=== PATIENT | male | born 1935 | race Caucasian/White ===

== ENCOUNTER 2022-03-20 10:04 | Outpatient (CLI) | payer MEDICARE, OTHER, SELFPAY | END 2022-03-20 10:05 | disposition home or self-care (01) | LOC: AMB 04-14 19:58 | PROVIDERS: PCP Family Medicine; Visit Provider Family Medicine | DX: R53.1 Weakness (principal) | CPT/HCPCS: A0998 ==

== ENCOUNTER 2022-04-02 13:04 | Outpatient (CLI) | payer MEDICARE, OTHER, SELFPAY | END 2022-04-02 13:05 | disposition home or self-care (01) | LOC: AMB 04-11 11:48 | PROVIDERS: PCP Family Medicine; Visit Provider Family Medicine | DX: M25.561 Pain in right knee (principal) | CPT/HCPCS: A0425; A0427 ==

== ENCOUNTER 2022-04-02 13:32 | Emergency (ER) | payer MEDICARE, OTHER, SELFPAY ==
[2022-04-02 13:44] VITALS: BP 120/62; PULSE 66; RESP 14; TEMP 37; O2SAT 96; BMI 28.5
--- NOTE | 2022-04-02 14:01 | CRLHL7_ITS ---
For Patients: As a result of the Cures Act, medical imaging exams and procedure reports are released immediately into your electronic medical record. You may view this report before your referring provider. If you have questions, please contact your health care provider. INDICATION: Right knee pain. COMPARISON: None. TECHNIQUE: Right knee 3 views. IMPRESSION: Hardware components of total knee arthroplasty in anatomic alignment without evidence of hardware complication. Vascular calcifications. No acute fracture. Dictated by Vernon Barclay MD @ 04/02/2022 3:04:14 PM (Electronically Signed)
--- NOTE | 2022-04-02 14:08 | ED.GENADULT ---
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 He complained of pain in his right knee area, he has had a complex repair of his right hip and femur in the past. 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 He has no swelling in that area I am able to flex extend his knee fairly fully, flex extend his hip fairly fully without difficulty he denies any other injuries he fell back and his in did not hurt his head neck back or pelvis. He and his her urine live in their own home denies chest pain, COVID symptoms, fever Related Data Allergies Allergy/AdvReac Type Severity Reaction Status Date / Time No Known Drug Allergies Allergy Verified 04/02/22 13:43 Review of Systems Status of ROS: Reports: 6 or more systems reviewed and unremarkable except as noted in History and below Exam Narrative: Exam Narrative: Objective: Vital signs unremarkable Patient is alert Pelvis is stable Able to flex extend internally externally rotate his right hip, I am able to flex extend his knee with extreme of flexion he has some discomfort distal CMS appears intact in the right lower extremity. No bruising or swelling about the right knee either proximally or distally around the knee. Distal CMS intact the right lower extremity Const: Vital Signs, click to edit/add: Vital Signs - 24 hr 04/02/22 13:44 Temperature 98.6 F Pulse Rate [Pulse Oximeter] 66 Respiratory Rate 14 Blood Pressure [Ri ght Upper Arm] 120/62 Pulse Oximetry 96 Oxygen Delivery Me thod Room Air Course Vital Signs Vital signs: Initial Vital Signs Temperature 98.6 F 04/02/22 13:44 Temperature Source Temporal Artery Scan 04/02/22 13:44 Pulse Rate 66 04/02/22 13:44 Respiratory Rate 14 04/02/22 13:44 Blood Pressure 120/62 04/02/22 13:44 Blood Pressure Mean 81 04/02/22 13:44 Pulse Oximetry 96 04/02/22 13:44 Oxygen Delivery Method 04/02/22 13:44 Vital Signs Temperature 98.6 F 04/02/22 13:44 Pulse Rate 66 04/02/22 13:44 Respiratory Rate 14 04/02/22 13:44 Blood Pressure 120/62 04/02/22 13:44 Pulse Oximetry 96 04/02/22 13:44 Oxygen Delivery Method 04/02/22 13:44 Temperature 98.6 F 04/02/22 13:44 Pulse Rate 66 04/02/22 13:44 Respiratory Rate 14 04/02/22 13:44 Blood Pressure 120/62 04/02/22 13:44 Pulse Oximetry 96 04/02/22 13:44 Oxygen Delivery Method 04/02/22 13:44 Medical Decision Making MDM Narrative Medical decision making narrative: Patient with obvious stability has had a issue with imbalance and came down on his they sat down together, so I do not think he got significantly injured, but he complained of right knee pain, fairly localized. No swelling or injury noted to the knee externally. Will check an x-ray of the knee and disposition pending findings. Addendum: The patient's x-ray by my read looks unremarkable, no joint loosening, they components of his knee replacement look intact. I think could be reasonable since Roscoe can stay in his wheelchair for most of the time that he simply do that for the next couple of days can try some Tylenol for discomfort ice the knee area and Cl things progress in next couple of days await Radiology overreading of his film. He can update his regular doctor the next couple of days as well. Discharge Plan Discharge Clinical Impression: Acute pain of right knee Patient Disposition: Home w/ Parent or Adult Condition: Stable Instructions: Knee Pain (ED) Additional Instructions: Confined to wheelchair primarily, no weight-bearing for a couple of days, update primary care at that time, ice to the knee as needed, Tylenol as needed. Activity Level: Light activity Discharge Diet: Regular Follow Up/Referrals: Chandrika Sutton MD [Primary Care Provider] - Stand Alone Forms: [employer] Info Instructions
--- NOTE | 2022-04-02 15:47 | ED.NURSE ---
PT here to assist patient to standing. PT reports patient stood well with no buckling or weakness, pain minimal. Patient and feel comfortable with plan of discharge.
== END 2022-04-02 15:53 | disposition home or self-care (01) ==
PROVIDERS: Emergency Provider Family Medicine; PCP Family Medicine
DX: M25.561 Pain in right knee (principal)
CPT/HCPCS: 73562; 97162; 97530; 99283; 99284

== ENCOUNTER 2022-06-28 12:22 | Emergency (ER) | payer MEDICARE, OTHER, SELFPAY ==
[2022-06-28] VITALS (11 sets, daily range): BP systolic 111–157; BP diastolic 70–79; PULSE 60–85; RESP 18; TEMP 36.6; O2SAT 81–96
[2022-06-28 15:11] LABS: Appearance Urine Clear (Clear); Bilirubin Urine Negative (Negative); Blood Urine Negative (Negative); Color Urine Yellow (Yellow); Glucose Urine Negative (Negative); Ketones Urine Negative (Negative); Leukocyte Esterase Urine Trace (Negative); Nitrite Urine Negative (Negative); Protein Urine Negative (Negative); Specific Gravity Urine 1.015 (1.000-1.030); Urobilinogen Urine 0.2 (0.2-1.0); pH Urine 5.5 (5.0-8.5)
[2022-06-28 15:23] LABS: RBC Urine 0-2 (0-2); WBC Urine 0-2 (0-5)
--- NOTE | 2022-06-28 17:28 | ED_ITS ---
HPI - Male Genitourinary General Chief complaint: Urogenital Problems, Male Stated complaint: Blood in urine Time Seen by Provider: 06/28/22 17:14 History of Present Illness HPI Narrative: 86-year-old man presenting to the emergency department with spouse with concern of hematuria. Is on about day 3 of antibiotics for urinary tract infection. Possible it might be Augmentin. There is another medication as well they are having trouble remembering. He has not had any fever. Has no abdominal pain. Does wear attends. Spouse noted while helping him toilet today that he had blood staining in his attends. He is not describing dysuria. Related Data Home Medications Medication Instructions Recorded Confirmed amlodipine 10 mg tablet mg 06/28/22 amoxicillin 875 mg-potassium tab 06/28/22 clavulanate 125 mg tablet donepezil 10 mg tablet mg 06/28/22 glycopyrrolate 1 mg tablet mg 06/28/22 metoprolol tartrate 25 mg tablet mg 06/28/22 montelukast 10 mg tablet mg 06/28/22 sertraline 50 mg tablet mg 06/28/22 tamsulosin 0.4 mg capsule mg PO 06/28/22 trospium 60 mg capsule,extended mg PO 06/28/22 release 24 hr Allergies Allergy/AdvReac Type Severity Reaction Status Date / Time No Known Drug Allergies Allergy Verified 04/02/22 13:43 Review of Systems Status of ROS: Reports: 6 or more systems reviewed and unremarkable except as noted in History and below Exam Narrative: Exam Narrative: Pleasant. NAD. Of good energy. Offers his head to shake. Skin is warm and dry. There is some macular papular faintly erythematous eruptions over good portion of the face/forehead. These are new according to spouse has that been observing here. He does not appear to have been scratching them. Is breathing easily otherwise. Abdomen is overweight soft and nontender though there is some fullness maybe mildly uncomfortable to palpation the suprapubic area. Genitourinary exam is without apparent blood or inflammatory changes of penis or scrotal area. There is dried blood appreciated on the old attends that Mrs. Ahmadi brings in. Fecal staining as well. These are in discrete locations. Const: Vital Signs, click to edit/add: Vital Signs - 24 hr 06/28/22 13:21 Temperature 97.9 F Pulse Rate [Right Pulse Oximeter] 60 Respiratory Rate 18 Blood Pressure [Ri ght Upper Arm] 123/70 Pulse Oximetry 93 Documenting provider has reviewed patient's vital signs: yes Course Vital Signs Vital signs: Initial Vital Signs Temperature 97.9 F 06/28/22 13:21 Temperature Source Temporal Artery Scan 06/28/22 13:21 Pulse Rate 60 06/28/22 13:21 Respiratory Rate 18 06/28/22 13:21 Blood Pressure 123/70 06/28/22 13:21 Blood Pressure Mean 87 06/28/22 13:21 Blood Pressure Position Sitting 06/28/22 13:21 Pulse Oximetry 93 06/28/22 13:21 Vital Signs Temperature 97.9 F 06/28/22 13:21 Pulse Rate 60 06/28/22 13:21 Respiratory Rate 18 06/28/22 13:21 Blood Pressure 123/70 06/28/22 13:21 Pulse Oximetry 93 06/28/22 13:21 Temperature 97.9 F 06/28/22 13:21 Pulse Rate 85 06/28/22 17:02 Respiratory Rate 18 06/28/22 13:21 Blood Pressure 111/79 06/28/22 18:33 Pulse Oximetry 81 L 06/28/22 17:15 MDM - Male Genitourinary MDM Narrative Medical decision making narrative: Is not anticoagulated. Painless. No fever. Need to continue current course for infection? Would bladder scan as well. Urinalysis with trace LE, no blood. Postvoid bladder scan 200 mL. Has close follow-up. See patient discharge plan. Lab Data Attestation: I reviewed the patient's lab results. Labs: Lab Results 06/28/22 Range/Units 14:55 Urine Color Yellow (Yellow) Urine Appearance Clear (Clear) Urine pH 5.5 (5.0-8.5) Ur Specific [place] 1.015 (1.000-1.030) Urine Protein Negative (Negative) Urine Glucose (UA) Negative (Negative) Urine Ketones Negative (Negative) Urine Blood Negative (Negative) Urine Nitrite Negative (Negative) Urine Bilirubin Negative (Negative) Urine Urobilinogen 0.2 (0.2-1.0) Ur Leukocyte Esterase Trace A (Negative) Urine RBC 0-2 (0-2) Urine WBC 0-2 (0-5) Ur Squamous Epith Cells None (None-Few) Urine Bacteria None (None) Discharge Plan Discharge Clinical Impression: Hematuria, Urinary retention, Cystitis Patient Disposition: Home w/ Parent or Adult Condition: Stable Additional Instructions: Presuming that the antibiotic you are taking is properly treating your prior diagnosed urinary tract infection. You might double check to see what the urine culture was. Regardless I do not see evidence of urinary tract infection now. With this in mind I would continue your antibiotics for maybe a 6-7 day course. It appears that you had 200 mL of urine remaining in your bladder. This is probably more than measured due to limitation of the scanner. This can be reassessed in the urology appointment you have next week. At that time I would also discuss also this episode of bleeding that you had. Prescriptions: No Action glycopyrrolate 1 mg tablet Label Comments: TAKE 1 TABLET (1 MG) BY MOUTH THREE TIMES DAILY. donepezil 10 mg tablet Label Comments: TAKE ONE TABLET BY MOUTH AT BEDTIME tamsulosin 0.4 mg capsule PO Label Comments: TAKE ONE CAPSULE BY MOUTH DAILY AFTER A MEAL amlodipine 10 mg tablet Label Comments: TAKE 1 TABLET (10 MG) BY MOUTH ONCE DAILY. montelukast 10 mg tablet Label Comments: TAKE ONE TABLET BY MOUTH EVERY DAY AT BEDTIME sertraline 50 mg tablet Label Comments: TAKE ONE TABLET (50 MG) BY MOUTH EVERY MORNING. amoxicillin-pot clavulanate 875-125 mg tablet Label Comments: TAKE 1 TABLET BY MOUTH TWO TIMES DAILY WITH MEALS FOR 10 DAYS. metoprolol tartrate 25 mg tablet Label Comments: TAKE ONE TABLET BY MOUTH TWICE A DAY trospium 60 mg capsule,extended release 24hr PO Label Comments: TAKE 1 CAPSULE (60 MG) BY MOUTH ONCE DAILY BEFORE A MEAL. Follow Up/Referrals: Chandrika Sutton MD [Primary Care Provider] - Stand Alone Forms: [employer] Info Instructions
== END 2022-06-28 18:50 | disposition home or self-care (01) ==
PROVIDERS: Emergency Provider Family Medicine; PCP Family Medicine
DX: N30.01 Acute cystitis with hematuria (principal)
CPT/HCPCS: 81001; 99283; 99284

== ENCOUNTER 2022-08-04 11:59 | Outpatient (CLI) | payer MEDICARE, OTHER, SELFPAY ==
--- OUTSIDE RECORDS SUMMARY | 2022-08-07 22:48 | XMS_ITS | Continuity of Care Document ---
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 No Information 8 Thee Parada. [address] [facility] [address], [place], [place], [id number] , [place]. tel:[phone] Family History Family Member Type Diagnosis Age At Onset No Information Payers Payer name Insurance type Covered constitution party ID Authoriza tion(s) No Information Social History Type Description Quantity Date Captured Comments Sex Male Smoking Status No Information Chief Complaint And Reason For Visit No Information Reason For Referral Reason For Referral No Information Plan Of Treatment Date Type Action Status No Information History Of Present Illness Encounter Date Complaint History Of Prese nt Illness No Information Functional Status Date Functional Assessmen t No Information Instructions Date Instruction Additional Infor mation No Information Assessments Type Assessment Date No Information Patient Care Teams Name Effective Dates (start - stop) Status Members No Information
--- OUTSIDE RECORDS SUMMARY | 2022-08-07 22:48 | XMS_ITS | Continuity of Care Document ---
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 Name Role Phone [facility] Unavailable Unava ilable Procedures Procedure Date MAJOR JOINT OR BURSA INJ WITH ULTRASOUND Pt doc no events on discharg Pt w/o preop order iv ab pro Advance Directives Directive Yes / No Effective Date File Name No Information Encounters Encounter Description Practice Location Reason(s) For Visit Diagnoses Date Provider Providers Copied on Encounter [facility], [address] [place] [address], [id number], tel:[phone] [facility] No Information [facility]. [address] [place] [address], [id number], . tel:[phone] Referring Provider: Edgard Vicente, [address] [facility] [place], [address] . tel:[phone] Family History Family Member Type Diagnosis Age At Onset No Information Payers Payer name Insurance type Covered constitution party ID Authorerika mcdonald(s) Medicare MB [id number] [employer] Supplement Plan [id number] Social History Type Description Quantity Date Captured [...]
--- OUTSIDE RECORDS SUMMARY | 2022-08-07 22:48 | XMS_ITS | Continuity of Care Document ---
Author Name Unknown Organization [email or web address] Address [address] [facility] [place] [address] Phone Care Team Providers Care Manager Dental Name Role Phone [place] Elana THOMAS Unavailable [...] Diagnoses Date Provider Providers Copied on Encounter [facility], [address], [place], [id number] , [place] tel:[phone] [facility] [place] No Information 2 Argentina Huitron. [address] [facility] [address], [place], [place], [id number] , [place]. tel:[phone] OFFICE VISIT, EST TELEMEDICINE [facility], [address], [place], [id number] , [place] tel:[phone] [facility] [place] Widespread pain (chief complaint) Pain in left wristChronic pain syndromeOther dish carrier (current) drug therapyTrochanter ic bursitis, right hipLong term (current) use of opiate analgesicPain in right wristPain in right hip 2 Senait Ritter. [address] [facility], [facility] [address], [place], [id number] , [place]. tel: [phone] [facility], [address] [facility] [place], [id number] , [place] tel: [phone] [facility] [place] No Information 2 Argentina Huitron. [address] [facility], [facility] [address] [facility] [address], [place], [id number] , [place]. tel: [phone] [facility], [address], [place], [id number] , [place] tel: [phone] [facility] [place] No Information 1 Nybarbara Elana. [address], [place], [id number] , [place]. tel: [phone] OFFICE/OUTPAT IENT VISIT, [facility], [address] [place] [address], [id number] , [place] tel: [phone] [facility] Widespread pain (chief complaint) Pain in left wristChronic pain syndromeOther shelter (current) drug therapyTrochanter ic bursitis, right hipLong term (current) use of opiate analgesicPain in right wristPain in right hipEncounter for therapeutic drug level monitoring 1 José Luis Elana. [address], [place], [id number] , [place]. tel: [phone] Referring Provider: Edgard Vicente, [address] [facility] [place], [address] . tel:[phone] OFFICE/OUTPAT IENT VISIT, EST [facility], [address] [place] [address], [id number] , [place] tel: [phone] [facility] Widespread pain (chief complaint) Chronic pain syndromeOther dish carrier (current) drug therapyTrochanter ic bursitis, right hipLow back painLong term (current) use of opiate analgesicPain in right wristPain in left wrist Jan- 1 Argentina Huitron. [address], [place], [id number] , [place]. tel: [phone] Referring Provider: Edgard Vicente, [facility] [place], [address] . tel:[phone] OFFICE/OUTPAT IENT VISIT, [facility], [address] [place], [id number] , [place] tel: [phone] [facility] Widespread pain (chief complaint) Chronic pain syndromeOther dish carrier (current) drug therapyTrochanter ic bursitis, right hipLow back painLong term (current) use of opiate analgesicPain in right hip 1 [place] Huitron. [id number] [place] [address] [address], [place], [id number] , [place]. tel: [phone] Referring Provider: Edgard Vicente, [place], [address] . tel:[phone] [facility], [address] [place], [place] [address] [place], [id number] , [place] tel: [phone] [place] [facility] [place] Trochanteric bursitis, right hip 1 Ricardo Rene. [address] [place] [address] [place], [id number] , [place]. tel: [phone] Referring Provider: Edgard Vicente, [place], [address] . tel:[phone] [facility], [address] [place] [address] [place], [id number] , [place] tel: [phone] [facility] [place] No Information 1 Argentina Huitron. [id number] [place] [address] [address], [place], [id number] , [place]. tel: [phone] Referring Provider: Edgard Vicente, [address] [place] [address] [place], [address] . tel:[phone] OFFICE/OUTPAT IENT VISIT, [facility], [address] [place], [place] [address] [place], [place], [id number] , [place] tel:[phone] [facility] [place] Widespread pain (chief complaint) Chronic pain syndromeEncounter for therapeutic drug level monitoringEncount er for screening for other disorderTrochante melisa bursitis, right hipOther shelter (current) drug therapyLow back pain 1 [place] Huitron. [address], [place], [id number] , [place]. tel:[phone] Referring Provider: Edgard Vicente, [address] [facility] [place], [address] . tel:[phone] Family History Family Member Type Diagnosis Age At Onset No Information Payers Payer name Insurance type Covered constitution party ID Kasey mcdonald(s) Medicare MB [id number] [employer] Supplement Plan [id number] Social History Type Description Quantity Date Captured Comments Sex Male Smoking Status No Information Chief Complaint And Reason For Visit No Information Reason For Referral Reason For Referral No Information Plan Of Treatment Date Type Action Status Goal ALT (SGPT). Due on due Goal Weight. Due on d ue Goal Tobacco Use. Due on 022 due Goal AST (SGOT). Due on due Goal Medication Reconciliation. D ue on due Goal PHQ-9. Due on du e Goal Height. Due on d ue Goal Update Social History. Due o n due Goal Order Annual PT. Due on due Goal Review Allergy List. Due on due Goal OARS. Due on due Goal PRODUCT MANAGER MEDICAL DEVICE Paperwork. Due on due Goal UDT. Due on due Goal PHOTOGRAPHY PROFESSOR Scanned. Due on due Goal Creatinine. Due on due Goal PRODUCT MANAGER MEDICAL DEVICE Paperwork. Due on due Goal AST (SGOT). Due on due Goal OARS. Due on due Goal Order Annual PT. Due on due Goal Medication Reconciliation. D ue on due Goal PHOTOGRAPHY PROFESSOR Scanned. Due on due Goal Height. Due on d ue Goal Creatinine. Due on due Goal PHQ-9. Due on du e Goal UDT. Due on due Goal Weight. Due on d ue Goal Update Social History. Due o n due Goal ALT (SGPT). Due on due Goal Review Allergy List. Due on due Goal Tobacco Use. Due on due Goal Tobacco Use. Due on due Goal Review Allergy List. Due on due Goal Medication Reconciliation. D ue on due Goal ALT (SGPT). Due on due Goal Creatinine. Due on due Goal Update Social History. Due o n due Goal UDT. Due on due Goal PRODUCT MANAGER MEDICAL DEVICE Paperwork. Due on due Goal OARS. Due on due Goal AST (SGOT). Due on due Goal Height. Due on d ue Goal Order Annual PT. Due on due Goal Weight. Due on d ue Goal PHQ-9. Due on du e Goal PHOTOGRAPHY PROFESSOR Scanned. Due on due Goal ALT (SGPT). Due on due Goal Creatinine. Due on due Goal Weight. Due on d ue Goal OARS. Due on due Goal Medication Reconciliation. D ue on due Goal Order Annual PT. Due on due Goal UDT. Due on due Goal Update Social History. Due o n due Goal AST (SGOT). Due on due Goal PRODUCT MANAGER MEDICAL DEVICE Paperwork. Due on due Goal Height. Due on d ue Goal Review Allergy List. Due on due Goal PHQ-9. Due on du e Goal Tobacco Use. Due on due Goal PHOTOGRAPHY PROFESSOR Scanned. Due on due Goal Creatinine. Due on due Goal UDT. Due on due Goal OARS. Due on due Goal PHOTOGRAPHY PROFESSOR Scanned. Due on due Goal AST (SGOT). Due on due Goal ALT (SGPT). Due on due Goal Order Annual PT. Due on due Goal PRODUCT MANAGER MEDICAL DEVICE Paperwork. Due on due Goal Review Allergy List. Due on due Goal Weight. Due on d ue Goal Height. Due on d ue Goal Medication Reconciliation. D ue on due Goal PHQ-9. Due on du e Goal Update Social History. Due o n due Goal Tobacco Use. Due on due Goal Update Social History. Due o n due Goal Review Allergy List. Due on due Goal Weight. Due on d ue Goal Tobacco Use. Due on due Goal PHQ-9. Due on du e Goal Height. Due on d ue Goal Medication Reconciliation. D ue on due Goal PHQ-9. Due on du e Goal Tobacco Use. Due on due Goal Update Social History. Due o n due Goal Medication Reconciliation. D ue on due Goal Weight. Due on d ue Goal Review Allergy List. Due on due Goal Height. Due on [...] History Of Prese nt Illness Widespread pain Severity level i s 4. Duration: chronic. Location of the pain is lower back, right wrist and right leg. It occurs intermittently. The problem is stable. Symptom is aggravated by sitting and prolonged positioning. Relieving factors include rest, Rx Meds and changing positions. Pertinent negatives include diarrhea, fatigue, fever and incontinence (urinary). Widespread pain (comments) Guy dewey presents for [...] other SEs.No other concerns today. Widespread pain (comments) Roscoe i s here for a followup after initial consult. Widespread pain worst in wrists, low back, and right hip persists. Reports no noticed benefit from right GT bursa injection on 11/07/20. However, GT bursa is no longer tender to the touch on PE. He consulted a hip surgeon at [facility] in [place] to evaluate hip hardware. Right leg/hip pain is likely due to a possible fracture in hip, that not seen via regular x-rays. The stem may adhere back in place, or may get worse. But the orthopedist recommended and ordered PT for strength and pain. He is completing 2 sessions/week at [facility]. Long car rides aggravate the pain.He has difficulty bearing weight on his legs, even with a walker. So he bears most of his weight on his wrists while walking. He followed up with a hand specialist at [facility] who determined his wrist joints are bone [...] pace maker implanted 5 years ago a [facility] in [place].His is present and contributed to today's OV. [...] swollen, no blood clots. Latest X-rays from [facility] do not show any fracture, but [...] does f/u with Dr. Josué Denise at [facility], next visit is scheduled for early December.Off note, hx of 2 strokes.His is present and contributed to today's OV.He is self referred.Treatment Tried:lumbar BRITTNI at [facility] 4 months ago - not [...]
== END 2022-08-04 12:00 | disposition home or self-care (01) ==
LOC: AMB 08-07 22:46
PROVIDERS: PCP Family Medicine; Visit Provider Emergency Medicine
DX: R20.0 Anesthesia of skin (principal)
CPT/HCPCS: A0425; A0429

== ENCOUNTER 2022-08-04 12:30 | Emergency (ER) | payer MEDICARE, OTHER, SELFPAY ==
[2022-08-04 12:40] VITALS: BP 109/62; PULSE 71; RESP 18; TEMP 36.2; O2SAT 96; BMI 28.5
--- NOTE | 2022-08-04 12:43 | CRLHL7_ITS ---
For Patients: As a result of the Century Cures Act, medical imaging exams and procedure reports are released immediately into your electronic medical record. You may view this report before your referring provider. If you have questions, please contact your health care provider. Indication: Weakness of the right arm, history of prior strokes Technique: Volumetric multidetector CT images of the head were obtained without the administration of low osmolar intravenous contrast. Comparison: CT head November 23, 2019 Findings: There is no intra-axial or extra-axial fluid collection. There is no mass effect or midline shift. There is marked global cortical atrophy with sulcal widening and ex vacuo dilatation of the lateral ventricles. Encephalomalacia of the right frontal lobe with lacunar changes of the basal ganglia are again, seen similar to previous exam. Otherwise, the brain parenchyma is preserved in attenuation and mgaallon-white differentiation. The orbits and their contents are grossly within normal limits. The bony calvarium is grossly intact. The paranasal sinuses are clear. There is fluid in the right mastoid air cells. The left mastoid air cells are clear. Impression: Mildly limited due to motion artifact with stable remote ischemic, chronic small vessel disease, and age related changes of the brain without evidence of new acute intracranial abnormality. Please note that all CT scans at this facility use dose modulation, iterative reconstruction, and/or weight-based dosing when appropriate to reduce radiation dose to as low as reasonably achievable. Dictated by Gamaliel Kim MD @ 08/04/2022 2:02:23 PM (Electronically Signed)
--- NOTE | 2022-08-04 13:49 | ED_ITS ---
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 He needs this to transfer, and take a little bit of weight off of her. 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 No history room history recently of fevers chills or sweats or any other weakness, no nausea no vomiting, any seems to be a little bit stronger now than he was earlier today. No history of falls or injury associated with this. Previous Watchman procedure done, his only current medication for stroke is aspirin 81 mg. Related Data Home Medications Medication Instructions Recorded Confirmed amlodipine 10 mg tablet 10 mg PO DAILY 06/28/22 08/04/22 amoxicillin 875 mg-potassium tab 06/28/22 clavulanate 125 mg tablet donepezil 10 mg tablet 10 mg PO HS 06/28/22 08/04/22 glycopyrrolate 1 mg tablet 1 mg PO Q8H 06/28/22 08/04/22 metoprolol tartrate 25 mg tablet 25 mg PO DAILY 06/28/22 08/04/22 montelukast 10 mg tablet 10 mg PO HS 06/28/22 08/04/22 sertraline 50 mg tablet 50 mg PO Q24H 06/28/22 08/04/22 tamsulosin 0.4 mg capsule 0.4 mg PO Q24H 06/28/22 08/04/22 trospium 60 mg capsule,extended 60 mg PO DAILY 06/28/22 08/04/22 release 24 hr atorvastatin 40 mg tablet 40 mg PO QPM 08/04/22 08/04/22 fluticasone propionate 50 2 spray intranasal DAILY 08/04/22 08/04/22 mcg/actuation nasal spray,suspension Previous Rx's Medication Instructions Recorded cephalexin 500 mg capsule 500 mg PO BID #10 caps 08/04/22 Allergies Allergy/AdvReac Type Severity Reaction Status Date / Time No Known Drug Allergies Allergy Verified 08/04/22 12:48 Review of Systems Status of ROS: Reports: 10 or more systems reviewed and unremarkable except as noted in History and below [facility] Social History Smoking Status: Never smoker How often do you have a drink containing alcohol: never AUDIT-C Alcohol total score: 0 Non-prescribed substance use: denies use Exam Narrative: Exam Narrative: Patient is seen in room 8 he is in no apparent distress, lying in the bed, pupils are equal round reactive to light, there is no scleral icterus redness, he tracks normally he has noted arcus senilis bilaterally in his eyes. He does have a left-sided facial droop with his tells me is chronic, his tongue protrudes, he is able to whistle actually also somewhat. TMs bilaterally are normal carotid upstrokes are equal bilaterally, chest is clear bilaterally no wheezing crackles noted his heart sounds show left regurgitant murmur to his left axilla, consistent with mitral regurg. No S3-S4 clicks murmurs or gallops. Abdomen is soft and obese there is no guarding, no trauma, no tenderness to palpation, normal male genitalia. Extremity show weakness 4+ out of 5 in his left arm, left leg, comparison to the right. Const: Vital Signs, click to edit/add: Vital Signs - 24 hr 08/04/22 12:40 08/04/22 14:31 08/04/22 15:00 Temperature 97.2 F L Pulse Rate 64 60 Pulse Rate [Right Pulse Oximeter] 71 Respiratory Rate 18 Blood Pressure Blood Pressure [Ri ght Upper Arm] 109/62 Pulse Oximetry 96 94 94 Oxygen Delivery Me thod Room Air 08/04/22 15:09 08/04/22 15:30 Temperature Pulse Rate 59 L 59 L Pulse Rate [Right Pulse Oximeter] Respiratory Rate Blood Pressure 108/49 L Blood Pressure [Ri ght Upper Arm] Pulse Oximetry 94 96 Oxygen Delivery Me thod Documenting provider has reviewed patient's vital signs: yes Course Course Hospital Course: Laboratory to return in showing no acute findings, his CT showed no acute findings, old stroke is noted. Bladder scan was done which showed greater than 400 mL, catheter was placed and he had over 700 mL out, as he was unable to pee. This did show bacteria, the odd white cell, I think enough that this probably weeks causing a UTI, which causes him overall weakness, we will give him a dose of Rocephin here, I did advocate to have admitted here, but his did not want this she says she can arrange for extra help at home, I said that if he is unable to be taking care of that she can bring him back, we will give him some outpatient Keflex, also as the most common cause here would be E coli. Patient will also have to have his catheter taken out in 2-3 days, as he does have urinary retention, this can be done at primary care, explained to . Increasing fevers chills nausea vomiting or weakness that he needs to be brought back, she was comfortable this. Vital Signs Vital signs: Initial Vital Signs Temperature 97.2 F L 08/04/22 12:40 Temperature Source Temporal Artery Scan 08/04/22 12:40 Pulse Rate 71 08/04/22 12:40 Respiratory Rate 18 08/04/22 12:40 Blood Pressure 109/62 08/04/22 12:40 Blood Pressure Mean 77 08/04/22 12:40 Blood Pressure Position Sitting 08/04/22 12:40 Pulse Oximetry 96 08/04/22 12:40 Oxygen Delivery Method Room Air 08/04/22 12:40 Vital Signs Temperature 97.2 F L 08/04/22 12:40 Pulse Rate 71 08/04/22 12:40 Respiratory Rate 18 08/04/22 12:40 Blood Pressure 109/62 08/04/22 12:40 Pulse Oximetry 96 08/04/22 12:40 Oxygen Delivery Method Room Air 08/04/22 12:40 Temperature 97.2 F L 08/04/22 12:40 Pulse Rate 59 L 08/04/22 15:30 Respiratory Rate 18 08/04/22 12:40 Blood Pressure 108/49 L 08/04/22 15:09 Pulse Oximetry 96 08/04/22 15:30 Oxygen Delivery Method Room Air 08/04/22 12:40 MDM - Weakness MDM Narrative Medical decision making narrative: Life-threatening differential diagnosis considered include stroke, coronary artery disease, pneumonia, and heart failure. Other differential diagnosis include but are not limited to electrolyte imbalances, anemia, medication reactions, and urinary tract infection Differential Diagnosis Differential diagnosis: Likely acute myocardial infarction, anemia, hypoglycemia, hypothyroidism, rhabdomyolysis, sepsis and dehydration Medical Records Attestation: I reviewed the patient's medical records. Lab Data Attestation: I reviewed the patient's lab results. Labs: Lab Results 08/04/22 08/04/22 08/04/22 Range/Units 12:33 13:20 13:50 WBC 5.62 (4.50-11.00) K/uL RBC 4.29 L (4.30-5.90) m/uL Hgb 13.9 (13.5-17.5) gm/dL Hct 41.3 (37.0-53.0) % MCV 96 (80-100) fL MCH 32 (26-34) pg MCHC 34 (32-36) gm/dL RDW Coeff of Aiden 11.6 (11.5-15.5) % Plt Count 145 (140-440) K/uL Neut % (Auto) 73.3 H (42.0-72.0) % Lymph % (Auto) 14.4 L (20-44) % [place] % (Auto) 10.3 (0.0-11.0) % Eos % (Auto) 1.6 (0.0-7.0) % Baso % (Auto) 0.2 (0.0-3.0) % Neut # (Auto) 4.10 (1.7-7.0) K/uL Lymph # (Auto) 0.80 L (0.90-2.90) K/uL [place] # (Auto) 0.60 (0.00-0.90) K/UL Eos # (Auto) 0.09 (0.00-0.50) K/uL Baso # (Auto) 0.01 (0.00-0.30) K/uL Sodium 141 (135-149) mmol/L Potassium 4.7 (3.6-5.1) mmol/L Chloride 107 (96-114) mmol/L Carbon Dioxide 26 (20-32) mmol/L BUN 25 (7-30) mg/dL Creatinine 1.0 (0.5-1.5) mg/dL Estimated Creat Clear 60.36 Estimated GFR 74 ml/min Glucose 96 (60-115) mg/dL Lactate 1.0 (0.5-1.9) mmol/L Calcium 8.6 (8.4-10.6) mg/dL Urine Color (Yellow) Urine Appearance (Clear) Urine pH (5.0-8.5) Ur Specific [place] (1.000-1.030) Urine Protein (Negative) Urine Glucose (UA) (Negative) Urine Ketones (Negative) Urine Blood (Negative) Urine Nitrite (Negative) Urine Bilirubin (Negative) Urine Urobilinogen (0.2-1.0) Ur Leukocyte Esterase (Negative) Urine RBC (0-2) Urine WBC (0-5) Ur Squamous Epith Cells (None-Few) Urine Bacteria (None) Ethyl Alcohol Cancelled SARS-CoV-2 (PCR) Negative SARS-CoV-2 (Negative) Influenza Type A (PCR) Negative PCR FLU A (Negative) Influenza Type B (PCR) Negative PCR FLU B (Negative) RSV (PCR) Negative PCR RSV (Negative) POC Troponin I (0.01-0.04) ng/ml 08/04/22 08/04/22 Range/Units 13:50 15:48 WBC (4.50-11.00) K/uL RBC (4.30-5.90) m/uL Hgb (13.5-17.5) gm/dL Hct (37.0-53.0) % MCV (80-100) fL MCH (26-34) pg MCHC (32-36) gm/dL RDW Coeff of Aiden (11.5-15.5) % Plt Count (140-440) K/uL Neut % (Auto) (42.0-72.0) % Lymph % (Auto) (20-44) % [place] % (Auto) (0.0-11.0) % Eos % (Auto) (0.0-7.0) % Baso % (Auto) (0.0-3.0) % Neut # (Auto) (1.7-7.0) K/uL Lymph # (Auto) (0.90-2.90) K/uL [place] # (Auto) (0.00-0.90) K/UL Eos # (Auto) (0.00-0.50) K/uL Baso # (Auto) (0.00-0.30) K/uL Sodium (135-149) mmol/L Potassium (3.6-5.1) mmol/L Chloride (96-114) mmol/L Carbon Dioxide (20-32) mmol/L BUN (7-30) mg/dL Creatinine (0.5-1.5) mg/dL Estimated Creat Clear Estimated GFR ml/min Glucose (60-115) mg/dL Lactate (0.5-1.9) mmol/L Calcium (8.4-10.6) mg/dL Urine Color Yellow (Yellow) Urine Appearance Clear (Clear) Urine pH 5.5 (5.0-8.5) Ur Specific [place] 1.025 (1.000-1.030) Urine Protein Negative (Negative) Urine Glucose (UA) Negative (Negative) Urine Ketones Negative (Negative) Urine Blood Negative (Negative) Urine Nitrite Negative (Negative) Urine Bilirubin Negative (Negative) Urine Urobilinogen 0.2 (0.2-1.0) Ur Leukocyte Esterase Negative (Negative) Urine RBC 0-2 (0-2) Urine WBC 2-5 (0-5) Ur Squamous Epith Cells None (None-Few) Urine Bacteria Moderate A (None) Ethyl Alcohol < 0.01 L SARS-CoV-2 (PCR) (Negative) Influenza Type A (PCR) (Negative) Influenza Type B (PCR) (Negative) RSV (PCR) (Negative) POC Troponin I 0.00 L (0.01-0.04) ng/ml Imaging Data CT scan - head: Attestation: I have reviewed the pertinent imaging results. 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 Radiologist's impression: Patient: YONATAN MURPHY Facility:?[facility] Patient ID:?[id number] Site Patient ID:?[id number]. Site :?[id number] Study:?CT Head w/o Contrast-08/04/2022 1:17:28 PM Ordering Physician:Pari Marrero Final Report: Indication: Weakness of the right arm, history of prior strokes Technique: Volumetric multidetector CT images of the head were obtained without the administration of low osmolar intravenous contrast. Comparison: CT head November 23, 2019 Findings: There is no intra-axial or extra-axial fluid collection. There is no mass effect or midline shift. There is marked global cortical atrophy with sulcal widening and ex vacuo dilatation of the lateral ventricles. Encephalomalacia of the right frontal lobe with lacunar changes of the basal ganglia are again, seen similar to previous exam. Otherwise, the brain parenchyma is preserved in attenuation and magallon-white differentiation. The orbits and their contents are grossly within normal limits. The bony calvarium is grossly intact. The paranasal sinuses are clear. There is fluid in the right mastoid air cells. The left mastoid air cells are clear. Impression: Mildly limited due to motion artifact with stable remote ischemic, chronic small vessel disease, and age related changes of the brain without evidence of new acute intracranial abnormality. Please note that all CT scans at this facility use dose modulation, iterative reconstruction, and/or weight-based dosing when appropriate to reduce radiation dose to as low as reasonably achievable. Dictated by Gamaliel Kim MD @ 08/04/2022 2:02:23 PM (Electronic Signature) Discharge Plan Discharge Clinical Impression: Weakness, Acute UTI, History of right MCA stroke, Acute urinary retention Patient Disposition: Home w/ Parent or Adult Condition: Stable Instructions: Urinary Tract Infection in Men (ED), Ramirez Catheter Placement and Care (ED), Weakness (ED), Ramirez Catheter Removal (DC), How to Change a Catheter Drainage Bag (DC) Additional Instructions: Home rest please leave catheter in until follow-up appointment with her primary care physician this should come out in the next 2-4 days. There is an element of retention here, and I am worried if we take the catheter out he just will not be able to pee. Antibiotics will start working immediately with the IV version, and then fill the prescription for the remainder that can be done tomorrow for the next 4 days. Return here if increasing weakness, fevers chills, severe diarrhea, nausea vomiting or other issues. If you feel after that you cannot get him up and around, and that the help that you have arranged is not going to be enough, he may need to be admitted. Follow up appointment is scheduled at the [facility] on 08/08 with an 11:10 arrival time. If you have any questions or need to reschedule, please call [phone]. [address] [place] [address] [place] [address] Prescriptions: New cephalexin 500 mg capsule 500 mg PO BID Qty: 10 0RF No Action glycopyrrolate 1 mg tablet 1 mg PO Q8H Patient Comments: TAKE 1 TABLET (1 MG) BY MOUTH THREE TIMES DAILY. donepezil 10 mg tablet 10 mg PO HS Patient Comments: TAKE ONE TABLET BY MOUTH AT BEDTIME tamsulosin 0.4 mg capsule 0.4 mg PO Q24H Patient Comments: TAKE ONE CAPSULE BY MOUTH DAILY AFTER A MEAL amlodipine 10 mg tablet 10 mg PO DAILY Patient Comments: TAKE 1 TABLET (10 MG) BY MOUTH ONCE DAILY. montelukast 10 mg tablet 10 mg PO HS Patient Comments: TAKE ONE TABLET BY MOUTH EVERY DAY AT BEDTIME sertraline 50 mg tablet 50 mg PO Q24H Patient Comments: TAKE ONE TABLET (50 MG) BY MOUTH EVERY MORNING. amoxicillin-pot clavulanate 875-125 mg tablet Patient Comments: TAKE 1 TABLET BY MOUTH TWO TIMES DAILY WITH MEALS FOR 10 DAYS. metoprolol tartrate 25 mg tablet 25 mg PO DAILY Patient Comments: TAKE ONE TABLET BY MOUTH TWICE A DAY trospium 60 mg capsule,extended release 24hr 60 mg PO DAILY Patient Comments: TAKE 1 CAPSULE (60 MG) BY MOUTH ONCE DAILY BEFORE A MEAL. atorvastatin 40 mg tablet 40 mg PO QPM fluticasone propionate 50 mcg/actuation spray,suspension 2 spray INTRANASAL DAILY Follow Up/Referrals: Chandrika Sutton MD [Primary Care Provider] - Stand Alone Forms: [facility] Info Instructions
[2022-08-04 13:59] LABS: Basophils Absolute Auto 0.01 K/uL (0.00-0.30); Basophils Percent Auto 0.2 % (0.0-3.0); Eosinophils Absolute Auto 0.09 K/uL (0.00-0.50); Eosinophils Percent Auto 1.6 % (0.0-7.0); Hematocrit 41.3 % (37.0-53.0); Hemoglobin* 13.9 gm/dL (13.5-17.5); Immature Granulocytes Abs Auto 0.01 K/uL (0.00-0.30); Immature Granulocytes Pct Auto 0.2 %; Lymphocytes Percent Auto 14.4 % (20-44); Mean Corpuscular HGB Conc 34 gm/dL (32-36); Mean Corpuscular Hemoglobin 32 pg (26-34); Mean Corpuscular Volume 96 fL (80-100); Monocytes Percent Auto 10.3 % (0.0-11.0); Neutrophils Percent Auto 73.3 % (42.0-72.0); Platelet Count* 145 K/uL (140-440); RDW Coefficient of Variation % 11.6 % (11.5-15.5); Red Blood Count 4.29 m/uL (4.30-5.90); White Blood Count* 5.62 K/uL (4.50-11.00)
[2022-08-04 14:00] LABS: Slide Review Reflex No
[2022-08-04 14:12] LABS: Chloride* 107 mmol/L (96-114); Potassium* 4.7 mmol/L (3.6-5.1); Sodium* 141 mmol/L (135-149)
[2022-08-04 14:14] LABS: Est. Creatinine Clearance* 60.36; Estimated Glomerular Filt Rate 74 ml/min
[2022-08-04 14:15] LABS: Blood Urea Nitrogen* 25 mg/dL (7-30); Calcium* 8.6 mg/dL (8.4-10.6); Carbon Dioxide* 26 mmol/L (20-32); Glucose* 96 mg/dL (60-115)
[2022-08-04 14:17] LABS: Ethanol* < 0.01 % (0.01-0.03)
[2022-08-04 14:21] LABS: PCR FLU A Negative PCR FLU A (Negative); PCR FLU B Negative PCR FLU B (Negative); PCR RSV Negative PCR RSV (Negative)
[2022-08-04 14:23] LABS: SARS PCR* Negative SARS-CoV-2 (Negative)
[2022-08-04 14:31] VITALS: PULSE 64; O2SAT 94
[2022-08-04 15:00] VITALS: PULSE 60; O2SAT 94
[2022-08-04 15:09] VITALS: BP 108/49; PULSE 59; O2SAT 94
[2022-08-04 15:30] VITALS: PULSE 59; O2SAT 96
--- NOTE | 2022-08-04 15:54 | ED.NURSE ---
16FR brennan placed, 450cc immediate return. sample sent to lab.
[2022-08-04 15:55] LABS: Appearance Urine Clear (Clear); Bilirubin Urine Negative (Negative); Blood Urine Negative (Negative); Color Urine Yellow (Yellow); Glucose Urine Negative (Negative); Ketones Urine Negative (Negative); Leukocyte Esterase Urine Negative (Negative); Nitrite Urine Negative (Negative); Protein Urine Negative (Negative); Specific Gravity Urine 1.025 (1.000-1.030); Urobilinogen Urine 0.2 (0.2-1.0); pH Urine 5.5 (5.0-8.5)
[2022-08-04 16:00] VITALS: PULSE 60; O2SAT 96
[2022-08-04 16:04] LABS: Bacteria Urine Moderate; RBC Urine 0-2 (0-2)
[2022-08-04] MEDS: cefTRIAXone 1 GM in 0.9 % SODIUM CHLORIDE Mini-bag 100 ML IVPB (16:20)
--- NOTE | 2022-08-04 17:09 | ED.NURSE ---
cath teaching done with pt's . wants pt to go home. she will drive him home as long as we get him into car. pt's son will be at their house to get pt into house.
== END 2022-08-04 17:14 | disposition home or self-care (01) ==
PROVIDERS: Emergency Provider Family Medicine; PCP Family Medicine
DX: N39.0 Urinary tract infection, site not specified (principal)
CPT/HCPCS: 36415; 51702; 70450; 80048; 81001; 82077; 83605; 84484; 85025; 87086; 87186; 87502; 87634; 87635; 93005; 96365; 99284; J0696

== ENCOUNTER 2022-11-23 17:18 | Outpatient (CLI) | payer MEDICARE, OTHER, SELFPAY | END 2022-11-23 17:19 | disposition home or self-care (01) | LOC: AMB 11-24 10:27 | PROVIDERS: PCP Family Medicine; Visit Provider Student in an Organized Health Care Education/Training Program | DX: R53.1 Weakness (principal) | CPT/HCPCS: A0998 ==

== ENCOUNTER 2022-11-27 09:48 | Outpatient (CLI) | payer MEDICARE, OTHER, SELFPAY ==
--- OUTSIDE RECORDS SUMMARY | 2022-11-28 16:05 | XMS_ITS | Continuity of Care Document ---
Author Name Unknown Organization [facility] enter Address [address] [place] [id number] Phone Care Team Providers Care Lay Midwife Name Role Phone [facility] Unavailable Unava ilable Procedures Procedure Date MAJOR JOINT OR BURSA INJ WITH ULTRASOUND Pt doc no events on discharg Pt w/o preop order iv ab pro Advance Directives Directive Yes / No Effective Date File Name No Information Encounters Encounter Description Practice Location Reason(s) For Visit Diagnoses Date Provider Providers Copied on Encounter [facility], [address] [place] [address], [id number], tel:[phone] [facility] No Information [facility]. [address] [place] [address], [id number], . tel:[phone] Referring Provider: Edgard Vicente, [address] [facility] [place], [address] . tel:[phone] Family History Family Member Type Diagnosis Age At Onset No Information Payers Payer name Insurance type Covered alliance party ID Authorerika mcdonald(s) Medicare MB [id number] [employer] Supplement Plan CI [id number] Social History Type Description Quantity Date Captured [...]
--- OUTSIDE RECORDS SUMMARY | 2022-11-28 16:05 | XMS_ITS | Continuity of Care Document ---
Author Name Unknown Organization [facility] Address [address] [address] [place] [address] Phone Care Team Providers Care Information Clerk Name Role Phone Tal Kingston MD Unavailable Unavailable Advance Directives Directive Yes / No Effective Date File Name No Information Encounters Encounter Description Practice Location Reason(s) For Visit Diagnoses Date Provider Providers Copied on Encounter [facility], [address] [address], [place], [place], [id number], [place] tel:[phone] [facility] No Information 8 Thee Parada. [address] [facility], [facility] [address], [place], [place], [id number] , [place]. tel:[phone] Family History Family Member Type Diagnosis Age [...]
--- OUTSIDE RECORDS SUMMARY | 2022-11-28 16:05 | XMS_ITS | Continuity of Care Document ---
Author Name Unknown Organization [facility] Address [address] [place] [address] Phone Care Team Providers Care Power Saw Operator Name Role Phone Babatunde DAVIES, Kenny Unavailable Unavailab le Allergies, Adverse Reactions, Alerts Substance Reaction Status Criticality No Known allergies Procedures Procedure Date Office/Outpatient Visit,[facility] 2013 Advance Directives Directive Yes / No Effective Date File Name No Information Encounters Encounter Description Practice Location Reason(s) For Visit Diagnoses Date Provider Providers Copied on Encounter [facility], [address] [place] [address], [id number], [place] tel:[phone] [employer] No Information 4 Babatunde baum. [facility], [address], [address], [id number] , [place]. tel:[phone] Office/Outpat ient Visit,[facility], [address] [place], [place] [address] [place] [address], [address], [place] tel:[phone] [employer] [address]UMBAGO [address] [facility] [place], [address], [place], [id number] , [place]. tel:[phone] Referring Provider: Alireza Lundy, [facility] [address], [address]. tel:[phone] Family History Family Member Type Diagnosis Age At Onset No Information Payers Payer name Insurance type Covered alliance party ID Kasey mcdonald(s) [employer] Medicare CI [id number] Social History Type Description Quantity Date Captured [...]
--- OUTSIDE RECORDS SUMMARY | 2022-11-28 16:05 | XMS_ITS | Continuity of Care Document ---
Author Name Unknown Organization [facility] Address [address] [place] [address] Phone Care Team Providers Care Real Estate Management Specialist Name Role Phone [place] Elana THOMAS Unavailable [...] Diagnoses Date Provider Providers Copied on Encounter [facility], [address] [place], [place], [id number] , [place] tel:[phone] [facility] [place] No Information 2 Argentina Huitrno. [address] [facility] [address], [place], [place], [id number] , [place]. tel:[phone] OFFICE VISIT, EST TELEMEDICINE [facility], [address] [place], [place], [id number] , [place] tel:[phone] [facility] [place] Widespread pain (chief complaint) Pain in left wristChronic pain syndromeOther petroleum terminal plant operator (current) drug therapyTrochanter ic bursitis, right hipLong term (current) use of opiate analgesicPain in right wristPain in right hip 2 Senait Ritter. [address] [facility] [address], [place], [id number] , [place]. tel: [phone] [facility], [address] [facility] [address] [place], [id number] , [place] tel: [phone] [facility] [place] No Information 2 Argentina Huitron. [address] [facility] [address] [facility] [address], [place], [id number] , [place]. tel: [phone] [facility], [address] [place], [place], [id number] , [place] tel: [phone] [facility] [place] No Information 1 Nybarbara Elana. [address], [place], [id number] , [place]. tel: [phone] OFFICE/OUTPAT IENT VISIT, [facility], [address] [place] [address], [id number] , [place] tel: [phone] [facility] Widespread pain (chief complaint) Pain in left wristChronic pain syndromeOther group home (current) drug therapyTrochanter ic bursitis, right hipLong term (current) use of opiate analgesicPain in right wristPain in right hipEncounter for therapeutic drug level monitoring 1 José Luis Elana. [address], [place], [id number] , [place]. tel: [phone] Referring Provider: Edgard Vicente, [address] [facility] [place], [address] . tel:[phone] OFFICE/OUTPAT IENT VISIT, EST [facility], [address] [place] [address], [id number] , [place] tel: [phone] [facility] Widespread pain (chief complaint) Chronic pain syndromeOther petroleum terminal plant operator (current) drug therapyTrochanter ic bursitis, right hipLow back painLong term (current) use of opiate analgesicPain in right wristPain in left wrist Jan- 1 Argentina Huitron. [address], [place], [id number] , [place]. tel: [phone] Referring Provider: Edgard Vicente, [facility] [place], [address] . tel:[phone] OFFICE/OUTPAT IENT VISIT, [facility], [facility] [place], [id number] , [place] tel: [phone] [facility] Widespread pain (chief complaint) Chronic pain syndromeOther petroleum terminal plant operator (current) drug therapyTrochanter ic bursitis, right hipLow back painLong term (current) use of opiate analgesicPain in right hip 1 [place] Huitron. [address] [place] [address] [address], [place], [id number] , [place]. tel: [phone] Referring Provider: Edgard Vicente, [place], [address] . tel:[phone] [facility], [address] [place], [place] [address] [place], [id number] , [place] tel: [phone] [facility] [place] Trochanteric bursitis, right hip 1 Ricardo Rene. [address] [place] [address] [place], [id number] , [place]. tel: [phone] Referring Provider: Edgard Vicente, [place], [address] . tel:[phone] [facility], [address] [place] [address] [place], [id number] , [place] tel: [phone] [facility] [place] No Information 1 Argentina Huitron. [address] [place] [address] [address], [place], [id number] , [place]. tel: [phone] Referring Provider: Edgard Vicente, [address] [place] [address] [place], [address] . tel:[phone] OFFICE/OUTPAT IENT VISIT, [facility], [address] [place], [place] [address] [place], [id number] , [place] tel:[phone] [facility] [place] Widespread pain (chief complaint) Chronic pain syndromeEncounter for therapeutic drug level monitoringEncount er for screening for other disorderTrochante melisa bursitis, right hipOther group home (current) drug therapyLow back pain 1 Argentina Huitron. [address], [place], [id number] , [place]. tel:[phone] Referring Provider: Edgard Vicente, [address] [facility] [place], [address] . tel:[phone] Family History Family Member Type Diagnosis Age At Onset No Information Payers Payer name Insurance type Covered democrat ID Kasey mcdonald(s) Medicare MB [id number] [employer] Supplement Plan [id number] Social History Type Description Quantity Date Captured Comments Sex Male Smoking Status No Information Chief Complaint And Reason For Visit No Information Reason For Referral Reason For Referral No Information Plan Of Treatment Date Type Action Status Goal SCANNER OPERATOR Paperwork. Due on due Goal Creatinine. Due on due Goal UDT. Due on due Goal OARS. Due on due Goal MULTIPLE DRUM SANDER HELPER Scanned. Due on due Goal AST (SGOT). [...] due Goal OARS. Due on due Goal MULTIPLE DRUM SANDER HELPER Scanned. Due on due Goal AST (SGOT). Due on due Goal ALT (SGPT). Due on due Goal Order Annual PT. Due on due Goal SCANNER OPERATOR Paperwork. Due on due Goal Review [...] due Goal OARS. Due on due Goal MULTIPLE DRUM SANDER HELPER Scanned. Due on due Goal AST (SGOT). Due on due Goal ALT (SGPT). Due on due Goal Order Annual PT. Due on due Goal SCANNER OPERATOR Paperwork. Due on due Goal Review [...] due Goal OARS. Due on due Goal MULTIPLE DRUM SANDER HELPER Scanned. Due on due Goal AST (SGOT). Due on due Goal ALT (SGPT). Due on due Goal Order Annual PT. Due on due Goal SCANNER OPERATOR Paperwork. Due on due Goal Review [...] due Goal OARS. Due on due Goal MULTIPLE DRUM SANDER HELPER Scanned. Due on due Goal AST (SGOT). Due on due Goal ALT (SGPT). Due on due Goal Order Annual PT. Due on due Goal SCANNER OPERATOR Paperwork. Due on due Goal Review [...] care. No other concerns today. Widespread pain (comments) [...] PE. He consulted a hip surgeon at [facility] in [place] to evaluate hip hardware. Right leg/hip pain is likely due to a possible fracture in hip, that not seen via regular x-rays. The stem may adhere back in place, or may get worse. But the orthopedist recommended and ordered PT for strength and pain. He is completing 2 sessions/week at [facility]. Long car rides aggravate the pain.He has difficulty bearing weight on his legs, even with a walker. So he bears most of his weight on his wrists while walking. He followed up with a hand specialist at [facility] who determined his wrist joints are [...] implanted 5 years ago a [facility] in [place].His is present and contributed to today's OV. [...] blood clots. Latest X-rays from [facility] do not show any fracture, but pain [...] does f/u with Dr. Josué Denise at [facility], next visit is scheduled for early December.Off note, hx of 2 strokes.His is present and contributed to today's OV.He is self referred.Treatment Tried:lumbar BRITTNI at [facility] 4 months ago - not helpful.6extra [...]
== END 2022-11-27 09:49 | disposition home or self-care (01) ==
LOC: AMB 11-28 16:03
PROVIDERS: PCP Family Medicine; Visit Provider Internal Medicine
DX: M62.81 Muscle weakness (generalized) (principal)
CPT/HCPCS: A0425; A0429

== ENCOUNTER 2022-11-27 10:06 | Inpatient (IN) | payer MEDICARE, OTHER, SELFPAY ==
[2022-11-27] VITALS (19 sets, daily range): BP systolic 109–135; BP diastolic 58–82; PULSE 57–70; RESP 12–20; TEMP 36.2–36.8; O2SAT 92–99; BMI 29.2; BMI 28.0
--- NOTE | 2022-11-27 | CRLHL7_ITS ---
For Patients: As a result of the Century Cures Act, medical imaging exams and procedure reports are released immediately into your electronic medical record. You may view this report before your referring provider. If you have questions, please contact your health care provider. INDICATION: Stroke TECHNIQUE: CT head without contrast. COMPARISON: Head CT 11/23/2019 FINDINGS: CSF spaces: Within normal limits for age. Brain parenchyma: Old right parietal infarct at the vertex with associated encephalomalacia and adjacent low-density in the deep white matter. Diffuse cerebral atrophy. Separate low-density throughout with the deep white matter with old lacunar infarcts within the thalamus. Skull base and calvarium: Small right mastoid fluid. Atherosclerosis mucous retention cysts within the paranasal sinuses. Bilateral scleral banding. No skull fractures. IMPRESSION: 1. No intracranial bleed or mass effect. 2. 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 3. Cerebral atrophy with nonspecific white matter disease, likely microangiopathy. Results discussed with Dr. Gifford at 1037 on 11/27/2022 Please note that all CT scans at this facility use dose modulation, iterative reconstruction, and/or weight-based dosing when appropriate to reduce radiation dose to as low as reasonably achievable. Dictated by Monroe Grewal MD @ 11/27/2022 10:38:40 AM (Electronically Signed)
--- NOTE | 2022-11-27 10:13 | CRLHL7_ITS ---
For Patients: As a result of the Century Cures Act, medical imaging exams and procedure reports are released immediately into your electronic medical record. You may view this report before your referring provider. If you have questions, please contact your health care provider. INDICATION: Acute stroke. TECHNIQUE: CTA neck with contrast bolus tracking, 3D angiographic rendering using maximum intensity projection (MIP) and images permanently archived. FINDINGS: There is carotid atherosclerosis bilaterally. There is a mild left ICA origin stenosis, less than 50% by NASCET. There is no significant right carotid artery stenosis or dissection. There is no significant vertebral artery stenosis or dissection. The soft tissues of the neck are within normal limits. The cervical spine is in normal alignment. Degenerative changes are noted in the cervical spine. IMPRESSION: Carotid atherosclerosis with mild stenosis of the left ICA origin, less than 50% by NASCET. Please note that all CT scans at this facility use dose modulation, iterative reconstruction, and/or weight-based dosing when appropriate to reduce radiation dose to as low as reasonably achievable. Dictated by Alec Lamar MD @ 11/27/2022 4:49:07 PM (Electronically Signed)
--- NOTE | 2022-11-27 10:13 | CRLHL7_ITS ---
For Patients: As a result of the Century Cures Act, medical imaging exams and procedure reports are released immediately into your electronic medical record. You may view this report before your referring provider. If you have questions, please contact your health care provider. INDICATION: Acute stroke. TECHNIQUE: CTA head with contrast bolus tracking, 3D angiographic rendering using maximum intensity projection (MIP) and images permanently archived. FINDINGS: There is scattered intracranial atherosclerotic disease. There is otherwise normal opacification of the intracranial vasculature. There is no large vessel occlusion. No aneurysm is identified. IMPRESSION: No large vessel occlusion. 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 Mild narrowing left distal A3 segment ELISABETH. Please note that all CT scans at this facility use dose modulation, iterative reconstruction, and/or weight-based dosing when appropriate to reduce radiation dose to as low as reasonably achievable. Dictated by Alec Lamar MD @ 11/27/2022 4:46:03 PM (Electronically Signed)
[2022-11-27 10:36] LABS: Eosinophils Percent Auto 1.8 % (0.0-7.0); Hematocrit 40.2 % (37.0-53.0); Hemoglobin* 13.4 gm/dL (13.5-17.5); Lymphocytes Percent Auto 13.3 % (20-44); Mean Corpuscular HGB Conc 33 gm/dL (32-36); Mean Corpuscular Hemoglobin 33 pg (26-34); Mean Corpuscular Volume 98 fL (80-100); Neutrophils Percent Auto 74.7 % (42.0-72.0); Platelet Count* 167 K/uL (140-440); RDW Coefficient of Variation % 11.8 % (11.5-15.5); Red Blood Count 4.12 m/uL (4.30-5.90); White Blood Count* 6.23 K/uL (4.50-11.00)
[2022-11-27 10:37] LABS: Eosinophils Absolute Auto 0.11 K/uL (0.00-0.50); Immature Granulocytes Abs Auto 0.01 K/uL (0.00-0.30); Immature Granulocytes Pct Auto 0.2 %
[2022-11-27 10:41] LABS: Slide Review Reflex No
[2022-11-27 10:49] LABS: Chloride* 107 mmol/L (96-114); Sodium* 141 mmol/L (135-149)
[2022-11-27 10:50] LABS: Potassium* 3.7 mmol/L (3.6-5.1)
[2022-11-27 10:52] LABS: Blood Urea Nitrogen* 23 mg/dL (7-30); Carbon Dioxide* 26 mmol/L (20-32); Est. Creatinine Clearance* 59.28; Estimated Glomerular Filt Rate 74 ml/min
[2022-11-27 10:53] LABS: Calcium* 8.4 mg/dL (8.4-10.6); Glucose* 135 mg/dL (60-115)
[2022-11-27 10:54] LABS: INR 1.12 (0.91-1.10); Partial Thromboplastin Time* 36 Seconds (23-33); Prothrombin Time 15.1 Seconds
--- NOTE | 2022-11-27 10:58 | ED_ITS ---
HPI - Neuro Symptoms/Deficit General Chief Complaint: Neuro Symptoms/Altered Deficit Stated Complaint: CVA Time Seen by Provider: 11/27/22 10:16 History of Present Illness HPI Narrative: Patient is 87-year-old gentleman who lives with his but who has assistance with care who awoke this morning feeling relatively well. As his care system began working more closely with him it was apparent the patient was weaker than normal with significant hemiparesis/weakness in the left arm and leg. Patient had no seizure activity. Upon arrival in the emergency room last known well was felt to be 90 minutes ago however with further questioning last known well was more accurately last night. Patient has had 2 previous cerebrovascular accidents. Patient has had a Watchman procedure for his atrial fibrillation. Patient takes aspirin 81 mg daily. He has a pacemaker. We were notified that the patient was going to arrive and did call a stroke code. Patient proceeded immediately to the CT scanner and immediate consultation was obtained with stroke Neurology. Short neurology agrees that last known well was likely yesterday. He does agree that the left arm and leg weakness are new. It is felt that the patient is not a tPA candidate. It is unclear whether the patient can have an MRI due to the pacemaker. Stroke Neurology recommended admission for further evaluation repeat CT in the a.m. verses MRI. Patient is not able to answer any pertinent questions although as a previous patient of mine he is able to tease me. Related Data Home Medications Medication Instructions Recorded Confirmed amlodipine 10 mg tablet 10 mg PO DAILY 06/28/22 08/04/22 amoxicillin 875 mg-potassium tab 06/28/22 clavulanate 125 mg tablet donepezil 10 mg tablet 10 mg PO HS 06/28/22 08/04/22 glycopyrrolate 1 mg tablet 1 mg PO Q8H 06/28/22 08/04/22 metoprolol tartrate 25 mg tablet 25 mg PO DAILY 06/28/22 08/04/22 montelukast 10 mg tablet 10 mg PO HS 06/28/22 08/04/22 sertraline 50 mg tablet 50 mg PO Q24H 06/28/22 08/04/22 tamsulosin 0.4 mg capsule 0.4 mg PO Q24H 06/28/22 08/04/22 trospium 60 mg capsule,extended 60 mg PO DAILY 06/28/22 08/04/22 release 24 hr atorvastatin 40 mg tablet 40 mg PO QPM 08/04/22 08/04/22 fluticasone propionate 50 2 spray intranasal DAILY 08/04/22 08/04/22 mcg/actuation nasal spray,suspension Previous Rx's Medication Instructions Recorded cephalexin 500 mg capsule 500 mg PO BID #10 caps 08/04/22 Allergies Allergy/AdvReac Type Severity Reaction Status Date / Time No Known Drug Allergies Allergy Verified 11/27/22 10:38 Review of Systems Status of ROS: Reports: 10 or more systems reviewed and unremarkable except as noted in History and below [facility] Medical History (Updated 11/27/22 @ 11:05 by Alireza Lundy MD) Atrial fibrillation ?I48.91 - Unspecified atrial fibrillation (ICD-10) Presence of Watchman left atrial appendage closure device ?Z95.818 - Presence of other cardiac implants and grafts (ICD-10) Hypertension ?I10 - Essential (primary) hypertension (ICD-10) CVA (cerebral vascular accident) ?I63.9 - Cerebral infarction, unspecified (ICD-10) Social History Smoking Status: Never smoker How often do you have a drink containing alcohol: never AUDIT-C Alcohol total score: 0 Non-prescribed substance use: denies use Exam Narrative: Exam Narrative: EXAM GENERAL: Patient appears comfortable and well. Somewhat confused EYES: No scleral icterus. THYROID: no thyroid nodules or thyromegaly. LYMPH: No supraclavicular or cervical lymphadenopathy. SKIN: Visible skin seen during exam normal or with benign process only. EXT: No dependent lower extremity pedal edema. HEART: Irregularly irregular distant heart tones LUNGS: Clear to auscultation bilaterally with no crackles or wheezes. ABD: Soft, non tender, non distended. PSYCH: Good eye contact, speech is not pressured. Neurologic slight drooping of the right side of his smile as well as 1/5 strength in the left upper and left lower extremity. Const: Vital Signs, click to edit/add: Vital Signs - 24 hr 11/27/22 10:26 Temperature 97.4 F L Pulse Rate [Right Pulse Oximeter] 70 Respiratory Rate 20 Blood Pressure [Ri ght Upper Arm] 119/65 Pulse Oximetry 95 Oxygen Delivery Me thod Room Air Course Course Hospital Course: Patient seen examined under the care of a stroke code with the assistance of Neurology at [facility]. Vital Signs Vital signs: Initial Vital Signs Temperature 97.4 F L 11/27/22 10:26 Temperature Source Temporal Artery Scan 11/27/22 10:26 Pulse Rate 70 11/27/22 10:26 Respiratory Rate 20 11/27/22 10:26 Blood Pressure 119/65 11/27/22 10:26 Blood Pressure Mean 83 11/27/22 10:26 Blood Pressure Position Semi-Fowlers 11/27/22 10:26 Pulse Oximetry 95 11/27/22 10:26 Oxygen Delivery Method Room Air 11/27/22 10:26 Vital Signs Temperature 97.4 F L 11/27/22 10:26 Pulse Rate 70 11/27/22 10:26 Respiratory Rate 20 11/27/22 10:26 Blood Pressure 119/65 11/27/22 10:26 Pulse Oximetry 95 11/27/22 10:26 Oxygen Delivery Method Room Air 11/27/22 10:26 Temperature 97.4 F L 11/27/22 10:26 Pulse Rate 70 11/27/22 10:26 Respiratory Rate 20 11/27/22 10:26 Blood Pressure 119/65 11/27/22 10:26 Pulse Oximetry 95 11/27/22 10:26 Oxygen Delivery Method Room Air 11/27/22 10:26 MDM - Neuro Symptoms/Deficit MDM Narrative Medical decision making narrative: Patient is a 87-year-old gentleman with history of CVA on 2 previous occasions who takes aspirin 81 mg daily. Patient presents with a stroke code and evaluation with assistance of Neurology. Consultation indicates that the patient's not a candidate for tPA. We do need repeat imaging with MRI versus CT of the head in the morning. We are a looking for further a causes of his symptoms and patient's lab work is to this point unremarkable. Urine is pending. Will admit for serial imaging and serial exams. Patient will be given a loading dose of 300 mg of Plavix. Vital signs are stable at this point. Differential Diagnosis Differential diagnosis: Likely delirium, subarachnoid hemorrhage, cerebrovascular accident and transient cerebral ischemia Lab Data Labs: Lab Results 11/27/22 Range/Units 10:28 WBC 6.23 (4.50-11.00) K/uL RBC 4.12 L (4.30-5.90) m/uL Hgb 13.4 L (13.5-17.5) gm/dL Hct 40.2 (37.0-53.0) % MCV 98 (80-100) fL MCH 33 (26-34) pg MCHC 33 (32-36) gm/dL RDW Coeff of Aiden 11.8 (11.5-15.5) % Plt Count 167 (140-440) K/uL Neut % (Auto) 74.7 H (42.0-72.0) % Lymph % (Auto) 13.3 L (20-44) % Tillman % (Auto) 10.0 (0.0-11.0) % Eos % (Auto) 1.8 (0.0-7.0) % Baso % (Auto) 0.0 (0.0-3.0) % Neut # (Auto) 4.70 (1.7-7.0) K/uL Lymph # (Auto) 0.80 L (0.90-2.90) K/uL Tillman # (Auto) 0.60 (0.00-0.90) K/UL Eos # (Auto) 0.11 (0.00-0.50) K/uL Baso # (Auto) 0.00 (0.00-0.30) K/uL Abs Immat Gran (auto) 0.01 (0.00-0.30) K/uL Imm/Tot Granulo (auto) 0.2 % INR 1.12 H (0.91-1.10) APTT 36 H (23-33) Seconds Sodium 141 (135-149) mmol/L Potassium 3.7 (3.6-5.1) mmol/L Chloride 107 (96-114) mmol/L Carbon Dioxide 26 (20-32) mmol/L BUN 23 (7-30) mg/dL Creatinine 1.0 (0.5-1.5) mg/dL Estimated Creat Clear 59.28 Estimated GFR 74 ml/min Glucose 135 H (60-115) mg/dL Calcium 8.4 (8.4-10.6) mg/dL Discharge Plan Discharge Clinical Impression: Acute CVA (cerebrovascular accident) Patient Disposition: Admitted As Inpatient Condition: Stable Activity Level: Other Discharge Diet: Other Prescriptions: No Action glycopyrrolate 1 mg tablet 1 mg PO Q8H Patient Comments: TAKE 1 TABLET (1 MG) BY MOUTH THREE TIMES DAILY. donepezil 10 mg tablet 10 mg PO HS Patient Comments: TAKE ONE TABLET BY MOUTH AT BEDTIME tamsulosin 0.4 mg capsule 0.4 mg PO Q24H Patient Comments: TAKE ONE CAPSULE BY MOUTH DAILY AFTER A MEAL amlodipine 10 mg tablet 10 mg PO DAILY Patient Comments: TAKE 1 TABLET (10 MG) BY MOUTH ONCE DAILY. montelukast 10 mg tablet 10 mg PO HS Patient Comments: TAKE ONE TABLET BY MOUTH EVERY DAY AT BEDTIME sertraline 50 mg tablet 50 mg PO Q24H Patient Comments: TAKE ONE TABLET (50 MG) BY MOUTH EVERY MORNING. amoxicillin-pot clavulanate 875-125 mg tablet Patient Comments: TAKE 1 TABLET BY MOUTH TWO TIMES DAILY WITH MEALS FOR 10 DAYS. metoprolol tartrate 25 mg tablet 25 mg PO DAILY Patient Comments: TAKE ONE TABLET BY MOUTH TWICE A DAY trospium 60 mg capsule,extended release 24hr 60 mg PO DAILY Patient Comments: TAKE 1 CAPSULE (60 MG) BY MOUTH ONCE DAILY BEFORE A MEAL. atorvastatin 40 mg tablet 40 mg PO QPM fluticasone propionate 50 mcg/actuation spray,suspension 2 spray INTRANASAL DAILY cephalexin 500 mg capsule 500 mg PO BID Qty: 10 0RF Follow Up/Referrals: Chandrika Sutton MD [Primary Care Provider] -
--- NOTE | 2022-11-27 11:30 | ED.NURSE ---
NIHSS 8 done by MARC.
--- NOTE | 2022-11-27 11:30 | ED.NURSE ---
Pt back from imaging/CTA.
[2022-11-27] MEDS: CLOPIDOGREL 300 MG TABLET PO (11:32)
--- OUTSIDE RECORDS SUMMARY | 2022-11-27 11:35 | XMS_ITS | Continuity of Care Document ---
Author Name Unknown Organization [facility] enter Address [address] [place] [address] Phone Care Team Providers Care Packing Shed Supervisor Name Role Phone [facility] Unavailable Unava ilable Procedures Procedure Date MAJOR JOINT OR BURSA INJ WITH ULTRASOUND Pt doc no events on discharg Pt w/o preop order iv ab pro Advance Directives Directive Yes / No Effective Date File Name No Information Encounters Encounter Description Practice Location Reason(s) For Visit Diagnoses Date Provider Providers Copied on Encounter [facility], [address] [place] [address], [id number], tel:[phone] [facility] No Information [facility]. [address] [place] [address], [id number], . tel:[phone] Referring Provider: Edgard Vicente, [address] [facility] [place], [address] . tel:[phone] Family History Family Member Type Diagnosis Age At Onset No Information Payers Payer name Insurance type Covered libertarian ID Authorerika mcdonald(s) Medicare MB [id number] [employer] Supplement Plan CI [id number] Social History Type Description Quantity Date Captured [...]
--- OUTSIDE RECORDS SUMMARY | 2022-11-27 11:36 | XMS_ITS | Continuity of Care Document ---
Author Name Unknown Organization [facility] Address [address] [facility] [place] [address] Phone Care Team Providers Care Restaurant Shift Leader Name Role Phone [place] Elana THOMAS Unavailable [...] Diagnoses Date Provider Providers Copied on Encounter [facility], [address] [place], [place], [id number] , [place] tel:[phone] [facility] [place] No Information 2 Argentina Huitron. [address] [facility] [address], [place], [place], [id number] , [place]. tel:[phone] OFFICE VISIT, EST TELEMEDICINE [facility], [address] [place], [place], [id number] , [place] tel:[phone] [facility] [place] Widespread pain (chief complaint) Pain in left wristChronic pain syndromeOther intermediate frame tender (current) drug therapyTrochanter ic bursitis, right hipLong term (current) use of opiate analgesicPain in right wristPain in right hip 2 Senait Ritter. 1455 [facility] [address], [place], [id number] , [place]. tel: [phone] [facility], [address] [facility] [place], [id number] , [place] tel: [phone] [facility] [place] No Information 2 Argentina Huitron. [address] [facility] [address] [facility] 100, [place], [id number] , [place]. tel: [phone] [facility], [address] [place], [place], [id number] , [place] tel: [phone] [facility] [place] No Information 1 Nybarbara Elana. [address], [place], [id number] , [place]. tel: [phone] OFFICE/OUTPAT IENT VISIT, [facility], [address] [place] [address], [id number] , [place] tel: [phone] [facility] Widespread pain (chief complaint) Pain in left wristChronic pain syndromeOther fdc (current) drug therapyTrochanter ic bursitis, right hipLong term (current) use of opiate analgesicPain in right wristPain in right hipEncounter for therapeutic drug level monitoring 1 José Luis Elana. [address], [place], [id number] , [place]. tel: [phone] Referring Provider: Edgard Vicente, [address] [place], [address] . tel:[phone] OFFICE/OUTPAT IENT VISIT, EST [facility], [address] [place] [address], [id number] , [place] tel: [phone] [facility] Widespread pain (chief complaint) Chronic pain syndromeOther intermediate frame tender (current) drug therapyTrochanter ic bursitis, right hipLow back painLong term (current) use of opiate analgesicPain in right wristPain in left wrist Jan- 1 Argentina Huitron. [address], [place]an [place], [id number] , [place]. tel: [phone] Referring Provider: Edgard Vicente, [facility] [place], [address] . tel:[phone] OFFICE/OUTPAT IENT VISIT, [facility], [facility] [place], [id number] , [place] tel: [phone] [facility] Widespread pain (chief complaint) Chronic pain syndromeOther intermediate frame tender (current) drug therapyTrochanter ic bursitis, right hipLow back painLong term (current) use of opiate analgesicPain in right hip 1 [place] Huitron. [address] [place] [address] [address], Klarissa ellis [place], [id number] , [place]. tel: [phone] Referring Provider: Edgard Vicente, [place], [address] . tel:[phone] [facility], [address] [place], [place] [address] [place], [id number] , [place] tel: [phone] [facility] [place] Trochanteric bursitis, right hip 1 Ricardo Rene. [address] [place] [address] [place], [id number] , [place]. tel: [phone] Referring Provider: Edgard Vicente, [place], [address] . tel:[phone] [facility], [address] [place] [address] [place] Ma[place], [id number] , [place] tel: [phone] [facility] [place] No Information 1 Argentina Huitron. [address] [place] [address] [address], [place], [id number] , [place]. tel: [phone] Referring Provider: Edgard Vicente, [address] [place] [address] [place], [address] . tel:[phone] OFFICE/OUTPAT IENT VISIT, [facility], [address] [place], [place] [address] [place], [id number] , [place] tel:[phone] [facility] [place] Widespread pain (chief complaint) Chronic pain syndromeEncounter for therapeutic drug level monitoringEncount er for screening for other disorderTrochante melisa bursitis, right hipOther fdc (current) drug therapyLow back pain 1 [place] Huitron. [address], [place], [id number] , [place]. tel:[phone] Referring Provider: Edgard Vicente, [address] [facility] [place], [address] . 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 Due on due Goal Creatinine. Due on due Goal UDT. Due on due Goal OARS. Due on due Goal BED WORKER Scanned. Due on due Goal AST (SGOT). [...] due Goal OARS. Due on due Goal BED WORKER Scanned. Due on due Goal AST (SGOT). Due on due Goal ALT (SGPT). Due on due Goal Order Annual PT. Due on due Goal PRESS BRAKE OPERATOR Paperwork. Due on due Goal Review Allergy [...] due Goal OARS. Due on due Goal BED WORKER Scanned. Due on due Goal AST (SGOT). Due on due Goal ALT (SGPT). Due on due Goal Order Annual PT. Due on due Goal PRESS BRAKE OPERATOR Paperwork. Due on due Goal Review Allergy [...] due Goal OARS. Due on due Goal BED WORKER Scanned. Due on due Goal AST (SGOT). Due on due Goal ALT (SGPT). Due on due Goal Order Annual PT. Due on due Goal PRESS BRAKE OPERATOR Paperwork. Due on due Goal Review Allergy [...] due Goal OARS. Due on due Goal BED WORKER Scanned. Due on due Goal AST (SGOT). Due on due Goal ALT (SGPT). Due on due Goal Order Annual PT. Due on due Goal PRESS BRAKE OPERATOR Paperwork. Due on due Goal Review Allergy [...] PE. He consulted a hip surgeon at [facility] in [place] to evaluate hip hardware. Right leg/hip pain is likely due to a possible fracture in hip, that not seen via regular x-rays. The stem may adhere back in place, or may get worse. But the orthopedist recommended and ordered PT for strength and pain. He is completing 2 sessions/week at [facility]. Long car rides aggravate the pain.He has difficulty bearing weight on his legs, even with a walker. So he bears most of his weight on his wrists while walking. He followed up with a hand specialist at [facility] who determined his wrist joints [...] pace maker implanted 5 years ago a [facility] in [place].His is present and contributed to today's OV. [...] swollen, no blood clots. Latest X-rays from [facility] do not show any fracture, but pain [...] does f/u with Dr. Josué Denise at [facility], next visit is scheduled for early December.Off note, hx of 2 strokes.His is present and contributed to today's OV.He is self referred.Treatment Tried:lumbar BRITTNI at [facility] 4 months ago - not helpful.6extra strength Tylenol/dayMobic - not helpfulibuprofentramadol - caused dizzinessgabapentin 100mg TID started 2 week ago - not helpful.wrist Cortizone injection at [facility] - not helpful, will try acupuncture instead.lidocaine [...]
--- OUTSIDE RECORDS SUMMARY | 2022-11-27 11:37 | XMS_ITS | Continuity of Care Document ---
Author Name Unknown Organization [facility] Address [address] [address] [place] [address] Phone Care Team Providers Care Boot Repairer Name Role Phone Tal Kingston MD Unavailable Unavailable Advance Directives Directive Yes / No Effective Date File Name No Information Encounters Encounter Description Practice Location Reason(s) For Visit Diagnoses Date Provider Providers Copied on Encounter [facility], [address] [address], [place], [place], [id number], [place] tel:[phone] [facility] No Information 8 Thee Parada. [address] [facility], [facility] [address], [place], [place], [id number] , [place]. tel:[phone] Family History Family Member Type Diagnosis Age [...]
--- OUTSIDE RECORDS SUMMARY | 2022-11-27 11:37 | XMS_ITS | Continuity of Care Document ---
Author Name Unknown Organization [facility] enter Address [address] [place] [address] Phone Care Team Providers Care Jde Developer Name Role Phone [facility] Unavailable Unava ilable Procedures Procedure Date MAJOR JOINT OR BURSA INJ WITH ULTRASOUND Pt doc no events on discharg Pt w/o preop order iv ab pro Advance Directives Directive Yes / No Effective Date File Name No Information Encounters Encounter Description Practice Location Reason(s) For Visit Diagnoses Date Provider Providers Copied on Encounter [facility], [address] [place] [address], [id number], tel:[phone] [facility] No Information [facility]. [address] [place] [address], [id number], . tel:[phone] Referring Provider: Edgard Vicente, [address] [facility] [place], [address] . tel:[phone] Family History Family Member Type Diagnosis Age At Onset No Information Payers Payer name Insurance type Covered libertarian ID Authorerika mcdonald(s) Medicare MB [id number] [employer] Supplement Plan CI [id number] Social History Type Description Quantity Date Captured [...]
--- OUTSIDE RECORDS SUMMARY | 2022-11-27 11:37 | XMS_ITS | Continuity of Care Document ---
Author Name Unknown Organization [facility] Address [address] [place] [address] Phone Care Team Providers Care Tugboat Captain Name Role Phone Babatunde DAVIES, Kenny Unavailable Unavailab le Allergies, Adverse Reactions, Alerts Substance Reaction Status Criticality No Known allergies Procedures Procedure Date Office/Outpatient Visit,[facility] 2013 Advance Directives Directive Yes / No Effective Date File Name No Information Encounters Encounter Description Practice Location Reason(s) For Visit Diagnoses Date Provider Providers Copied on Encounter [facility] [place], [address] [place] [address], [address], [place] tel:[phone] [email or web address] No Information 4 Babatunde baum. [facility], [address], [address], [id number] , [place]. tel:[phone] Office/Outpat ient Visit,[facility] [place], [address] [place], [place] [address] [address] [place] [address], [address], [place] tel:[phone] [email or web address] LUMBAGO 4 Mehbod Amir. [facility] [place], [address], [place], [id number] , [place]. tel:[phone] Referring Provider: Alireza Lundy, [facility] And [address], [address]. tel:[phone] Family History Family Member Type Diagnosis Age At Onset No Information Payers Payer name Insurance type Covered republican ID Kasey mcdonald(s) [employer] Medicare CI [id number] Social History Type Description Quantity Date Captured [...]
--- OUTSIDE RECORDS SUMMARY | 2022-11-27 11:37 | XMS_ITS | Continuity of Care Document ---
Author Name Unknown Organization [facility] Address [address] [facility] [place] [address] Phone Care Team Providers Care Customer Service Advisor Name Role Phone [place] Elana THOMAS Unavailable [...] Diagnoses Date Provider Providers Copied on Encounter [facility], [address] [place], [place], [id number] , [place] tel:[phone] [facility] [place] No Information 2 Argentina Huitron. [address] [facility] [address], [place], [place], [id number] , [place]. tel:[phone] OFFICE VISIT, EST TELEMEDICINE [facility], [address] [place], [place], [id number] , [place] tel:[phone] [facility] [place] Widespread pain (chief complaint) Pain in left wristChronic pain syndromeOther etcher apprentice (current) drug therapyTrochanter ic bursitis, right hipLong term (current) use of opiate analgesicPain in right wristPain in right hip 2 Senait Ritter. 1455 [facility] [address], [place], [id number] , [place]. tel: [phone] [facility], [address] [facility] [place], [address] , [place] tel: [phone] [facility] [place] No Information 2 Argentina Huitron. [address] [facility] 11 [facility] 100, [place], [id number] , [place]. tel: [phone] [facility], [address] [place], [place], [id number] , [place] tel: [phone] [facility] [place] No Information 1 Nybarbara Elana. [address], [place], [id number] , [place]. tel: [phone] OFFICE/OUTPAT IENT VISIT, [facility], [address] [place] [address], [id number] , [place] tel: [phone] [facility] Widespread pain (chief complaint) Pain in left wristChronic pain syndromeOther senior living (current) drug therapyTrochanter ic bursitis, right hipLong term (current) use of opiate analgesicPain in right wristPain in right hipEncounter for therapeutic drug level monitoring 1 José Luis Elana. [address], [place], [id number] , [place]. tel: [phone] Referring Provider: Edgard Vicente, [address] [facility] [place], [address] . tel:[phone] OFFICE/OUTPAT IENT VISIT, EST [facility], [address] [place] [address], [id number] , [place] tel: [phone] [facility] Widespread pain (chief complaint) Chronic pain syndromeOther etcher apprentice (current) drug therapyTrochanter ic bursitis, right hipLow back painLong term (current) use of opiate analgesicPain in right wristPain in left wrist Jan- 1 Argentina Huitron. [address], [place]an [place], [id number] , [place]. tel: [phone] Referring Provider: Edgard Vicente, [facility], [facility] [place], [address] . tel:[phone] OFFICE/OUTPAT IENT VISIT, [facility], [address] [place], [id number] , [place] tel: [phone] [facility] Widespread pain (chief complaint) Chronic pain syndromeOther etcher apprentice (current) drug therapyTrochanter ic bursitis, right hipLow back painLong term (current) use of opiate analgesicPain in right hip 1 [place] Huitron. [address] [place] [address] [address], Klarissa ellis [place], [id number] , [place]. tel: [phone] Referring Provider: Edgard Vicente, [place], [address] . tel:[phone] [facility], [address] [place], [place] [address] [place]ureen [place], [id number] , [place] tel: [phone] [facility] [place] Trochanteric bursitis, right hip 1 Ricardo Rene. [address] [place] [address] [place], [id number] , [place]. tel: [phone] Referring Provider: Edgard Vicente, [place], [address] . tel:[phone] [facility], [address] [place] [address] Jake Ma[place]AMIR, [id number] , [place] tel: [phone] [facility] [place] No Information 1 Argentina Huitron. [address] [place] [address] [address], [place], [id number] , [place]. tel: [phone] Referring Provider: Edgard Vicente, [address] [place] [address] [place], [address] . tel:[phone] OFFICE/OUTPAT IENT VISIT, [facility], [address] [place], [place] [address] [place], [id number] , [place] tel:[phone] [facility] [place] Widespread pain (chief complaint) Chronic pain syndromeEncounter for therapeutic drug level monitoringEncount er for screening for other disorderTrochante melisa bursitis, right hipOther senior living (current) drug therapyLow back pain 1 [place] Huitron. [address] [facility] [address], [place], [id number] , [place]. tel:[phone] Referring Provider: Edgard Vicente, [address] [facility] [place], [address] . tel:[phone] Family History Family Member Type Diagnosis Age At Onset No Information Payers Payer name Insurance type Covered democrat ID Kasey mcdonald(s) Medicare MB [id number] [employer] Supplement Plan CI [id number] Social History Type Description Quantity Date Captured Comments Sex Male Smoking Status No Information Chief Complaint And Reason For Visit No Information Reason For Referral Reason For Referral No Information Plan Of Treatment Date Type Action Status Goal ART TEACHER Paperwork. Due on due Goal Creatinine. Due on due Goal UDT. Due on due Goal OARS. Due on due Goal CENTRAL SUPPLY SUPERVISOR Scanned. Due on due Goal AST (SGOT). [...] due Goal OARS. Due on due Goal CENTRAL SUPPLY SUPERVISOR Scanned. Due on due Goal AST (SGOT). Due on due Goal ALT (SGPT). Due on due Goal Order Annual PT. Due on due Goal ART TEACHER Paperwork. Due on due Goal Review Allergy [...] due Goal OARS. Due on due Goal CENTRAL SUPPLY SUPERVISOR Scanned. Due on due Goal AST (SGOT). Due on due Goal ALT (SGPT). Due on due Goal Order Annual PT. Due on due Goal ART TEACHER Paperwork. Due on due Goal Review Allergy [...] due Goal OARS. Due on due Goal CENTRAL SUPPLY SUPERVISOR Scanned. Due on due Goal AST (SGOT). Due on due Goal ALT (SGPT). Due on due Goal Order Annual PT. Due on due Goal ART TEACHER Paperwork. Due on due Goal Review Allergy [...] due Goal OARS. Due on due Goal CENTRAL SUPPLY SUPERVISOR Scanned. Due on due Goal AST (SGOT). Due on due Goal ALT (SGPT). Due on due Goal Order Annual PT. Due on due Goal ART TEACHER Paperwork. Due on due Goal Review Allergy [...] No other concerns today. Widespread pain (comments) Gyu dewey is a 85 y/o male, here [...] PE. He consulted a hip surgeon at [facility] in [place] to evaluate hip hardware. Right leg/hip pain is likely due to a possible fracture in hip, that not seen via regular x-rays. The stem may adhere back in place, or may get worse. But the orthopedist recommended and ordered PT for strength and pain. He is completing 2 sessions/week at [facility]. Long car rides aggravate the pain.He has difficulty bearing weight on his legs, even with a walker. So he bears most of his weight on his wrists while walking. He followed up with a hand specialist at [facility] who determined his wrist joints are [...] pace maker implanted 5 years ago a [facility] in [place].His is present and contributed to today's OV. [...] swollen, no blood clots. Latest X-rays from [facility] do not show any fracture, but [...] does f/u with Dr. Josué Denise at [facility], next visit is scheduled for early December.Off note, hx of 2 strokes.His is present and contributed to today's OV.He is self referred.Treatment Tried:lumbar BRITTNI at [facility] 4 months ago - not helpful.6extra strength Tylenol/dayMobic - not helpfulibuprofentramadol - caused dizzinessgabapentin 100mg TID started 2 week ago - not helpful.wrist Cortizone injection at [facility] - not helpful, will try acupuncture [...]
--- OUTSIDE RECORDS SUMMARY | 2022-11-27 11:37 | XMS_ITS | Continuity of Care Document ---
Author Name Unknown Organization [facility] Address [address] [place] [address] Phone Care Team Providers Care Free Lance Model Name Role Phone Babatunde DAVIES, Kenny Unavailable Unavailab le Allergies, Adverse Reactions, Alerts Substance Reaction Status Criticality No Known allergies Procedures Procedure Date Office/Outpatient Visit,[facility] 2013 Advance Directives Directive Yes / No Effective Date File Name No Information Encounters Encounter Description Practice Location Reason(s) For Visit Diagnoses Date Provider Providers Copied on Encounter [facility] [place], [address] [place] [address], [address], [place] tel:[phone] [employer] No Information 4 Babatunde baum. [facility], [address], [address], [id number] , [place]. tel:[phone] Office/Outpat ient Visit,[facility] [place], [address] [place], [place] [address]ite [address] [place] [address], [address], [place] tel:[phone] [employer] LUMBAGO 4 Mehbod Amir. [facility] [place], [address], [place], [id number] , [place]. tel:[phone] Referring Provider: Alireza Lundy, [facility] And [address], [address]. tel:[phone] Family History Family Member Type Diagnosis Age At Onset No Information Payers Payer name Insurance type Covered democrat ID Kasey mcdonald(s) [employer] Medicare CI [id number] Social History Type Description Quantity Date Captured [...]
--- NOTE | 2022-11-27 12:20 | ED.NURSE ---
Pt to M/S via cart.
--- OUTSIDE RECORDS SUMMARY | 2022-11-27 12:27 | XMS_ITS | Continuity of Care Document ---
Author Name Unknown Organization [facility] Address [address] [facility] [place] [address] Phone Care Team Providers Care Acreage Reporter Name Role Phone [place] Elana THOMAS Unavailable [...] Diagnoses Date Provider Providers Copied on Encounter [facility], [address] [place], [place], [id number] , [place] tel:[phone] [facility] [place] No Information 2 Argentina Huitron. [address] [facility] [address], [place], [place], [id number] , [place]. tel:[phone] OFFICE VISIT, EST TELEMEDICINE [facility], [address] [place], [place], [id number] , [place] tel:[phone] [facility] [place] Widespread pain (chief complaint) Pain in left wristChronic pain syndromeOther watermaster (current) drug therapyTrochanter ic bursitis, right hipLong term (current) use of opiate analgesicPain in right wristPain in right hip 2 Senait Ritter. [address] [facility] [address], [place], [id number] , [place]. tel: [phone] [facility], [address] [facility] [place], [id number] , [place] tel: [phone] [facility] [place] No Information 2 Argentina Huitron. [address] [facility] [address] [facility] [address], [place], [id number] , [place]. tel: [phone] [facility], [address] [place], [place], [id number] , [place] tel: [phone] [facility] [place] No Information 1 Nybarbara Elana. [address], [place], [id number] , [place]. tel: [phone] OFFICE/OUTPAT IENT VISIT, [facility], [address] [place] [address], [id number] , [place] tel: [phone] [facility] Widespread pain (chief complaint) Pain in left wristChronic pain syndromeOther care home (current) drug therapyTrochanter ic bursitis, right hipLong term (current) use of opiate analgesicPain in right wristPain in right hipEncounter for therapeutic drug level monitoring 1 José Luis Elana. [address], [place], [id number] , [place]. tel: [phone] Referring Provider: Edgard Vicente, [address] [place], [address] . tel:[phone] OFFICE/OUTPAT IENT VISIT, EST [facility], [address] [place] [address], [id number] , [place] tel: [phone] [facility] Widespread pain (chief complaint) Chronic pain syndromeOther watermaster (current) drug therapyTrochanter ic bursitis, right hipLow back painLong term (current) use of opiate analgesicPain in right wristPain in left wrist Jan- 1 Argentina Huitron. [address], [place], [id number] , [place]. tel: [phone] Referring Provider: Edgard Vicente, [facility] [place], [address] . tel:[phone] OFFICE/OUTPAT IENT VISIT, [facility], [address] [place], [id number] , [place] tel: [phone] [facility] Widespread pain (chief complaint) Chronic pain syndromeOther watermaster (current) drug therapyTrochanter ic bursitis, right hipLow back painLong term (current) use of opiate analgesicPain in right hip 1 Argentina Huitron. [address] [place] [address] [address], [place]issa [place], [id number] , [place]. tel: [phone] Referring Provider: Edgard Vicente, [place], [address] . tel:[phone] [facility], [address] [place], [place] [address] [place], [id number] , [place] tel: [phone] [facility] [place] Trochanteric bursitis, right hip 1 Ricardo Rene. [address] [place] [address] [place], [id number] , [place]. tel: [phone] Referring Provider: Edgard Vicente, [place], [address] . tel:[phone] [facility], [address] [place] [address] [place], [id number] , [place] tel: [phone] [facility] [place] No Information 1 Argentina Huitron. [address] [place] [address] [address], [place], [id number] , [place]. tel: [phone] Referring Provider: Edgard Vicente, [address] [place] [address] [place], [address] . tel:[phone] OFFICE/OUTPAT IENT VISIT, [facility], [address] [place], [place] [address] [place], [id number] , [place] tel:[phone] [facility] [place] Widespread pain (chief complaint) Chronic pain syndromeEncounter for therapeutic drug level monitoringEncount er for screening for other disorderTrochante melisa bursitis, right hipOther care home (current) drug therapyLow back pain 1 Argentina Huitron. [address], [place], [id number] , [place]. tel:[phone] Referring Provider: Edgard Vicente, [address] [facility] [place], [address] . tel:[phone] Family History Family Member Type Diagnosis Age At Onset No Information Payers Payer name Insurance type Covered constitution party ID Kasey mcdonald(s) Medicare MB [id number] [employer] Supplement Plan CI [id number] Social History Type Description Quantity Date Captured Comments Sex Male Smoking Status No Information Chief Complaint And Reason For Visit No Information Reason For Referral Reason For Referral No Information Plan Of Treatment Date Type Action Status Goal MANAGER NURSING Paperwork. Due on due Goal Creatinine. Due on due Goal UDT. Due on due Goal OARS. Due on due Goal SUPERVISOR QUALITY CONTROL Scanned. Due on due Goal AST (SGOT). [...] due Goal OARS. Due on due Goal SUPERVISOR QUALITY CONTROL Scanned. Due on due Goal AST (SGOT). Due on due Goal ALT (SGPT). Due on due Goal Order Annual PT. Due on due Goal MANAGER NURSING Paperwork. Due on due Goal Review Allergy [...] due Goal OARS. Due on due Goal SUPERVISOR QUALITY CONTROL Scanned. Due on due Goal AST (SGOT). Due on due Goal ALT (SGPT). Due on due Goal Order Annual PT. Due on due Goal MANAGER NURSING Paperwork. Due on due Goal Review Allergy [...] due Goal OARS. Due on due Goal SUPERVISOR QUALITY CONTROL Scanned. Due on due Goal AST (SGOT). Due on due Goal ALT (SGPT). Due on due Goal Order Annual PT. Due on due Goal MANAGER NURSING Paperwork. Due on due Goal Review Allergy [...] due Goal OARS. Due on due Goal SUPERVISOR QUALITY CONTROL Scanned. Due on due Goal AST (SGOT). Due on due Goal ALT (SGPT). Due on due Goal Order Annual PT. Due on due Goal MANAGER NURSING Paperwork. Due on due Goal Review Allergy [...] PE. He consulted a hip surgeon at [facility] in [place] to evaluate hip hardware. Right leg/hip pain is likely due to a possible fracture in hip, that not seen via regular x-rays. The stem may adhere back in place, or may get worse. But the orthopedist recommended and ordered PT for strength and pain. He is completing 2 sessions/week at [facility]. Long car rides aggravate the pain.He has difficulty bearing weight on his legs, even with a walker. So he bears most of his weight on his wrists while walking. 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 [...] swollen, no blood clots. Latest X-rays from [facility] do not show any fracture, but [...] does f/u with Dr. Josué Denise at [facility], next visit is scheduled for early December.Off note, hx of 2 strokes.His is present and contributed to today's OV.He is self referred.Treatment Tried:lumbar BRITTNI at [facility] 4 months ago - not helpful.6extra strength Tylenol/dayMobic - not helpfulibuprofentramadol - caused dizzinessgabapentin 100mg TID started 2 week ago - not helpful.wrist Cortizone injection at [facility] - not helpful, will try acupuncture instead.lidocaine [...]
--- OUTSIDE RECORDS SUMMARY | 2022-11-27 12:27 | XMS_ITS | Continuity of Care Document ---
Author Name Unknown Organization [facility] Address [address] [address] [place] [address] Phone Care Team Providers Care Surgical Manager Name Role Phone Tal [place] MD Unavailable Unavailable Advance Directives Directive Yes / No Effective Date File Name No Information Encounters Encounter Description Practice Location Reason(s) For Visit Diagnoses Date Provider Providers Copied on Encounter [facility], [address] [address], [place], [place], [id number], [place] tel:[phone] [facility] No Information 8 Thee Parada. [address] [facility], [facility] [address], [place], [place], [id number] , [place]. tel:[phone] Family History Family Member Type Diagnosis Age [...]
--- OUTSIDE RECORDS SUMMARY | 2022-11-27 12:27 | XMS_ITS | Continuity of Care Document ---
Author Name Unknown Organization [facility] Address [address] [place] [address] Phone Care Team Providers Care Game Tester Name Role Phone Babatunde DAVIES, Kenny Unavailable Unavailab le Allergies, Adverse Reactions, Alerts Substance Reaction Status Criticality No Known allergies Procedures Procedure Date Office/Outpatient Visit,[facility] 2013 Advance Directives Directive Yes / No Effective Date File Name No Information Encounters Encounter Description Practice Location Reason(s) For Visit Diagnoses Date Provider Providers Copied on Encounter [facility], [address] [place] [address], [address], [place] tel:[phone] [employer] No Information 4 Babatunde baum. [facility], [address], [address], [id number] , [place]. tel:[phone] Office/Outpat ient Visit,[facility], [address] [place], [place] [address] [address] [place] [address], [address], [place] tel:[phone] [employer] LUMBAGO 4 Mehbod Amir. [facility], [address], [place], [id number] , [place]. tel:[phone] Referring Provider: Alireza Lundy, [facility] [address], [address]. tel:[phone] Family History Family Member Type Diagnosis Age At Onset No Information Payers Payer name Insurance type Covered democrat ID Kasye mcdonald(s) [employer] Medicare CI [id number] Social History Type Description Quantity Date Captured [...]
--- OUTSIDE RECORDS SUMMARY | 2022-11-27 12:27 | XMS_ITS | Continuity of Care Document ---
Author Name Unknown Organization [facility] Address [address] [place] [address] Phone Care Team Providers Care Dean Of Students Name Role Phone [facility] Unavailable Unava ilable Procedures Procedure Date MAJOR JOINT OR BURSA INJ WITH ULTRASOUND Pt doc no events on discharg Pt w/o preop order iv ab pro Advance Directives Directive Yes / No Effective Date File Name No Information Encounters Encounter Description Practice Location Reason(s) For Visit Diagnoses Date Provider Providers Copied on Encounter [facility], [address] [place] [address], [id number], tel:[phone] [facility] No Information [facility]. [address] [place] [address], [id number], . tel:[phone] Referring Provider: Edgard Vicente, [address] [facility] [place], [address] . tel:[phone] Family History Family Member Type Diagnosis Age At Onset No Information Payers Payer name Insurance type Covered constitution party ID Authorerika mcdonald(s) Medicare MB [id number] [employer] Supplement Plan CI [id number] Social History Type Description Quantity Date Captured [...]
[2022-11-27 12:29] LABS: Appearance Urine Slightly Cloudy (Clear); Bilirubin Urine Negative (Negative); Blood Urine Negative (Negative); Color Urine Yellow (Yellow); Glucose Urine Negative (Negative); Ketones Urine Negative (Negative); Leukocyte Esterase Urine Trace (Negative); Nitrite Urine Negative (Negative); Protein Urine Trace (Negative); Urobilinogen Urine 0.2 (0.2-1.0)
--- NOTE | 2022-11-27 12:30 | PM.IMHP1 ---
Hospitalist- H&P: HPI History of Present Illness Date Seen: 11/27/22 Chief complaint: CVA Narrative: Willie Ahmadi is a 87 year old male who presented to the emergency room this morning for weakness, more notable in left arm and left leg. He had no signs or symptoms of illness. Denied headache or chest pain. Last known well was yesterday evening. Patient has a history of stroke, afib (Watchman device) on ASA Qd. Stroke code called upon arrival to the ED. He was seen by Stroke Neurology by tele visit and a copy of that visit with recommendations is below. Assessment and Recommendations: 87 year old man with new left sided weakness today. He does have a hx of strokes including one that left him with left sided weakness, but this weakness is significantly worse today. His symptoms have worsened throughout morning but the aid did note that he was weaker and more difficult to get out of bed today. LKW is last night. He does have an ASA daily. ? I suspect he has had a new right hemispheric stroke however seizure with post ictal paresis and locus minoris (worsening of stroke symptoms with acute illness) are possible too. ? - CT head negative for acute pathology, this was reviewed - continue ASA 81 mg daily - One time load of Plavix 300 mg oral then Plavix 75 mg daily if able to take oral - Permissive hypertension to systolic 220mmHg and diastolic 120mmHg - NS for hydration - MRI without contrast if able to with pacemaker - if unable to get MRI, I recommend repeating CT head tormorrow - TTE - UA and infection workup - Lipid Panel - PT/OT/Speech - Frequent neuro checks - SCDs - reason for no lytic: out of window - reason for no STEPHANIE: not consistent with LVO and a poor candidate for thrombectomy given high MRS - updated and disused with at bedside ? ? Chief complaint: stroke code ? History of present illness: 87 year old man with new left sided weakness worse than baseline left sided weakness. No clear trigger or alleviating factors. LKW is last night. ? Physical Exam: General: NAD Eyes: no ptosis Head: NC/AT Mental: alert, no aphasia filler sifter helper: EOMI and left facial droop Motor: full on right and antigravity with drift on leg and arm on left ? NIHSS is 6 ? This telehealth consultation was requested by Dr. Lundy ? TELEHEALTH (required for all telehealth visits): As the provider for this telehealth service, I attest that I introduced myself to the patient, provided my credentials, disclosed my location, and determined that, based on a review of the patients chart and/or a discussion with members of the patient's treatment team, telemedicine via a real-time, two-way, interactive audio and video platform is an appropriate and effective means of providing this service. The patient and I mutually agree that this visit is appropriate for telemedicine as well. Patient Location: [place] Provider Location: [employer] [facility], Teleneurology/Telestroke Service, Provider's Residence Video start time: 929 Video end time : 944 ? ? Richa Gifford M.D. Neurohospitalist and Stroke Neurologist [facility] Patient's histories updated below. PCP is Dr. Sutton. Review of Systems Narrative: - chronic cough, follows with PCP and specialty teams for this - no chest pain - + R wrist pain, + L shoulder pain (both chronic) PFSH PFSH Medical History (Updated 11/27/22 @ 14:41 by Estrella Chan MD) Malignant melanoma ?C43.9 - Malignant melanoma of skin, unspecified (ICD-10) Hyperlipidemia ?E78.5 - Hyperlipidemia, unspecified (ICD-10) Atrial fibrillation ?I48.91 - Unspecified atrial fibrillation (ICD-10) Presence of Watchman left atrial appendage closure device ?Z95.818 - Presence of other cardiac implants and grafts (ICD-10) Hypertension ?I10 - Essential (primary) hypertension (ICD-10) CVA (cerebral vascular accident) ?I63.9 - Cerebral infarction, unspecified (ICD-10) Surgical History (Updated 11/27/22 @ 14:17 by Estrella Chan MD) H/O hernia repair ?Z98.890 - Other specified postprocedural states (ICD-10) ?Z87.19 - Personal history of other diseases of the digestive system (ICD-10) S/P placement of cardiac pacemaker ?Z95.0 - Presence of cardiac pacemaker (ICD-10) History of total knee arthroplasty ?Z96.659 - Presence of unspecified artificial knee joint (ICD-10) History of total hip arthroplasty ?Z96.649 - Presence of unspecified artificial hip joint (ICD-10) Social History (Updated 11/27/22 @ 14:07 by Estrella Chan MD) Narrative: Lives with Hue (retired OT), she would be MDM if needed. 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 2 adult sons, one in [place]. Nonsmoker, rare/social scotch. Requests DNR/DNI status. What is your current living situation?: I presently have a place to live Problems where you live: no known problems Problems where you live details: n/a In the past 12 months, utilities in danger of being shut off: no In the past 12 mos, have been you worried that your food would run out before you had money to buy more?: never true In the past 12 mos, the food you bought just didn't last and you didn't have money to buy more?: never true Smoking Status: Never smoker How often do you have a drink containing alcohol: never AUDIT-C Alcohol total score: 0 Non-prescribed substance use: denies use How often does anyone, including family, friends and others, physically hurt you: never How often does anyone, including family, friends and others, insult or talk down to you: never How often does anyone, including family, friends and others, threaten you with harm: never How often does anyone, including family, friends and others, scream or curse at you: never service: No Meds Home Medications and Allergies Home Medications Medication Instructions Recorded Confirmed Type amlodipine 10 mg tablet 10 mg PO DAILY 06/28/22 11/27/22 History donepezil 10 mg tablet 10 mg PO HS 06/28/22 11/27/22 History glycopyrrolate 1 mg tablet 1 mg PO Q8H 06/28/22 11/27/22 History metoprolol tartrate 25 mg tablet 25 mg PO BID 06/28/22 11/27/22 History montelukast 10 mg tablet 10 mg PO HS 06/28/22 11/27/22 History sertraline 50 mg tablet 50 mg PO DAILY 06/28/22 11/27/22 History tamsulosin 0.4 mg capsule 0.4 mg PO DAILY 06/28/22 11/27/22 History atorvastatin 40 mg tablet 40 mg PO HS 08/04/22 11/27/22 History fluticasone propionate 50 2 spray intranasal DAILY 08/04/22 11/27/22 History mcg/actuation nasal spray,suspension aspirin 81 mg tablet,delayed 81 mg PO DAILY 11/27/22 11/27/22 History release (Adult Low Dose Aspirin) cholecalciferol (vitamin D3) 50 50 mcg PO DAILY 11/27/22 11/27/22 History mcg (2,000 unit) tablet famotidine 20 mg tablet 20 mg PO BID 11/27/22 11/27/22 History gabapentin 300 mg capsule 300 mg PO BID PRN 11/27/22 11/27/22 History ipratropium bromide 42 mcg (0.06 2 spray intranasal 3XD PRN 11/27/22 11/27/22 History %) nasal spray omega 0-zuc-zdn-fish oil 1,000 mg 1 cap PO DAILY 11/27/22 11/27/22 History (120 mg-180 mg) capsule (Fish Oil) oxycodone 5 mg tablet 5 mg PO Q6H PRN pain 11/27/22 11/27/22 History Allergies Allergy/AdvReac Type Severity Reaction Status Date / Time No Known Drug Allergies Allergy Verified 11/27/22 10:38 Exam Narrative: Exam Narrative: GEN: Alert and laying comfortably in bed, answering questions appropriately with 2-3 word answers HEENT: EOMIs bilaterally, no scleral icterus CV: RRR, blowing murmur heard best at LSB R: LCTA bilaterally without concerning wheezing, air movement adequate Ext: wwp, trace BLE edema Skin: No concerning skin lesions or rashes on exposed skin Neuro: L sided weakness of upper and lower extremity, no ptosis, gait not observed 2/2 weakness Psych: Appropriate Const: Vital Signs, click to edit/add: Vital Signs - 24 hr 11/27/22 10:21 11/27/22 10:26 11/27/22 10:29 Temperature 97.4 F L Pulse Rate 60 Pulse Rate [Right Pulse Oximeter] 70 Respiratory Rate 14 20 Blood Pressure 119/65 Blood Pressure [Ri ght Upper Arm] 119/65 Pulse Oximetry 92 95 97 Oxygen Delivery Me thod Room Air Room Air Room Air 11/27/22 10:29 11/27/22 10:35 Temperature Pulse Rate 60 Pulse Rate [Right Pulse Oximeter] Respiratory Rate 14 Blood Pressure 114/64 Blood Pressure [Ri ght Upper Arm] Pulse Oximetry 98 97 Oxygen Delivery Al thod Hospitalist - H&P: Result Labs Labs: Short CBC 11/27/22 Range/Units 10:28 WBC 6.23 (4.50-11.00) K/uL Hgb 13.4 L (13.5-17.5) gm/dL Hct 40.2 (37.0-53.0) % Plt Count 167 (140-440) K/uL BMP 11/27/22 10:28 Sodium 141 Potassium 3.7 Chloride 107 Carbon Dioxide 26 BUN 23 Creatinine 1.0 Glucose 135 H Calcium 8.4 Assessment and Plan Assessment and plan (1) Acute CVA (cerebrovascular accident): Problem comment: - symptoms concerning for this, possibly atypical UTI (history of these) - follow recommendations per stroke Neurology (permissive HTN, repeat head CT 11/28, Neuro checks, Plavix + ASA) Status: Acute (2) Hyperlipidemia: Problem comment: - continue statin Status: Acute (3) Atrial fibrillation: Problem comment: - rate controlled on Metoprolol, paced - on ASA Status: Acute (4) Abnormal urinalysis: Problem comment: - culture pending, will initiate Rocephin 11/27 Status: Acute Plan - per above - reviewed plan of care with patient and - requests DNR/DNI status
[2022-11-27 12:38] LABS: Bacteria Urine Moderate; RBC Urine 0-2 (0-2)
--- NOTE | 2022-11-27 12:38 | ED.NURSE ---
1010-Arrival in ambulance garage. 1011-CT in progress. Confusion noted 1020-Pt to Stab 1. BG 162. 1028-Dr Lundy at bedside. VSS on RA. Confusion resolved. at bedside. GCS 15. 1029- Tele Neuro at bedside. #18G IV established in R AC. #20G IV in place from EMS L AC patent. 1032- Pt denies pain. LKW per caregiver 0915. 1035-EKG done. Paced rhythm, set to 60BPM. Continues to deny pain. GCS 15. 1101-NIHSS score 8, done by RN. GCS 15. VSS on RA. 1130-Pt back from CTA. 1132-Plavix given as ordered. GCS 15. Pt continues to deny pain. 1215-Report given to M/S RN by MARC Starkey. 1220-Pt to M/S.
[2022-11-27] MEDS: cefTRIAXone 1 GM in 0.9 % SODIUM CHLORIDE Mini-bag 100 ML IVPB (14:59)
[2022-11-27] MEDS: 0.9 % SODIUM CHLORIDE 1000 ml 1,000 ML 75 ML IV (15:00)
--- NOTE | 2022-11-27 16:33 | PM.IMPN1 ---
Exam Narrative: Exam Narrative: Gen: no acute distress HEENT: NCAT EOMI mmm Neck: Supple CV: RRR normal s1 s2 Lungs: CTAB Abd: Soft,nt, nd Neuro: Alert, oriented, CN grossly intact; nonfocal screening?exam Psych: appropriate affect MSK: age appropriate muscle mass Skin; Warm, dry no rash on face Const: Vital Signs, click to edit/add: Vital Signs - 24 hr 11/27/22 10:21 11/27/22 10:26 11/27/22 10:29 Temperature 97.4 F L Pulse Rate 60 Pulse Rate [Pulse Oximeter] Pulse Rate [Right Pulse Oximeter] 70 Respiratory Rate 14 20 Blood Pressure 119/65 Blood Pressure [Ri ght Arm] Blood Pressure [Ri ght Upper Arm] 119/65 Pulse Oximetry 92 95 97 Oxygen Delivery Me thod Room Air Room Air Room Air 11/27/22 10:29 11/27/22 10:32 11/27/22 10:35 Temperature Pulse Rate 60 60 Pulse Rate [Pulse Oximeter] Pulse Rate [Right Pulse Oximeter] Respiratory Rate 14 14 Blood Pressure 114/64 114/64 Blood Pressure [Ri ght Arm] Blood Pressure [Ri ght Upper Arm] Pulse Oximetry 98 98 97 Oxygen Delivery Me thod 11/27/22 10:47 11/27/22 11:02 11/27/22 11:32 Temperature Pulse Rate 60 60 60 Pulse Rate [Pulse Oximeter] Pulse Rate [Right Pulse Oximeter] Respiratory Rate 12 14 12 Blood Pressure 118/73 109/58 L 126/64 Blood Pressure [Ri ght Arm] Blood Pressure [Ri ght Upper Arm] Pulse Oximetry 96 96 98 Oxygen Delivery Me thod 11/27/22 11:47 11/27/22 12:02 11/27/22 12:17 Temperature Pulse Rate 60 60 60 Pulse Rate [Pulse Oximeter] Pulse Rate [Right Pulse Oximeter] Respiratory Rate 14 12 14 Blood Pressure 120/59 L 117/62 120/66 Blood Pressure [Ri ght Arm] Blood Pressure [Ri ght Upper Arm] Pulse Oximetry 96 99 99 Oxygen Delivery Oh thod Room Air 11/27/22 12:38 11/27/22 12:54 11/27/22 13:00 Temperature 97.3 F L 97.3 F L Pulse Rate 60 Pulse Rate [Pulse Oximeter] 60 Pulse Rate [Right Pulse Oximeter] Respiratory Rate 16 16 16 Blood Pressure 120/66 Blood Pressure [Ri ght Arm] 119/82 119/82 Blood Pressure [Ri ght Upper Arm] Pulse Oximetry 99 99 99 Oxygen Delivery Oh thod Room Air Room Air Room Air 11/27/22 14:00 11/27/22 16:00 11/27/22 16:00 Temperature 97.1 F L Pulse Rate 59 L Pulse Rate [Pulse Oximeter] 59 L Pulse Rate [Right Pulse Oximeter] Respiratory Rate 16 Blood Pressure 130/70 Blood Pressure [Ri ght Arm] 130/70 Blood Pressure [Ri ght Upper Arm] Pulse Oximetry 99 96 96 Oxygen Delivery Oh thod Room Air Room Air 11/27/22 16:00 11/27/22 16:00 11/27/22 16:25 Temperature 97.7 F 97.7 F Pulse Rate 60 Pulse Rate [Pulse Oximeter] 64 64 Pulse Rate [Right Pulse Oximeter] Respiratory Rate 20 20 Blood Pressure Blood Pressure [Ri ght Arm] 135/64 135/64 Blood Pressure [Ri ght Upper Arm] Pulse Oximetry 96 96 Oxygen Delivery Oh thod Room Air Room Air Labs Labs: Laboratory Results - last 24 hr 11/27/22 11/27/22 10:28 12:09 WBC 6.23 RBC 4.12 L Hgb 13.4 L Hct 40.2 MCV 98 MCH 33 MCHC 33 RDW Coeff of Aiden 11.8 Plt Count 167 Neut % (Auto) 74.7 H Lymph % (Auto) 13.3 L [place] % (Auto) 10.0 Eos % (Auto) 1.8 Baso % (Auto) 0.0 Neut # (Auto) 4.70 Lymph # (Auto) 0.80 L [place] # (Auto) 0.60 Eos # (Auto) 0.11 Baso # (Auto) 0.00 Abs Immat Gran (auto) 0.01 Imm/Tot Granulo (auto) 0.2 INR 1.12 H APTT 36 H Sodium 141 Potassium 3.7 Chloride 107 Carbon Dioxide 26 BUN 23 Creatinine 1.0 Estimated Creat Clear 59.28 Estimated GFR 74 Glucose 135 H Calcium 8.4 Urine Color Yellow Urine Appearance Slightly Cloudy A Urine pH 7.0 Ur Specific [place] 1.020 Urine Protein Trace A Urine Glucose (UA) Negative Urine Ketones Negative Urine Blood Negative Urine Nitrite Negative Urine Bilirubin Negative Urine Urobilinogen 0.2 Ur Leukocyte Esterase Trace A Urine RBC 0-2 Urine WBC 10-25 A Ur Squamous Epith Cells None Urine Bacteria Moderate A
[2022-11-27] MEDS: DONEPEZIL 10 MG TABLET PO (20:49)
[2022-11-27] MEDS: ATORVASTATIN CALCIUM 40 MG TABLET PO (20:49)
[2022-11-27] MEDS: MONTELUKAST 10 MG TABLET PO (20:49)
[2022-11-27] MEDS: FAMOTIDINE 20 MG TABLET PO (20:49)
[2022-11-27] MEDS: SODIUM CHLORIDE 0.9 % (FLUSH) 10 ML SYRINGE 5 ML IVF (20:51)
--- NOTE | 2022-11-27 22:07 | PC.NURSE ---
Shift [id number]- Patient continues to have left-sided deficits- weakness to left arm and leg. His speech is slightly garbled- but this is baseline per . He is able to be understood and make his needs known. He is alert and oriented. He declines pain most of the time when asked directly, though repetitively states Ow or makes short grunting vocalizations. Repositioning does relieve pain he admits to, per patient. MD notified this afternoon about blood pressures (normotensive). No new orders. Appetite intact. He is turned and repositioned. Pericares provided for incontinence- he also uses urinal to void.
[2022-11-28] VITALS (9 sets, daily range): BP systolic 117–165; BP diastolic 65–81; PULSE 51–60; RESP 16–18; TEMP 36.5–36.6; O2SAT 93–95
[2022-11-28] MEDS: 0.9 % SODIUM CHLORIDE 1000 ml 1,000 ML 75 ML IV ×2 (03:36→20:46)
[2022-11-28 06:27] LABS: Basophils Absolute Auto 0.02 K/uL (0.00-0.30); Basophils Percent Auto 0.4 % (0.0-3.0); Eosinophils Absolute Auto 0.14 K/uL (0.00-0.50); Hematocrit 38.5 % (37.0-53.0); Lymphocytes Percent Auto 17.6 % (20-44); Mean Corpuscular HGB Conc 34 gm/dL (32-36); Mean Corpuscular Hemoglobin 32 pg (26-34); Mean Corpuscular Volume 96 fL (80-100); Monocytes Percent Auto 11.9 % (0.0-11.0); Neutrophils Absolute Auto 3.17 K/uL (1.7-7.0); Neutrophils Percent Auto 67.1 % (42.0-72.0); Platelet Count* 139 K/uL (140-440); RDW Coefficient of Variation % 11.8 % (11.5-15.5); Red Blood Count 4.01 m/uL (4.30-5.90); White Blood Count* 4.72 K/uL (4.50-11.00)
[2022-11-28 06:32] LABS: Slide Review Reflex No
[2022-11-28 06:43] LABS: Chloride* 111 mmol/L (96-114)
[2022-11-28 06:44] LABS: Albumin* 3.4 g/dL (3.3-5.0); Potassium* 3.5 mmol/L (3.6-5.1); Sodium* 140 mmol/L (135-149)
[2022-11-28 06:46] LABS: Carbon Dioxide* 22 mmol/L (20-32); Cholesterol* 104 mg/dL (90-199); Creatinine* 0.9 mg/dL (0.5-1.5); Est. Creatinine Clearance* 59.28
[2022-11-28 06:47] LABS: Alanine Aminotransferase* 13 U/L (4-50); Alkaline Phosphatase* 75 U/L (40-150); Aspartate Amino Transferase* 19 U/L (12-35); Bilirubin Total* 0.7 mg/dL (0.1-1.5); Blood Urea Nitrogen* 19 mg/dL (7-30); Estimated Glomerular Filt Rate 84 ml/min; Glucose* 87 mg/dL (60-115); Total Protein* 5.9 g/dL (6.0-8.3); Triglycerides* 87 mg/dL (40-149)
[2022-11-28 06:48] LABS: HDL Cholesterol* 38 mg/dL (>=40); LDL Cholesterol Calculated 49 mg/dL (<100)
--- NOTE | 2022-11-28 07:00 | CRLHL7_ITS ---
For Patients: As a result of the Century Cures Act, medical imaging exams and procedure reports are released immediately into your electronic medical record. You may view this report before your referring provider. If you have questions, please contact your health care provider. INDICATION: Stroke. TECHNIQUE: Head CT without contrast. COMPARISON: 11/27/2022. FINDINGS: CSF spaces: Within normal limits for age. Brain parenchyma and extra-axial spaces: No signs of acute ischemia or intracranial hemorrhage. No mass effect or midline shift. Stable old infarcts and chronic ischemic changes. Skull base and calvarium: The visualized paranasal sinuses and mastoid air cells demonstrate no acute or significant findings. The visualized orbits are grossly unremarkable. No skull fractures. IMPRESSION: No sign of acute ischemia or intracranial hemorrhage and no changes compared to yesterday`s exam. Please note that all CT scans at this facility use dose modulation, iterative reconstruction, and/or weight-based dosing when appropriate to reduce radiation dose to as low as reasonably achievable. Dictated by Bonifacio Calhoun MD @ 11/28/2022 7:37:06 AM (Electronically Signed)
--- NOTE | 2022-11-28 07:03 | PC.NURSE ---
END OF SHIFT NOTE: PT PLEASANT AND COOPERATIVE. DENIES CP, SOB, N/V. PT WAS REPOSITIONED WITH PILLOWS FOR OFFLOADING. VSS ON RA; AFEBRILE. BED ALARM ON AND CALL LIGHT WITHIN PT?S REACH. TELE READS A-PACED WITH BBB. INCONTINENT OF BLADDER. PT HAS GARBLED SPEECH THAT IS BASELINE. PT HAS PULLED OFF CONTINUOUS PULSE OX OFF MULTIPLE TIMES; SPO2 >94% ON RA. Q4H NEURO CHECKS HAVE BEEN NEGATIVE. PER PT CHRONIC PRODUCTIVE COUGH WITH THICK SPUTUM. REPEAT CT THIS AM.
[2022-11-28] MEDS: CLOPIDOGREL 75 MG TABLET PO (09:31)
[2022-11-28] MEDS: SERTRALINE 50 MG TABLET PO (09:31)
[2022-11-28] MEDS: TAMSULOSIN HCL 0.4 MG CAPSULE PO (09:31)
[2022-11-28] MEDS: ASPIRIN 81 MG TABLET EC PO (09:32)
[2022-11-28] MEDS: FLUTICASONE PROPIONATE NASAL 2 SPRAY NOSTRIL-B (09:32)
[2022-11-28] MEDS: FAMOTIDINE 20 MG TABLET PO ×2 (09:32→20:36)
[2022-11-28] MEDS: SODIUM CHLORIDE 0.9 % (FLUSH) 10 ML SYRINGE 5 ML IVF ×2 (09:33→20:36)
--- NOTE | 2022-11-28 11:00 | PM.IMPN1 ---
Progress Note: A&P Assessment and plan (1) Acute CVA (cerebrovascular accident): Problem details: - symptoms concerning for this, possibly atypical UTI (history of these and has a positive culture) - Plavix initiated 11/27 - stroke Neurology following via telehealth - no significant change on repeat Head CT 11/28 - therapies following; may require SNF vs LTAC pending hospital course - TTE 11/27 (results below) Final Impressions: 1. Technically limited exam. 2. Normal LV size, mildly increased wall thickness, normal global systolic function with an estimated EF of 65 - 70%. 3. Right ventricular cavity size is mildly enlarged, global systolic RV function is normal. 4. Moderately enlarged left atrium. 5. The aortic valve is sclerotic and calcified, moderate stenosis and mild to moderate regurgitation. The aortic valve peak velocity is 3.2 m/s, the peak gradient is 41 mmHg, and the mean gradient is 22 mmHg. The aortic valve area is 1.17 cm?? with a dimensionless index of 0.32. The stroke volume index is 39.1 ml/m??. 6. The mitral valve is normal, mild mitral regurgitation. Comparison: When compared to the report of the prior study of 06/28/18, the is moderate. Status: Acute (2) Hyperlipidemia: Problem details: - continue statin Status: Acute (3) Atrial fibrillation: Problem details: - rate controlled on Metoprolol, paced - has Watchman device - on ASA Status: Acute (4) Abnormal urinalysis: Problem details: - culture growing GPC, ID and sensitivities pending, initiated Rocephin 11/27 Status: Acute Plan - continue therapies, SW assistance requested as well - meds and treatments per above - appreciate assistance from Stroke Neurology - updated at bedside, questions answered Subjective Date Seen: 11/28/22 Exam Narrative: Exam Narrative: GEN: Alert and having breakfast in bed, intermittent cough (baseline) HEENT: Mild L facial droop, EOMIs bilaterally, no scleral icterus CV: RRR, blowing systolic murmur heard best in L midaxillary line R: No wheezing, mild bibasilar rhonchi (c/w upper airway secretions) Ext: wwp, no concerning edema Skin: No concerning skin lesions or rashes on exposed skin Neuro: weakness of LUE and LLE noted Psych: Appropriate Const: Vital Signs, click to edit/add: Vital Signs - 24 hr 11/27/22 11:02 11/27/22 11:32 11/27/22 11:47 Temperature Pulse Rate 60 60 60 Pulse Rate [Pulse Oximeter] Respiratory Rate 14 12 14 Blood Pressure 109/58 L 126/64 120/59 L Blood Pressure [Ri ght Arm] Pulse Oximetry 96 98 96 Oxygen Delivery Me thod 11/27/22 12:02 11/27/22 12:17 11/27/22 12:38 Temperature 97.3 F L Pulse Rate 60 60 Pulse Rate [Pulse Oximeter] 60 Respiratory Rate 12 14 16 Blood Pressure 117/62 120/66 Blood Pressure [Ri ght Arm] 119/82 Pulse Oximetry 99 99 99 Oxygen Delivery Me thod Room Air Room Air 11/27/22 12:54 11/27/22 13:00 11/27/22 14:00 Temperature 97.3 F L 97.1 F L Pulse Rate 60 59 L Pulse Rate [Pulse Oximeter] 59 L Respiratory Rate 16 16 16 Blood Pressure 120/66 130/70 Blood Pressure [Ri ght Arm] 119/82 130/70 Pulse Oximetry 99 99 99 Oxygen Delivery Me thod Room Air Room Air Room Air 11/27/22 16:00 11/27/22 16:00 11/27/22 16:00 Temperature 97.7 F Pulse Rate Pulse Rate [Pulse Oximeter] 64 Respiratory Rate 20 Blood Pressure Blood Pressure [Ri ght Arm] 135/64 Pulse Oximetry 96 96 96 Oxygen Delivery Me thod Room Air Room Air 11/27/22 16:00 11/27/22 16:25 11/27/22 19:05 Temperature 97.7 F 97.5 F L Pulse Rate 60 Pulse Rate [Pulse Oximeter] 64 60 Respiratory Rate 20 18 Blood Pressure Blood Pressure [Ri ght Arm] 135/64 126/63 Pulse Oximetry 96 95 Oxygen Delivery Me thod Room Air Room Air 11/27/22 23:40 11/27/22 23:40 11/27/22 23:40 Temperature Pulse Rate 59 L Pulse Rate [Pulse Oximeter] 60 Respiratory Rate 20 Blood Pressure Blood Pressure [Ri ght Arm] Pulse Oximetry 94 Oxygen Delivery Me thod 11/27/22 23:40 11/27/22 23:40 11/28/22 03:35 Temperature 98.2 F 97.9 F Pulse Rate Pulse Rate [Pulse Oximeter] 57 L 60 Respiratory Rate 20 20 16 Blood Pressure [facility] 135/70 137/66 Pulse Oximetry 94 94 94 Oxygen Delivery Me thod Room Air Room Air Room Air 11/28/22 07:30 11/28/22 07:30 11/28/22 07:45 Temperature 97.9 F Pulse Rate Pulse Rate [Pulse Oximeter] 59 L 59 L Respiratory Rate 16 16 16 Blood Pressure Blood Pressure [facility]] 117/68 Pulse Oximetry 95 95 Oxygen Delivery Me thod Room Air Room Air Labs Labs: Laboratory Results - last 24 hr 11/27/22 11/28/22 12:09 05:58 WBC 4.72 RBC 4.01 L Hgb 13.0 L Hct 38.5 MCV 96 MCH 32 MCHC 34 RDW Coeff of Aiden 11.8 Plt Count 139 L Neut % (Auto) 67.1 Lymph % (Auto) 17.6 L [place] % (Auto) 11.9 H Eos % (Auto) 3.0 Baso % (Auto) 0.4 Neut # (Auto) 3.17 Lymph # (Auto) 0.80 L [place] # (Auto) 0.60 Eos # (Auto) 0.14 Baso # (Auto) 0.02 Abs Immat Gran (auto) 0.00 Imm/Tot Granulo (auto) 0.0 Sodium 140 Potassium 3.5 L Chloride 111 Carbon Dioxide 22 BUN 19 Creatinine 0.9 Estimated Creat Clear 59.28 Estimated GFR 84 Glucose 87 Calcium 8.0 L Total Bilirubin 0.7 AST 19 ALT 13 Alkaline Phosphatase 75 Total Protein 5.9 L Albumin 3.4 Triglycerides 87 Cholesterol 104 LDL Cholesterol, Calc 49 HDL Cholesterol 38 L Urine Color Yellow Urine Appearance Slightly Cloudy A Urine pH 7.0 Ur Specific [place] 1.020 Urine Protein Trace A Urine Glucose (UA) Negative Urine Ketones Negative Urine Blood Negative Urine Nitrite Negative Urine Bilirubin Negative Urine Urobilinogen 0.2 Ur Leukocyte Esterase Trace A Urine RBC 0-2 Urine WBC 10-25 A Ur Squamous Epith Cells None Urine Bacteria Moderate A
[2022-11-28] MEDS: POTASSIUM BICARB 25 MEQ EFFERVESCENT TAB PO (13:13)
[2022-11-28] MEDS: ACETAMINOPHEN 325 MG TABLET 650 MG PO (13:46)
[2022-11-28] MEDS: cefTRIAXone 1 GM in 0.9 % SODIUM CHLORIDE Mini-bag 100 ML IVPB (14:03)
--- NOTE | 2022-11-28 14:43 | PC.NURSE ---
End of shift nursing note, care provided from [id number]: Pt alert and oriented, pleasant and compliant. Vitals stable, on RA. Continues on NS at 75ml/hr and sheduled Rocephin. Continued weakness to LUE and LLE side. Takes meds whole with applesauce. Continues to be Vpaced, hayley mid to high 50sbpm. Pt denies pain, per report has chronic pain, but declines offer/need for PRN. New order for PRN Tylenol per pt request in case pt needs. Pt has chronic cough, to see speech therapy this afternoon around 1530. Worked w/ PT, OT and saw SW. Able to stand at bedside w/ Ax2 but requires ceiling lift and Ax2 to transfer from bed to chair. Up in chair this afternoon then requested to go back to bed to nap before seeing speech and having dinner. Tolerating diet, denies nausea, denies chest pain. Incontinent of urine, breif changed PRN. ?Hue? at bedside for majority of shift, but will go home to retrieve pt?s CPAP before NOC, RT updated. K+ 25meq admin today for K+ 3.5. IV dressing changed to R AC. Both R and L AC IV patent. Pt saw neurologist for follow up at 11am today, no new orders. Bed alarm on, call light within reach.??
--- NOTE | 2022-11-28 15:23 | PC.SOCIAL ---
Discharge Planning: Met with patient and spouse. Spouse states that they are waiting to see if [facility] will stay another night. She would like his arm to be stronger so that he can assist with transfers. They have twelve hours a day of services from [facility] and this is going well. Spouse reports that she is able to get him out of the home with their help. No other questions or concerns.
--- NOTE | 2022-11-28 16:34 | SLP.EVAL ---
CASE AIDE Stephanieal CASE AIDE Eval Start: 11/28/22 16:13 Freq: Status: Active Protocol: Document 11/28/22 16:14 MJNicholas (Rec: 11/28/22 16:32 Nicholas [id number]) E-signed By Makayla Lopez MA, 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 AF. Pacemaker. Complication/Precautions/ Falls risk Contraindication Comments Hearing Information Hearing Status Adequate for conversation Vision Information Vision Status Glasses Patient Orientation Orientation & Mental Status Alert and cooperative. Making jokes. Up in chair for evaluation. CASE AIDE Initial Assessment/POC Subjective Information Subjective/Pain Comment Pleasant, alert. Caregiver's Name Hue - . Present for eval. Assessment & Impression Rehabilitation Potential Comments Good. Assessment/Impression CLINICAL SWALLOW EVALUATION: Oral Motor Exam: Reduced lip retraction on left . Tongue range of motion WFL. Full upper dentures, loose- fitting. Lower dentition is natural. Voice quality wet and rough at baseline. reported he has issues with excess phlegm which causes coughing spells between meals, and somtimes while eating. He takes over the counter medications to manage phlegm and allergies. PO Trials: Thin Liquids Via Spoon, Cup and Straw: Oral phase WFL. Timely swallow response with adequate laryngeal excursion per palpation. No coughing or signs of aspiration with thin liquids. Voice quality remained wet and rough after swallowing - no change from baseline. Puree Via Spoon: Oral phase WFL. No signs of aspiration or difficulty. Soft Solids (Canned fruit with liquid drained off): Oral phase WFL. No signs of aspiration or difficulty. Mixed Consistency (Canned fruit with thin liquid juice): Oral phase WFL. No signs of aspiration or difficulty. Solids (Juan Luis Cracker): Oral phase WFL. No signs of aspiration or difficulty. ASSESSMENT: No clinical signs of dysphagia or aspiration noted today. History of mild dysphagia following CVAs with prior video swallow evaluations completed in 2018 and 2021. Patient's voice quality is rough and wet at baseline. He did not have any changes in voice quality, throat clearing, or coughing with foods and liquids during this assessment. Recommend continue regular textured solids and thin liquids (IDDSI level 7 - foods. Level 0 - drinks). CASE AIDE will follow up on diet tolerance/further needs if he is still here on Thursday. Consider video swallow for furhter assessment if coughing with PO becomes more apparent or other concerns for aspiration arise. Functional Limitations & Outcome/Goals Goals/Functional Outcomes Patient will tolerate least restrictive diet with no signs or symptoms of aspiration. Patient/family will verbalize comprehension of dysphagia education and tips on phlegm management. Intervention Plan & Frequency Intervention Plan CASE AIDE to follow Frequency/Duration Up to three times per week for length of stay. Coordination Of Plan Has Been patient, spouse, nursing, and Communicated With rehab staff Discharge Plan Patient Will be Discharged from Therapy Completion of LTG(s) Therapist Signature & License # I Certify That Therapy Services Provided, Therapy Plan Established Physician Signature Signature of Physician Indicates Treatment Plan,Medically Needed Services Physician Signature & Date Required Please Sign/Date Here Food Presentation Evaluation Dietary Recommendations Regular: IDDSI Level 7 Liquid Recommendations Thin Liquids: IDDSI Level 0 Dysphagia Education Topics Education Topics Teaching Recipient Patient,Family Teaching Methods Verbal Speech/Language Pathology Billing Units Billing Units Eval Swallow Function 1
--- NOTE | 2022-11-28 18:50 | PC.NURSE ---
End of shift: [phone]. Patient alert and pleasant. at bedside until dinner. Patient up to chair for meals via rachel lift, speech therapy cleared patient and did not find any indications of aspiration. Patient incont of urine and brief changed x1. Patient back to bed after dinner.
[2022-11-28] MEDS: DONEPEZIL 10 MG TABLET PO (20:36)
[2022-11-28] MEDS: ATORVASTATIN CALCIUM 40 MG TABLET PO (20:36)
[2022-11-28] MEDS: MONTELUKAST 10 MG TABLET PO (20:36)
[2022-11-29 03:09] VITALS: BP 143/73; PULSE 63; RESP 18; TEMP 36.6; O2SAT 93
--- NOTE | 2022-11-29 06:24 | PC.NURSE ---
-: pleasant and cooperative. Left arm flaccid, LLE able to lift slightly off bed. Pt was asking about his CPAP machine, called and she said she will bring it in 11/29. VSS. 2x wet brief.
[2022-11-29 07:00] VITALS: BP 161/77; PULSE 60; RESP 18; TEMP 36.6; O2SAT 94
[2022-11-29 08:21] LABS: Chloride* 113 mmol/L (96-114); Potassium* 3.5 mmol/L (3.6-5.1); Sodium* 139 mmol/L (135-149)
[2022-11-29 08:22] LABS: Basophils Absolute Auto 0.02 K/uL (0.00-0.30); Basophils Percent Auto 0.4 % (0.0-3.0); Eosinophils Absolute Auto 0.14 K/uL (0.00-0.50); Eosinophils Percent Auto 2.9 % (0.0-7.0); Hemoglobin* 12.7 gm/dL (13.5-17.5); Immature Granulocytes Abs Auto 0.02 K/uL (0.00-0.30); Immature Granulocytes Pct Auto 0.4 %; Lymphocytes Absolute Auto 0.95 K/uL (0.90-2.90); Mean Corpuscular HGB Conc 33 gm/dL (32-36); Mean Corpuscular Hemoglobin 32 pg (26-34); Mean Corpuscular Volume 96 fL (80-100); Monocytes Percent Auto 12.6 % (0.0-11.0); Neutrophils Absolute Auto 3.03 K/uL (1.7-7.0); Neutrophils Percent Auto 63.7 % (42.0-72.0); Platelet Count* 102 K/uL (140-440); RDW Coefficient of Variation % 12.1 % (11.5-15.5); Red Blood Count 3.94 m/uL (4.30-5.90); White Blood Count* 4.76 K/uL (4.50-11.00)
[2022-11-29 08:23] LABS: Slide Review Reflex No
[2022-11-29 08:24] LABS: Blood Urea Nitrogen* 18 mg/dL (7-30); Carbon Dioxide* 18 mmol/L (20-32); Creatinine* 0.8 mg/dL (0.5-1.5); Est. Creatinine Clearance* 59.28; Estimated Glomerular Filt Rate 87 ml/min
[2022-11-29 08:25] LABS: Calcium* 7.6 mg/dL (8.4-10.6); Glucose* 90 mg/dL (60-115)
[2022-11-29] MEDS: FAMOTIDINE 20 MG TABLET PO ×2 (09:33→20:20)
[2022-11-29] MEDS: TAMSULOSIN HCL 0.4 MG CAPSULE PO (09:34)
[2022-11-29] MEDS: SERTRALINE 50 MG TABLET PO (09:34)
[2022-11-29] MEDS: ASPIRIN 81 MG TABLET EC PO (09:34)
[2022-11-29] MEDS: FLUTICASONE PROPIONATE NASAL 2 SPRAY NOSTRIL-B (09:34)
[2022-11-29] MEDS: CLOPIDOGREL 75 MG TABLET PO (09:34)
[2022-11-29] MEDS: SODIUM CHLORIDE 0.9 % (FLUSH) 10 ML SYRINGE 5 ML IVF ×2 (09:35→20:20)
[2022-11-29] MEDS: 0.9 % SODIUM CHLORIDE 1000 ml 1,000 ML 75 ML IV (09:42)
[2022-11-29 11:00] VITALS: BP 120/62; PULSE 60; RESP 18; TEMP 36.5; O2SAT 95
--- NOTE | 2022-11-29 13:02 | P.IMPN_ITS ---
Progress Note: A&P Assessment and plan (1) Acute CVA (cerebrovascular accident): Problem details: I favor an acute stroke as the cause of his acute on chronic weakness which is already improving over the last 2 days. Due to pacemaker unable to obtain MRI. I do not believe this would change our management. Aspirin and Plavix, statin, PT and OT. - symptoms concerning for this, possibly atypical UTI (history of these and has a positive culture) - Plavix initiated 11/27 - stroke Neurology following via telehealth - no significant change on repeat Head CT 11/28 - therapies following; may require SNF vs LTAC pending hospital course - TTE 11/27 (results below) Final Impressions: 1. Technically limited exam. 2. Normal LV size, mildly increased wall thickness, normal global systolic function with an estimated EF of 65 - 70%. 3. Right ventricular cavity size is mildly enlarged, global systolic RV function is normal. 4. Moderately enlarged left atrium. 5. The aortic valve is sclerotic and calcified, moderate stenosis and mild to moderate regurgitation. The aortic valve peak velocity is 3.2 m/s, the peak gradient is 41 mmHg, and the mean gradient is 22 mmHg. The aortic valve area is 1.17 cm?? with a dimensionless index of 0.32. The stroke volume index is 39.1 ml/m??. 6. The mitral valve is normal, mild mitral regurgitation. Comparison: When compared to the report of the prior study of 06/28/18, the is moderate. Status: Acute (2) Hyperlipidemia: Problem details: - continue statin Status: Acute (3) Atrial fibrillation: Problem details: - rate controlled on Metoprolol, paced - has Watchman device - on ASA Status: Acute (4) Abnormal urinalysis: Problem details: Asymptomatic bacteriuria. No indication for antibiotics at this time Status: Acute Plan Continue in hospital for evaluation management of stroke. If continued to make progress over the next 1-2 days could possibly be discharged to home rather than senior living facility. Time Spent With Patient Total time spent: Total time spent today is 40 minutes, 25 minutes in coordination of care and discussing with patient, his and other providers ongoing evaluation management of stroke and disability and disposition Subjective Date Seen: 11/29/22 Interval history: 87-year-old male seen in followup of acute on chronic left-sided weakness. Patient is known to have previous stroke causing left hemiparesis. Prior to admission his noted that he had acute onset of profound weakness in his left side, worse than his baseline. Brought to the emergency room for evaluation. At that time was felt this was either due to an acute illness or possibly a new small stroke not seen on the CT scan. The only identified illnesses a possible UTI. Urine culture is now growing 10,000 colonies of Gram- positive bacteria. Patient is not having any urinary symptoms or fever. Since admission he has had improvement in his left-sided weakness and function. According to his it was flaccid on the left side prior to admission and now he is regaining some function though not quite back to normal. Physical therapy notes that he has had significant improvement in his left-sided functioning and thinks that he may be able to return home with his given her remarkable ability to assist with his cares. Patient tells me today he has no concerns other than his disabilities. He reports he is otherwise feeling well. Exam Narrative: Exam Narrative: He is alert and appears in no distress. Speech is normal. He has facial asymmetry with left-sided weakness. Respirations are clear to auscultation. Cardiovascular: S1, S2, somewhat irregular rhythm. Abdomen: Bowel sounds active. Abdomen is soft without tenderness or mass. He has antigravity strength and his left upper extremity. 3/5 marketing outreach coordinator strength on the left. Minimal finger extension. Right side is relatively normal. Left lower extremity likewise is quite weak with 3/5 strength in hip flexion, knee flexion and extension. Const: Vital Signs, click to edit/add: Vital Signs - 24 hr 11/28/22 15:00 11/28/22 15:00 11/28/22 15:00 Temperature Pulse Rate 60 Pulse Rate [Pulse Oximeter] 60 Respiratory Rate 16 16 Blood Pressure [Ri ght Arm] Pulse Oximetry 95 Oxygen Delivery Me thod Room Air 11/28/22 15:00 11/28/22 19:00 11/28/22 21:41 Temperature 97.7 F 97.9 F Pulse Rate 59 L Pulse Rate [Pulse Oximeter] 60 60 Respiratory Rate 16 18 Blood Pressure [Ri ght Arm] 165/77 H 150/81 H Pulse Oximetry 95 93 Oxygen Delivery Me thod Room Air Room Air 11/28/22 23:00 11/28/22 23:00 11/28/22 23:00 Temperature 97.8 F Pulse Rate Pulse Rate [Pulse Oximeter] 51 L 51 L Respiratory Rate 18 18 18 Blood Pressure [Ri ght Arm] 145/77 H Pulse Oximetry 95 95 Oxygen Delivery Me thod Room Air Room Air 11/29/22 03:09 11/29/22 07:00 11/29/22 07:00 Temperature 97.8 F Pulse Rate 60 Pulse Rate [Pulse Oximeter] 63 60 Respiratory Rate 18 18 Blood Pressure [Ri ght Arm] 143/73 H Pulse Oximetry 93 Oxygen Delivery Me thod Room Air 11/29/22 07:00 11/29/22 07:00 11/29/22 11:00 Temperature 97.8 F 97.7 F Pulse Rate Pulse Rate [Pulse Oximeter] 60 60 Respiratory Rate 18 18 18 Blood Pressure [Ri ght Arm] 161/77 H 120/62 Pulse Oximetry 94 94 95 Oxygen Delivery Me thod Room Air Room Air Room Air Documenting provider has reviewed patient's vital signs: yes Labs Labs: Laboratory Results - last 24 hr 11/29/22 07:25 WBC 4.76 RBC 3.94 L Hgb 12.7 L Hct 38.0 MCV 96 MCH 32 MCHC 33 RDW Coeff of Aiden 12.1 Plt Count 102 L Neut % (Auto) 63.7 Lymph % (Auto) 20.0 [place] % (Auto) 12.6 H Eos % (Auto) 2.9 Baso % (Auto) 0.4 Neut # (Auto) 3.03 Lymph # (Auto) 0.95 [place] # (Auto) 0.60 Eos # (Auto) 0.14 Baso # (Auto) 0.02 Abs Immat Gran (auto) 0.02 Imm/Tot Granulo (auto) 0.4 Sodium 139 Potassium 3.5 L Chloride 113 Carbon Dioxide 18 L BUN 18 Creatinine 0.8 Estimated Creat Clear 59.28 Estimated GFR 87 Glucose 90 Calcium 7.6 L
--- NOTE | 2022-11-29 14:52 | PC.NURSE ---
End of shift: Patient is alert and pleasant. at bedside for most of the morning. Patient up to chair for meals, RA, VSS, EZ-stand. Patient incont of urine and brief changed x1, bladder scanned to see if there was any retention and bladder scanner only picked up 102cc. Patient back to bed after lunch to rest.
[2022-11-29 15:00] VITALS: BP 131/64; PULSE 60; RESP 18; TEMP 36.6; O2SAT 95
[2022-11-29] MEDS: ACETAMINOPHEN 325 MG TABLET 650 MG PO (18:15)
[2022-11-29 19:00] VITALS: BP 126/60; PULSE 60; RESP 18; TEMP 36.4; O2SAT 94
[2022-11-29] MEDS: DONEPEZIL 10 MG TABLET PO (20:19)
[2022-11-29] MEDS: ATORVASTATIN CALCIUM 40 MG TABLET PO (20:19)
[2022-11-29] MEDS: MONTELUKAST 10 MG TABLET PO (20:19)
--- NOTE | 2022-11-29 22:04 | PC.NURSE ---
Shift note: Pt has been in bed throughout the shift. Turn and reposition per pt's request. 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 Pt is A/O, respond positively to questions but with gabled voice. Vital signs have been stable. Pt requires EZ stand or Manfred lift for transfer. Takes pill whole with applesauce. Complained of headache of 5/10. Tylenol given and was effective.
[2022-11-29 23:00] VITALS: BP 148/76; PULSE 60; PULSE 63; RESP 18; TEMP 36.3; O2SAT 95
[2022-11-30] VITALS (8 sets, daily range): BP systolic 132–141; BP diastolic 67–79; PULSE 60–65; RESP 16–18; TEMP 36.1–36.8; O2SAT 94–95
--- NOTE | 2022-11-30 06:38 | PC.NURSE ---
23-07: pleasant and cooperative. CPAP on at HS. Occasionally incont. VSS. left sided weakness, able to lift LLE off bed slightly, able to grab writers hand with his left hand-very weak.
[2022-11-30 08:07] LABS: Chloride* 112 mmol/L (96-114); Potassium* 3.6 mmol/L (3.6-5.1); Sodium* 140 mmol/L (135-149)
[2022-11-30 08:10] LABS: Blood Urea Nitrogen* 16 mg/dL (7-30); Calcium* 8.2 mg/dL (8.4-10.6); Carbon Dioxide* 25 mmol/L (20-32); Creatinine* 0.8 mg/dL (0.5-1.5); Est. Creatinine Clearance* 59.28; Estimated Glomerular Filt Rate 87 ml/min; Glucose* 88 mg/dL (60-115)
[2022-11-30] MEDS: POTASSIUM CHLORIDE 10 MEQ CAPSULE ER PO (08:55)
[2022-11-30] MEDS: TAMSULOSIN HCL 0.4 MG CAPSULE PO (08:55)
[2022-11-30] MEDS: FLUTICASONE PROPIONATE NASAL 2 SPRAY NOSTRIL-B (08:56)
[2022-11-30] MEDS: CLOPIDOGREL 75 MG TABLET PO (08:56)
[2022-11-30] MEDS: ASPIRIN 81 MG TABLET EC PO (08:56)
[2022-11-30] MEDS: SERTRALINE 50 MG TABLET PO (08:56)
[2022-11-30] MEDS: FAMOTIDINE 20 MG TABLET PO ×2 (08:56→20:10)
--- NOTE | 2022-11-30 15:26 | PM.IMPN1 ---
Progress Note: A&P Assessment and plan (1) Acute CVA (cerebrovascular accident): Problem details: I favor an acute stroke as the cause of his acute on chronic weakness which is already improving over the last 2 days. Due to pacemaker unable to obtain MRI. I do not believe this would change our management. Aspirin and Plavix, statin, PT and OT. - symptoms concerning for this, possibly atypical UTI (history of these and has a positive culture) - Plavix initiated 11/27 - stroke Neurology following via telehealth - no significant change on repeat Head CT 11/28 - therapies following; may require SNF vs LTAC pending hospital course - TTE 11/27 (results below) Final Impressions: 1. Technically limited exam. 2. Normal LV size, mildly increased wall thickness, normal global systolic function with an estimated EF of 65 - 70%. 3. Right ventricular cavity size is mildly enlarged, global systolic RV function is normal. 4. Moderately enlarged left atrium. 5. The aortic valve is sclerotic and calcified, moderate stenosis and mild to moderate regurgitation. The aortic valve peak velocity is 3.2 m/s, the peak gradient is 41 mmHg, and the mean gradient is 22 mmHg. The aortic valve area is 1.17 cm?? with a dimensionless index of 0.32. The stroke volume index is 39.1 ml/m??. 6. The mitral valve is normal, mild mitral regurgitation. Comparison: When compared to the report of the prior study of 06/28/18, the is moderate. Status: Acute (2) Hyperlipidemia: Problem details: - continue statin Status: Acute (3) Atrial fibrillation: Problem details: - rate controlled on Metoprolol, paced - has Watchman device - on ASA. Add clopidogrel for 1 month for stroke treatment. Status: Acute (4) Abnormal urinalysis: Problem details: Asymptomatic bacteriuria. No indication for antibiotics at this time Status: Acute Plan Continue in hospital for another day of therapy for stroke. Work with his who is anxious to take him home. Anticipate discharge tomorrow. Time Spent With Patient Total time spent: Total time spent today is 40 minutes, 30 minutes in coordination of care and discussing with patient, and other providers ongoing evaluation management of stroke and rehabilitation. Subjective Date Seen: 11/30/22 Interval history: 87-year-old male seen in followup of acute on chronic left-sided weakness. Patient is known to have previous stroke causing left hemiparesis. Prior to admission his noted that he had acute onset (minutes) of profound weakness in his left side, worse than his baseline. Brought to the emergency room for evaluation. At that time was felt this was either due to an acute illness or possibly a new small stroke not seen on the CT scan. The only identified illnesses a possible UTI. Urine culture is now growing 10,000 colonies of Gram-positive bacteria. Patient is not having any urinary symptoms or fever. Since admission he has had improvement in his left-sided weakness and function. According to his it was flaccid on the left side prior to admission and now he is regaining some function though not quite back to normal. Physical therapy notes that he has had significant improvement in his left-sided functioning and thinks that he may be able to return home with his given her remarkable ability to assist with his cares. Patient tells me today he has no concerns other than his disabilities. He reports he is otherwise feeling well. His has brought equipment from home that she uses to help him stand and pivot. She has been working with therapists on this and feels confident that she will be able to take him home tomorrow if he continues to improve. Exam Narrative: Exam Narrative: He is alert and oriented to his circumstances. Appears in no distress. Respirations are clear to auscultation. Cardiovascular: S1, S2, somewhat irregular rhythm. Abdomen is soft without tenderness or mass. He has no significant edema. Right upper extremity functions normally. Left upper extremity still has significant extensor weakness and moderate flexor weakness. Lower extremity similarly has severe extensor weakness and moderate flexor weakness in the ankle. Const: Vital Signs, click to edit/add: Vital Signs - 24 hr 11/29/22 19:00 11/29/22 23:00 11/29/22 23:00 Temperature 97.5 F L 97.3 F L Pulse Rate 60 Pulse Rate [Pulse Oximeter] 60 60 Respiratory Rate 18 18 Blood Pressure [Ri ght Arm] 126/60 148/76 H Pulse Oximetry 94 95 Oxygen Delivery Me thod Room Air CPAP 11/29/22 23:00 11/29/22 23:00 11/30/22 03:00 Temperature 97 F L Pulse Rate Pulse Rate [Pulse Oximeter] 63 63 Respiratory Rate 18 18 18 Blood Pressure [Ri ght Arm] 141/71 H Pulse Oximetry 95 94 Oxygen Delivery Me thod CPAP CPAP 11/30/22 07:00 11/30/22 07:00 11/30/22 07:00 Temperature Pulse Rate 60 Pulse Rate [Pulse Oximeter] 65 Respiratory Rate 18 18 Blood Pressure [[facility]] Pulse Oximetry 95 Oxygen Delivery Me thod CPAP 11/30/22 07:00 Temperature 97.5 F L Pulse Rate Pulse Rate [Pulse Oximeter] 65 Respiratory Rate 18 Blood Pressure [[facility]] 137/69 Pulse Oximetry 95 Oxygen Delivery Me thod CPAP Documenting provider has reviewed patient's vital signs: yes Labs Labs: Laboratory Results - last 24 hr 11/30/22 07:43 Sodium 140 Potassium 3.6 Chloride 112 Carbon Dioxide 25 BUN 16 Creatinine 0.8 Estimated Creat Clear 59.28 Estimated GFR 87 Glucose 88 Calcium 8.2 L
[2022-11-30] MEDS: ACETAMINOPHEN 325 MG TABLET 650 MG PO (18:06)
[2022-11-30] MEDS: ATORVASTATIN CALCIUM 40 MG TABLET PO (20:10)
[2022-11-30] MEDS: DONEPEZIL 10 MG TABLET PO (20:11)
[2022-11-30] MEDS: MONTELUKAST 10 MG TABLET PO (20:11)
[2022-11-30] MEDS: SODIUM CHLORIDE 0.9 % (FLUSH) 10 ML SYRINGE 5 ML IVF (20:11)
[2022-12-01 02:48] VITALS: BP 154/74; PULSE 61; RESP 18; TEMP 36.6; O2SAT 94
--- NOTE | 2022-12-01 05:36 | PC.NURSE ---
Pt rested well this night. Able to use urinal to void. VS unremarkable. Easy Stand.
[2022-12-01 07:00] VITALS: BP 166/79; PULSE 60; PULSE 61; RESP 18; TEMP 36.2; O2SAT 94; O2SAT 95
[2022-12-01] MEDS: POTASSIUM CHLORIDE 10 MEQ CAPSULE ER PO (07:51)
[2022-12-01] MEDS: CLOPIDOGREL 75 MG TABLET PO (08:34)
[2022-12-01] MEDS: FAMOTIDINE 20 MG TABLET PO (08:35)
[2022-12-01] MEDS: FLUTICASONE PROPIONATE NASAL 2 SPRAY NOSTRIL-B (08:35)
[2022-12-01] MEDS: SERTRALINE 50 MG TABLET PO (08:35)
[2022-12-01] MEDS: SODIUM CHLORIDE 0.9 % (FLUSH) 10 ML SYRINGE 5 ML IVF (08:35)
[2022-12-01] MEDS: TAMSULOSIN HCL 0.4 MG CAPSULE PO (08:35)
[2022-12-01] MEDS: ASPIRIN 81 MG TABLET EC PO (08:35)
[2022-12-01] MEDS: ACETAMINOPHEN 325 MG TABLET 650 MG PO (09:24)
--- NOTE | 2022-12-01 12:57 | P.DS_ITS ---
DS: Providers Provider Date Seen: 12/01/22 Date of admission: 11/28/22 14:00 Primary care physician: Chandrika Sutton MD Admitting Clinician: Estrella Chan MD Attending Physician on discharge: Art Claudio MD Date of Discharge: 12/01/22 DS: Diagnosis Discharge Diagnosis (1) Acute CVA (cerebrovascular accident): Status: Acute Problem details: I favor an acute stroke as the cause of his acute on chronic weakness which is already improving over the last 2 days. Due to pacemaker unable to obtain MRI. I do not believe this would change our management. Aspirin and Plavix for 30 days then aspirin alone, statin, PT and OT. - Plavix initiated 11/27 - stroke Neurology following via telehealth - no significant change on repeat Head CT 11/28 - therapies following; may require SNF vs LTAC pending hospital course - TTE 11/27 (results below) Final Impressions: 1. Technically limited exam. 2. Normal LV size, mildly increased wall thickness, normal global systolic function with an estimated EF of 65 - 70%. 3. Right ventricular cavity size is mildly enlarged, global systolic RV function is normal. 4. Moderately enlarged left atrium. 5. The aortic valve is sclerotic and calcified, moderate stenosis and mild to moderate regurgitation. The aortic valve peak velocity is 3.2 m/s, the peak gradient is 41 mmHg, and the mean gradient is 22 mmHg. The aortic valve area is 1.17 cm?? with a dimensionless index of 0.32. The stroke volume index is 39.1 ml/m??. 6. The mitral valve is normal, mild mitral regurgitation. Comparison: When compared to the report of the prior study of 06/28/18, the is moderate. (2) History of right MCA stroke: Status: Acute Problem details: Previous right MCA stroke causing left hemiparesis. He had acute worsening of his left hemiparesis on the day of admission thought to be a new stroke. Modest clinical improvement during his hospital stay. (3) Atrial fibrillation: Status: Acute Problem details: - rate controlled on Metoprolol, paced - has Watchman device - on ASA. Add clopidogrel for 1 month for stroke treatment. (4) Abnormal urinalysis: Status: Acute Problem details: On admission there was concern about UTI causing some of his symptoms. Ultimately UTI was not thought to be the cause of his abrupt onset of worsening weakness on his left side as he had no specific urinary symptoms and his weakness had an abrupt onset over a few minutes. Asymptomatic bacteriuria. No indication for antibiotics at this time DS: Summary Hospital Course Hospital Course: 87-year-old male admitted to the hospital with acute onset of left sided weakne ss in the presence of prior left hemiparesis from right MCA stroke. He was with his who is his primary care provider. She noted that he abruptly had marked worsening of his left-sided weakness. He had no other symptoms of illness or injury to account for this. He has evaluated the emergency room where he had Stroke Neurology consultation. Considerations at that time were that he had an acute urinary tract infection or a new stroke not seen on his CT scan. MRI could not be done because of the presence of a pacemaker. Clinically this is suspected to be a new small ischemic stroke in the right hemisphere and he was started on Plavix in addition to his aspirin. He does have a Watchman device and his and chronic aspirin. He has AFib. During his hospital stay he had modest improvement in his weakness on his left side. He had ongoing therapy that proceeded to the point where his was able to get him to stand and transfer using devices available in her home. 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 Urine culture grew approximately 10,000 colonies of Gram-positive cocci. This was felt to be contaminant and clinically patient was not having symptoms of UTI. Initially received antibiotics but these were not continued. Status at Discharge Functional status at discharge: wheelchair bound Overall status at discharge: patient is progressing back to baseline Time Spent with Patient Time attestation: Total time spent providing and/or coordinating discharge services: Time spent: Greater than 30 minutes Exam Narrative: Exam Narrative: He is alert and appears in no distress his mood and affect are bright. He is making jokes with me as he typically does. Speech is at baseline. Orientation is normal. Respirations are clear to auscultation. Cardiovascular: S1, S2, relatively regular rhythm. Abdomen is soft without tenderness. Left upper extremity still has profound weakness especially in finger extension. Moderate weakness in flexion and servicing rep strength. Left lower extremity testing shows he is unable to dorsiflex his left ankle and has moderate weakness in knee flexion and extension. Const: Vital Signs, click to edit/add: Vital Signs - 24 hr 11/30/22 15:00 11/30/22 15:00 11/30/22 15:00 Temperature 98.3 F Pulse Rate [Pulse Oximeter] 60 60 Respiratory Rate 18 18 18 Blood Pressure [Ri ght Arm] 132/67 Pulse Oximetry 94 94 Oxygen Delivery Me thod Room Air Room Air 11/30/22 19:31 11/30/22 19:48 11/30/22 22:35 Temperature 98.3 F 98.3 F Pulse Rate [Pulse Oximeter] 61 61 Respiratory Rate 18 18 Blood Pressure [Ri ght Arm] 135/68 Pulse Oximetry 95 Oxygen Delivery Me thod Room Air 11/30/22 22:36 11/30/22 22:38 12/01/22 02:48 Temperature 98 F 98 F Pulse Rate [Pulse Oximeter] 63 61 Respiratory Rate 16 16 18 Blood Pressure [Ri ght Arm] 141/79 H 154/74 H Pulse Oximetry 95 94 94 Oxygen Delivery Me thod Room Air Room Air Room Air 12/01/22 07:00 12/01/22 07:00 12/01/22 07:00 Temperature 97.1 F L Pulse Rate [Pulse Oximeter] 61 60 Respiratory Rate 18 18 18 Blood Pressure [Ri ght Arm] 166/79 H Pulse Oximetry 94 95 Oxygen Delivery Me thod Room Air Room Air Documenting provider has reviewed patient's vital signs: yes Discharge Plan Discharge Disposition: Home w/ Parent or Adult Date of Admission: 11/28/22 14:00 Attending Provider on Discharge: Mynor Claudio Primary Care Provider: Chandrika Sutton Condition: Stable Anticipated Discharge Date/Time: 12/01/22 10:00 Discharge Medications: New clopidogrel 75 mg Tablet 75 mg PO DAILY Qty: 30 0RF potassium chloride 10 mEq Capsule, Extended Release 10 meq PO DAILYWM Qty: 30 0RF Continued glycopyrrolate 1 mg tablet 1 mg PO Q8H Patient Comments: TAKE 1 TABLET (1 MG) BY MOUTH THREE TIMES DAILY. donepezil 10 mg tablet 10 mg PO HS Patient Comments: TAKE ONE TABLET BY MOUTH AT BEDTIME tamsulosin 0.4 mg capsule 0.4 mg PO DAILY Patient Comments: TAKE ONE CAPSULE BY MOUTH DAILY AFTER A MEAL amlodipine 10 mg tablet 10 mg PO DAILY Patient Comments: TAKE 1 TABLET (10 MG) BY MOUTH ONCE DAILY. montelukast 10 mg tablet 10 mg PO HS Patient Comments: TAKE ONE TABLET BY MOUTH EVERY DAY AT BEDTIME sertraline 50 mg tablet 50 mg PO DAILY Patient Comments: TAKE ONE TABLET (50 MG) BY MOUTH EVERY MORNING. metoprolol tartrate 25 mg tablet 25 mg PO BID Patient Comments: TAKE ONE TABLET BY MOUTH TWICE A DAY atorvastatin 40 mg tablet 40 mg PO HS fluticasone propionate 50 mcg/actuation spray,suspension 2 spray INTRANASAL DAILY aspirin [Adult Low Dose Aspirin] 81 mg tablet,delayed release (DR/EC) 81 mg PO DAILY famotidine 20 mg tablet 20 mg PO BID gabapentin 300 mg capsule 300 mg PO BID PRN ipratropium bromide 42 mcg (0.06 %) spray,non-aerosol 2 spray INTRANASAL 3XD PRN oxycodone 5 mg tablet 5 mg PO Q6H PRN (Reason: pain) omega 6-rkl-mda-fish oil [Fish Oil] 1,000 mg (120 mg-180 mg) capsule 1 cap PO DAILY cholecalciferol (vitamin D3) 50 mcg (2,000 unit) tablet 50 mcg PO DAILY Discharge Orders: Discharge Order (Routine); Ordered 12/01/22 Ordered By: Mynor Claudio Additional Instructions: Outpatient physical therapy and occupational therapy at [facility]: Evaluate and treat Activity Level: Up with assist and Other Discharge Diet: Regular and Other Follow Up Appointments: Chandrika Sutton MD [Primary Care Provider] - (Follow-up in 1 week. Basic metabolic panel in 1 week) Forms: [employer] Info Instructions
--- NOTE | 2022-12-01 13:30 | PC.SOCIAL ---
Discharge planning: Met with pt and in room regarding d/c plan. Pt is planning to return home with assistance of and hired home stager care through [facility] [employer], which is already in place. Pt receives out-pt PT at home through [facility] once a week. is interested in pt receiving as much out-pt PT and OT as possible and is requesting orders for PT/OT be sent to [facility] as she does not think the current PT therapist would be able to increase the visits and does not have OT available. will arrange the time of the put-pt appointments around when she has the home stager care to help get pt in and out of the car. is aware of how to reach 7th grade social studies teacher if there are any additional needs.
== END 2022-12-01 15:00 | disposition home or self-care (01) | DRG 65 ==
LOC: ED 11:46 → MEDSURG 12:25
PROVIDERS: Family Medicine; Admitting Provider Family Medicine; Emergency Provider Internal Medicine; PCP Family Medicine; Visit Provider Family Medicine
DX: I63.9 Cerebral infarction, unspecified (principal); G81.94 Hemiplegia, unspecified affecting left nondominant side; I48.91 Unspecified atrial fibrillation; R82.71 Bacteriuria; I10 Essential (primary) hypertension; E78.5 Hyperlipidemia, unspecified; Z95.818 Presence of other cardiac implants and grafts
CPT/HCPCS: 36415; 51798; 70450; 70496; 70498; 80048; 80053; 80061; 81003; 81015; 82962; 85025; 85610; 85730; 87086; 87186; 92610; 93005; 93306; 94761; 97110; 97112; 97162; 97166; 97530; 97535; 99233; 99283; 99285; 99291; G0378; G0427; A9270; J0696; J7030; Q9967

== ENCOUNTER 2023-01-22 14:00 | Outpatient (RCR) | payer MEDICARE, OTHER, SELFPAY | END 2023-05-22 23:59 | disposition home or self-care (01) | PROVIDERS: PCP Family Medicine; Visit Provider Family Medicine | DX: I63.9 Cerebral infarction, unspecified (principal); Z51.89 Encounter for other specified aftercare | CPT/HCPCS: 97110; 97165; 97530; X5282 ==

== ENCOUNTER 2023-02-01 18:18 | Outpatient (CLI) | payer MEDICARE, OTHER, SELFPAY ==
--- OUTSIDE RECORDS SUMMARY | 2023-02-06 12:09 | XMS_ITS | Continuity of Care Document ---
Author Name Unknown Organization [facility] Address [address] [place] [address] Phone Care Team Providers Care Heavy Equipment Operator/Paver Name Role Phone [place] Elana THOMAS Unavailable [...] Diagnoses Date Provider Providers Copied on Encounter [facility], [address] [place] [address], [place], [id number] , [place] tel:[phone] [facility] [place] No Information 2 Argentina Huitron. [address] [facility] [address], [place], [place], [id number] , [place]. tel:[phone] OFFICE VISIT, EST TELEMEDICINE [facility], [address], [place], [id number] , [place] tel:[phone] [facility] [place] Widespread pain (chief complaint) Pain in left wristChronic pain syndromeOther intermediate (current) drug therapyTrochanter ic bursitis, right hipLong term (current) use of opiate analgesicPain in right wristPain in right hip 2 Senait Ritter. [address] [facility] [address], [place], [id number] , [place]. tel: [phone] [facility], [address] [place], [id number] , [place] tel: [phone] [facility] [place] No Information 2 Argentina Huitron. [address] [facility] [address] [facility] [address], [place], [id number] , [place]. tel: [phone] [facility], [address] [place] [address], [place], [id number] , [place] tel: [phone] [facility] [place] No Information 1 Nybarbara Elana. [address], [place], [id number] , [place]. tel: [phone] OFFICE/OUTPAT IENT VISIT, [facility], [address] [place] [address], [id number] , [place] tel: [phone] [facility] Widespread pain (chief complaint) Pain in left wristChronic pain syndromeOther buttermaker continuous churn (current) drug therapyTrochanter ic bursitis, right hipLong term (current) use of opiate analgesicPain in right wristPain in right hipEncounter for therapeutic drug level monitoring 1 José Luis Elana. [address], [place], [id number] , [place]. tel: [phone] Referring Provider: Edgard Vicente, [address] [place], [address] . tel:[phone] OFFICE/OUTPAT IENT VISIT, EST [facility], [address] [place] [address], [id number] , [place] tel: [phone] [facility] Widespread pain (chief complaint) Chronic pain syndromeOther buttermaker continuous churn (current) drug therapyTrochanter ic bursitis, right hipLow back painLong term (current) use of opiate analgesicPain in right wristPain in left wrist Jan- 1 Argentina Huitron. [address], [place], [id number] , [place]. tel: [phone] Referring Provider: Edgard Vicente, [facility] [place], [address] . tel:[phone] OFFICE/OUTPAT IENT VISIT, [facility], [address] [place], [id number] , [place] tel: [phone] [facility] Widespread pain (chief complaint) Chronic pain syndromeOther intermediate (current) drug therapyTrochanter ic bursitis, right hipLow back painLong term (current) use of opiate analgesicPain in right hip 1 [place] Huitron. [address] [place] [address] [address], [place], [id number] , [place]. tel: [phone] Referring Provider: Edgard Vicente, [place], [address] . tel:[phone] [facility], [address] [place], [place] [address] [place], [id number] , [place] tel: [phone] [facility] Trochanteric bursitis, right hip 1 Ricardo Rene. [address] [place] [address] [place], [id number] , [place]. tel: [phone] Referring Provider: Edgard Vicente, [place], [address] . tel:[phone] [facility], [address] [place] [address] [place], [id number] , [place] tel: [phone] [facility] [place] No Information 1 [place] Huitron. [address] [place] [address] [address], [place], [id number] , [place]. tel: [phone] Referring Provider: Edgard Vicente, [address] [place] [address] [place], [address] . tel:[phone] OFFICE/OUTPAT IENT VISIT, [facility], [address] [place], [place] [address] [place], [id number] , [place] tel:[phone] [facility] [place] Widespread pain (chief complaint) Chronic pain syndromeEncounter for therapeutic drug level monitoringEncount er for screening for other disorderTrochante melisa bursitis, right hipOther buttermaker continuous churn (current) drug therapyLow back pain [address] [facility], [place], [id number] , [place]. tel:[phone] Referring Provider: Edgard Vicente, [address] [place], [address] . tel:[phone] Family History Family Member Type Diagnosis Age At Onset No Information Payers Payer name Insurance type Covered green party ID Kasey mcdonald(s) Medicare MB [id number] [employer] Supplement Plan CI [id number] Social History Type Description Quantity Date Captured Comments Sex Male Smoking Status No Information Chief Complaint And Reason For Visit No Information Reason For Referral Reason For Referral No Information Plan Of Treatment Date Type Action Status Goal IRONWORKER APPRENTICE Paperwork. Due on due Goal Creatinine. Due on due Goal UDT. Due on due Goal OARS. Due on due Goal FLAT EXAMINER Scanned. Due on due Goal AST (SGOT). [...] Goal PHQ-9. Due on du e Goal IRONWORKER APPRENTICE Paperwork. Due on due Goal Creatinine. Due on due Goal Review Allergy List. Due on due Goal Medication Reconciliation. D ue on due Goal Weight. Due on d ue Goal Tobacco Use. Due on due Goal Height. Due on d ue Goal Update Social History. Due o n due Goal PHQ-9. Due on du e Goal UDT. Due on due Goal OARS. Due on due Goal FLAT EXAMINER Scanned. Due on due Goal AST (SGOT). Due on due Goal ALT (SGPT). Due on due Goal Order Annual PT. Due on due Goal IRONWORKER APPRENTICE Paperwork. Due on due Goal Review Allergy [...] due Goal OARS. Due on due Goal FLAT EXAMINER Scanned. Due on due Goal AST (SGOT). Due on due Goal ALT (SGPT). Due on due Goal PHQ-9. Due on du e Goal Update Social History. Due o n due Goal Height. Due on d ue Goal Tobacco Use. Due on due Goal Weight. Due on d ue Goal Medication Reconciliation. D ue on due Goal Review Allergy List. Due on due Goal IRONWORKER APPRENTICE Paperwork. Due on due Goal Order Annual PT. Due on due Goal ALT (SGPT). Due on due Goal AST (SGOT). Due on due Goal FLAT EXAMINER Scanned. Due on due Goal OARS. Due on due Goal UDT. Due on due Goal Creatinine. Due on due Goal Order Annual PT. Due on due Goal IRONWORKER APPRENTICE Paperwork. Due on due Goal Creatinine. Due on due Goal UDT. Due on due Goal OARS. Due on due Goal FLAT EXAMINER Scanned. Due on due Goal AST (SGOT). [...] Review Allergy List. Due on due Goal Review Allergy List. [...] PE. He consulted a hip surgeon at [facility] in [place] to evaluate hip hardware. Right leg/hip pain is likely due to a possible fracture in hip, that not seen via regular x-rays. The stem may adhere back in place, or may get worse. But the orthopedist recommended and ordered PT for strength and pain. He is completing 2 sessions/week at [facility]. Long car rides aggravate the pain.He has difficulty bearing weight on his legs, even with a walker. So he bears most of his weight on his wrists while walking. 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 [...] blood clots. Latest X-rays from [facility] do not show any fracture, but [...] does f/u with Dr. Josué Denise at [facility], next visit is scheduled for early December.Off note, hx of 2 strokes.His is present and contributed to today's OV.He is self referred.Treatment Tried:lumbar BRITTNI at [facility] 4 months ago - not helpful.6extra strength [...]
--- OUTSIDE RECORDS SUMMARY | 2023-02-06 12:09 | XMS_ITS | Continuity of Care Document ---
Author Name Unknown Organization Z [facility] Address [address] [place] [address] Phone Care Team Providers Care Wrapper Operator Name Role Phone Babatunde DAVIES, Kenny Unavailable Unavailab le Allergies, Adverse Reactions, Alerts Substance Reaction Status Criticality No Known allergies Procedures Procedure Date Office/Outpatient Visit,[facility] 2013 Advance Directives Directive Yes / No Effective Date File Name No Information Encounters Encounter Description Practice Location Reason(s) For Visit Diagnoses Date Provider Providers Copied on Encounter [facility], [address] [place] [address], [address], [place] tel:[phone] [employer] No Information 4 Babatunde baum. [facility], [address], [address], [id number] , [place]. tel:[phone] Office/Outpat ient Visit,[facility], [address] [place], [place] [address]ite [address] [place] [address], [address], [place] tel:[phone] [employer] LUMBAGO 4 Mehbod Amir. [facility], [address], [place], [id number] , [place]. tel:[phone] Referring Provider: Alireza Lundy, [facility] And [address], [address]. tel:[phone] Family History Family Member Type Diagnosis Age At Onset No Information Payers Payer name Insurance type Covered republican ID Kasey mcdonald(s) [employer] Medicare CI [id number] Social History Type Description Quantity Date Captured [...]
--- OUTSIDE RECORDS SUMMARY | 2023-02-06 12:09 | XMS_ITS | Continuity of Care Document ---
Author Name Unknown Organization [facility] enter Address [address] [place] [address] Phone Care Team Providers Care Appliance Repair Technician Name Role Phone [facility] Unavailable Unava ilable Procedures Procedure Date MAJOR JOINT OR BURSA INJ WITH ULTRASOUND Pt doc no events on discharg Pt w/o preop order iv ab pro Advance Directives Directive Yes / No Effective Date File Name No Information Encounters Encounter Description Practice Location Reason(s) For Visit Diagnoses Date Provider Providers Copied on Encounter [facility], [address] [place] [address], [id number], tel:[phone] [facility] No Information [facility]. [address] [place] [address], [id number], . tel:[phone] Referring Provider: Edgard Vicente, [address] [facility] [place], [address] . tel:[phone] Family History Family Member Type Diagnosis Age At Onset No Information Payers Payer name Insurance type Covered alliance party ID Authorerika mcdonald(s) Medicare MB [id number] [employer] Supplement Plan CI [id number] Social History Type Description Quantity Date Captured [...]
== END 2023-02-01 18:19 | disposition home or self-care (01) ==
LOC: AMB 02-06 12:07
PROVIDERS: PCP Family Medicine; Visit Provider Student in an Organized Health Care Education/Training Program
DX: R53.1 Weakness (principal)
CPT/HCPCS: A0998

== ENCOUNTER 2023-04-03 19:04 | Outpatient (CLI) | payer MEDICARE, OTHER, SELFPAY ==
--- OUTSIDE RECORDS SUMMARY | 2023-04-06 11:35 | XMS_ITS | Continuity of Care Document ---
Author Name Unknown Organization Z [facility] Address [address] [place] [address] Phone Care Team Providers Care Project Manager Retail Name Role Phone Babatunde DAVIES, Kenny Unavailable Unavailab le Allergies, Adverse Reactions, Alerts Substance Reaction Status Criticality No Known allergies Procedures Procedure Date Office/Outpatient Visit,[facility] 2013 Advance Directives Directive Yes / No Effective Date File Name No Information Encounters Encounter Description Practice Location Reason(s) For Visit Diagnoses Date Provider Providers Copied on Encounter [facility] [place], [address] [place] [address], [address], [place] tel:[phone] [employer] No Information 4 Babatunde baum. [facility], [address], [address], [id number] , [place]. tel:[phone] Office/Outpat ient Visit,[facility], [address] [place], [place] [address]ite [address] [place] [address], [address], [place] tel:[phone] [employer] LUMBAGO 4 Mehbod Amir. [facility], [address], [place], [id number] , [place]. tel:[phone] Referring Provider: Alireza Lundy, [facility] And [address], [address]. tel:[phone] Family History Family Member Type Diagnosis Age At Onset No Information Payers Payer name Insurance type Covered democrat ID Kasey mcdonald(s) [employer] Medicare CI [id number] Social History Type Description Quantity Date Captured [...]
--- OUTSIDE RECORDS SUMMARY | 2023-04-06 11:36 | XMS_ITS | Continuity of Care Document ---
Author Name Unknown Organization [facility] Address [address] [facility] [address] [place] [address] Phone Care Team Providers Care Stock Checkerer Name Role Phone RN, RN Unavailable Unavailable [...] Providers Copied on Encounter [facility], [address] [facility] [address], [place], [place], [id number], tel:[phone] [facility] No Information 0 RN RN. [address] [facility], [address], [place], [place], [id number], . tel:[phone] Referring Provider: Chandrika Wilkerson, [address] [place], [address]. tel:[phone] New Pt Eval 45 [address] [place], [facility], [address] [facility], [place], [place], [id number], tel:[phone] [facility] back pain (chief complaint) back pain (chief complaint) Low back painPostlaminecto my syndromeInflammat ory arthropathy of facet jointA fibStrokeMyositis , unspecifiedMyalgi a, unspecified siteLow back pain 0 Gamaliel Nguyen. [address] [facility] [address], [place], [place], [id number], [place]. tel:[phone] Referring Provider: Chandrika Wilkerson, [address] [place], [address]. tel:[phone] Family History Family Member Type Diagnosis Age At Onset Mother Problem (finding) Cancer Father Problem (finding) Arthritis Mother Problem (finding) Arthritis Father Problem (finding) Depression Father Problem (finding) Diabetes Payers Payer name Insurance type Covered green party ID erika alicjahina(s) Medicare Part B [id number] [email or web address] CI [id number] Social History Type Description Quantity Date Captured [...]
== END 2023-04-03 19:05 | disposition home or self-care (01) ==
LOC: AMB 04-06 11:33
PROVIDERS: PCP Family Medicine; Visit Provider Family Medicine
DX: R53.1 Weakness (principal)
CPT/HCPCS: A0998

== ENCOUNTER 2023-04-07 08:43 | Outpatient (CLI) | payer MEDICARE, OTHER, SELFPAY ==
--- OUTSIDE RECORDS SUMMARY | 2023-04-08 11:32 | XMS_ITS | Continuity of Care Document ---
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 [address], [address], [place], [place], [id number], . tel:[phone] Referring Provider: Chandrika Wilkerson, [address] [place], [address]. tel:[phone] New Pt Eval [address], [facility], [address], [place], [place], [id number], tel:[phone] [facility] back pain (chief complaint) back pain (chief complaint) Low back painPostlaminecto my syndromeInflammat ory arthropathy of facet jointA fibStrokeMyositis , unspecifiedMyalgi a, unspecified siteLow back pain 0 Gamaliel Nguyen. [address], [place], [place], [id number], [place]. tel:[phone] Referring Provider: Chandrika Wilkerson, [address] [place], [address]. tel:[phone] Family History Family Member Type Diagnosis Age At Onset Mother Problem (finding) Cancer Father Problem (finding) Arthritis Mother Problem (finding) Arthritis Father Problem (finding) Depression Father Problem (finding) Diabetes Payers Payer name Insurance type Covered libertarian ID erika alicjahina(s) Medicare Part B [id number] [employer] CI [id number] Social History Type Description Quantity Date Captured [...]
--- OUTSIDE RECORDS SUMMARY | 2023-04-08 11:32 | XMS_ITS | Continuity of Care Document ---
Author Name Unknown Organization [facility] Address [address] [place] [address] Phone Care Team Providers Care Food Assembler Commissary Kitchen Name Role Phone [place] Elana THOMAS Unavailable [...] Diagnoses Date Provider Providers Copied on Encounter [facility], [address] [place], [place], [id number] , [place] tel:[phone] [facility] [place] No Information 2 Argentina Huitron. [address] [facility] [address], [place], [id number] , [place]. tel:[phone] OFFICE VISIT, EST TELEMEDICINE [facility], [address] [place], [place], [id number] , [place] tel:[phone] [facility] [place] Widespread pain (chief complaint) Pain in left wristChronic pain syndromeOther custodial (current) drug therapyTrochanter ic bursitis, right hipLong term (current) use of opiate analgesicPain in right wristPain in right hip 2 Senait Ritter. [address] [facility] [address], [place], [id number] , [place]. tel: [phone] [facility], [address] [place], [id number] , [place] tel: [phone] [facility] [place] No Information 2 [place] Huitron. [address] [facility] [address] [facility] [[email or web address] [address], [place], [id number] , [place]. tel: [phone] [facility], [address] [place], [place], [id number] , [place] tel: [phone] [facility] [place] No Information 1 Nybarbara Elana. [address], [place], [id number] , [place]. tel: [phone] OFFICE/OUTPAT IENT VISIT, [facility], [address] [place] [address], [id number] , [place] tel: [phone] [facility] Widespread pain (chief complaint) Pain in left wristChronic pain syndromeOther refrigerator glazier (current) drug therapyTrochanter ic bursitis, right hipLong term (current) use of opiate analgesicPain in right wristPain in right hipEncounter for therapeutic drug level monitoring 1 José Luis Elana. [address], [place], [id number] , [place]. tel: [phone] Referring Provider: Edgard Vicente, [address] [place], [address] . tel:[phone] OFFICE/OUTPAT IENT VISIT, EST [facility], [address] [place] [address], [id number] , [place] tel: [phone] [facility] Widespread pain (chief complaint) Chronic pain syndromeOther custodial (current) drug therapyTrochanter ic bursitis, right hipLow back painLong term (current) use of opiate analgesicPain in right wristPain in left wrist Jan- 1 [place] Huitron. [address], [place], [id number] , [place]. tel: [phone] Referring Provider: Edgard Vicente, [facility] [place], [address] . tel:[phone] OFFICE/OUTPAT IENT VISIT, [facility], [address] [place], [id number] , [place] tel: [phone] [facility] Widespread pain (chief complaint) Chronic pain syndromeOther refrigerator glazier (current) drug therapyTrochanter ic bursitis, right hipLow back painLong term (current) use of opiate analgesicPain in right hip 1 [place] [address]uitron[address] [place] [address] [address], [place], [id number] , [place]. tel: [phone] Referring Provider: Edgard Vicente, [place], [address] . tel:[phone] [facility], [address] [place], [place] [address]ms [place], [id number] , [place] tel: [phone] [facility] Trochanteric bursitis, right hip 1 Ricardo Rene. [address] [place] [address] [place], [id number] , [place]. tel: [phone] Referring Provider: Edgard Vicente, [place], [address] . tel:[phone] [facility], [address] [place] [address] [place], [id number] , [place] tel: [phone] [facility] [place] No Information 1 [place] Huitron. [address] [place] [address] [address], [place], [id number] , [place]. tel: [phone] Referring Provider: Edgard Vicente, [address] [place] [address] [place], [address] . tel:[phone] OFFICE/OUTPAT IENT VISIT, [facility], [address] [place], [place] [address] [place], [id number] , [place] tel:[phone] [facility] [place] Widespread pain (chief complaint) Chronic pain syndromeEncounter for therapeutic drug level monitoringEncount er for screening for other disorderTrochante melisa bursitis, right hipOther refrigerator glazier (current) drug therapyLow back pain 1 [place] Huitron. [address], [place], [id number] , [place]. tel:[phone] Referring Provider: Edgard Vicente, [address] [facility] [place], [address] . tel:[phone] Family History Family Member Type Diagnosis Age At Onset No Information Payers Payer name Insurance type Covered libertarian ID Kasey mcdonald(s) Medicare MB [id number] [employer] Supplement Plan CI [id number] Social History Type Description Quantity Date Captured Comments Sex Male Smoking Status No Information Chief Complaint And Reason For Visit No Information Reason For Referral Reason For Referral No Information Plan Of Treatment Date Type Action Status Goal PHQ-9. Due on du e Goal Weight. Due on d ue Goal Tobacco Use. Due on due Goal Height. Due on d ue Goal Update Social History. 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 Due on due Goal Creatinine. Due on due Goal UDT. Due on due Goal OARS. Due on due Goal DISHWASHER PREPARER Scanned. Due on 022 due Goal AST (SGOT). Due on due Goal ALT (SGPT). Due on due Goal Order Annual PT. Due on due Goal Review Allergy List. Due on due Goal Medication Reconciliation. D ue on due Goal UDT. Due on due Goal OARS. Due on due Goal DISHWASHER PREPARER Scanned. Due on due Goal AST (SGOT). Due on due Goal ALT (SGPT). Due on due Goal Order Annual PT. Due on due Goal CYBER SECURITY SYSTEMS ENGINEER Paperwork. Due on due Goal Creatinine. Due [...] Order Annual PT. Due on due Goal CYBER SECURITY SYSTEMS ENGINEER Paperwork. Due on due Goal Review Allergy List. Due on due Goal Medication Reconciliation. D ue on due Goal Weight. Due on d ue Goal Tobacco Use. Due on due Goal Height. Due on d ue Goal Creatinine. Due on due Goal UDT. Due on due Goal OARS. Due on due Goal DISHWASHER PREPARER Scanned. Due on due Goal AST (SGOT). Due on due Goal ALT (SGPT). Due on due Goal Weight. Due on d ue Goal Medication Reconciliation. D ue on due Goal Review Allergy List. Due on due Goal CYBER SECURITY SYSTEMS ENGINEER Paperwork. Due on due Goal Order Annual PT. Due on due Goal ALT (SGPT). Due on due Goal AST (SGOT). Due on due Goal DISHWASHER PREPARER Scanned. Due on due Goal OARS. Due on due Goal UDT. Due on due Goal Creatinine. Due on due Goal PHQ-9. Due on du e Goal Update Social History. Due o n due Goal Height. Due on d ue Goal Tobacco Use. Due on due Goal Creatinine. Due on due Goal UDT. Due on due Goal OARS. Due on due Goal DISHWASHER PREPARER Scanned. Due on due Goal AST (SGOT). Due on due Goal ALT (SGPT). Due on due Goal Order Annual PT. Due on due Goal CYBER SECURITY SYSTEMS ENGINEER Paperwork. Due on due Goal Tobacco Use. Due [...] PE. He consulted a hip surgeon at [facility] in [place] to evaluate hip hardware. Right leg/hip pain is likely due to a possible fracture in hip, that not seen via regular x-rays. The stem may adhere back in place, or may get worse. But the orthopedist recommended and ordered PT for strength and pain. He is completing 2 sessions/week at [facility]. Long car rides aggravate the pain.He [...] maker implanted 5 years ago a [facility] in [place].His is present and contributed to today's OV. [...] no blood clots. Latest X-rays from [facility] do not show any fracture, but [...] does f/u with Dr. Josué Denise at [facility], next visit is scheduled for early December.Off note, hx of 2 strokes.His is present and contributed to today's OV.He is self referred.Treatment Tried:lumbar BRITTNI at [facility] 4 months ago - not helpful.6extra strength [...]
--- OUTSIDE RECORDS SUMMARY | 2023-04-08 11:32 | XMS_ITS | Continuity of Care Document ---
Author Name Unknown Organization [facility] enter Address [address] [place] [address] Phone Care Team Providers Care Caster Investment Casting Name Role Phone [facility] Unavailable Unava ilable Procedures Procedure Date MAJOR JOINT OR BURSA INJ WITH ULTRASOUND Pt doc no events on discharg Pt w/o preop order iv ab pro Advance Directives Directive Yes / No Effective Date File Name No Information Encounters Encounter Description Practice Location Reason(s) For Visit Diagnoses Date Provider Providers Copied on Encounter [facility], [address] [place] [address], [id number], tel:[phone] [facility] No Information [facility]. [address] [place] [address], [id number], . tel:[phone] Referring Provider: Edgard Vicente, [address] [facility] [place], [address] . tel:[phone] Family History Family Member Type Diagnosis Age At Onset No Information Payers Payer name Insurance type Covered libertarian ID Authorerika mcdonald(s) Medicare MB [id number] [employer] Supplement Plan CI [id number] Social History Type Description Quantity Date Captured [...]
--- OUTSIDE RECORDS SUMMARY | 2023-04-08 11:32 | XMS_ITS | Continuity of Care Document ---
Author Name Unknown Organization [facility] Address [address] [place] [address] Phone Care Team Providers Care Webbing Seamer Pound Net Name Role Phone Babatunde DAVIES, Kenny Unavailable Unavailab le Allergies, Adverse Reactions, Alerts Substance Reaction Status Criticality No Known allergies Procedures Procedure Date Office/Outpatient Visit,[facility] 2013 Advance Directives Directive Yes / No Effective Date File Name No Information Encounters Encounter Description Practice Location Reason(s) For Visit Diagnoses Date Provider Providers Copied on Encounter [facility], [address] [place] [address], [address], [place] tel:[phone] simplifyMD No Information 4 Babatunde baum. [facility], [address], [address], [id number] , [place]. tel:[phone] Office/Outpat ient Visit,[facility], [address] [place], [place] [address]ite [address] [place] [address], [address], [place] tel:[phone] simplifyMD LUMBAGO 4 Mehbod Amir. [facility], [address], [place], [id number] , [place]. tel:[phone] Referring Provider: Alireza Lundy, [facility] And [address], [address]. tel:[phone] Family History Family Member Type Diagnosis Age At Onset No Information Payers Payer name Insurance type Covered republican ID Kasey mcdonald(s) [employer] Medicare CI [id number] Social History Type Description Quantity Date Captured [...]
== END 2023-04-07 08:44 | disposition home or self-care (01) ==
LOC: AMB 04-08 11:31
PROVIDERS: PCP Family Medicine; Visit Provider Family Medicine
DX: R53.1 Weakness (principal); U07.1 COVID-19; R11.2 Nausea with vomiting, unspecified; R19.7 Diarrhea, unspecified
CPT/HCPCS: A0425; A0427

== ENCOUNTER 2023-04-07 09:23 | Emergency (ER) | payer MEDICARE, OTHER, SELFPAY ==
--- OUTSIDE RECORDS SUMMARY | 2023-04-07 09:26 | XMS_ITS | Continuity of Care Document ---
Author Name Unknown Organization [facility] Address [address] [place] [address] Phone Care Team Providers Care Anesthesia Tech Name Role Phone Babatunde DAVIES, Kenny Unavailable Unavailab le Allergies, Adverse Reactions, Alerts Substance Reaction Status Criticality No Known allergies Procedures Procedure Date Office/Outpatient Visit,[facility] 2013 Advance Directives Directive Yes / No Effective Date File Name No Information Encounters Encounter Description Practice Location Reason(s) For Visit Diagnoses Date Provider Providers Copied on Encounter [facility] [place], [address] [place] [address], [address], [place] tel:[phone] [email or web address] No Information 4 Babatunde baum. [facility], [address], [address], [id number] , [place]. tel:[phone] Office/Outpat ient Visit,[facility] [place], [address] [place], [place] [address]ite [address] [place] [address], [address], [place] tel:[phone] [email or web address] LUMBAGO 4 Mehbod Amir. [facility] [place], [address], [place], [id number] , [place]. tel:[phone] Referring Provider: Alireza Lundy, [facility] And [address], [address]. tel:[phone] Family History Family Member Type Diagnosis Age At Onset No Information Payers Payer name Insurance type Covered libertarian ID Kasey mcdonald(s) [employer] Medicare CI [id number] Social History Type Description Quantity Date Captured [...]
--- OUTSIDE RECORDS SUMMARY | 2023-04-07 09:26 | XMS_ITS | Continuity of Care Document ---
Author Name Unknown Organization [facility] Address [address] [facility] [address] [place] [address] Phone Care Team Providers Care Student Counselor Name Role Phone RN, RN Unavailable Unavailable [...] Providers Copied on Encounter [facility], [address] [facility] [address], [place], [place], [id number], tel:[phone] [facility] No Information 0 RN RN. [address] [facility], [address], [place], [place], [id number], . tel:[phone] Referring Provider: Chandrika Wilkerson, [address] [place], [address]. tel:[phone] New Pt Eval 47 Min Norman, [facility], [address] [facility] [address], [place], [place], [id number], tel:[phone] [facility] back pain (chief complaint) back pain (chief complaint) Low back painPostlaminecto my syndromeInflammat ory arthropathy of facet jointA fibStrokeMyositis , unspecifiedMyalgi a, unspecified siteLow back pain 0 Gamaliel Nguyen. [address] [facility] [address], [place], [place], [id number], [place]. tel:[phone] Referring Provider: Chandrika Wilkerson, [address] [place], [address]. tel:[phone] Family History Family Member Type Diagnosis Age At Onset Mother Problem (finding) Cancer Father Problem (finding) Arthritis Mother Problem (finding) Arthritis Father Problem (finding) Depression Father Problem (finding) Diabetes Payers Payer name Insurance type Covered green party ID erika alicjahina(s) Medicare Part B [id number] [employer] CI [id number] Social History Type Description Quantity Date Captured [...]
[2023-04-07 09:29] VITALS: BP 138/72; PULSE 60; RESP 18; TEMP 36.7; O2SAT 93; BMI 28.2
--- NOTE | 2023-04-07 10:11 | CRLHL7_ITS ---
For Patients: As a result of the Cures Act, medical imaging exams and procedure reports are released immediately into your electronic medical record. You may view this report before your referring provider. If you have questions, please contact your health care provider. INDICATION: Cough TECHNIQUE: Chest 1 views. COMPARISON: None. FINDINGS/IMPRESSION: Left chest wall 3 lead pacemaker. The cardiomediastinal silhouette is within normal limits given portable technique. Calcific atherosclerosis of the aortic arch. There are faint right basilar airspace opacities, concerning for an acute infectious/inflammatory process in the appropriate clinical context. Questionable trace left pleural effusion. No pneumothorax. 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 Dictated by Jewel Hampton MD @ 04/07/2023 11:18:08 AM (Electronically Signed)
--- OUTSIDE RECORDS SUMMARY | 2023-04-07 10:12 | XMS_ITS | Continuity of Care Document ---
Author Name Unknown Organization [facility] Address [address] [facility] [address] [place] [address] Phone Care Team Providers Care Laboratory Animal Facility Supervisor Name Role Phone RN, RN Unavailable Unavailable [...] Providers Copied on Encounter [facility], [address] [facility] [address], [place], [place], [id number], tel:[phone] [facility] No Information 0 RN RN. [address] [facility], [address], [place], [place], [id number], . tel:[phone] Referring Provider: Chandrika Wilkerson, [address] [place], [address]. tel:[phone] New Pt Eval [address] Min Norman, [facility], [address] [facility], [place], [place], [id number], tel:[phone] [facility] back pain (chief complaint) back pain (chief complaint) Low back painPostlaminecto my syndromeInflammat ory arthropathy of facet jointA fibStrokeMyositis , unspecifiedMyalgi a, unspecified siteLow back pain 0 Gamaliel Nguyen. [address] [facility] [address], [place], [place], [id number], [place]. tel:[phone] Referring Provider: Chandrika Wilkerson, [address] [place], [address]. tel:[phone] Family History Family Member Type Diagnosis Age At Onset Mother Problem (finding) Cancer Father Problem (finding) Arthritis Mother Problem (finding) Arthritis Father Problem (finding) Depression Father Problem (finding) Diabetes Payers Payer name Insurance type Covered republican ID erika alicjahina(s) Medicare Part B [id number] [employer] CI [id number] Social History Type Description Quantity Date Captured [...]
--- OUTSIDE RECORDS SUMMARY | 2023-04-07 10:12 | XMS_ITS | Continuity of Care Document ---
Author Name Unknown Organization Z [facility] Address [address] [place] [address] Phone Care Team Providers Care Pickling Operator Name Role Phone Babatunde DAVIES, Kenny Unavailable Unavailab le Allergies, Adverse Reactions, Alerts Substance Reaction Status Criticality No Known allergies Procedures Procedure Date Office/Outpatient Visit,[facility] 2013 Advance Directives Directive Yes / No Effective Date File Name No Information Encounters Encounter Description Practice Location Reason(s) For Visit Diagnoses Date Provider Providers Copied on Encounter [facility] [place], [address] [place] [address], [address], [place] tel:[phone] [employer] No Information 4 Babatunde baum. [facility], [address], [address], [id number] , [place]. tel:[phone] Office/Outpat ient Visit,[facility] Z [facility] [place], [address] [place], [place] [address]ite [address] [place] [address], [address], [place] tel:[phone] [employer] LUMBAGO 4 Mehbod Amir. [facility] [place], [address], [place], [id number] , [place]. tel:[phone] Referring Provider: Alireza Lundy, [facility] And [address], [address]. tel:[phone] Family History Family Member Type Diagnosis Age At Onset No Information Payers Payer name Insurance type Covered green party ID Kasey mcdonald(s) [employer] Medicare CI [id number] Social History Type Description Quantity Date Captured [...]
--- OUTSIDE RECORDS SUMMARY | 2023-04-07 10:13 | XMS_ITS | Continuity of Care Document ---
Author Name Unknown Organization [facility] Address [address] [facility] [address] [place] [address] Phone Care Team Providers Care Research Psychologist Name Role Phone RN, RN Unavailable Unavailable [...] Copied on Encounter [facility], [address] [facility] [address], [place], [place], [id number], tel:[phone] [facility] No Information 0 RN RN. [address] [facility], [address], [place], [place], [id number], . tel:[phone] Referring Provider: Chandrika Wilkerson, [address] [place], [address]. tel:[phone] New Pt Eval 45 Min Norman, [facility], [address] [facility], [place], [place], [id number], tel:[phone] [facility] back pain (chief complaint) back pain (chief complaint) Low back painPostlaminecto my syndromeInflammat ory arthropathy of facet jointA fibStrokeMyositis , unspecifiedMyalgi a, unspecified siteLow back pain 0 Gamaliel Nguyen. [address] [facility] [address], [place], [place], [id number], [place]. tel:[phone] Referring Provider: Chandrika Wilkerson, [address] [place], [address]. tel:[phone] Family History Family Member Type Diagnosis Age At Onset Mother Problem (finding) Cancer Father Problem (finding) Arthritis Mother Problem (finding) Arthritis Father Problem (finding) Depression Father Problem (finding) Diabetes Payers Payer name Insurance type Covered democrat ID erika alicjahina(s) Medicare Part B [id number] [employer] Infectious CI [id number] Social History Type Description Quantity Date Captured [...]
--- OUTSIDE RECORDS SUMMARY | 2023-04-07 10:13 | XMS_ITS | Continuity of Care Document ---
Author Name Unknown Organization Z [facility] Address [address] [place] [address] Phone Care Team Providers Care Managed Care Provider Name Role Phone Babatunde DAVIES, Kenny Unavailable Unavailab le Allergies, Adverse Reactions, Alerts Substance Reaction Status Criticality No Known allergies Procedures Procedure Date Office/Outpatient Visit,[facility] 2013 Advance Directives Directive Yes / No Effective Date File Name No Information Encounters Encounter Description Practice Location Reason(s) For Visit Diagnoses Date Provider Providers Copied on Encounter Z [facility] [place], [address] [place] [address], [address], [place] tel:[phone] [employer] No Information 4 Babatunde baum. [facility], [address], [address], [id number] , [place]. tel:[phone] Office/Outpat ient Visit,[facility] Z [facility] [place], [address] [place], [place] [address]ite [address] [place] [address], [address], [place] tel:[phone] [employer] LUMBAGO 4 Mehbod Amir. [facility] [place], [address], [place], [id number] , [place]. tel:[phone] Referring Provider: Alireza Lundy, [facility] And [address], [address]. tel:[phone] Family History Family Member Type Diagnosis Age At Onset No Information Payers Payer name Insurance type Covered democrat ID Kasey mcdonald(s) [employer] Medicare CI [id number] Social History Type Description Quantity Date Captured [...]
[2023-04-07 10:57] LABS: Eosinophils Percent Auto 0.6 % (0.0-7.0); Hematocrit 39.5 % (37.0-53.0); Hemoglobin* 13.1 gm/dL (13.5-17.5); Immature Granulocytes Pct Auto 0.6 %; Lymphocytes Percent Auto 17.2 % (20-44); Mean Corpuscular HGB Conc 33 gm/dL (32-36); Mean Corpuscular Hemoglobin 32 pg (26-34); Mean Corpuscular Volume 98 fL (80-100); Monocytes Percent Auto 13.9 % (0.0-11.0); Neutrophils Percent Auto 67.7 % (42.0-72.0); Platelet Count* 125 K/uL (140-440); RDW Coefficient of Variation % 12.1 % (11.5-15.5); Red Blood Count 4.05 m/uL (4.30-5.90)
[2023-04-07 10:59] LABS: Slide Review Reflex No
[2023-04-07] MEDS: 0.9 % SODIUM CHLORIDE 1000 ml 1,000 ML IV (11:06)
[2023-04-07 11:14] LABS: Chloride* 108 mmol/L (96-114); Potassium* 3.8 mmol/L (3.6-5.1); Sodium* 140 mmol/L (135-149)
[2023-04-07 11:17] LABS: Anion Gap 5 mEq/L (7-15); Blood Urea Nitrogen* 22 mg/dL (7-30); Carbon Dioxide* 27 mmol/L (20-32); Creatinine* 0.9 mg/dL (0.5-1.5); Est. Creatinine Clearance* 61.03; Estimated Glomerular Filt Rate 84 ml/min; Glucose* 97 mg/dL (60-115)
--- NOTE | 2023-04-07 11:24 | ED.GENADULT ---
HPI - General Adult General Chief complaint: Weakness Stated complaint: weakness Time Seen by Provider: 04/07/23 09:32 History of Present Illness HPI narrative: This 87-year-old male comes in by private vehicle because of generalized weakness over the past couple days. He has also had some diarrhea and vomiting. His is taking care of him as he has history of several prior CVAs. He does have a left hemiparesis. He typically is able to transfer by using a transfer her mechanism where he stands and holds onto a unit to that can swivel. In the past few days he has been it unable to do this due to generalized weakness. The patient is taking Plavix. Testing for COVID at home was positive. He does not report any cough or pain. He arrives here with normal vital signs. Related Data Home Medications Medication Instructions Recorded Confirmed amlodipine 10 mg tablet 10 mg PO DAILY 06/28/22 04/01/23 donepezil 10 mg tablet 10 mg PO HS 06/28/22 04/01/23 glycopyrrolate 1 mg tablet 1 mg PO Q8H 06/28/22 04/01/23 metoprolol tartrate 25 mg tablet 25 mg PO BID 06/28/22 04/01/23 montelukast 10 mg tablet 10 mg PO HS 06/28/22 04/01/23 sertraline 50 mg tablet 50 mg PO DAILY 06/28/22 04/01/23 tamsulosin 0.4 mg capsule 0.4 mg PO DAILY 06/28/22 04/01/23 atorvastatin 40 mg tablet 40 mg PO HS 08/04/22 04/01/23 fluticasone propionate 50 2 spray intranasal DAILY 08/04/22 04/01/23 mcg/actuation nasal spray,suspension aspirin 81 mg tablet,delayed 81 mg PO DAILY 11/27/22 04/01/23 release (Adult Low Dose Aspirin) cholecalciferol (vitamin D3) 50 50 mcg PO DAILY 11/27/22 04/01/23 mcg (2,000 unit) tablet famotidine 20 mg tablet 20 mg PO BID 11/27/22 04/01/23 gabapentin 300 mg capsule 300 mg PO BID PRN 11/27/22 04/01/23 ipratropium bromide 42 mcg (0.06 2 spray intranasal 3XD PRN 11/27/22 04/01/23 %) nasal spray omega 6-vhl-shr-fish oil 1,000 mg 1 cap PO DAILY 11/27/22 04/01/23 (120 mg-180 mg) capsule (Fish Oil) Previous Rx's Medication Instructions Recorded clopidogrel 75 mg tablet 75 mg PO DAILY #30 tabs 12/01/22 potassium chloride 10 mEq 10 meq PO DAILYWM #30 caps 12/01/22 capsule,extended release Allergies Allergy/AdvReac Type Severity Reaction Status Date / Time No Known Drug Allergies Allergy Verified 04/07/23 09:34 Review of Systems Status of ROS: Reports: 10 or more systems reviewed and unremarkable except as noted in History and below Narrative: Constitutional: No fevers, no weight gain or loss. Eyes: No discharge. No vision changes. HENT: No congestion, no sore throat, no ear pain. Cardiovascular: No chest pain, no palpitations. Respiratory: No shortness of breath, no wheezes, no cough. Gastrointestinal: No abdominal pain, no vomiting, no diarrhea. Genitourinary: No dysuria, no hematuria. Musculoskeletal: Normal range of motion. Skin: No rashes, no pruritis. Neurological: No dizziness, sensory change, speech change. Generalized weakness. He has chronic left hemiparesis. Endo/Heme/Allergies: No bruising or bleeding. No polydipsia. Pysch: no suicidality, no anxiety, no insomnia. All other systems reviewed and are negative. [facility] Medical History (Updated 04/07/23 @ 14:10 by Rico Self MD) Abnormal urinalysis ?R82.90 - Unspecified abnormal findings in urine (ICD-10) Malignant melanoma ?C43.9 - Malignant melanoma of skin, unspecified (ICD-10) Hyperlipidemia ?E78.5 - Hyperlipidemia, unspecified (ICD-10) Atrial fibrillation ?I48.91 - Unspecified atrial fibrillation (ICD-10) Presence of Watchman left atrial appendage closure device ?Z95.818 - Presence of other cardiac implants and grafts (ICD-10) Hypertension ?I10 - Essential (primary) hypertension (ICD-10) CVA (cerebral vascular accident) ?I63.9 - Cerebral infarction, unspecified (ICD-10) Surgical History (Updated 11/27/22 @ 14:17 by Estrella Chan MD) H/O hernia repair ?Z98.890 - Other specified postprocedural states (ICD-10) ?Z87.19 - Personal history of other diseases of the digestive system (ICD-10) S/P placement of cardiac pacemaker ?Z95.0 - Presence of cardiac pacemaker (ICD-10) History of total knee arthroplasty ?Z96.659 - Presence of unspecified artificial knee joint (ICD-10) History of total hip arthroplasty ?Z96.649 - Presence of unspecified artificial hip joint (ICD-10) Social History (Updated 11/27/22 @ 14:07 by Estrella Chan MD) Narrative: Lives with Hue (retired OT), she would be MDM if needed. 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 2 adult sons, one in [place]. Nonsmoker, rare/social scotch. Requests DNR/DNI status. What is your current living situation?: I presently have a place to live Problems where you live: no known problems Problems where you live details: n/a In the past 12 months, utilities in danger of being shut off: no In past 12 months, lack of transportation kept you from medical appts, meetings, work, or getting things needed for daily living: no In the past 12 mos, have been you worried that your food would run out before you had money to buy more?: never true In the past 12 mos, the food you bought just didn't last and you didn't have money to buy more?: never true Smoking Status: Never smoker How often do you have a drink containing alcohol: never AUDIT-C Alcohol total score: 0 Non-prescribed substance use: denies use How often does anyone, including family, friends and others, physically hurt you: never How often does anyone, including family, friends and others, insult or talk down to you: never How often does anyone, including family, friends and others, threaten you with harm: never How often does anyone, including family, friends and others, scream or curse at you: never service: No Exam Narrative: Exam Narrative: Constitutional: Well-developed, well-nourished, no acute distress. HEENT: Normocephalic, atraumatic. Neck: Normal range of motion. Nontender. Supple. Heart: Regular. No murmurs. Normal rate. Intact distal pulses. Lungs: Clear to auscultation. No chest discomfort. No wheezes, rhonchi, or rales. Abdomen: Normal bowel sounds. Nontender. No rebound tenderness. Genitalia: Deferred. Back: No midline tenderness. Normal range of motion. Extremities: Normal range of motion. No injury. Skin: Intact. No rash. Warm. No erythema or pallor. Neurologic: Chronic left hemiparesis due to previous CVAs. New generalized weakness over the past few days. Psychiatric: No suicidality. No anxiety or depression. No insomnia. Nursing notes and vitals signs are reviewed. Const: Vital Signs, click to edit/add: Vital Signs - 24 hr 04/07/23 09:29 04/07/23 12:07 Temperature 98.1 F Pulse Rate [Pulse Oximeter] 60 60 Respiratory Rate 18 Blood Pressure [Ri ght Upper Arm] 138/72 141/72 H Pulse Oximetry 93 96 Oxygen Delivery Me thod Room Air Room Air Course Vital Signs Vital signs: Initial Vital Signs Temperature 98.1 F 04/07/23 09:29 Temperature Source Temporal Artery Scan 04/07/23 09:29 Pulse Rate 60 04/07/23 09:29 Respiratory Rate 18 04/07/23 09:29 Blood Pressure 138/72 04/07/23 09:29 Blood Pressure Mean 94 04/07/23 09:29 Pulse Oximetry 93 04/07/23 09:29 Oxygen Delivery Method Room Air 04/07/23 09:29 Vital Signs Temperature 98.1 F 04/07/23 09:29 Pulse Rate 60 04/07/23 09:29 Respiratory Rate 18 04/07/23 09:29 Blood Pressure 138/72 04/07/23 09:29 Pulse Oximetry 93 04/07/23 09:29 Oxygen Delivery Method Room Air 04/07/23 09:29 Temperature 98.1 F 04/07/23 09:29 Pulse Rate 60 04/07/23 12:07 Respiratory Rate 18 04/07/23 09:29 Blood Pressure 141/72 H 04/07/23 12:07 Pulse Oximetry 96 04/07/23 12:07 Oxygen Delivery Method Room Air 04/07/23 12:07 Medications Administered Medications: Discontinued Medications Generic Name Dose Route Start Last Admin Trade Name Freq PRN Reason Stop Dose Admin Sodium Chloride 1,000 mls @ 1,000 mls/hr 04/07/23 10:15 04/07/23 12:06 0.9 % Sodium Chloride 1000 Ml IV 04/07/23 11:14 Infused .Q1H KYLEE Infusion Ondansetron HCl 4 mg 04/07/23 10:13 04/07/23 11:06 Ondansetron 2 Mg/Ml Inj IVP 04/07/23 10:14 Not Given ONCE ONE Medical Decision Making MDM Narrative Medical decision making narrative: This 87-year-old male has long-term affects of a CVA with left hemiparesis and uses equipments at home to help with transfers. Over the past few days he has been more weak in this regard and there is been more difficulty making transfers. His is the occupational therapist in her past employment but states that she was not able to help him as he was more like weight. She did test him at home for COVID and this returned positive. Our test here also shows positive. His blood however returns with no significant findings to explain generalized weakness beyond his COVID infection and his background history of cerebrovascular accidents. Currently admission into the hospital is not an option as the hospital here and elsewhere are full. The patient's states that she has access to full-time home health care and will use this as needed during this time until he becomes stronger. The patient is okay to be discharged home with this plan. Lab Data Labs: Lab Results 04/07/23 04/07/23 Range/Units 10:50 11:55 WBC 3.60 L (4.50-11.00) K/uL RBC 4.05 L (4.30-5.90) m/uL Hgb 13.1 L (13.5-17.5) gm/dL Hct 39.5 (37.0-53.0) % MCV 98 (80-100) fL MCH 32 (26-34) pg MCHC 33 (32-36) gm/dL RDW Coeff of Aiden 12.1 (11.5-15.5) % Plt Count 125 L (140-440) K/uL Neut % (Auto) 67.7 (42.0-72.0) % Lymph % (Auto) 17.2 L (20-44) % [place] % (Auto) 13.9 H (0.0-11.0) % Eos % (Auto) 0.6 (0.0-7.0) % Baso % (Auto) 0.0 (0.0-3.0) % Neut # (Auto) 2.40 (1.7-7.0) K/uL Lymph # (Auto) 0.60 L (0.90-2.90) K/uL [place] # (Auto) 0.50 (0.00-0.90) K/UL Eos # (Auto) 0.00 (0.00-0.50) K/uL Baso # (Auto) 0.00 (0.00-0.30) K/uL Abs Immat Gran (auto) 0.00 (0.00-0.30) K/uL Imm/Tot Granulo (auto) 0.6 % Sodium 140 (135-149) mmol/L Potassium 3.8 (3.6-5.1) mmol/L Chloride 108 (96-114) mmol/L Carbon Dioxide 27 (20-32) mmol/L Anion Gap 5 L (7-15) mEq/L BUN 22 (7-30) mg/dL Creatinine 0.9 (0.5-1.5) mg/dL Estimated Creat Clear 61.03 Estimated GFR 84 ml/min Glucose 97 (60-115) mg/dL Calcium 8.0 L (8.4-10.6) mg/dL SARS-CoV-2 Ag (Rapid) POSITIVE A (Negative) ECG Data Attestation: I personally reviewed and interpreted this ECG as follows: Interpretation: Ventricular paced rhythm. Rate is 60 beats per minute. There are no ST or T-wave abnormalities. Discharge Plan Discharge Clinical Impression: COVID-19 Patient Disposition: Home w/ Parent or Adult Condition: Stable Additional Instructions: Continue current plans. Use home health services as needed. Follow up with MD or return worsening. Prescriptions: No Action glycopyrrolate 1 mg tablet 1 mg PO Q8H Patient Comments: TAKE 1 TABLET (1 MG) BY MOUTH THREE TIMES DAILY. donepezil 10 mg tablet 10 mg PO HS Patient Comments: TAKE ONE TABLET BY MOUTH AT BEDTIME tamsulosin 0.4 mg capsule 0.4 mg PO DAILY Patient Comments: TAKE ONE CAPSULE BY MOUTH DAILY AFTER A MEAL amlodipine 10 mg tablet 10 mg PO DAILY Patient Comments: TAKE 1 TABLET (10 MG) BY MOUTH ONCE DAILY. montelukast 10 mg tablet 10 mg PO HS Patient Comments: TAKE ONE TABLET BY MOUTH EVERY DAY AT BEDTIME sertraline 50 mg tablet 50 mg PO DAILY Patient Comments: TAKE ONE TABLET (50 MG) BY MOUTH EVERY MORNING. metoprolol tartrate 25 mg tablet 25 mg PO BID Patient Comments: TAKE ONE TABLET BY MOUTH TWICE A DAY atorvastatin 40 mg tablet 40 mg PO HS fluticasone propionate 50 mcg/actuation spray,suspension 2 spray INTRANASAL DAILY aspirin [Adult Low Dose Aspirin] 81 mg tablet,delayed release (DR/EC) 81 mg PO DAILY famotidine 20 mg tablet 20 mg PO BID gabapentin 300 mg capsule 300 mg PO BID PRN ipratropium bromide 42 mcg (0.06 %) spray,non-aerosol 2 spray INTRANASAL 3XD PRN omega 1-ttq-dwo-fish oil [Fish Oil] 1,000 mg (120 mg-180 mg) capsule 1 cap PO DAILY cholecalciferol (vitamin D3) 50 mcg (2,000 unit) tablet 50 mcg PO DAILY clopidogrel 75 mg Tablet 75 mg PO DAILY Qty: 30 0RF potassium chloride 10 mEq Capsule, Extended Release 10 meq PO DAILYWM Qty: 30 0RF Follow Up/Referrals: Chandrika Sutton MD [Primary Care Provider] - Stand Alone Forms: [employer] Info Instructions
[2023-04-07 12:07] VITALS: BP 141/72; PULSE 60; O2SAT 96
[2023-04-07 12:26] LABS: SARS Antigen* POSITIVE (Negative)
--- NOTE | 2023-04-07 12:55 | ED.NURSE ---
Pt had a BM in his brief. Pt cleaned with jennie wipes, clean brief applied. Pt able to assist with change by rolling side to side.
[2023-04-07 14:20] VITALS: BP 145/69; PULSE 60; RESP 16; O2SAT 95
== END 2023-04-07 14:53 | disposition home or self-care (01) ==
PROVIDERS: Emergency Provider Emergency Medicine Emergency Medical Services; PCP Family Medicine
DX: U07.1 COVID-19 (principal)
CPT/HCPCS: 36415; 71045; 80048; 85025; 87426; 87631; 93005; 99284; J7030

== ENCOUNTER 2023-06-06 11:17 | Outpatient (CLI) | payer MEDICARE, OTHER, SELFPAY ==
--- OUTSIDE RECORDS SUMMARY | 2023-06-10 12:07 | XMS_ITS | Clinical Summary ---
Author Name Unknown Organization [facility] Address [place], [place] [address] Care Team Providers Care Member Of Technical Staff Name Role Phone Marcelle Portillo SALES AND SERVICE CHANGE LEADER Unavailable [phone] Dolores Louis RN Unavailable [phone] Yonatan Madison PharmD Unavailable Chandrika Sutton MD Primary Care Provide r Allergies Active Allergy Reactions Criticality Noted Date Comments Dust Mites Other - Describe In Comment Field 08/07/2007 Nasal congestion Pollen Extracts Other - Describe In Comment Field 03/29/2019 Nasal stuffiness Pantoprazole Rash 09/22/2019 Sulfamethoxazole-Trimet hoprim Itching Low 07/12/2021 Medications Medication Sig Dispensed Refills Start Date End Date Status melatonin 3 mg tabletIndications :Adjustment disorder, unspecified type Take 1 tablet by mouth at bedtime. 30 tablet 0 06/23/2019 Active miscellaneous medical supply miscIndications:H TN (hypertension) As directed. Automatic arm cuff--home blood pressure machine 1 Each 0 07/01/2019 Active wheelchairIndicat ions:Left hemiparesis (HC),Hemorrhagic stroke (HC) Wheelchair: Transition wheelchair with leg rests: (Swing away Length of need: 99 months), Back folds down, about 19 lbs if possible. 1 Device 0 09/15/2019 Active acetaminophen (TYLENOL EXTRA STRGTH) 500 mg tabletIndications :Lumbar degenerative disc disease Take 2 tablets by mouth every 6 hours if needed (Pain). 180 tablet 0 12/12/2019 Active CPAPIndications:O SA (obstructive sleep apnea) CPAP machine for home use at pressure 9cm/H2O, full face mask x1/3month with a full face cushion x1/mo 1 Device 11 07/31/2020 Active loratadine (CLARITIN) 10 mg tabletIndications :Allergic rhinitis, unspecified seasonality, unspecified trigger,Cough Take 1 Tablet (10 mg) by mouth once daily. 30 tablet. 2 10/23/2020 Active miscellaneous medical supply miscIndications:B uttock pain As directed. 1 unit 0 10/31/2021 Active Blnie-3-DMH-EPA-F marah Oil 1,000 mg (120 mg-180 mg) cap Take 1 Capsule (1,000 mg) by mouth. 0 06/17/2022 Active calcium citrate-vitamin D3 (Citracal Ultradense) 200 mg-6.25 mcg (250 unit) tabletIndications :Routine general medical examination at a health care facility Take 2 Tablets by mouth once daily with a meal. 0 07/24/2022 Active fluticasone (50 mcg per actuation) nasal solution (FLONASE)Indicati ons:Nasal congestion,Nasal septal deviation,Chronic rhinitis Inhale 2 Sprays into affected nostril(s) once daily. 30 mL 3 07/25/2022 Active ipratropium (ATROVENT NASAL) 42 mcg (0.06 %) nasal sprayIndications: Nasal congestion Inhale 2 Sprays to both nostrils 3 times daily if needed for Rhinitis. (if otherwise not well controlled on fluticasone) 15 mL 2 07/25/2022 Active cholecalciferol (VITAMIN D3) 2,000 unit capsuleIndication s:Low vitamin D level Take 1 Capsule (50 mcg) by mouth once daily. 0 07/29/2022 Active glycopyrrolate (ROBINUL) 1 mg tabletIndications :Cerebrovascular accident (CVA), unspecified mechanism (HC) TAKE ONE TABLET (1 MG) BY MOUTH THREE TIMES DAILY. 90 Tablet 1 12/12/2022 Active tamsulosin (FLOMAX) 0.4 mg capsuleIndication s:Hemorrhagic stroke (HC) TAKE ONE CAPSULE BY MOUTH DAILY AFTER A MEAL 90 Capsule 1 12/12/2022 Active oxyCODONE (ROXICODONE) 5 mg immediate release tabletIndications :Buttock pain Take 1 Tablet (5 mg) by mouth every 6 hours if needed for Pain. for pain 30 Tablet 0 01/08/2023 Active gabapentin (NEURONTIN) 100 mg capsuleIndication s:Neuropathic pain Take 2 Capsules (200 mg) by mouth two times daily. 90 Capsule 3 01/08/2023 Active clopidogreL (PLAVIX) 75 mg tabletIndications :Cerebrovascular accident (CVA), unspecified mechanism (HC) TAKE ONE TABLET BY MOUTH DAILY 90 Tablet 3 01/15/2023 Active codeine-guaiFENes in (ROBITUSSIN AC) 10-100 mg/5 mL liquidIndications :Chronic cough TAKE 5 ML BY MOUTH EVERY 4 HOURS IF NEEDED FOR COUGH. MAX DOSE 60 ML PER 24 HRS. 118 mL 1 03/04/2023 Active potassium chloride (MICRO-K) 10 mEq Controlled-releas e capsuleIndication s:Hypokalemia TAKE ONE CAPSULE BY MOUTH DAILY WITH A MEAL 90 Capsule 3 03/04/2023 Active sertraline (ZOLOFT) 50 mg tabletIndications :Adjustment disorder, unspecified type TAKE ONE TABLET (50 MG) BY MOUTH EVERY MORNING. 90 Tablet 0 03/13/2023 Active metoprolol tartrate (LOPRESSOR) 25 mg tabletIndications :Adjustment disorder, unspecified type TAKE ONE TABLET BY MOUTH TWICE A DAY 180 Tablet 0 03/13/2023 Active donepeziL (ARICEPT) 10 mg tabletIndications :Memory impairment TAKE ONE TABLET BY MOUTH AT BEDTIME 90 Tablet 0 03/13/2023 Active montelukast (SINGULAIR) 10 mg tabletIndications :Adjustment disorder, unspecified type TAKE ONE TABLET BY MOUTH EVERY DAY AT BEDTIME 90 Tablet 3 03/13/2023 Active amLODIPine (NORVASC) 10 mg tabletIndications :HTN (hypertension) TAKE 1 TABLET (10 MG) BY MOUTH ONCE DAILY. 90 Tablet 2 04/12/2023 Active atorvastatin (LIPITOR) 40 mg tabletIndications :Adjustment disorder, unspecified type TAKE ONE TABLET BY MOUTH AT BEDTIME 90 Tablet 2 05/13/2023 Active atorvastatin (LIPITOR) 40 mg tabletIndications :Adjustment disorder, unspecified type TAKE ONE TABLET BY MOUTH AT BEDTIME 90 Tablet 2 08/16/2022 4 Discontinued Active Problems Problem Noted Date Diagnosed Date Femoral loosening of prosthetic right hip 2020 Thoracic aortic ectasia 10/26/2020 EDUAR 07/04/2008 AHI-40 07/12/2020 Malignant melanoma of arm, right 04/18/2020 Memory impairment 06/02/2019 Dysphagia 03/29/2019 Hemorrhagic stroke 03/29/2019 Left hemiparesis 03/29/2019 Dysarthria 03/29/2019 Hypertension 03/29/2019 Cardiomyopathy 03/29/2019 Atrial fibrillation 03/29/2019 Status post biventricular pacemaker 03/29/2019 Hyperlipidemia 03/29/2019 GERD (gastroesophageal reflux disease) 9 Adenomatous colon polyp 05/15/2017 Overview: Colonoscopy 05/2017 polyps, repeat in 3 years 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 05/15/2017 Overview: EGD 05/2017 Shaikh's, repeat EGD in 1 year History of recurrent UTIs 07/28/2016 Benign non-nodular prostatic hyperplasia with lower urinary tract symptoms 07/28/2016 Degeneration of lumbar or lumbosacral interverte bral disc 03/18/2012 Lumbar facet arthropathy 03/18/2012 Lumbar neuroforaminal stenosis 03/18/2012 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 Proximal humerus fracture left 09-15-2010 011 Left shoulder s/p hemiarthro plasty at an outside institution DOS: 09/19/2010 10/07/2010 Encounters Date Type Department Care Team Description 05/28/2023 Telephone [facility] [address] [place] [address] Chandrika Sutton MD Letter 05/14/2023 Telephone [facility] [address] [place] [address] Chandrika Sutton MD Health Maintenance Update 05/11/2023 Refill [facility] [address] [place] [address] Chandrika Sutton MD Refill Request (Atorvastatin) 05/08/2023 Telephone [facility] [address] [place] [address] Chandrika Sutton MD Referral (ORDERS FOR PHYSICAL THERAPY AT HOME) 04/23/2023 2:00 PM FENCE SUPERVISOR Telemedicine [facility] [place] [address] Clay Cedillo MD Sleep Follow-up (Has not been using a cpap.); Telehealth (Virtual visit, no vitals taken.) 04/14/2023 Telephone [facility] [place] [address] Chandrika Sutton MD Medication Management 04/14/2023 Telephone [facility] [place] [address] Chandrika Sutton MD Concerns (Pain in neck- any movement) 04/10/2023 Refill [facility] [place] [address] Chandrika Sutton MD Refill Request (Amlodipine) 04/07/2023 7:45 AM FENCE SUPERVISOR Phone Office Visit [facility] [address] [place] [address] Chandrika Sutton MD Influenza Like Illness (COVID-19 positive/Thursday had 6 diarrhea episodes. Threw up large amounts on Thursday, also had not been able to sit up in bed so weak it took 3 people to transfer. A little better on Thursday. Has not been eating and sleeping a lot. Has done 3 tests 2 positive 1 negative./Still very loose stools, not eating. Very weak. First test was on Thursday.) 04/07/2023 Orders Only [facility] Scanner 1 scan: (1-Ord) [facility], XR CHEST 1V PORTABLE , 04/07/2023 04/06/2023 Travel 04/06/2023 Telephone [facility] [address] [place] [address] Chandrika Sutton MD RELAY OF INFORMATION (POSITIVE FOR COVID-19 ) 03/12/2023 Refill [facility] [place] [facility] [place] [address] Chandrika Sutton MD Refill Request (Sertraline, Metoprolol Tartrate, Donepezil, Montelukast) from Last 3 Months Immunizations Name Administration Dates Next Due COVID-19 Vaccine Spikevax (M oderna 50mcg/0.5mL) 12YO+ [id number] Formula PF 02/11/2023 COVID-19 vaccine (Pfizer-Bio NTech 30mcg/0.3mL) 12YO+ BIVALENT PF, MDV 01/30/2022 COVID-19 vaccine (Pfizer-Bio NTech 30mcg/0.3mL) PF, MDV 06/30/2020,06/09/2020 HepA-HepB (Twinrix) 02/03/2012, 4,04/19/2001,12/25 Hepatitis B (Adult) 10/18/2001 Influenza, High-dose Inactivated 02/11/2021,02/01,02/03/2018 Influenza, High-dose Quadriv alent Inactivated 02/11/2021 Influenza, IIV3 (Age >=3 years) 03/08/2002,04/19,03/12/2000 Influenza, IIV4 02/10/2019,04/18/2009 Influenza, Inactivated AIIV4 (Age 65+ Years) Preserv Free 02/11/2023,01/30/2022,01/20/2020,02/10,02/03/2018,01/30/2016,03/08/2012 ,02/01/2010,02/20/2005,02/02/2004 Pneumococcal Poly,23-Valent (Pneumovax) 06/13/2021,05/04/2002,04/19/2001 Pneumococcal conj 13-Valent (Prevnar 13) 07/13/2014 RSV, Recombinant ADJ Reconst ituted (Arexvy 120MCG/0.5mL) 01/08/2023 Td, Preservative Free (age >= 7 Years) 3,05/04/2002 Tdap 02/03/2012,09/15/2010 Tetanus/Diptheria 12/19/2002 Tuberculin Skin Test, Unspecified 04/25/2019, Typhoid (injectable) 04/06/2006,05/22/2003 Zoster (Zostavax-ZVL, live) 03/12/2006 Family History Medical History Relation Name Comments Other Brother Stroke Father Other Mother Good Health Son 1 Good Health Son 2 Relation Name Status Comments Brother Father Mother Son 1 Alive Son 2 Alive Social History Tobacco Use Types Packs/Day Years Used Date Smoking Tobacco: Former Pipe Smokeless Tobacco: Never Tobacco Cessation:Counseling Given: Yes Alcohol Use Standard Drinks/Week Comments Yes 0 (1 standard drink = 0.6 oz pur e alcohol) one drink nightly PHQ-2 Answer Date Recorded PHQ-2 TOTAL SCORE 0 07/24/2022 Social Connections Answer Date Recorded Frequency of Communication with Friends and Fami ly Not on file 05/04/2021 Financial Resource Strain Answer Date R ecorded Difficulty of Paying Living Expenses Not on file 05/04/2021 Difficulty of Paying Living Expenses Not on file 05/04/2021 Sex and Gender Information Value Date Recorded Sex Assigned at Male 03/23/2020 9:48 PM FENCE SUPERVISOR Gender Identity Not on file Sexual Orientation Straight 03/23/2020 9: 48 PM FENCE SUPERVISOR Obstetrics History Last Filed Vital Signs Vital Sign Reading Time Taken Comments Blood Pressure 111/64 02/19/2023 9:31 AM CDT Pulse 59 02/19/2023 9:31 AM CDT Temperature 36.5 ??C (97.7 ??F) 02/19/2023 9:31 AM CD T Respiratory Rate 16 08/28/2022 8:10 AM CDT Oxygen Saturation 96% 02/19/2023 9:31 AM CDT Inhaled Oxygen Concentration - - Weight 88.5 kg (195 lb) 11/27/2020 3:15 PM CDT Height 182.9 cm (6' 0.01) 11/27/2020 3:15 PM CD T Body Mass Index 26.44 11/27/2020 3:15 PM CDT Plan of Treatment Health Maintenance Due Date Last Done Comments Zoster (shingles) series for age 50+ (2 of 3) 05/07/2006 03/12/2006 BMI (ht and wt on same day) for age 18+ 11/27/2021 11/27/2020, 07/28/2016 Tetanus booster 02/02/2022 02/03/2012, 09/01, 12/19/2002, Additional history exists Medicare Wellness for age 65+ 06/18/2023 06/17/2022, 06/13/2021 Depression screening for age 12+ 07/25/2023 07/24/2022, 06/19/2022, 06/18/2022, Additional history exists Tdap Completed 02/03/2012, 09/15/2010 Pneumococcal series for age 65+ Completed 06/13/2021, 07/13/2014, 05/04/2002, Additional history exists COVID-19 vaccine series Completed 02/12/20, 01/30/2022, 08/27/2021, Additional history exists Influenza for age 65+ Completed 02/11/2023 , 01/30/2022, 02/11/2021, Additional history exists Procedures Procedure Name Priority Date/Time Associated Diagnosis Comments SCAN-RADIOLOGY REPORT 04/07/2023 12:00 AM FENCE SUPERVISOR from Last 3 Months Results * SCAN-RADIOLOGY REPORT (04/07/2023 12:00 AM FENCE SUPERVISOR) Anatomical Region Laterality Modality Other Scanner OTHER from Last 3 Months Advance Directives Documents on File Type Date Recorded Patient Rn Outpatient Surgery Expl anation Healthcare Directive 03/30/2019 8:47 AM s igned 01/23/05 Latest Code Status on File Code Status Date Activated Date Inactivated Comments Full Code 04/18/2020 8:33 AM 04/18/2020 4:22 PM Question Answer Comments Code Status Discussion: Not Discussed Code Status History Code Status Date Activated Date Inactivated Comments Full Code 03/29/2019 12:13 PM 04/15/2019 12:40 PM Question Answer Comments Code Status Discussion: Per Existing Order Care Teams Member Of Technical Staff Relationship Specialty Start Date End Date Chandrika Sutton MD [address] [place] [address] PCP - General Family Practice 02/19/23 Marcelle Portillo, SALES AND SERVICE CHANGE LEADER Stroke Rehab Care Coordination - [facility] Care Guide 07/14/19 Dolores Louis, RN [address] [address] Stroke Rehab Care Coordination - [facility] Registered Nurse 07/20/19 Yonatan Madison, PharmD Pharmacist Medication Management Pharmacology 07/25/22 07/25/24
--- OUTSIDE RECORDS SUMMARY | 2023-06-10 12:07 | XMS_ITS | Clinical Summary ---
Author Name Unknown Organization [facility] Address [address] [address] Phone Care Team Providers Care Commercial Development Manager Name Role Phone Elsewhere, Pcp Primary Care Provider Unavailabl e Allergies No known active allergies Medications Medication Sig Dispensed Refills Start Date End Date Status celecoxib (CELEBREX) 200 MG capsule Take 200 mg by mouth two times a day. 0 Active diphenhydrAMINE (BENADRYL ALLERGY) 25 MG capsule Take 25 mg by mouth every six hours as needed. 0 Active fexofenadine (AVERY ALLERGY) 180 MG tablet Take 180 mg by mouth one time a day. Do not administer with fruit juice. 0 Active lisinopril (PRINIVIL, ZESTRIL) 20 MG tablet Take 20 mg by mouth one time a day. 0 Active metoprolol succinate (TOPROL-XL) 50 MG 24 hour tablet Take 50 mg by mouth one time a day. Do not crush or chew. 0 Active SIMVASTATIN OR Take 60 mg by mouth. 0 Active tamsulosin (FLOMAX) 0.4 MG 24 hour capsule Take 0.4 mg by mouth one time a day. Capsules should be swallowed whole; do not crush, chew, or open 0 Active Cholecalciferol (VITAMIN D) 400 UNIT Capsule Take 400 Units by mouth one time a day. 0 Active warfarin (COUMADIN) 6 MG tablet Take 6 mg by mouth one time a day. 0 Active Surgical History Surgery Date Site/Laterality Comments ABLATION OF DYSRHYTHMIC FOCUS Medical History Medical History Date Comments Atrial fibrillation (HCC) Social History Tobacco Use Types Packs/Day Years Used Date Smoking Tobacco: Never Assessed Alcohol Use Standard Drinks/Week Comments No 0 (1 standard drink = 0.6 oz pur e alcohol) Sex and Gender Information Value Date Recorded Sex Assigned at Not on file Gender Identity Not on file Sexual Orientation Not on file Obstetrics History Last Filed Vital Signs Vital Sign Reading Time Taken Comments Blood Pressure 95/62 10/14/2012 12:34 PM CDT Pulse 60 10/14/2012 12:34 PM CDT Temperature 36.4 ??C (97.5 ??F) 10/14/2012 10:07 AM C DT Respiratory Rate 29 10/14/2012 12:34 PM CDT Oxygen Saturation 97% 10/14/2012 11:26 AM CDT Inhaled Oxygen Concentration - - Weight 98 kg (216 lb) 10/14/2012 10:07 AM CDT Height 182.9 cm (6') 10/14/2012 10:07 AM CDT Body Mass Index 29.29 10/14/2012 10:07 AM CDT Plan of Treatment Not on file Care Teams Commercial Development Manager Relationship Specialty Start Date End Date Elsewhere, Pcp PCP - General 10/18/11
== END 2023-06-06 11:18 | disposition home or self-care (01) ==
LOC: AMB 06-10 12:05
PROVIDERS: PCP Family Medicine; Visit Provider Emergency Medicine Emergency Medical Services
DX: M54.9 Dorsalgia, unspecified (principal)
CPT/HCPCS: A0998

== ENCOUNTER 2023-07-24 08:54 | Outpatient (CLI) | payer MEDICARE, OTHER, SELFPAY | END 2023-07-24 08:55 | disposition home or self-care (01) | PROVIDERS: PCP Family Medicine; Visit Provider Family Medicine | DX: R53.1 Weakness (principal) | CPT/HCPCS: A0998 ==

== ENCOUNTER 2023-09-03 15:19 | Outpatient (CLI) | payer MEDICARE, OTHER, SELFPAY ==
--- OUTSIDE RECORDS SUMMARY | 2023-09-07 19:25 | XMS_ITS | Continuity of Care Document ---
Author Name Unknown Organization [facility] Address [address] [place] [id number] Phone Care Team Providers Care Hemmer Automatic Name Role Phone [facility] Unavailable Unava ilable Procedures Procedure Date MAJOR JOINT OR BURSA INJ WITH ULTRASOUND Pt doc no events on discharg Pt w/o preop order iv ab pro Advance Directives Directive Yes / No Effective Date File Name No Information Encounters Encounter Description Practice Location Reason(s) For Visit Diagnoses Date Provider Providers Copied on Encounter [facility], [address] [place] [address], [id number], tel:[phone] [facility] No Information [facility]. [address] [place] [address], [id number], . tel:[phone] Referring Provider: Edgard Vicente, [address] [facility] [place], [address] . tel:[phone] Family History Family Member Type Diagnosis Age At Onset No Information Payers Payer name Insurance type Covered alliance party ID Authorerika mcdonald(s) Medicare MB [id number] [employer] Supplement Plan [id number] Social History Type Description Quantity Date Captured [...]
--- OUTSIDE RECORDS SUMMARY | 2023-09-07 19:26 | XMS_ITS | Clinical Summary ---
Author Name Unknown Organization [employer] [facility] Address [place], [place] [address] Care Team Providers Care Tension Worker Name Role Phone Marcelle Portillo MANAGER SURGERY Unavailable [phone] Dolores Louis RN Unavailable [phone] Yonatan Madison PharmD Unavailable Chandrika Sutton MD Primary Care Provide r Allergies Active Allergy Reactions Criticality Noted Date Comments Dust Mites Other - Describe In Comment Field 08/07/2007 Nasal congestion Pollen Extracts Other - Describe In Comment Field 03/29/2019 Nasal stuffiness Pantoprazole Rash 09/22/2019 Sulfamethoxazole-Trimet hoprim Itching Low 07/12/2021 Medications Medication Sig Dispensed Refills Start Date End Date Status melatonin 3 mg tabletIndications:Ad justment disorder, unspecified type Take 1 tablet by mouth at bedtime. 30 tablet 06/23/2019 Active miscellaneous medical supply miscIndications:HTN (hypertension) As directed. Automatic arm cuff--home blood pressure machine 1 Each 07/01/2019 Active wheelchairIndication s:Left hemiparesis (HC),Hemorrhagic stroke (HC) Wheelchair: Transition wheelchair with leg rests: (Swing away Length of need: 99 months), Back folds down, about 19 lbs if possible. 1 Device 09/15/2019 Active acetaminophen (TYLENOL EXTRA STRGTH) 500 mg tabletIndications:Joanna figueroa degenerative disc disease Take 2 tablets by mouth every 6 hours if needed (Pain). 180 tablet 12/12/2019 Active CPAPIndications:EDUAR (obstructive sleep apnea) CPAP machine for home use at pressure 9cm/H2O, full face mask x1/3month with a full face cushion x1/mo 1 Device 11 07/31/2020 Active loratadine (CLARITIN) 10 mg tabletIndications:Al lergic rhinitis, unspecified seasonality, unspecified trigger,Cough Take 1 Tablet (10 mg) by mouth once daily. 30 tablet. 2 10/23/2020 Active miscellaneous medical supply miscIndications:Butt ock pain As directed. 1 unit 10/31/2021 Active Cvqhp-4-ZNF-EPA-Fish Oil 1,000 mg (120 mg-180 mg) cap Take 1 Capsule (1,000 mg) by mouth. 0 06/17/2022 Active calcium citrate-vitamin D3 (Citracal Ultradense) 200 mg-6.25 mcg (250 unit) tabletIndications:Cely turner general medical examination at a health care facility Take 2 Tablets by mouth once daily with a meal. 0 07/24/2022 Active fluticasone (50 mcg per actuation) nasal solution (FLONASE)Indications :Nasal congestion,Nasal septal deviation,Chronic rhinitis Inhale 2 Sprays into affected nostril(s) once daily. 30 mL 3 07/25/2022 Active ipratropium (ATROVENT NASAL) 42 mcg (0.06 %) nasal sprayIndications:Aram al congestion Inhale 2 Sprays to both nostrils 3 times daily if needed for Rhinitis. (if otherwise not well controlled on fluticasone) 15 mL 2 07/25/2022 Active cholecalciferol (VITAMIN D3) 2,000 unit capsuleIndications:L ow vitamin D level Take 1 Capsule (50 mcg) by mouth once daily. 07/29/2022 Active glycopyrrolate (ROBINUL) 1 mg tabletIndications:Ce rebrovascular accident (CVA), unspecified mechanism (HC) TAKE ONE TABLET (1 MG) BY MOUTH THREE TIMES DAILY. 90 Tablet 1 12/12/2022 Active oxyCODONE (ROXICODONE) 5 mg immediate release tabletIndications:Bu ttock pain Take 1 Tablet (5 mg) by mouth every 6 hours if needed for Pain. for pain 30 Tablet 01/08/2023 Active gabapentin (NEURONTIN) 100 mg capsuleIndications:N europathic pain Take 2 Capsules (200 mg) by mouth two times daily. 90 Capsule 3 01/08/2023 Active clopidogreL (PLAVIX) 75 mg tabletIndications:Ce rebrovascular accident (CVA), unspecified mechanism (HC) TAKE ONE TABLET BY MOUTH DAILY 90 Tablet 3 01/15/2023 Active codeine-guaiFENesin (ROBITUSSIN AC) 10-100 mg/5 mL liquidIndications:Ch ronic cough TAKE 5 ML BY MOUTH EVERY 4 HOURS IF NEEDED FOR COUGH. MAX DOSE 60 ML PER 24 HRS. 118 mL 1 03/04/2023 Active potassium chloride (MICRO-K) 10 mEq Controlled-release capsuleIndications:H ypokalemia TAKE ONE CAPSULE BY MOUTH DAILY WITH A MEAL 90 Capsule 3 03/04/2023 Active montelukast (SINGULAIR) 10 mg tabletIndications:Ad justment disorder, unspecified type TAKE ONE TABLET BY MOUTH EVERY DAY AT BEDTIME 90 Tablet 3 03/13/2023 Active amLODIPine (NORVASC) 10 mg tabletIndications:HT N (hypertension) TAKE 1 TABLET (10 MG) BY MOUTH ONCE DAILY. 90 Tablet 2 04/12/2023 Active atorvastatin (LIPITOR) 40 mg tabletIndications:Ad justment disorder, unspecified type TAKE ONE TABLET BY MOUTH AT BEDTIME 90 Tablet 2 05/13/2023 Active tamsulosin (FLOMAX) 0.4 mg capsuleIndications:H emorrhagic stroke (HC) TAKE ONE CAPSULE BY MOUTH DAILY AFTER A MEAL 90 Capsule 1 06/12/2023 Active donepeziL (ARICEPT) 10 mg tabletIndications:Me jonathan impairment Take 1 Tablet (10 mg) by mouth at bedtime. 90 Tablet 3 07/03/2023 Active sertraline (ZOLOFT) 50 mg tabletIndications:Ad justment disorder, unspecified type Take 1 Tablet (50 mg) by mouth every morning. 90 Tablet 3 07/03/2023 Active metoprolol tartrate (LOPRESSOR) 25 mg tabletIndications:Ad justment disorder, unspecified type Take 1 Tablet (25 mg) by mouth two times daily. 180 Tablet 3 07/03/2023 Active External Catheter, Male miscIndications:Cont inuous leakage of urine As directed. Condom catheter, size 35 30 Each 11 07/03/2023 Active Diaper,Brief, Adult,DisposableIndi cations:Continuous leakage of urine For home use. 96 Each 07/03/2023 Active Urinary Bag miscIndications:Cont inuous leakage of urine As directed. Urinary catheter bag, standard size, 5 bags, 5 each 5 Each 08/14/2023 Active nystatin (MYCOSTATIN) 100,000 unit/gram topical creamIndications:Int ertrigo APPLY TOPICALLY TO AFFECTED AREA(S) TWO TIMES DAILY. 30 g 5 08/18/2023 Active Active Problems Problem Noted Date Diagnosed Date Urinary incontinence with continuous leakage Thrombocytopenia 07/03/2023 Femoral loosening of prosthetic right hip 2020 [...] Encounters Date Type Department Care Team Description 08/18/2023 Refill [facility] [address] [place] [address] Chandrika Sutton MD Refill Request (Nystatin) 08/14/2023 Telephone [facility] [address] [place] [address] Chandrika Sutton MD Pharmacist Medication Management (Urinary Bag misc) 08/14/2023 Telephone [facility] [address] [place] [address] Chandrika Sutton MD Letter 07/09/[address] [address] Josué Denise MD Questions 07/03/2023 11:00 AM RUBY SOFTWARE DEVELOPER Ancillary Procedure [address] [address] 07/03/2023 9:15 AM RUBY SOFTWARE DEVELOPER Office Visit [address] [address] Chandrika Sutton MD Medicare ANNUAL (subsequent) Visit (87 yo Male/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 Treatment?) 07/03/2023 Travel 06/11/2023 10:30 AM RUBY SOFTWARE DEVELOPER Office Visit [address] [address] Jameel Woodall MD Consult (incontinence ) 06/11/2023 Refill [facility] [address] [place] [address] Chandrika Sutton MD Refill Request (Sertraline, Tamsulosin, Metoprolol Tartrate, Donepezil) 06/11/2023 Travel from Last 3 Months Immunizations Name Administration Dates Next Due COVID-19 Vaccine Spikevax (M oderna 50mcg/0.5mL) 12YO+ [id number] Formula PF 02/11/2023 COVID-19 vaccine (Pfizer-Bio NTech 30mcg/0.3mL) 12YO+ BIVALENT PFABRAHAM 01/30/2022 COVID-19 vaccine (Genus Oncology-Bio NTech 30mcg/0.3mL) PF, MDV 06/30/2020,06/09/2020 HepA-HepB (Twinrix) 02/03/2012, 4,04/19/2001,12/25 Hepatitis B (Adult) 10/18/2001 Influenza Virus, Unspecified 02/11/2023, 01/30/2022,01/20/2020,02/03,02/11/2017,01/30/2016,01/29/2015 ,02/07/2014,02/03/2013,03/08/2012,06/2011,01/27/2011,02/04/2010, 0,02/20/2005,02/02/2004 Influenza, High-dose Inactivated 02/11/2021,02/01,02/03/2018 Influenza, High-dose Quadriv [...] Test, Unspecified 04/25/2019, Typhoid (injectable) 04/06/2006,05/22/2003 Zoster (Shingrix-RZV, recombinant) 04/20/2023 Zoster (Zostavax-ZVL, live) 03/12/2006 Family History Medical History Relation Name Comments Other Brother Stroke Father Other Mother Good Health Son 1 Good Health Son 2 Relation Name Status Comments Brother Father Mother Son 1 Alive Son 2 Alive Social History Tobacco Use Types Packs/Day Years Used Date Smoking Tobacco: Former Pipe Q uit: 05/04/1987 Smokeless Tobacco: Never Tobacco Cessation:Counseling Given: Yes Alcohol Use Standard Drinks/Week Comments Yes 0 (1 standard drink = 0.6 oz pur e alcohol) one drink nightly PHQ-2 Answer Date Recorded PHQ-2 TOTAL SCORE 1 07/03/2023 Social Connections Answer Date Recorded Frequency of Communication with Friends and Fami ly Not on file 05/04/2021 Financial Resource Strain Answer Date R ecorded Difficulty of Paying Living Expenses Not on file 05/04/2021 Difficulty of Paying Living Expenses Not on file 05/04/2021 Sex and Gender Information Value Date Recorded Sex Assigned at Male 03/23/2020 9:48 PM RUBY SOFTWARE DEVELOPER Gender Identity Not on file Sexual Orientation Straight 03/23/2020 9: 48 PM [employer] SOFTWARE DEVELOPER Obstetrics History Last Filed Vital Signs Vital Sign Reading Time Taken Comments Blood Pressure 107/61 07/03/2023 9:37 AM RUBY SOFTWARE DEVELOPER Pulse 60 07/03/2023 9:37 AM RUBY SOFTWARE DEVELOPER Temperature 36.5 ??C (97.7 ??F) 02/19/2023 9 :31 AM CDT Respiratory Rate 16 08/28/2022 8:10 AM CDT Oxygen Saturation 95% 07/03/2023 9:3 7 AM RUBY SOFTWARE DEVELOPER Inhaled Oxygen Concentration - - Weight 88.9 kg (196 lb) 07/03/2023 9:37 AM RUBY SOFTWARE DEVELOPER was holding onto bars and unsteady Height 182.9 cm (6' 0.01) 11/27/2020 3 :15 PM CDT Body Mass Index 26.58 11/27/2020 3:15 PM CDT Plan of Treatment Health Maintenance Due Date Last Done Comments BMI (ht and wt on same day) for age 18+ 11/27/2021 11/27/2020, 07/28/2016 Tetanus booster 02/02/2022 02/03/2012, 09/01, 12/19/2002, Additional history exists COVID-19 vaccine series (24 season) 2023 02/11/2023, 01/30/2022, 08/27/2021, Additional history exists Zoster (shingles) series for age 50+ (2 of 2) 06/15/2023 04/20/2023, 03/12/2006 Influenza for age 65+ 01/03/2024 02/11/2023 , 02/11/2023, 01/30/2022, Additional history exists Depression screening for age 12+ 07/02/2024 07/03/2023, 07/24/2022, 06/19/2022, Additional history exists Medicare Wellness for age 65+ 07/03/2024, 06/17/2022, 06/13/2021 Tdap Completed 02/03/2012, 09/15/2010 Pneumococcal series for age 65+ Completed 06/13/2021, 07/13/2014, 05/04/2002, Additional history exists Procedures Procedure Name Priority Date/Time Associated Diagnosis Comments XR FINGER 3 VIEWS RIGHT Routine 07/03/2023 11:47 AM RUBY SOFTWARE DEVELOPER Arthritis of finger of right hand CBC WITH AUTO DIFFERENTIAL Routine 07/03/2023 11:07 AM RUBY SOFTWARE DEVELOPER HTN (hypertension) LIPID PANEL W REFLEX MEASURED LDL Routine 07/03/2023 11:07 AM RUBY SOFTWARE DEVELOPER Cerebrovascular accident (CVA), unspecified mechanism (HC) BASIC METABOLIC PANEL Routine 07/03/2023 11:07 AM RUBY SOFTWARE DEVELOPER HTN (hypertension) CBC WITH AUTO DIFFERENTIAL Routine 07/03/2023 11:07 AM RUBY SOFTWARE DEVELOPER HTN (hypertension) from Last 3 Months Results * XR FINGER 3 VIEWS RIGHT (07/03/2023 11:47 AM RUBY SOFTWARE DEVELOPER) Anatomical Region Laterality Modality Finger Computed Radiogr aphy Narrative 07/03/2023 2:39 PM RUBY SOFTWARE DEVELOPER Indication: Arthritis. Technique: 3 views right ring finger. Comparison: None. Findings: Joint space narrowing and spurring are present at the proximal interphalangeal joint with subchondral cystic change within the distal aspect of the proximal phalanx. ??Overlying soft tissue swelling noted. ?? Osteopenia. ??Degenerative narrowing at the long finger DIP joint and little finger DIP joint. ??Gullwing deformity at the little finger PIP joint. 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 Chandrika Sutton MD GENERAL IMAGI NG * (ABNORMAL) CBC WITH AUTO DIFFERENTIAL (07/03/2023 11:07 AM RUBY SOFTWARE DEVELOPER) Pathologist [facility] WHITE BLOOD COUNT 4.6 4.5 - 11.0 thou/cu mm 07/03/2023 11:15 AM [facility] RED BLOOD COUNT 4.01(L) 4.30 - 5.90 mil/cu mm 07/03/2023 11:15 AM [facility] HEMOGLOBIN 13.5 13.5 - 17.5 g/dL 07/03/2023 11:15 AM [facility] HEMATOCRIT 39.3 37.0 - 53.0 % 07/03/2023 11:15 AM [facility] MCV 98 80 - 100 fL 07/03/2023 11:15 AM [facility] MCH 33.7 26.0 - 34.0 pg 07/03/2023 11:15 AM [facility] MCHC 34.4 32.0 - 36.0 g/dL 07/03/2023 11:15 AM [facility] RDW 12.7 11.5 - 15.5 % 07/03/2023 11:15 AM [facility] PLATELET COUNT 141 140 - 440 thou/cu mm 07/03/2023 11:15 AM [facility] MPV 11.2(H) 6.5 - 11.0 fL 07/03/2023 11:15 AM [facility] % NEUT 74.8 % 07/03/2023 11:15 AM [facility] % LYMPH 9.2 % 07/03/2023 11:15 AM [facility] % MONO 14.7 % 07/03/2023 11:15 AM [facility] % EOS 1.1 % 07/03/2023 11:15 AM [facility] % BASO 0.2 % 07/03/2023 11:15 AM [facility] ABSOLUTE NEUTROPHILS 3.4 1.7 - 7.0 thou/cu mm 07/03/2023 11:15 AM [facility] ABSOLUTE LYMPHOCYTES 0.4(L) 0.9 - 2.9 thou/cu mm 07/03/2023 11:15 AM [facility] ABSOLUTE MONOCYTES 0.7 <0.9 thou/cu mm 07/03/2023 11:15 AM [facility] ABSOLUTE EOSINOPHILS 0.1 <0.5 thou/cu mm 07/03/2023 11:15 AM [facility] ABSOLUTE BASOPHILS 0.0 <0.3 thou/cu mm 07/03/2023 11:15 AM [facility] Blood BLOOD SPECIMEN / Unknown Butterfly / Unknown 07/03/2023 11:07 AM RUBY SOFTWARE DEVELOPER 07/03/2023 11:11 AM RUBY SOFTWARE DEVELOPER Chandrika Sutton MD HEMATOLOGY [facility] [address] [place] [address], * LIPID PANEL W REFLEX MEASURED LDL (07/03/2023 11:07 AM RUBY SOFTWARE DEVELOPER) CHOLESTEROL,TOTAL 116 100 - 199 mg/dL 07/03/2023 10:36 PM RUBY SOFTWARE DEVELOPER [facility] Comment: Cholesterol, Total Reference Ranges Desirable <200 mg/dL Borderline 200-239 mg/dL High >=240 mg/dL TRIGLYCERIDES 80 <150 mg/dL 07/03/2023 10:36 PM [facility] HDL CHOLESTEROL 43 >40 mg/dL 10:36 PM RUBY SOFTWARE DEVELOPER [facility] NON-HDL CHOLESTEROL 73 <145 mg/dl 07/03/2023 10:36 PM [facility] CHOL/HDL RATIO 2.70 <4.50 07/03/2023 10:36 PM [facility] LDL CHOLESTEROL 57 <=130 mg/dL 07/03/2023 10:36 PM [facility] VLDL CHOLESTEROL 16 <=30 mg/dL 07/03/2023 10:36 PM [facility] PROVIDER ORDERED STATUS RANDOM 07/03/2023 10:36 PM [facility] Blood BLOOD SPECIMEN / Unknown Butterfly / Unknown 07/03/2023 11:07 AM RUBY SOFTWARE DEVELOPER 07/03/2023 11:11 AM [facility] Chandrika Sutton MD CHEMISTRY [facility] [address] [place] [address], * (ABNORMAL) BASIC METABOLIC PANEL (07/03/2023 11:07 AM RUBY SOFTWARE DEVELOPER) SODIUM 140 136 - 145 mmol/L 07/03/2023 10:36 PM [facility] POTASSIUM 4.6 3.5 - 5.1 mmol/L 07/03/2023 10:36 PM [facility] CHLORIDE 105 98 - 107 mmol/L 07/03/2023 10:36 PM [facility] CO2,TOTAL 23 22 - 29 mmol/L 07/03/2023 10:36 PM [facility] ANION GAP 12 5 - 18 07/03/2023 10:36 PM [facility] GLUCOSE 84 70 - 99 mg/dL 07/03/2023 10:36 PM [facility] CALCIUM 8.8 8.8 - 10.2 mg/dL 07/03/2023 10:36 PM [facility] BUN 19 8 - 23 mg/dL 07/03/2023 10:36 PM [facility] CREATININE 1.14 0.70 - 1.20 mg/dL 07/03/2023 10:36 PM RUBY SOFTWARE DEVELOPER [facility] BUN/CREAT RATIO 17 10 - 20 10:36 PM RUBY SOFTWARE DEVELOPER [facility] eGFR 63(L) >90 mL/min/1.7 3m2 07/03/2023 10:36 PM RUBY SOFTWARE DEVELOPER [facility] Comment:As of 2021, eG FR is calculated by the CKD-EPI creatinine equation without race adjustment. ??eGFR can be influenced by muscle mass, exercise, and diet. ??The reported eGFR is an estimation only and is only applicable if the renal function is stable. Blood BLOOD SPECIMEN / Unknown Butterfly / Unknown 07/03/2023 11:07 AM RUBY SOFTWARE DEVELOPER 07/03/2023 11:11 AM RUBY SOFTWARE DEVELOPER Chandrika Sutton MD CHEMISTRY [facility] 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 Healthcare Directive 03/30/2019 8:47 AM s igned 01/23/05 * Full Code (Latest Code Status on File) Date Activated Date Inactivated Comments 04/18/2020 8:33 AM 04/18/2020 4:22 PM Question Answer Comments Code Status Discussion: Not Discussed * Full Code Date Activated Date Inactivated Comments 03/29/2019 12:13 PM 04/15/2019 12:40 PM Question Answer Comments Code Status Discussion: Per Existing Order Care Teams Tension Worker Relationship Specialty Start Date End Date Chandrika Sutton MD [address] [place] [id number] PCP - General Family Practice 02/19/23 Marcelle Portillo, MANAGER SURGERY Stroke Rehab Care Coordination - [facility] Care Guide 07/14/19 Dolores Louis, RN [address] [address] Stroke Rehab Care Coordination - [facility] Registered Nurse 07/20/19 Yonatan Madison, PharmD Pharmacist Medication Management Pharmacology 07/25/22 07/25/24
--- OUTSIDE RECORDS SUMMARY | 2023-09-07 19:26 | XMS_ITS | Continuity of Care Document ---
Author Name Unknown Organization [facility] Address [address] [place] [address] Phone Care Team Providers Care Auto Service Representative Name Role Phone Babatunde DAVIES, Kenny Unavailable Unavailab le Allergies, Adverse Reactions, Alerts Substance Reaction Status Criticality No Known allergies Procedures Procedure Date Office/Outpatient Visit,[facility] 2013 Advance Directives Directive Yes / No Effective Date File Name No Information Encounters Encounter Description Practice Location Reason(s) For Visit Diagnoses Date Provider Providers Copied on Encounter [facility], [address] [place] [address], [address], tel:[phone] [employer] No Information 4 Babatunde baum. [facility], [address], [address], [id number] , [place]. tel:[phone] Office/Outpat ient Visit,[facility], [address] [place], [place] [address]ite [address] [place] [address], [address], [place] tel:[phone] [employer] [place]UMBAGO 4 Mehbod Amir. [facility], [address], [place], [id number] , [place]. tel:[phone] Referring Provider: Alireza Lundy, [facility] And [address], [address]. tel:[phone] Family History Family Member Type Diagnosis Age At Onset No Information Payers Payer name Insurance type Covered libertarian ID Kasey mcdonald(s) [employer] Medicare CI [id number] Social History Type Description Quantity Date Captured [...]
--- OUTSIDE RECORDS SUMMARY | 2023-09-07 19:26 | XMS_ITS | Continuity of Care Document ---
Author Name Unknown Organization [facility] Address [address] [place] [address] Phone Care Team Providers Care Psychopaedic Nurse Name Role Phone RN, RN Unavailable Unavailable [...] Providers Copied on Encounter [facility], [address], [place], [place], [id number], tel:[phone] [facility] No Information 0 RN RN. [address] [facility], [address], [place], [place], [id number], . tel:[phone] Referring Provider: Chandrika Wilkerson, [address] [place], [address]. tel:[phone] New Pt Eval [address], [facility], [address], [place], [place], [id number], tel:[phone] [facility] back pain (chief complaint) back pain (chief complaint) Low back painPostlaminecto my syndromeInflammat ory arthropathy of facet jointA fibStrokeMyositis , unspecifiedMyalgi a, unspecified siteLow back pain 0 Gamaliel Nguyen. [address] [facility] [address], [place], [place], [id number], [place]. tel:[phone] Referring Provider: Chandrika Wilkerson, [address] [place], [address]. tel:[phone] Family History Family Member Type Diagnosis Age At Onset Mother Problem (finding) Cancer Father Problem (finding) Arthritis Mother Problem (finding) Arthritis Father Problem (finding) Depression Father Problem (finding) Diabetes Payers Payer name Insurance type Covered alliance party ID erika alicjahina(s) Medicare Part B [id number] [employer] CI [id number] Social History Type Description Quantity Date Captured [...]
--- OUTSIDE RECORDS SUMMARY | 2023-09-07 19:26 | XMS_ITS | Clinical Summary ---
Author Name Unknown Organization [facility] Address [address] [address] Phone Care Team Providers Care Stoneworking Belt Sander Name Role Phone Elsewhere, Pcp Primary Care Provider Unavailabl e Allergies No known active allergies Medications Medication Sig Dispensed Refills Start Date End Date Status celecoxib (CELEBREX) 200 MG capsule Take 200 mg by mouth two times a day. Active diphenhydrAMINE (BENADRYL ALLERGY) 25 MG capsule Take 25 mg by mouth every six hours as needed. Active fexofenadine (AVERY ALLERGY) 180 MG tablet Take 180 mg by mouth one time a day. Do not administer with fruit juice. Active lisinopril (PRINIVIL, ZESTRIL) 20 MG tablet Take 20 mg by mouth one time a day. Active metoprolol succinate (TOPROL-XL) 50 MG 24 hour tablet Take 50 mg by mouth one time a day. Do not crush or chew. Active SIMVASTATIN OR Take 60 mg by mouth. Active tamsulosin (FLOMAX) 0.4 MG 24 hour capsule Take 0.4 mg by mouth one time a day. Capsules should be swallowed whole; do not crush, chew, or open Active Cholecalciferol (VITAMIN D) 400 UNIT Capsule Take 400 Units by mouth one time a day. Active warfarin (COUMADIN) 6 MG tablet Take 6 mg by mouth one time a day. Active Surgical History Surgery Date Site/Laterality Comments [...] of Treatment Not on file Care Teams Stoneworking Belt Sander Relationship Specialty Start Date End Date Elsewhere, Pcp PCP - General 10/18/11
--- OUTSIDE RECORDS SUMMARY | 2023-09-07 19:26 | XMS_ITS | Continuity of Care Document ---
Author Name Unknown Organization [facility] Address [address] [facility] [place] [address] Phone Care Team Providers Care Staff Counselor Name Role Phone [place] MARTHA Elana Unavailable Unavailable Allergies, Adverse Reactions, Alerts Substance [...] Diagnoses Date Provider Providers Copied on Encounter [facility], [address] [place], [place], [id number] , [place] tel:[phone] [facility] [place] No Information 2 Argentina Huitron. [address] [facility] [address], [place], [place], [id number] , [place]. tel:[phone] OFFICE VISIT, EST TELEMEDICINE [facility], [address] [place], [place], [id number] , [place] tel:[phone] [facility] [place] Widespread pain (chief complaint) Pain in left wristChronic pain syndromeOther intermediate (current) drug therapyTrochanter ic bursitis, right hipLong term (current) use of opiate analgesicPain in right wristPain in right hip 2 Senait Ritter. 1455 [facility] [address], [place], [id number] , [place]. tel: [phone] [facility], [address] [facility] [place], [id number] , [place] tel: [phone] [facility] [place] No Information 2 Argentina Huitron. [address] [facility] 11 [facility] 100, [place], [id number] , [place]. tel: [phone] [facility], [address] [place], [place], [id number] , [place] tel: [phone] [facility] [place] No Information 1 Nybarbara Elana. [address], [place], [id number] , [place]. tel: [phone] OFFICE/OUTPAT IENT VISIT, [facility], [address] [place] [address], [id number] , [place] tel: [phone] [facility] Widespread pain (chief complaint) Pain in left wristChronic pain syndromeOther exterminator (current) drug therapyTrochanter ic bursitis, right hipLong term (current) use of opiate analgesicPain in right wristPain in right hipEncounter for therapeutic drug level monitoring 1 José Luis Elana. [address], [place], [id number] , [place]. tel: [phone] Referring Provider: Edgard Vicente, [address] [facility] [place], [address] . tel:[phone] OFFICE/OUTPAT IENT VISIT, EST [facility], [address] [place] [address], [id number] , [place] tel: [phone] [facility] Widespread pain (chief complaint) Chronic pain syndromeOther exterminator (current) drug therapyTrochanter ic bursitis, right hipLow back painLong term (current) use of opiate analgesicPain in right wristPain in left wrist Jan- 1 Argentina Huitron. [address], [place]an [place]is [place], [id number] , [place]. tel: [phone] Referring Provider: Edgard Vicente, [facility] [place], [address] . tel:[phone] OFFICE/OUTPAT IENT VISIT, [facility], [facility] [place], [id number] , [place] tel: [phone] [facility] Widespread pain (chief complaint) Chronic pain syndromeOther intermediate (current) drug therapyTrochanter ic bursitis, right hipLow back painLong term (current) use of opiate analgesicPain in right hip 1 Argentina Huitron. [address] [place] [address] [address], Klarissa ellis [place], [id number] , [place]. tel: [phone] Referring Provider: Edgard Vicente, [place], [address] . tel:[phone] [facility], [address] [place], [place] [address]ms [place], [id number] , [place] tel: [phone] [facility] Trochanteric bursitis, right hip 1 Ricardo Rene. [address] [place] [address] [place], [id number] , [place]. tel: [phone] Referring Provider: Edgard Vicente, [place], [address] . tel:[phone] [facility], [address] [place] [address] [place], [id number] , [place] tel: [phone] [facility] [place] No Information 1 Argentina Huitron. [address] [place] [address] [address], [place], [id number] , [place]. tel: [phone] Referring Provider: Edgard Vicente, [address] [place] [address] [place], [address] . tel:[phone] OFFICE/OUTPAT IENT VISIT, [facility], [address] [place], [place] [address]ms [place], [place], [place], [id number] , [place] tel:[phone] [facility] [place] Widespread pain (chief complaint) Chronic pain syndromeEncounter for therapeutic drug level monitoringEncount er for screening for other disorderTrochante melisa bursitis, right hipOther intermediate (current) drug therapyLow back pain 1 Argentina Huitron. [address] [facility] [address], [place], [id number] , [place]. tel:[phone] Referring Provider: Edgard Vicente, [address] [facility] [place], [address] . tel:[phone] Family History Family Member Type Diagnosis Age At Onset No Information Payers Payer name Insurance type Covered libertarian ID Kasey mcdonald(s) Medicare MB [id number] [employer] Supplement Plan [place] [id number] Social History Type Description Quantity Date Captured [...] Goal PHQ-9. Due on du e Goal AST (SGOT). Due on due Goal PHOTOGRAPHER MOTION PICTURE Scanned. Due on due Goal OARS. Due on due Goal UDT. Due on due Goal Creatinine. Due on due Goal OCEAN FISHING GUIDE Paperwork. Due on due Goal AST (SGOT). Due on due Goal ALT (SGPT). Due on due Goal Order Annual PT. Due on due Goal OCEAN FISHING GUIDE Paperwork. Due on due Goal Review Allergy [...] due Goal OARS. Due on due Goal PHOTOGRAPHER MOTION PICTURE Scanned. Due on due Goal Order Annual PT. Due on due Goal Creatinine. Due on due Goal OCEAN FISHING GUIDE Paperwork. Due on due Goal Review Allergy List. Due on due Goal Medication Reconciliation. D ue on due Goal Weight. Due on d ue Goal Tobacco Use. Due on due Goal UDT. Due on due Goal OARS. Due on due Goal PHOTOGRAPHER MOTION PICTURE Scanned. Due on due Goal AST (SGOT). Due on due Goal ALT (SGPT). Due on due Goal Height. Due on d ue Goal Update Social History. Due o n due Goal PHQ-9. Due on du e Goal Creatinine. Due on due Goal UDT. Due on due Goal OARS. Due on due Goal PHOTOGRAPHER MOTION PICTURE Scanned. Due on due Goal AST (SGOT). Due on due Goal ALT (SGPT). Due on due Goal Order Annual PT. Due on due Goal OCEAN FISHING GUIDE Paperwork. Due on due Goal Review Allergy [...] due Goal OARS. Due on due Goal PHOTOGRAPHER MOTION PICTURE Scanned. Due on due Goal AST (SGOT). Due on due Goal ALT (SGPT). Due on due Goal Order Annual PT. Due on due Goal OCEAN FISHING GUIDE Paperwork. Due on due Goal Review Allergy List. Due on due Goal Medication Reconciliation. D ue on due Goal Weight. Due on d ue Goal Tobacco Use. Due on due Goal Height. Due on d ue Goal Update Social History. Due o n due Goal PHQ-9. Due on du e Goal PHQ-9. Due on du e Goal Update Social History. Due o n due Goal Height. Due on d ue Goal Tobacco Use. Due on due Goal Weight. Due on d ue Goal Medication Reconciliation. D ue on due Goal Review Allergy List. Due on due Goal PHQ-9. Due on du e Goal Medication Reconciliation. D ue on due [...] PE. He consulted a hip surgeon at [facility] in [place] to evaluate hip hardware. Right leg/hip pain is likely due to a possible fracture in hip, that not seen via regular x-rays. The stem may adhere back in place, or may get worse. But the orthopedist recommended and ordered PT for strength and pain. He is completing 2 sessions/week at [facility]. Long car rides aggravate the pain.He has difficulty bearing weight on his legs, even with a walker. So he bears most of his weight on his wrists while walking. He followed up with a hand specialist at [facility] who determined his wrist joints are [...] pace maker implanted 5 years ago a [facility] in [place].His is present and contributed to today's OV. [...] swollen, no blood clots. Latest X-rays from [facility] do not show any fracture, but pain [...] does f/u with Dr. Josué Denise at [facility], next visit is scheduled for early December.Off note, hx of 2 strokes.His is present and contributed to today's OV.He is self referred.Treatment Tried:lumbar BRITTNI at [facility] 4 months ago - not helpful.6extra strength Tylenol/dayMobic - not helpfulibuprofentramadol - caused dizzinessgabapentin 100mg TID started 2 week ago - not helpful.wrist Cortizone injection at [facility] - not helpful, will try acupuncture instead.lidocaine [...]
== END 2023-09-03 15:20 | disposition home or self-care (01) ==
LOC: AMB 09-07 19:24
PROVIDERS: PCP Family Medicine; Visit Provider Internal Medicine
DX: R53.1 Weakness (principal)
CPT/HCPCS: A0998

== ENCOUNTER 2023-09-12 18:41 | Outpatient (CLI) | payer MEDICARE, OTHER, SELFPAY ==
--- OUTSIDE RECORDS SUMMARY | 2023-09-13 06:24 | XMS_ITS | Continuity of Care Document ---
Author Name Unknown Organization [facility] Address [address] [place] [address] Phone Care Team Providers Care Summer Babysitter Name Role Phone Babatunde DAVIES, Kenny Unavailable Unavailab le Allergies, Adverse Reactions, Alerts Substance Reaction Status Criticality No Known allergies Procedures Procedure Date Office/Outpatient Visit,[facility] 2013 Advance Directives Directive Yes / No Effective Date File Name No Information Encounters Encounter Description Practice Location Reason(s) For Visit Diagnoses Date Provider Providers Copied on Encounter [facility], [address] [place] [address], [address], [place] tel:[phone] [employer] No Information 4 Babatunde baum. [facility], [address], [address], [id number] , [place]. tel:[phone] Office/Outpat ient Visit,[facility], [address] [place], [place] [address]ite [address] [place] [address], [address], [place] tel:[phone] [employer] LUMBAGO 4 Mehbod Amir. [facility], [address], [place], [id number] , [place]. tel:[phone] Referring Provider: Alireza Lundy, [facility] [address], [address]. tel:[phone] Family History Family Member Type Diagnosis Age At Onset No Information Payers Payer name Insurance type Covered democrat ID Kasey mcdonald(s) [employer] Medicare CI [id number] Social History Type Description Quantity Date Captured [...]
--- OUTSIDE RECORDS SUMMARY | 2023-09-13 06:24 | XMS_ITS | Continuity of Care Document ---
Author Name Unknown Organization [facility] Address [address] [place] [address] Phone Care Team Providers Care Socket Welder Helper Name Role Phone [facility] Unavailable Unava ilable Procedures Procedure Date MAJOR JOINT OR BURSA INJ WITH ULTRASOUND Pt doc no events on discharg Pt w/o preop order iv ab pro Advance Directives Directive Yes / No Effective Date File Name No Information Encounters Encounter Description Practice Location Reason(s) For Visit Diagnoses Date Provider Providers Copied on Encounter [facility], [address] [place] [address], [id number], tel:[phone] [facility] No Information [facility]. [address] [place] [address], [id number], . tel:[phone] Referring Provider: Edgard Vicente, [address] [facility] [place], [address] . tel:[phone] Family History Family Member Type Diagnosis Age At Onset No Information Payers Payer name Insurance type Covered constitution party ID Authorerika mcdonald(s) Medicare MB [id number] [employer] Supplement Plan CI [id number] Social History Type Description Quantity Date Captured [...]
--- OUTSIDE RECORDS SUMMARY | 2023-09-13 06:24 | XMS_ITS | Continuity of Care Document ---
Author Name Unknown Organization [facility] Address [address] [facility] [place] [address] Phone Care Team Providers Care Print Production Coordinator Name Role Phone [place] MARTHA Elana Unavailable [...] Diagnoses Date Provider Providers Copied on Encounter [facility], [address] [place], [place], [id number] , [place] tel:[phone] [facility] [place] No Information 2 Argentina Huitron. [address] [facility] [address], [place], [id number] , [place]. tel:[phone] OFFICE VISIT, EST TELEMEDICINE [facility], [address] [place], [place], [id number] , [place] tel:[phone] [facility] [place] Widespread pain (chief complaint) Pain in left wristChronic pain syndromeOther custodial (current) drug therapyTrochanter ic bursitis, right hipLong term (current) use of opiate analgesicPain in right wristPain in right hip 2 Senait Ritter. [address] [facility] [address], [place], [id number] , [place]. tel: [phone] [facility], [address] [facility] [place], [id number] , [place] tel: [phone] [facility] [place] No Information 2 Argentina Huitron. [address] [facility] 11 [facility] 100, [place], [id number] , [place]. tel: [phone] [facility], [address] [place], [place], [id number] , [place] tel: [phone] [facility] [place] No Information 1 Nybarbara Elana. [address], [place], [id number] , [place]. tel: [phone] OFFICE/OUTPAT IENT VISIT, [facility], [address] [place] [address], [id number] , [place] tel: [phone] [facility] Widespread pain (chief complaint) Pain in left wristChronic pain syndromeOther custodial (current) drug therapyTrochanter ic bursitis, right hipLong term (current) use of opiate analgesicPain in right wristPain in right hipEncounter for therapeutic drug level monitoring 1 José Luis Elana. [address], [place], [id number] , [place]. tel: [phone] Referring Provider: Edgard Vicente, [address] [facility] [place], [address] . tel:[phone] OFFICE/OUTPAT IENT VISIT, EST [facility], [address] [place] [address], [id number] , [place] tel: [phone] [facility] Widespread pain (chief complaint) Chronic pain syndromeOther superintendent container terminal (current) drug therapyTrochanter ic bursitis, right hipLow back painLong term (current) use of opiate analgesicPain in right wristPain in left wrist Jan- 1 Argentina Huitron. [address], [place], [id number] , [place]. tel: [phone] Referring Provider: Edgard Vicente, [facility] [place], [address] . tel:[phone] OFFICE/OUTPAT IENT VISIT, [facility], [address] [place], [id number] , [place] tel: [phone] [facility] Widespread pain (chief complaint) Chronic pain syndromeOther superintendent container terminal (current) drug therapyTrochanter ic bursitis, right hipLow back painLong term (current) use of opiate analgesicPain in right hip 1 Argentina Huitron. [address] [place] [address] [address], [place]is [place], [id number] , [place]. tel: [phone] Referring Provider: Edgard Vicente, [place], [address] . tel:[phone] [facility], [address] [place], [place] [address] [place], [id number] , [place] tel: [phone] [facility] Trochanteric bursitis, right hip 1 Ricardo Rene. [address] [place] [address] [place], [id number] , [place]. tel: [phone] Referring Provider: Edgard Vicente, [place], [address] . tel:[phone] [facility], [address] [place] [address] [place] Ma[place], [id number] , [place] tel: [phone] [facility] [place] No Information 1 Argentina Huitron. [address] [place] [address] [address], [place], [id number] , [place]. tel: [phone] Referring Provider: Edgard Vciente, [address] [place] [address] [place], [address] . tel:[phone] OFFICE/OUTPAT IENT VISIT, [facility], [address] [place], [place] [address] [place], [id number] , [place] tel:[phone] [facility] [place] Widespread pain (chief complaint) Chronic pain syndromeEncounter for therapeutic drug level monitoringEncount er for screening for other disorderTrochante melisa bursitis, right hipOther superintendent container terminal (current) drug therapyLow back pain 1 Argentina Huitron. [address] [facility] [address], [place], [id number] , [place]. tel:[phone] Referring Provider: Edgard Vicente, [address] [facility] [place], [address] . tel:[phone] Family History Family Member Type Diagnosis Age At Onset No Information Payers Payer name Insurance type Covered constitution party ID Kasey mcdonald(s) Medicare MB [id number] [employer] Supplement Plan CI [id number] Social History Type Description Quantity Date Captured Comments Sex Male Smoking Status No Information Chief Complaint And Reason For Visit No Information Reason For Referral Reason For Referral No Information Plan Of Treatment Date Type Action Status Goal Creatinine. Due on due Goal TUBE SPLICER Scanned. Due on due Goal UDT. Due on due Goal SENIOR PORTFOLIO MANAGER Paperwork. Due on due Goal OARS. Due on due Goal ALT (SGPT). Due on due Goal Weight. Due on d ue Goal Tobacco Use. Due on due Goal AST (SGOT). Due [...] Goal PHQ-9. Due on du e Goal ALT (SGPT). Due on due Goal Review Allergy List. Due on due Goal Tobacco Use. Due on due Goal SENIOR PORTFOLIO MANAGER Paperwork. Due on due Goal AST (SGOT). Due on due Goal OARS. Due on due Goal Order Annual PT. Due on due Goal Medication Reconciliation. D ue on due Goal TUBE SPLICER Scanned. Due on due Goal UDT. Due on due Goal Weight. Due on d ue Goal Update Social History. Due o n due Goal Update Social History. Due o n due Goal UDT. Due on due Goal SENIOR PORTFOLIO MANAGER Paperwork. Due on due Goal OARS. Due on due Goal AST (SGOT). Due on due Goal Height. Due on d ue Goal Order Annual PT. Due on due Goal Weight. Due on d ue Goal PHQ-9. Due on du e Goal TUBE SPLICER Scanned. Due on due Goal Tobacco Use. Due on due Goal Review Allergy List. Due on due Goal Medication Reconciliation. D ue on due Goal ALT (SGPT). Due on due Goal Creatinine. Due on due Goal Creatinine. Due on due Goal Weight. Due on d ue Goal OARS. Due on due Goal Medication Reconciliation. D ue on due Goal Order Annual PT. Due on due Goal UDT. Due on due Goal Update Social History. Due o n due Goal AST (SGOT). Due on due Goal ALT (SGPT). Due on due Goal SENIOR PORTFOLIO MANAGER Paperwork. Due on due Goal Height. Due on d ue Goal Review Allergy List. Due on due Goal PHQ-9. Due on du e Goal Tobacco Use. Due on due Goal TUBE SPLICER Scanned. Due on due Goal Creatinine. Due on due Goal UDT. Due on due Goal OARS. Due on due Goal TUBE SPLICER Scanned. Due on due Goal AST (SGOT). Due on due Goal ALT (SGPT). Due on due Goal Order Annual PT. Due on due Goal SENIOR PORTFOLIO MANAGER Paperwork. Due on due Goal Weight. Due on d ue Goal Height. Due on d ue Goal Medication Reconciliation. D ue on due Goal PHQ-9. Due on du e Goal Update Social History. Due o n due Goal Tobacco Use. Due on due Goal Review Allergy List. Due on due Goal Medication Reconciliation. D ue on due Goal Update Social History. Due o n due Goal Review Allergy List. Due on due Goal Weight. Due on d ue Goal Tobacco Use. Due on due Goal PHQ-9. Due on du e Goal Height. Due on d ue Goal PHQ-9. Due [...] at [facility] in [place] to evaluate hip hardware. Right leg/hip pain is likely due to a possible fracture in hip, that not seen via regular x-rays. The stem may adhere back in place, or may get worse. But the orthopedist recommended and ordered PT for strength and pain. He is completing 2 sessions/week at [facility]. Long car rides aggravate the pain.He has difficulty bearing weight on his legs, even with a walker. So he bears most of his weight on his wrists while walking. He followed up with a hand specialist at [facility] who determined his wrist joints [...] implanted 5 years ago a [facility] in [place].His is present and contributed to today's OV. [...] blood clots. Latest X-rays from [facility] do not show any fracture, but [...] does f/u with Dr. Josué Denise at [facility], next visit is scheduled for early December.Off note, hx of 2 strokes.His is present and contributed to today's OV.He is self referred.Treatment Tried:lumbar BRITTNI at [facility] 4 months ago - not helpful.6extra strength [...]
--- OUTSIDE RECORDS SUMMARY | 2023-09-13 06:24 | XMS_ITS | Continuity of Care Document ---
Author Name Unknown Organization [facility] Address [address] [address] [place] [address] Phone Care Team Providers Care Aviation Support Equipment Repairer Name Role Phone Tal Kingston MD Unavailable Unavailable Advance Directives Directive Yes / No Effective Date File Name No Information Encounters Encounter Description Practice Location Reason(s) For Visit Diagnoses Date Provider Providers Copied on Encounter [facility], [address] [address], [place], [place], [id number], [place] tel:[phone] [facility] No Information 8 Thee Parada. [address] [facility], [facility] [address], [place], [place], [id number] , [place]. tel:[phone] Family History Family Member Type Diagnosis Age At Onset No Information Payers Payer name Insurance type Covered libertarian ID Authoriza tion(s) No Information Social History [...]
--- OUTSIDE RECORDS SUMMARY | 2023-09-13 06:25 | XMS_ITS | Clinical Summary ---
Author Name Unknown Organization [facility] Address [place], [place] [address] Care Team Providers Care Job Developer Name Role Phone Marcelle Portillo FLUE TILE PRESS OPERATOR Unavailable [phone] Dolores Louis RN Unavailable [phone] Yonatan [place] PharmD Unavailable Chandrika Sutton [...] pain As directed. 1 unit 10/31/2021 Active Gwdso-8-UWS-EPA-Fish Oil 1,000 mg (120 mg-180 mg) cap [...] Type Department Care Team Description 08/18/2023 Refill [facility] [address] [facility] [place] [address] Chandrika Sutton MD Refill Request (Nystatin) 08/14/2023 Telephone [facility] [address] [facility] [place] [address] Chandrika Sutton MD Pharmacist Medication Management (Urinary Bag misc) 08/14/2023 Telephone [facility] [address] [place] [address] Chandrika Sutton MD Letter 07/09/2023 Telephone [facility] [address] [place] [address] Josué Denise MD Questions 07/03/2023 11:00 AM CEMENTING BULK MATERIAL OPERATOR Ancillary Procedure [address] [address] 07/03/2023 9:15 AM CEMENTING BULK MATERIAL OPERATOR Office Visit [address] [address] Chandrika Sutton MD Medicare ANNUAL (subsequent) Visit (87 yo Male/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 Treatment?) 07/03/2023 Travel from Last 3 Months Immunizations Name Administration Dates Next Due COVID-19 Vaccine Spikevax (M oderna 50mcg/0.5mL) 12YO+ [id number] Formula PF 02/11/2023 COVID-19 vaccine (Pfizer-Bio NTech [...] Sex Assigned at Male 03/23/2020 9:48 PM CEMENTING BULK MATERIAL OPERATOR Gender Identity Not on file Sexual Orientation Straight 03/23/2020 9: 48 PM CEMENTING BULK MATERIAL OPERATOR Obstetrics History Last Filed Vital Signs Vital Sign Reading Time Taken Comments Blood Pressure 107/61 07/03/2023 9:37 AM CEMENTING BULK MATERIAL OPERATOR Pulse 60 07/03/2023 9:37 AM CEMENTING BULK MATERIAL OPERATOR Temperature 36.5 ??C (97.7 ??F) 02/19/2023 9 :31 AM CDT Respiratory Rate 16 08/28/2022 8:10 AM CDT Oxygen Saturation 95% 07/03/2023 9:3 7 AM CEMENTING BULK MATERIAL OPERATOR Inhaled Oxygen Concentration - - Weight 88.9 kg (196 lb) 07/03/2023 9:37 AM CEMENTING BULK MATERIAL OPERATOR was holding onto bars and unsteady Height 182.9 cm (6' 0.01) 11/27/2020 3 :15 PM CDT Body Mass Index 26.58 11/27/2020 3:15 PM CDT Plan of Treatment Health Maintenance Due Date Last Done Comments BMI (ht and wt on same day) for age 18+ 11/27/2021 11/27/2020, 07/28/2016 Tetanus booster 02/02/2022 02/03/2012, 09/01, 12/19/2002, Additional history exists COVID-19 vaccine series (2022- season) 2023 02/11/2023, 01/30/2022, 08/27/2021, Additional history [...] 3 VIEWS RIGHT Routine 07/03/2023 11:47 AM CEMENTING BULK MATERIAL OPERATOR Arthritis of finger of right hand CBC WITH AUTO DIFFERENTIAL Routine 07/03/2023 11:07 AM CEMENTING BULK MATERIAL OPERATOR HTN (hypertension) LIPID PANEL W REFLEX MEASURED LDL Routine 07/03/2023 11:07 AM CEMENTING BULK MATERIAL OPERATOR Cerebrovascular accident (CVA), unspecified mechanism (HC) BASIC METABOLIC PANEL Routine 07/03/2023 11:07 AM CEMENTING BULK MATERIAL OPERATOR HTN (hypertension) CBC WITH AUTO DIFFERENTIAL Routine 07/03/2023 11:07 AM CEMENTING BULK MATERIAL OPERATOR HTN (hypertension) from Last 3 Months Results * XR FINGER 3 VIEWS RIGHT (07/03/2023 11:47 AM CEMENTING BULK MATERIAL OPERATOR) Anatomical Region Laterality Modality Finger Computed Radiogr aphy Narrative 07/03/2023 2:39 PM CEMENTING BULK MATERIAL OPERATOR Indication: Arthritis. Technique: 3 views right ring [...] CBC WITH AUTO DIFFERENTIAL (07/03/2023 11:07 AM CEMENTING BULK MATERIAL OPERATOR) WHITE BLOOD COUNT 4.6 4.5 - 11.0 thou/cu mm 07/03/2023 11:15 AM [facility] RED BLOOD COUNT 4.01(L) 4.30 - 5.90 mil/cu mm 07/03/2023 11:15 AM [facility] HEMOGLOBIN 13.5 13.5 - 17.5 g/dL 07/03/2023 11:15 AM [facility] HEMATOCRIT 39.3 37.0 - 53.0 % 07/03/2023 11:15 AM [facility] MCV 98 80 - 100 fL 07/03/2023 11:15 AM [facility] MCH 33.7 26.0 - 34.0 pg 07/03/2023 11:15 AM [facility] MCHC 34.4 32.0 - 36.0 g/dL 07/03/2023 11:15 AM [facility] RDW 12.7 11.5 - 15.5 % 07/03/2023 11:15 AM [facility] PLATELET COUNT 141 140 - 440 thou/cu mm 07/03/2023 11:15 AM [facility] MPV 11.2(H) 6.5 - 11.0 fL 07/03/2023 11:15 AM [facility] % NEUT 74.8 % 07/03/2023 11:15 AM [facility] % LYMPH 9.2 % 07/03/2023 11:15 AM [facility] % MONO 14.7 % 07/03/2023 11:15 AM [facility] % EOS 1.1 % 07/03/2023 11:15 AM [facility] % BASO 0.2 % 07/03/2023 11:15 AM [facility] ABSOLUTE NEUTROPHILS 3.4 1.7 - 7.0 thou/cu mm 07/03/2023 11:15 AM [facility] ABSOLUTE LYMPHOCYTES 0.4(L) 0.9 - 2.9 thou/cu mm 07/03/2023 11:15 AM CEMENTING BULK MATERIAL OPERATOR [facility] ABSOLUTE MONOCYTES 0.7 <0.9 thou/cu mm 07/03/2023 11:15 AM CEMENTING BULK MATERIAL OPERATOR [facility] ABSOLUTE EOSINOPHILS 0.1 <0.5 thou/cu mm 07/03/2023 11:15 AM CEMENTING BULK MATERIAL OPERATOR [facility] ABSOLUTE BASOPHILS 0.0 <0.3 thou/cu mm 07/03/2023 11:15 AM CEMENTING BULK MATERIAL OPERATOR [facility] Blood BLOOD SPECIMEN / Unknown Butterfly / Unknown 07/03/2023 11:07 AM CEMENTING BULK MATERIAL OPERATOR 07/03/2023 11:11 AM CEMENTING BULK MATERIAL OPERATOR Chandrika Sutton MD HEMATOLOGY [facility] [address] [place] [address], [place] [phone] * LIPID PANEL W REFLEX MEASURED LDL (07/03/2023 11:07 AM CEMENTING BULK MATERIAL OPERATOR) CHOLESTEROL,TOTAL 116 100 - 199 mg/dL 07/03/2023 10:36 PM CEMENTING BULK MATERIAL OPERATOR [facility] Comment: Cholesterol, Total Reference Ranges Desirable <200 mg/dL Borderline 200-239 mg/dL High >=240 mg/dL TRIGLYCERIDES 80 <150 mg/dL 07/03/2023 10:36 PM CEMENTING BULK MATERIAL OPERATOR [facility] HDL CHOLESTEROL 43 >40 mg/dL 10:36 PM CEMENTING BULK MATERIAL OPERATOR [facility] NON-HDL CHOLESTEROL 73 <145 mg/dl 07/03/2023 10:36 PM CEMENTING BULK MATERIAL OPERATOR [facility] CHOL/HDL RATIO 2.70 <4.50 07/03/2023 10:36 PM CEMENTING BULK MATERIAL OPERATOR [facility] LDL CHOLESTEROL 57 <=130 mg/dL 07/03/2023 10:36 PM [facility] VLDL CHOLESTEROL 16 <=30 mg/dL 07/03/2023 10:36 PM [facility] PROVIDER ORDERED STATUS RANDOM 07/03/2023 10:36 PM [facility] Blood BLOOD SPECIMEN / Unknown Butterfly / Unknown 07/03/2023 11:07 AM CEMENTING BULK MATERIAL OPERATOR 07/03/2023 11:11 AM CEMENTING BULK MATERIAL OPERATOR Chandrika Sutton MD CHEMISTRY [facility] [address] [place] [address], * (ABNORMAL) BASIC METABOLIC PANEL (07/03/2023 11:07 AM CEMENTING BULK MATERIAL OPERATOR) SODIUM 140 136 - 145 mmol/L 07/03/2023 10:36 PM [facility] POTASSIUM 4.6 3.5 - 5.1 mmol/L 07/03/2023 10:36 PM [facility] CHLORIDE 105 98 - 107 mmol/L 07/03/2023 10:36 PM [facility] CO2,TOTAL 23 22 - 29 mmol/L 07/03/2023 10:36 PM [facility] ANION GAP 12 5 - 18 07/03/2023 10:36 PM [facility] GLUCOSE 84 70 - 99 mg/dL 07/03/2023 10:36 PM [facility] CALCIUM 8.8 8.8 - 10.2 mg/dL 07/03/2023 10:36 PM [facility] BUN 19 8 - 23 mg/dL 07/03/2023 10:36 PM [facility] CREATININE 1.14 0.70 - 1.20 mg/dL 07/03/2023 10:36 PM [facility] BUN/CREAT RATIO 17 10 - 20 10:36 PM [facility] eGFR 63(L) >90 mL/min/1.7 3m2 07/03/2023 10:36 PM [facility] Comment:As of 2021, eG FR is calculated by the CKD-EPI creatinine equation without race adjustment. ??eGFR can be influenced by muscle mass, exercise, and diet. ??The reported eGFR is an estimation only and is only applicable if the renal function is stable. Blood BLOOD SPECIMEN / Unknown Butterfly / Unknown 07/03/2023 11:07 AM CEMENTING BULK MATERIAL OPERATOR 07/03/2023 11:11 AM CEMENTING BULK MATERIAL OPERATOR Chandrika Sutton MD CHEMISTRY [facility] [address] [place] [address], [place] from Last 3 Months Advance Directives Documents on File Type Date Recorded Patient Drugless Physician Expl anation Healthcare Directive 03/30/2019 8:47 AM s igned 01/23/05 * Full Code (Latest Code Status on File) Date Activated Date Inactivated Comments 04/18/2020 8:33 AM 04/18/2020 4:22 PM Question Answer Comments Code Status Discussion: Not Discussed * Full Code Date Activated Date Inactivated Comments 03/29/2019 12:13 PM 04/15/2019 12:40 PM Question Answer Comments Code Status Discussion: Per Existing Order Care Teams Job Developer Relationship Specialty Start Date End Date Chandrika Sutton MD [address] [place] [address] PCP - General Family Practice 02/19/23 Marcelle Portillo, FLUE TILE PRESS OPERATOR Stroke Rehab Care Coordination - [facility] Care Guide 07/14/19 Dolores Louis, RN [address] [address] Stroke Rehab Care Coordination - [facility] Registered Nurse 07/20/19 Yonatan [place], PharmD Pharmacist Medication Management Pharmacology 07/25/22 07/25/24
--- OUTSIDE RECORDS SUMMARY | 2023-09-13 06:25 | XMS_ITS | Clinical Summary ---
Author Name Unknown Organization [facility] [employer] Formerly [facility] Address [address] [address] Phone Care Team Providers Care Round Corner Cutter Operator Name Role Phone Elsewhere, Pcp Primary Care [...] of Treatment Not on file Care Teams Round Corner Cutter Operator Relationship Specialty Start Date End Date Elsewhere, Pcp PCP - General 10/18/11
== END 2023-09-12 18:42 | disposition home or self-care (01) ==
LOC: AMB 09-13 06:22
PROVIDERS: PCP Family Medicine; Visit Provider Family Medicine
DX: R53.1 Weakness (principal)
CPT/HCPCS: A0998

== ENCOUNTER 2023-11-24 17:09 | Outpatient (CLI) | payer MEDICARE, OTHER, SELFPAY ==
--- OUTSIDE RECORDS SUMMARY | 2023-11-29 15:11 | XMS_ITS | Continuity of Care Document ---
Author Organization [facility] Address [address] [place] [address] Phone Care Team Providers Care Diamond Sizer And Grader Name Role Phone [facility] Unavailable Unava ilable Procedures Procedure Date MAJOR JOINT OR BURSA INJ WITH ULTRASOUND Pt doc no events on discharg Pt w/o preop order iv ab pro Advance Directives Directive Yes / No Effective Date File Name No Information Encounters Encounter Description Practice Location Reason(s) For Visit Diagnoses Date Provider Providers Copied on Encounter [facility], [address] [place] [address], [id number], tel:[phone] [facility] No Information [facility]. [address] [place] [address], [id number], . tel:[phone] Referring Provider: Edgard Vicente, [address] [facility] [place], [address] . tel:[phone] Family History Family Member Type Diagnosis Age At Onset No Information Payers Payer name Insurance type Covered libertarian ID Authorerika mcdonald(s) Medicare MB [id number] [employer] Supplement Plan CI [id number] Social History Type Description Quantity Date Captured [...]
--- OUTSIDE RECORDS SUMMARY | 2023-11-29 15:11 | XMS_ITS | Continuity of Care Document ---
Author Organization [facility] Address [address] [place] [address] Phone Care Team Providers Care Gallery Director Name Role Phone Kenny Fine MD Unavailable Unavailab le Allergies, Adverse Reactions, Alerts Substance Reaction Status Criticality No Known allergies Procedures Procedure Date Office/Outpatient Visit,[facility] 2013 Advance Directives Directive Yes / No Effective Date File Name No Information Encounters Encounter Description Practice Location Reason(s) For Visit Diagnoses Date Provider Providers Copied on Encounter [facility], [address] [place] [address], [address], [place] tel:[phone] SCHEDit No Information 4 Babatunde baum. [facility], [address], [facility] [address], [place], [id number] , [place]. tel:[phone] Office/Outpat ient Visit,[facility], [address] [place], [place] [address] [place] [address], [address], [place] tel:[phone] SCHEDit LUMBAGO 4 Mehbod Amir. [facility], [address], [place], [id number] , [place]. tel:[phone] Referring Provider: Alireza Lundy, [facility] [address], [address]. tel:[phone] Family History Family Member Type Diagnosis Age At Onset No Information Payers Payer name Insurance type Covered green party ID Kasey mcdonald(s) [employer] Medicare CI [id number] Social History Type Description Quantity Date Captured [...]
--- OUTSIDE RECORDS SUMMARY | 2023-11-29 15:11 | XMS_ITS | Continuity of Care Document ---
Author Organization [facility] Address [address] [facility] [address] [place] [address] Phone Care Team Providers Care Oil Recovery Unit Operator Name Role Phone RN, RN Unavailable [...] Providers Copied on Encounter [facility], [address] [facility] [address], [place], [place], [id number], tel:[phone] [facility] No Information 0 RN RN. [address] [facility], [address], [place], [place], [id number], . tel:[phone] Referring Provider: Chandrika Wilkerson, [address] [place], [address]. tel:[phone] New Pt Eval [facility], [address], [place], [place], [id number], tel:[phone] [facility] back pain (chief complaint) back pain (chief complaint) Low back painPostlaminecto my syndromeInflammat ory arthropathy of facet jointA fibStrokeMyositis , unspecifiedMyalgi a, unspecified siteLow back pain 0 Gamaliel Nguyen. [address] [facility] [address], [place], [place], [id number], [place]. tel:[phone] Referring Provider: Chandrika Wilkerson, [address] [place], [address]. tel:[phone] Family History Family Member Type Diagnosis Age At Onset Mother Problem (finding) Cancer Father Problem (finding) Arthritis Mother Problem (finding) Arthritis Father Problem (finding) Depression Father Problem (finding) Diabetes Payers Payer name Insurance type Covered green party ID Kasey mcdonald(s) Medicare Part B [id number] [facility] [employer] - Commercial CI [id number] Social History Type Description Quantity Date Captured [...]
--- OUTSIDE RECORDS SUMMARY | 2023-11-29 15:11 | XMS_ITS | Continuity of Care Document ---
Author Organization [facility] Address [address] [facility] [place] [address] Phone Care Team Providers Care Loan Teller Name Role Phone [place] Elana THOMAS Unavailable [...] Diagnoses Date Provider Providers Copied on Encounter [facility], [address] [place], [place], [id number] , [place] [phone] [facility] [place] No Information 2 Argentina Huitron. [address] [facility] [address], [place], [place], [id number] , [place]. tel:[phone] OFFICE VISIT, EST TELEMEDICINE [facility], [address] [place], [place], [id number] , [place] tel:[phone] [facility] [place] Widespread pain (chief complaint) Pain in left wristChronic pain syndromeOther exterminator (current) drug therapyTrochanter ic bursitis, right hipLong term (current) use of opiate analgesicPain in right wristPain in right hip 2 Senait Ritter. [address] [facility] [address], [place], [id number] , [place]. tel: [phone] [facility], [address] [facility] [place], [id number] , [place] tel: [phone] [facility] [place] No Information 2 Nyonge Elana. [address] [facility] [address], [place], [id number] , [place]. tel: [phone] [facility], [address] [facility] [place], [id number] , [place] tel: [phone] [facility] [place] No Information 1 Nyonge Elana. [address] [address], [place], [id number] , [place]. tel: [phone] OFFICE/OUTPAT IENT VISIT, [facility], [address] [place] [address], [id number] , [place] tel: [phone] [facility] Widespread pain (chief complaint) Pain in left wristChronic pain syndromeOther exterminator (current) drug therapyTrochanter ic bursitis, right hipLong term (current) use of opiate analgesicPain in right wristPain in right hipEncounter for therapeutic drug level monitoring 1 José Luis Elana. [address] [facility] [address], [place], [id number] , [place]. tel: [phone] Referring Provider: Edgard Vicente, [address] [place], [address] . tel:[phone] OFFICE/OUTPAT IENT VISIT, EST [facility], [address] [place] [address], [id number] , [place] tel: [phone] [facility] Widespread pain (chief complaint) Chronic pain syndromeOther skilled nursing (current) drug therapyTrochanter ic bursitis, right hipLow back painLong term (current) use of opiate analgesicPain in right wristPain in left wrist Jan- 1 Argentina Huitron. [address] [facility] [address], [place], [id number] , [place]. tel:[phone] Referring Provider: Edgard Vicente, [facility], [address] . tel:[phone] OFFICE/OUTPAT IENT VISIT, [facility], [address] [place], [id number] , [place] tel: [phone] [facility] [place] Widespread pain (chief complaint) Chronic pain syndromeOther skilled nursing (current) drug therapyTrochanter ic bursitis, right hipLow back painLong term (current) use of opiate analgesicPain in right hip 1 [place] Huitron. [address] [facility] [address], [place], [id number] , [place]. tel: [phone] Referring Provider: Edgard Vicente, [place], [address] . tel:[phone] [facility], [address] [place], [place] [address]ms [place], [id number] , [place] tel:[phone] [facility] Trochanteric bursitis, right hip 1 Ricardo Rene. [address] [place] [address] [place], [id number] , [place]. tel: [phone] Referring Provider: Edgard Vicente, [place], [address] . tel:[phone] [facility], [address] [place] [address] [place], [id number] , [place] tel: [phone] [facility] [place] No Information 1 [place] Huitron. [address] [facility] [address], [place], [id number] , [place]. tel:[phone] Referring Provider: Edgard Vicente, [address] [place] [address] [place], [address] . tel:[phone] OFFICE/OUTPAT IENT VISIT, [facility], [address] [place] [address] [place], [id number] , [place] tel:[phone] [facility] [place] Widespread pain (chief complaint) Chronic pain syndromeEncounter for therapeutic drug level monitoringEncemanate health/inter-community hospital er for screening for other disorderTrochante melisa bursitis, right hipOther skilled nursing (current) drug therapyLow back pain 1 [place] Huitron. [address] [facility] [address], [place], [id number] , [place]. tel:[phone] Referring Provider: Edgard Vicente, [address] [facility] [place], [address] . tel:[phone] Family History Family Member Type Diagnosis Age At Onset No Information Payers Payer name Insurance type Covered republican ID Kasey mcdonald(s) Medicare MB [id number] [employer] Supplement Plan CI [id number] Social History Type Description Quantity Date Captured Comments Sex Male Smoking Status No Information Chief Complaint And Reason For Visit No Information Reason For Referral Reason For Referral No Information Plan Of Treatment Date Type Action Status Goal AST (SGOT). Due on due Goal [...] Goal PHQ-9. Due on du e Goal ROTARY PLANER SET UP OPERATOR Scanned. Due on due Goal OARS. Due on due Goal UDT. Due on due Goal Creatinine. Due on due Goal MANAGER MEETING Paperwork. Due on due Goal ALT (SGPT). Due on due Goal Order Annual PT. Due on due Goal MANAGER MEETING Paperwork. Due on due Goal Review Allergy [...] due Goal OARS. Due on due Goal ROTARY PLANER SET UP OPERATOR Scanned. Due on due Goal AST (SGOT). Due on due Goal Update Social History. Due o n due Goal PHQ-9. Due on du e Goal Creatinine. Due on due Goal UDT. Due on due Goal OARS. Due on due Goal ROTARY PLANER SET UP OPERATOR Scanned. Due on due Goal AST (SGOT). Due on due Goal ALT (SGPT). Due on due Goal Order Annual PT. Due on due Goal MANAGER MEETING Paperwork. Due on due Goal Review Allergy List. Due on due Goal Medication Reconciliation. D ue on due Goal Weight. Due on d ue Goal Tobacco Use. Due on due Goal Height. Due on d ue Goal Creatinine. Due on due Goal UDT. Due on due Goal OARS. Due on due Goal ROTARY PLANER SET UP OPERATOR Scanned. Due on due Goal AST (SGOT). Due on due Goal ALT (SGPT). Due on due Goal Order Annual PT. Due on due Goal MANAGER MEETING Paperwork. Due on due Goal Review Allergy [...] due Goal OARS. Due on due Goal ROTARY PLANER SET UP OPERATOR Scanned. Due on due Goal AST (SGOT). Due on due Goal ALT (SGPT). Due on due Goal Order Annual PT. Due on due Goal MANAGER MEETING Paperwork. Due on due Goal Update Social [...] (urinary). Widespread pain Severity level i s 6. [...] hip surgeon at [facility] in [place] to evaluate hip hardware. Right leg/hip pain is likely due to a possible fracture in hip, that not seen via regular x-rays. The stem may adhere back in place, or may get worse. But the orthopedist recommended and ordered PT for strength and pain. He is completing 2 sessions/week at [facility]. Long car rides aggravate the pain.He has difficulty bearing weight on his legs, even with a walker. So he bears most of his weight on his wrists while walking. He followed up with a hand specialist at [facility] who determined his wrist joints are [...] pace maker implanted 5 years ago a [facility] in [place].His is present and contributed to today's OV. She states: His fractured tailbone seems to have heeled. He no longer complains of low back/tailbone pain.He has been using medical cannabis formula at high level of CBD and low level of THC has provided minimal relief. He has also been taking gabapentin (rx'ed by neurology) and Tylenol.No other concerns today. Widespread pain (comments) Roscoe jones s here [...] swollen, no blood clots. Latest X-rays from [facility] do not show any fracture, but pain [...] does f/u with Dr. Josué Denise at [facility], next visit is scheduled for early December.Off note, hx of 2 strokes.His is present and contributed to today's OV.He is self referred.Treatment Tried:lumbar BRITTNI at [facility] 4 months ago - not helpful.6extra strength Tylenol/dayMobic - not helpfulibuprofentramadol - caused dizzinessgabapentin 100mg TID started 2 week ago - not helpful.wrist Cortizone injection at O - not helpful, will try acupuncture instead.lidocaine [...]
--- OUTSIDE RECORDS SUMMARY | 2023-11-29 15:11 | XMS_ITS | Clinical Summary ---
Author Organization [facility] Address [address] [address] Phone Care Team Providers Care Masonry Supervisor Name Role Phone Elsewhere, Pcp Primary Care [...] of Treatment Not on file Care Teams Masonry Supervisor Relationship Specialty Start Date End Date Elsewhere, Pcp PCP - General 10/18/11
--- OUTSIDE RECORDS SUMMARY | 2023-11-29 15:11 | XMS_ITS | Clinical Summary ---
Author Organization [facility] Address [place], [place] [address] Care Team Providers Care Bindery Worker Name Role Phone Bandar, Marcelle Russell COUNTER CHECKER Unavailable [phone] Dolores Louis RN Unavailable [phone] Yonatan Madison PharmD Unavailable Chandrika Sutton [...] acetaminophen (TYLENOL EXTRA STRGTH) 500 mg tabletIndications:Joanna mbar degenerative disc disease Take 2 tablets by [...] pain As directed. 1 unit 10/31/2021 Active Zovrq-7-MSA-EPA-Fish Oil 1,000 mg (120 mg-180 mg) cap [...] directed. Condom catheter, size 35 30 Each 07/03/2023 Active Diaper,Brief, Adult,DisposableIndi cations:Continuous leakage of urine For home use. 96 Each 07/03/2023 Active Urinary Bag miscIndications:Cont inuous leakage of urine As directed. Urinary catheter bag, standard size, 5 bags, 5 each 5 Each 08/14/2023 Active nystatin (MYCOSTATIN) 100,000 unit/gram topical creamIndications:Int ertrigo APPLY TOPICALLY TO AFFECTED AREA(S) TWO TIMES DAILY. 30 g 5 08/18/2023 Active triamcinolone (ARISTOCORT; KENALOG) 0.1 % creamIndications:Joe h Apply topically to affected area(s) three times daily. To rash/itchy areas. 453.6 g 09/18/2023 Active Active Problems Problem Noted Date Diagnosed [...] nerve injury 02/19/2011 Proximal humerus fracture left 5-15-2011 08/08/2 011 Left shoulder s/p hemiarthro plasty at an outside institution DOS: 09/19/2010 10/07/2010 Encounters Date Type Department Care Team Description 11/25/2023 Telephone [facility] [address] [place] [address] Chandrika Sutton MD Order (Urine sample) 11/24/2023 Nurse Triage [facility] [address] [place] [address] Chandrika Sutton MD Confusion 11/24/2023 Telephone [facility] [address] [place] [address] Chandrika Sutton MD UTI (Possible UTI) 09/18/2023 Nurse Triage [facility] [address] [place] [address] Chandrika Sutton MD Questions (Medication question) from Last 3 Months Immunizations Name Administration Dates Next Due COVID-19 Vaccine Spikevax (M oderna 50mcg/0.5mL) 12YO+ [id number] Formula PF 02/11/2023 COVID-19 vaccine (Pfizer-Bio NTech [...] Sex Assigned at Male 03/23/2020 9:48 PM BUSINESS CONTINUITY PLANNER Gender Identity Not on file Sexual Orientation Straight 03/23/2020 9: 48 PM BUSINESS CONTINUITY PLANNER Obstetrics History Last Filed Vital Signs Vital Sign Reading Time Taken Comments Blood Pressure 107/61 07/03/2023 9:37 AM BUSINESS CONTINUITY PLANNER Pulse 60 07/03/2023 9:37 AM BUSINESS CONTINUITY PLANNER Temperature 36.5 ??C (97.7 ??F) 02/19/2023 9 :31 AM CDT Respiratory Rate 16 08/28/2022 8:10 AM CDT Oxygen Saturation 95% 07/03/2023 9:3 7 AM BUSINESS CONTINUITY PLANNER Inhaled Oxygen Concentration - - Weight 88.9 kg (196 lb) 07/03/2023 9:37 AM BUSINESS CONTINUITY PLANNER was holding onto bars and unsteady Height 182.9 cm (6' 0.01) 11/27/2020 3 :15 PM CDT Body Mass Index 26.58 11/27/2020 3:15 PM CDT Plan of Treatment Health Maintenance Due Date Last Done Comments BMI (ht and wt on same day) for age 18+ 11/27/2021 11/27/2020, 07/28/2016 Tetanus booster 02/02/2022 02/03/2012, 09/01, 12/19/2002, Additional history exists COVID-19 vaccine series ( season) 2023 02/11/2023, 01/30/2022, 08/27/2021, Additional history exists Zoster (shingles) series for age 50+ (3 of 3) 06/15/2023 04/20/2023, 03/12/2006 Influenza for age 65+ 01/03/2024 02/11/2023 , 02/11/2023, 01/30/2022, Additional history exists Depression screening for age 12+ 07/02/2024 07/03/2023, 07/24/2022, 06/19/2022, Additional history exists Medicare Wellness for age 65+ 07/03/2024, 06/17/2022, 06/13/2021 Tdap Completed 02/03/2012, 09/15/2010 Pneumococcal series for age 65+ Completed 06/13/2021, 07/13/2014, 05/04/2002, Additional history exists Advance Directives Documents on File Type Date Recorded 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 Healthcare Directive 03/30/2019 8:47 AM s igned 01/23/05 * Full Code (Latest Code Status on File) Date Activated Date Inactivated Comments 04/18/2020 8:33 AM 04/18/2020 4:22 PM Question Answer Comments Code Status Discussion: Not Discussed * Full Code Date Activated Date Inactivated Comments 03/29/2019 12:13 PM 04/15/2019 12:40 PM Question Answer Comments Code Status Discussion: Per Existing Order Care Teams Bindery Worker Relationship Specialty Start Date End Date Chandrika Sutton MD [address] [place] [address] PCP - General Family Practice 02/19/23 Marcelle Portillo, COUNTER CHECKER [facility] Care Guide 07/14/19 Dolores Louis, RN [address] [address] [facility] Registered Nurse 07/20/19 Yonatan Madison, PharmD Pharmacist Medication Management Pharmacology 07/25/22 07/25/24
--- OUTSIDE RECORDS SUMMARY | 2023-11-29 15:11 | XMS_ITS | Continuity of Care Document ---
Author Organization [facility] Address [address] [address] [place] [address] Phone Care Team Providers Care Therapeutic Assistant Name Role Phone Tal Kingston MD Unavailable Unavailable Advance Directives Directive Yes / No Effective Date File Name No Information Encounters Encounter Description Practice Location Reason(s) For Visit Diagnoses Date Provider Providers Copied on Encounter [facility], [address] [address], [place], [place], [id number], [place] tel:[phone] [facility] No Information 8 Link MD Parada. [address] [facility], [facility] [address], [place], [place], [id number] , [place]. tel:[phone] Family History Family Member Type Diagnosis Age At Onset No Information Payers Payer name Insurance type Covered alliance party ID Authoriza tion(s) No Information Social [...]
== END 2023-11-24 17:10 | disposition home or self-care (01) ==
LOC: AMB 11-29 15:09
PROVIDERS: PCP Family Medicine; Visit Provider Family Medicine
DX: R53.1 Weakness (principal)
CPT/HCPCS: A0998

== ENCOUNTER 2024-01-28 09:24 | Outpatient (CLI) | payer MEDICARE, OTHER, SELFPAY ==
--- NOTE | 2024-01-28 09:15 | CRLHL7_ITS ---
For Patients: As a result of the Cures Act, medical imaging exams and procedure reports are released immediately into your electronic medical record. You may view this report before your referring provider. If you have questions, please contact your health care provider. For Patients: As a result of the Cures Act, medical imaging exams and procedure reports are released immediately into your electronic medical record. You may view this report before your referring provider. If you have questions, please contact your health care provider. CLINICAL HISTORY:Assess swallow for aspiration. Choking and coughing history TECHNIQUE:Fluoroscopy was provided for speech pathologist during video swallow study. Please see additional report for full details and recommendations. One minutes and 27 seconds of fluoroscopy time was utilized. FINDINGS:Patient was given barium of varying consistencies to ingest. There was laryngeal penetration with aspiration during ingestion of thin, nectar barium liquids. There was no laryngeal penetration or aspiration during ingestion of pudding + cracker/muffin. Significant residue present with thin, nectar, pudding consistency barium to the patient`s vallecula throughout the video swallow. Patient had some fatigability as video swallow exam proceeded. Dictated by Lobo Temple MD @ 01/28/2024 10:10:26 AM (Electronically Signed)
--- OUTSIDE RECORDS SUMMARY | 2024-01-28 09:27 | XMS_ITS | Clinical Summary ---
Author Organization [facility] Address [place], [place] [address] Care Team Providers Care Barrel Waterer Name Role Phone Bandar, Marcelle Yvonne PAYROLL MACHINE OPERATOR Unavailable [phone] Dolores Louis RN Unavailable [phone] Yonatan Madison PharmD Unavailable [phone] Chandrika Sutton MD Primary Care Provide r [...] 30 tablet 06/23/2019 Active miscellaneous medical supply miscIndications:H TN (hypertension) As directed. Automatic arm cuff--home blood pressure machine 1 Each 07/01/2019 Active wheelchairIndicat ions:Left hemiparesis (HC),Hemorrhagic stroke (HC) Wheelchair: Transition wheelchair with leg rests: (Swing away Length of need: 99 months), Back folds down, about 19 lbs if possible. 1 Device 09/15/2019 Active acetaminophen (TYLENOL EXTRA STRGTH) 500 mg tabletIndications :Lumbar degenerative disc disease Take 2 tablets by mouth every 6 hours if needed (Pain). 180 tablet 12/12/2019 Active CPAPIndications:O SA (obstructive sleep apnea) [...] miscIndications:B uttock pain As directed. 1 unit 10/31/2021 Active Hjfrb-8-RAM-EPA-F marah Oil 1,000 mg (120 mg-180 mg) [...] daily. 07/29/2022 Active glycopyrrolate (ROBINUL) 1 mg tabletIndications :Cerebrovascular accident (CVA), unspecified mechanism (HC) TAKE ONE TABLET (1 MG) BY MOUTH THREE TIMES DAILY. 90 Tablet 1 12/12/2022 Active oxyCODONE (ROXICODONE) 5 mg immediate release tabletIndications :Buttock pain Take 1 Tablet (5 mg) by mouth every 6 hours if needed for Pain. for pain 30 Tablet 01/08/2023 Active gabapentin (NEURONTIN) 100 mg capsuleIndication s:Neuropathic pain Take 2 Capsules (200 mg) by mouth two times daily. 90 Capsule 3 01/08/2023 Active codeine-guaiFENes in (ROBITUSSIN AC) 10-100 mg/5 mL liquidIndications :Chronic cough TAKE 5 ML BY MOUTH EVERY 4 HOURS IF NEEDED FOR COUGH. MAX DOSE 60 ML PER 24 HRS. 118 mL 1 03/04/2023 Active potassium chloride (MICRO-K) 10 mEq Controlled-releas e capsuleIndication s:Hypokalemia TAKE ONE CAPSULE BY MOUTH DAILY WITH A MEAL 90 Capsule 3 03/04/2023 Active montelukast (SINGULAIR) 10 mg tabletIndications :Adjustment disorder, unspecified type TAKE ONE TABLET BY MOUTH EVERY DAY AT BEDTIME 90 Tablet 3 03/13/2023 Active atorvastatin (LIPITOR) 40 mg tabletIndications :Adjustment disorder, unspecified type TAKE ONE TABLET BY MOUTH AT BEDTIME 90 Tablet 2 05/13/2023 Active donepeziL (ARICEPT) 10 mg tabletIndications :Memory impairment Take 1 Tablet (10 mg) by mouth at bedtime. 90 Tablet 3 07/03/2023 Active sertraline (ZOLOFT) 50 mg tabletIndications :Adjustment disorder, unspecified type Take 1 Tablet (50 mg) by mouth every morning. 90 Tablet 3 07/03/2023 Active metoprolol tartrate (LOPRESSOR) 25 mg tabletIndications :Adjustment disorder, unspecified type Take 1 Tablet (25 mg) by mouth two times daily. 180 Tablet 3 07/03/2023 Active External Catheter, Male miscIndications:C ontinuous leakage of urine As directed. Condom catheter, size 35 30 Each 07/03/2023 Active Diaper,Brief, Adult,DisposableI ndications:Contin uous leakage of urine For home use. 96 Each 07/03/2023 Active Urinary Bag miscIndications:C ontinuous leakage of urine As directed. Urinary catheter bag, standard size, 5 bags, 5 each 5 Each 08/14/2023 Active nystatin (MYCOSTATIN) 100,000 unit/gram topical creamIndications: Intertrigo APPLY TOPICALLY TO AFFECTED AREA(S) TWO TIMES DAILY. 30 g 5 08/18/2023 Active amoxicillin (AMOXIL) 500 mg tabletIndications :Unspecified prophylactic or treatment measure Take 4 tablets or 2000 mg 60 minutes prior to procedure. 4 Tablet 12/04/2023 Active tamsulosin (FLOMAX) 0.4 mg capsuleIndication s:Hemorrhagic stroke (HC) TAKE 1 CAPSULE BY MOUTH DAILY AFTER A MEAL. 90 Capsule 1 12/09/2023 Active triamcinolone (ARISTOCORT; KENALOG) 0.1 % creamIndications: Rash APPLY TOPICALLY TO AFFECTED AREA(S) THREE TIMES DAILY. TO RASH/ITCHY AREAS. 454 g 12/21/2023 Active clopidogreL (PLAVIX) 75 mg tabletIndications :Cerebrovascular accident (CVA), unspecified mechanism (HC) TAKE ONE TABLET BY MOUTH DAILY 90 Tablet 3 01/11/2024 Active amLODIPine (NORVASC) 10 mg tabletIndications :HTN (hypertension) TAKE 1 TABLET (10 MG) BY MOUTH ONCE DAILY. 90 Tablet 1 01/11/2024 Active sertraline (ZOLOFT) 100 mg tabletIndications :Adjustment disorder, unspecified type Take 1 Tablet (100 mg) by mouth once daily in the morning. 90 Tablet 3 01/21/2024 Active clopidogreL (PLAVIX) 75 mg tabletIndications :Cerebrovascular accident (CVA), unspecified mechanism (HC) TAKE ONE TABLET BY MOUTH DAILY 90 Tablet 3 01/15/2023 4 Discontinued amLODIPine (NORVASC) 10 mg tabletIndications :HTN (hypertension) TAKE 1 TABLET (10 MG) BY MOUTH ONCE DAILY. 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 05/15/2017 Overview (05/15/2017): EGD 05/2017 Shaikh's, repeat EGD in 1 [...] Encounters Date Type Department Care Team Description 01/22/2024 Telephone [facility] [address] [place] [address] Chandrika Sutton MD Procedure (CONSULT TO SPEECH LANGUAGE ) 01/20/2024 Telephone [facility] [address] [place] [address] Chandrika Sutton MD Appointment Request 01/07/2024 Refill [facility] [address] [place] [address] Chandrika Sutton MD Refill Request (Clopidogrel, Amlodipine) 12/17/2023 Refill [facility] [address] [place] [address] Sweta Hall PA Refill Request (Triamcinolone) 12/08/2023 Refill [facility] [address] [place] [address] Chandrika Sutton MD Refill Request (Tamsulosin) 12/04/2023 Telephone [facility] [address] [place] [address] Chandrika Sutton MD Refill Request (Amoxicillin 500mg cap ) 11/25/2023 Telephone [facility] [address] [place] [address] Chandrika Sutton MD Order (Urine sample) 11/24/2023 Nurse Triage [facility] [address] [place] [address] Chandrika Sutton MD Confusion 11/24/2023 Telephone [facility] [address] [place] [address] Chandrika Sutton MD UTI (Possible UTI) from Last 3 Months Immunizations Name Administration Dates Next Due COVID-19 VACCINE SPIKEVAX (M ODERNA 50MCG/0.5ML) 12YO+ PFS 02/11/2023 COVID-19 vaccine (Pfizer-Bio NTech 30mcg/0.3mL) 12YO+ [...] Sex Assigned at Male 03/23/2020 9:48 PM DAIRY HELPER Gender Identity Not on file Sexual Orientation Straight 03/23/2020 9: 48 PM DAIRY HELPER Obstetrics History Last Filed Vital Signs Vital Sign Reading Time Taken Comments Blood Pressure 107/61 07/03/2023 9:37 AM DAIRY HELPER Pulse 60 07/03/2023 9:37 AM DAIRY HELPER Temperature 36.5 ??C (97.7 ??F) 02/19/2023 9 :31 AM CDT Respiratory Rate 16 08/28/2022 8:10 AM CDT Oxygen Saturation 95% 07/03/2023 9:3 7 AM DAIRY HELPER Inhaled Oxygen Concentration - - Weight 88.9 kg (196 lb) 07/03/2023 9:37 AM DAIRY HELPER was holding onto bars and unsteady Height 182.9 cm (6' 0.01) 11/27/2020 3 :15 PM CDT Body Mass Index 26.58 11/27/2020 3:15 PM CDT Plan of Treatment Upcoming Encounters Date Type Department Care Team (Late st Contact Info) Description 02/05/2024 12:10 PM CDT Telemedicine [facility] [address] [place] [address] Chandrika Sutton MD [address] [place] [address] Health Maintenance Due Date Last Done Comments BMI (ht and wt on same day) for age 18+ 11/27/2021 11/27/2020, 07/28/2016 Tetanus booster 02/02/2022 02/03/2012, 09/01, 12/19/2002, Additional history exists Zoster (shingles) series for age 50+ (3 of 3) 06/15/2023 04/20/2023, 03/12/2006 COVID-19 vaccine series ( season) 2024 02/11/2023, 01/30/2022, 08/27/2021, Additional history exists Influenza for age 65+ 01/03/2024 02/11/2023 , 02/11/2023, 01/30/2022, Additional history exists Depression screening for age 12+ 07/02/2024 07/03/2023, 07/24/2022, 06/19/2022, Additional history exists Medicare Wellness for age 65+ 07/03/2024, 06/17/2022, 06/13/2021 Tdap Completed 02/03/2012, 09/15/2010 Pneumococcal series for age 65+ Completed 06/13/2021, 07/13/2014, 05/04/2002, Additional history exists RSV vaccine for adults or Completed 01/08/2023 Advance Directives Documents on File Type Date Recorded 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 Healthcare Directive 03/30/2019 8:47 AM s igned 01/23/05 * Full Code (Latest Code Status on File) Date Activated Date Inactivated Comments 04/18/2020 8:33 AM 04/18/2020 4:22 PM Question Answer Comments Code Status Discussion: Not Discussed * Full Code Date Activated Date Inactivated Comments 03/29/2019 12:13 PM 04/15/2019 12:40 PM Question Answer Comments Code Status Discussion: Per Existing Order Care Teams Barrel Waterer Relationship Specialty Start Date End Date Chandrika Sutton MD [address] [place] [address] PCP - General Family Practice 02/19/23 Marcelle Portillo, PAYROLL MACHINE OPERATOR St[facility] Re[facility] Care Coordination - [facility] Care Guide 07/14/19 Dolores Louis, MARC [address] [address] St[facility] Registered Nurse 07/20/19 Yonatan Madison, PharmD Pharmacist Medication Management Pharmacology 07/25/22 07/25/24
--- OUTSIDE RECORDS SUMMARY | 2024-01-28 09:28 | XMS_ITS | Clinical Summary ---
Author Organization [facility] Address [address] [address] Phone Care Team Providers Care Tongue And Quarter Stitcher Name Role Phone Elsewhere, Pcp Primary Care [...] of Treatment Not on file Care Teams Tongue And Quarter Stitcher Relationship Specialty Start Date End Date Elsewhere, Pcp PCP - General 10/18/11
== END 2024-01-28 09:25 | disposition home or self-care (01) ==
LOC: RAD 09:25
PROVIDERS: PCP Family Medicine; Visit Provider Family Medicine
DX: T17.308A Unspecified foreign body in larynx causing other injury, initial encounter (principal); I63.9 Cerebral infarction, unspecified
CPT/HCPCS: 74230; 92611

== ENCOUNTER 2024-02-18 21:08 | Outpatient (CLI) | payer MEDICARE, OTHER, SELFPAY ==
--- OUTSIDE RECORDS SUMMARY | 2024-02-22 19:02 | XMS_ITS | Continuity of Care Document ---
Author Organization [facility] Address [address] [place] [address] Phone Care Team Providers Care Roofer Metal Name Role Phone RN, RN Unavailable Unavailable Allergies, Adverse Reactions, Alerts Substance Reaction Status Criticality No Known Allergies Active No Inform ation Medications Medication Instructions Dosage Effective Dates (start - stop) Status Comments tamsulosin 0.4 mg capsule take 1 capsule [...] times every day 5 MG - Active amlodipine 10 mg tablet take 1 tablet by oral route every day 10 MG - Active Procedures Procedure Date New Pt Eval 45 Min Triggerpoint 1-2 Muscle Advance Directives Directive Yes / No Effective Date File Name No Information Encounters Encounter Description Practice Location Reason(s) For Visit Diagnoses Date Provider Providers Copied on Encounter [facility], [address], [place], [place], [id number], tel:[phone] [facility] No Information [address] RN[address] [facility], [address], [place], [place], [id number], . tel:[phone] Referring Provider: Chandrika Wilkerson, [address] [place], [address]. tel:[phone] New Pt Eval [facility], [address], [place], [place], [id number], tel:[phone] [facility] back pain (chief complaint) back pain (chief complaint) Low back painPostlaminecto my syndromeInflammat ory arthropathy of facet jointA fibStrokeMyositis , unspecifiedMyalgi a, unspecified siteLow back pain 0 Gamaliel Nguyen. [address] [facility] [address], [place], [place], [id number], [place]. tel:[phone] Referring Provider: Chandrika Wilkerson, [address] [place], [address]. tel:[phone] Family History Family Member Type Diagnosis Age At Onset Mother Problem (finding) Cancer Father Problem (finding) Arthritis Mother Problem (finding) Arthritis Father Problem (finding) Depression Father Problem (finding) Diabetes Payers Payer name Insurance type Covered alliance party ID Kasey mcdonald(s) Medicare Part B [id number] [facility] [id number] Social History Type Description Quantity Date Captured [...]
--- OUTSIDE RECORDS SUMMARY | 2024-02-22 19:02 | XMS_ITS | Continuity of Care Document ---
Author Organization [facility] a[facility]iano Address [address] [facility] [address] Phone Care Team Providers Care Auto Body Mechanic Apprentice Name Role Phone [place] Elana THOMAS Unavailable Unavailable Allergies, Adverse Reactions, Alerts Substance Reaction Status Criticality Sulfa (Sulfonamide Antibiotics) Itching of skin Active No Information Medications Medication Instructions Dosage Effective Dates (start - stop) Status Comments GABAPENTIN 300 MG CAPS 300 Capsule TAKE ONE CAPSULE BY MOUTH TWICE A DAY - Active medical cannabis ORAL - Active cholecalciferol (vitamin D3) 25 mcg (1,000 unit) capsule take 1 tablet by oral route every day 1 tablet - Active trospium 20 mg tablet take 1 tablet by oral route 2 times every day on an empty stomach 20 MG - Active gabapentin 100 mg capsule take 1 - 2 by Oral route 3 times every day 1-2 - Active Singulair 10 mg tablet take 1 tablet by oral route every day in the evening 10 MG - Active melatonin 3 mg tablet take 1 by Oral route every bedtime 1 - Active Aricept 10 mg tablet take 1 tablet by oral route every day in the evening 10 MG - Active atorvastatin 40 mg tablet take 1 tablet by oral route every day 40 MG - Active CLARITIN (unknown strength) take 1 tablet by oral route every day Not Available - Active aspirin 81 mg tablet,delayed release take 1 tablet by oral route every day 81 MG - Active Flomax 0.4 mg capsule take 1 capsule by oral route every day 1/2 hour following the same meal each day 0.4 MG - Active metoprolol succinate ER 25 mg tablet,extended release 24 hr take 1 tablet by oral route every 2 days 25 MG - Active sertraline 50 mg tablet take 1 tablet by oral route every day 50 MG - Active amlodipine 10 mg tablet take 1 tablet by ORAL route every day 10 MG - Active Tylenol Extra Strength [...] Diagnoses Date Provider Providers Copied on Encounter [facility], [address] [place], [place], [id number] , [place] tel:[phone] [facility] [place] No Information 2 [place] Huitron. [address] [facility] [address], [place], [place], [id number] , [place]. tel:[phone] OFFICE VISIT, EST TELEMEDICINE [facility], [address] [place], [place], [id number] , [place] tel:[phone] [facility] [place] Widespread pain (chief complaint) Pain in left wristChronic pain syndromeOther mcc (current) drug therapyTrochanter ic bursitis, right hipLong term (current) use of opiate analgesicPain in right wristPain in right hip 2 Senait Ritter. [address] [facility] [address], [place], [id number] , [place]. tel: [phone] [facility], [address] [facility] [place], [id number] , [place] tel: [phone] [facility] [place] No Information 2 Nyonge Elana. [address] [facility] [address], [place], [id number] , [place]. tel: [phone] [facility], [address] [facility] [place], [id number] , [place] tel: [phone] [facility] [place] No Information 1 Nyonge Elana. [address], [place], [id number] , [place]. tel: [phone] OFFICE/OUTPAT IENT VISIT, [facility], [address] [place] [address], [id number] , [place] tel: [phone] [facility] Widespread pain (chief complaint) Pain in left wristChronic pain syndromeOther mcc (current) drug therapyTrochanter ic bursitis, right hipLong term (current) use of opiate analgesicPain in right wristPain in right hipEncounter for therapeutic drug level monitoring 1 José Luis Elana. [address] [facility] [address], [place], [id number] , [place]. tel: [phone] Referring Provider: Edgard Vicente, [address] [facility] [place], [address] . tel:[phone] OFFICE/OUTPAT IENT VISIT, EST [facility], [address] [place] [address], [id number] , [place] tel: [phone] [facility] Widespread pain (chief complaint) Chronic pain syndromeOther mcc (current) drug therapyTrochanter ic bursitis, right hipLow back painLong term (current) use of opiate analgesicPain in right wristPain in left wrist Jan- 1 [place] Huitron. [address] [facility] [address], [place], [id number] , [place]. tel:[phone] Referring Provider: Edgard Vicente, [facility] [place], [address] . tel:[phone] OFFICE/OUTPAT IENT VISIT, [facility], [address] [place], [id number] , [place] tel: [phone] [facility] [place] Widespread pain (chief complaint) Chronic pain syndromeOther watermelon inspector (current) drug therapyTrochanter ic bursitis, right hipLow back painLong term (current) use of opiate analgesicPain in right hip 1 [place] Huitron. [address] [facility] [address], [place], [id number] , [place]. tel: [phone] Referring Provider: Edgard Vicente, [place], [address] . tel:[phone] [facility], [address] [place], [place] [address] [place], [id number] , [place] tel:[phone] [facility] Trochanteric bursitis, right hip 1 Ricardo Rene. [address] [place] [address] [place], [id number] , [place]. tel: [phone] Referring Provider: Edgard Vicente, [place], [address] . tel:[phone] [facility], [address] [place] [address] [place], [id number] , [place] tel: [phone] [facility] [place] No Information 1 [place] Huitron. [address] [address], [place], [id number] , [place]. tel: [phone] Referring Provider: Edgard Vicente, [address] [place] [address] [place], [address] . tel:[phone] OFFICE/OUTPAT IENT VISIT, [facility], [address] [place] [address] [place], [id number] , [place] tel:[phone] [facility] [place] Widespread pain (chief complaint) Chronic pain syndromeEncounter for therapeutic drug level monitoringEnceden medical center er for screening for other disorderTrochante melisa bursitis, right hipOther mcc (current) drug therapyLow back pain 1 [place] Huitron. [address] [address], [place], [id number] , [place]. tel:[phone] Referring Provider: Edgard Vicente, [address] [place] [place], [address] . tel:[phone] Family History Family Member Type Diagnosis Age At Onset No Information Payers Payer name Insurance type Covered democrat ID Kasey mcdonald(s) Medicare MB [id number] [employer] Supplement Plan CI [id number] Social History Type Description Quantity Date Captured Comments Sex Male Smoking Status No Information Chief Complaint And Reason For Visit No Information Reason For Referral Reason For Referral No Information Plan Of Treatment Date Type Action Status Goal Order Annual PT. Due on due Goal Review Allergy List. Due on due Goal Medication Reconciliation. D ue on due Goal Weight. Due on d ue Goal Tobacco Use. Due on due Goal Height. Due on d ue Goal Update Social History. Due o n due Goal PHQ-9. Due on du e Goal FARM ADVISER Paperwork. Due on due Goal Creatinine. Due on due Goal UDT. Due on due Goal OARS. Due on due Goal UNLEAVENED DOUGH MIXER Scanned. Due on due Goal AST (SGOT). Due on due Goal ALT (SGPT). Due on due Goal UDT. Due on due Goal OARS. Due on due Goal UNLEAVENED DOUGH MIXER Scanned. Due on due Goal AST (SGOT). Due on due Goal ALT (SGPT). Due on due Goal Order Annual PT. Due on due Goal FARM ADVISER Paperwork. Due on due Goal Review Allergy [...] due Goal OARS. Due on due Goal UNLEAVENED DOUGH MIXER Scanned. Due on due Goal AST (SGOT). Due on due Goal ALT (SGPT). Due on due Goal Order Annual PT. Due on due Goal FARM ADVISER Paperwork. Due on due Goal Review Allergy List. Due on due Goal Medication Reconciliation. D ue on due Goal Weight. Due on d ue Goal Tobacco Use. Due on due Goal Height. Due on d ue Goal Update Social History. Due o n due Goal PHQ-9. Due on du e Goal Creatinine. Due on due Goal Tobacco Use. Due on due Goal Height. Due on d ue Goal Update Social History. Due o n due Goal PHQ-9. Due on du e Goal Weight. Due on d ue Goal Medication Reconciliation. D ue on due Goal Review Allergy List. Due on due Goal FARM ADVISER Paperwork. Due on due Goal Order Annual PT. Due on due Goal ALT (SGPT). Due on due Goal AST (SGOT). Due on due Goal UNLEAVENED DOUGH MIXER Scanned. Due on due Goal OARS. Due on due Goal UDT. Due on due Goal Creatinine. Due on due Goal Creatinine. Due on due Goal UDT. Due on due Goal OARS. Due on due Goal UNLEAVENED DOUGH MIXER Scanned. Due on due Goal AST (SGOT). Due on due Goal ALT (SGPT). Due on due Goal Order Annual PT. Due on due Goal FARM ADVISER Paperwork. Due on due Goal Tobacco Use. Due on due Goal Height. Due on d ue Goal Update Social History. Due o n due Goal PHQ-9. Due on du e Goal Review Allergy List. Due on due Goal Medication Reconciliation. D ue on due Goal Weight. Due on d ue Goal Weight. Due on d ue Goal [...] and incontinence (urinary). Widespread pain (comments) Guy edwey presents for a virtual follow up and [...] PE. He consulted a hip surgeon at [facility] in [place] to evaluate hip hardware. Right leg/hip pain is likely due to a possible fracture in hip, that not seen via regular x-rays. The stem may adhere back in place, or may get worse. But the orthopedist recommended and ordered PT for strength and pain. He is completing 2 sessions/week at [facility]. Long car rides aggravate the pain.He has difficulty bearing weight on his legs, even with a walker. So he bears most of his weight on his wrists while walking. He followed up with a hand specialist at [facility] who determined his wrist joints are [...] pace maker implanted 5 years ago a [facility] in [place].His is present and contributed to today's OV. [...] swollen, no blood clots. Latest X-rays from [facility] do not show any fracture, but [...] does f/u with Dr. Josué Denise at [facility], next visit is scheduled for early December.Off note, hx of 2 strokes.His is present and contributed to today's OV.He is self referred.Treatment Tried:lumbar BRITTNI at [facility] 4 months ago - not [...]
--- OUTSIDE RECORDS SUMMARY | 2024-02-22 19:02 | XMS_ITS | Continuity of Care Document ---
Author Organization [facility] Address [address] [address] [place] [address] Phone Care Team Providers Care Trimmer Press Clippings Name Role Phone Tal Kingston MD Unavailable Unavailable Advance Directives Directive Yes / No Effective Date File Name No Information Encounters Encounter Description Practice Location Reason(s) For Visit Diagnoses Date Provider Providers Copied on Encounter [facility], [address] [address], [place], [place], [id number], [place] tel:[phone] [facility] No Information 8 Link MD Parada. [address] [facility], [facility] [address], [place], [place], [id number] , [place]. tel:[phone] Family History Family Member Type Diagnosis Age [...]
--- OUTSIDE RECORDS SUMMARY | 2024-02-22 19:02 | XMS_ITS | Continuity of Care Document ---
Author Organization [facility] Address [address] [place] [address] Phone Care Team Providers Care Sap Business Analyst Name Role Phone [facility] Unavailable Unava ilable Procedures Procedure Date MAJOR JOINT OR BURSA INJ WITH ULTRASOUND Pt doc no events on discharg Pt w/o preop order iv ab pro Advance Directives Directive Yes / No Effective Date File Name No Information Encounters Encounter Description Practice Location Reason(s) For Visit Diagnoses Date Provider Providers Copied on Encounter [facility], [address] [place] [address], [id number], tel:[phone] [facility] No Information [facility]. [address] [place] [address], [id number], . tel:[phone] Referring Provider: Edgard Vicente, [address] [facility] [place], [address] . tel:[phone] Family History Family Member Type Diagnosis Age At Onset No Information Payers Payer name Insurance type Covered alliance party ID Authorerika mcdonald(s) Medicare MB [id number] [employer] Supplement Plan [place] [id number] Social History Type Description Quantity Date Captured [...]
--- OUTSIDE RECORDS SUMMARY | 2024-02-22 19:02 | XMS_ITS | Continuity of Care Document ---
Author Organization [facility] Address [address] [place] [address] Phone Care Team Providers Care Mast Maker Name Role Phone Kenny Fine MD Unavailable Unavailab le Allergies, Adverse Reactions, Alerts Substance Reaction Status Criticality No Known allergies Procedures Procedure Date Office/Outpatient Visit,[facility] 2013 Advance Directives Directive Yes / No Effective Date File Name No Information Encounters Encounter Description Practice Location Reason(s) For Visit Diagnoses Date Provider Providers Copied on Encounter [facility], [address] [place] [address], [address], [place] tel:[phone] [employer] No Information 4 Babatunde baum. [facility], [address], [facility] [address], [place], [id number] , [place]. tel:[phone] Office/Outpat ient Visit,[facility] [place], [address] [place], [place] [address] [place] [address], [address], [place] tel:[phone] [employer] LUMBAGO 4 Mehbod Amir. [facility], [address], [place], [id number] , [place]. tel:[phone] Referring Provider: Alireza Lundy, [facility] [address], [address]. tel:[phone] Family History Family Member Type Diagnosis Age At Onset No Information Payers Payer name Insurance type Covered libertarian ID Kasey mcdonald(s) [employer] Medicare CI [id number] Social History Type Description Quantity Date Captured [...]
--- OUTSIDE RECORDS SUMMARY | 2024-02-22 19:03 | XMS_ITS | Clinical Summary ---
Author Organization [facility] Address [place], [place] [address] Care Team Providers Care Bus Steward Name Role Phone Bandar, Marcelle Yvonne TRANSFUSION NURSE Unavailable [phone] Dolores Louis RN Unavailable [phone] Yonatan Madison PharmD Unavailable Chandrika Sutton [...] by mouth at bedtime. 30 tablet 0 Active miscellaneous medical supply miscIndications:H TN (hypertension) As directed. Automatic arm cuff--home blood pressure machine 1 Each 0 Active wheelchairIndicat ions:Left hemiparesis (HC),Hemorrhagic stroke (HC) Wheelchair: Transition wheelchair with leg rests: (Swing away Length of need: 99 months), Back folds down, about 19 lbs if possible. 1 Device 0 Active acetaminophen (TYLENOL EXTRA STRGTH) 500 mg tabletIndications :Lumbar degenerative disc disease Take 2 tablets by mouth every 6 hours if needed (Pain). 180 tablet 0 Active CPAPIndications:O SA (obstructive sleep apnea) CPAP machine for home use at pressure 9cm/H2O, full face mask x1/3month with a full face cushion x1/mo 1 Device 11 1 Active loratadine (CLARITIN) 10 mg tabletIndications :Allergic rhinitis, unspecified seasonality, unspecified trigger,Cough Take 1 Tablet (10 mg) by mouth once daily. 30 tablet. 2 1 Active miscellaneous medical supply miscIndications:B uttock pain As directed. 1 unit 2 Active Rapbx-0-ANZ-EPA-F marah Oil 1,000 mg (120 mg-180 mg) cap Take 1 Capsule (1,000 mg) by mouth. 0 3 Active calcium citrate-vitamin D3 (Citracal Ultradense) 200 mg-6.25 mcg (250 unit) tabletIndications :Routine general medical examination at a health care facility Take 2 Tablets by mouth once daily with a meal. 0 3 Active fluticasone (50 mcg per actuation) nasal solution (FLONASE)Indicati ons:Nasal congestion,Nasal septal deviation,Chronic rhinitis Inhale 2 Sprays into affected nostril(s) once daily. 30 mL 3 3 Active ipratropium (ATROVENT NASAL) 42 mcg (0.06 %) nasal sprayIndications: Nasal congestion Inhale 2 Sprays to both nostrils 3 times daily if needed for Rhinitis. (if otherwise not well controlled on fluticasone) 15 mL 2 3 Active cholecalciferol (VITAMIN D3) 2,000 unit capsuleIndication s:Low vitamin D level Take 1 Capsule (50 mcg) by mouth once daily. 3 Active glycopyrrolate (ROBINUL) 1 mg tabletIndications :Cerebrovascular accident (CVA), unspecified mechanism (HC) TAKE ONE TABLET (1 MG) BY MOUTH THREE TIMES DAILY. 90 Tablet 1 3 Active oxyCODONE (ROXICODONE) 5 mg immediate release tabletIndications :Buttock pain Take 1 Tablet (5 mg) by mouth every 6 hours if needed for Pain. for pain 30 Tablet 3 Active potassium chloride (MICRO-K) 10 mEq Controlled-releas e capsuleIndication s:Hypokalemia TAKE ONE CAPSULE BY MOUTH DAILY WITH A MEAL 90 Capsule 3 3 Active montelukast (SINGULAIR) 10 mg tabletIndications :Adjustment disorder, unspecified type TAKE ONE TABLET BY MOUTH EVERY DAY AT BEDTIME 90 Tablet 3 3 Active donepeziL (ARICEPT) 10 mg tabletIndications :Memory impairment Take 1 Tablet (10 mg) by mouth at bedtime. 90 Tablet 3 4 Active metoprolol tartrate (LOPRESSOR) 25 mg tabletIndications :Adjustment disorder, unspecified type Take 1 Tablet (25 mg) by mouth two times daily. 180 Tablet 3 4 Active External Catheter, Male miscIndications:C ontinuous leakage of urine As directed. Condom catheter, size 35 30 Each 4 Active Diaper,Brief, Adult,DisposableI ndications:Contin uous leakage of urine For home use. 96 Each 4 Active Urinary Bag miscIndications:C ontinuous leakage of urine As directed. Urinary catheter bag, standard size, 5 bags, 5 each 5 Each 4 Active nystatin (MYCOSTATIN) 100,000 unit/gram topical creamIndications: Intertrigo APPLY TOPICALLY TO AFFECTED AREA(S) TWO TIMES DAILY. 30 g 5 4 Active amoxicillin (AMOXIL) 500 mg tabletIndications :Unspecified prophylactic or treatment measure Take 4 tablets or 2000 mg 60 minutes prior to procedure. 4 Tablet 4 Active tamsulosin (FLOMAX) 0.4 mg capsuleIndication s:Hemorrhagic stroke (HC) TAKE 1 CAPSULE BY MOUTH DAILY AFTER A MEAL. 90 Capsule 1 4 Active triamcinolone (ARISTOCORT; KENALOG) 0.1 % creamIndications: Rash APPLY TOPICALLY TO AFFECTED AREA(S) THREE TIMES DAILY. TO RASH/ITCHY AREAS. 454 g 4 Active clopidogreL (PLAVIX) 75 mg tabletIndications :Cerebrovascular accident (CVA), unspecified mechanism (HC) TAKE ONE TABLET BY MOUTH DAILY 90 Tablet 3 4 Active amLODIPine (NORVASC) 10 mg tabletIndications :HTN (hypertension) TAKE 1 TABLET (10 MG) BY MOUTH ONCE DAILY. 90 Tablet 1 4 Active sertraline (ZOLOFT) 100 mg tabletIndications :Adjustment disorder, unspecified type Take 1 Tablet (100 mg) by mouth once daily in the morning. 90 Tablet 3 4 Active atorvastatin (LIPITOR) 40 mg tabletIndications :Adjustment disorder, unspecified type TAKE ONE TABLET BY MOUTH AT BEDTIME 90 Tablet 3 4 Active miscellaneous medical supply miscIndications:A rthritis of finger of right hand As directed. Hot wax machine for arthritis for the joints 1 Each 4 Active famotidine (PEPCID) 20 mg tabletIndications :Poor appetite Take 1 Tablet (20 mg) by mouth two times daily. 60 Tablet 3 4 Active codeine-guaiFENes in 10-100 mg/5 mL liquidIndications :Chronic cough Take 5 mL by mouth every 4 hours if needed for Cough. Max dose 60 mL per 24 hrs. 118 mL 1 4 Active gabapentin (NEURONTIN) 100 mg capsuleIndication s:Neuropathic pain TAKE TWO CAPSULES(200MG ) BY MOUTH TWO TIMES DAILY 120 Capsule 3 4 Active gabapentin (NEURONTIN) 100 mg capsuleIndication s:Neuropathic pain Take 2 Capsules (200 mg) by mouth two times daily. 90 Capsule 3 3 02/09/20 24 Discontinued codeine-guaiFENes in (ROBITUSSIN AC) 10-100 mg/5 mL liquidIndications :Chronic cough TAKE 5 ML BY MOUTH EVERY 4 HOURS IF NEEDED FOR COUGH. MAX DOSE 60 ML PER 24 HRS. 118 mL 1 3 02/05/20 24 Discontinued(Reo rder (E-cancel not sent)) atorvastatin (LIPITOR) 40 mg tabletIndications :Adjustment disorder, unspecified type TAKE ONE TABLET BY MOUTH AT BEDTIME 90 Tablet 2 4 02/09/20 24 Discontinued sertraline (ZOLOFT) 50 mg tabletIndications :Adjustment disorder, unspecified type Take 1 Tablet (50 mg) by mouth every morning. 90 Tablet 3 4 02/05/20 24 Discontinued(*Me d complete/Regimen complete/Level of care change) Active Problems Problem Noted Date Diagnosed Date [...] Encounters Date Type Department Care Team Description 02/08/2024 Refill [facility] [address] [place] [address] Chandrika Sutton MD Refill Request (Gabapentin) 02/05/2024 12:10 PM CDT Telemedicine [facility] [address] [place] [address] Chandrika Sutton MD Follow Up (Email sent with concerns.); Telehealth (Patient and would prefer a phone call. [phone]) 02/05/2024 Refill [facility] [address] [place] [address] Chandrika Sutton MD Refill Request (Atorvastatin) 01/29/2024 Orders Only [address] [address] Chandrika Sutton MD <No scans attached> 01/26/2024 Orders Only [facility] Scanner 1 scan: (1-Ord) [place] BARIUM SWALLOW, 01/26/2024 01/22/[address] [address] Chandrika Sutton MD Procedure (CONSULT TO SPEECH LANGUAGE ) 01/20/[address] [address] Chandrika Sutton MD Appointment Request 01/07/[address] [address] Chandrika Sutton MD Refill Request (Clopidogrel, Amlodipine) 12/17/[address] [address] Sweta Hall PA Refill Request (Triamcinolone) 12/08/[address] [address] Chandrika Sutton MD Refill Request (Tamsulosin) 12/04/[address] [address] Chandrika Sutton MD Refill Request (Amoxicillin 500mg cap ) 11/25/[address] [address] Chandrika Sutton MD Order (Urine sample) 11/24/2023 Nurse Triage [address] [address] Chandrika Sutton MD Confusion 11/24/2023 Telephone [facility] [address] [facility] [place] [address] Chandrika Sutton MD UTI (Possible UTI) from [...] Date Recorded PHQ-2 TOTAL SCORE 1 07/03/2023 Financial Resource Strain Answer Date R ecorded Difficulty of Paying Living Expenses Not on file 05/04/2021 Difficulty of Paying Living Expenses Not on file 05/04/2021 Sex and Gender Information Value Date Recorded Sex Assigned at Male 03/23/2020 9:48 PM DATA LEAD Gender Identity Not on file Sexual Orientation Straight 03/23/2020 9: 48 PM DATA LEAD Obstetrics History Last Filed Vital Signs Vital Sign Reading Time Taken Comments Blood Pressure 107/61 07/03/2023 9:37 AM DATA LEAD Pulse 60 07/03/2023 9:37 AM DATA LEAD Temperature 36.5 ??C (97.7 ??F) 02/19/2023 9 :31 AM CDT Respiratory Rate 16 08/28/2022 8:10 AM CDT Oxygen Saturation 95% 07/03/2023 9:3 7 AM DATA LEAD Inhaled Oxygen Concentration - - Weight 88.9 kg (196 lb) 07/03/2023 9:37 AM DATA LEAD was holding onto bars and unsteady Height [...] RSV vaccine for adults or Completed 01/08/2023 Procedures Procedure Name Priority Date/Time Associated Diagnosis Comments SCAN-OPERATIVE/PROC EDURE REPORT 01/26/2024 12:00 AM CDT from Last 3 Months Results * SCAN-OPERATIVE/PROCEDURE REPORT (01/26/2024 12:00 AM CDT) Scanner OTHER from Last 3 Months Advance Directives Documents on File Type Date Recorded Patient Gis Consultant Expl anation Healthcare Directive 03/30/2019 8:47 AM s igned 01/23/05 * Full Code (Latest Code Status on File) Date Activated Date Inactivated Comments 04/18/2020 8:33 AM 04/18/2020 4:22 PM Question Answer Comments Code Status Discussion: Not Discussed * Full Code Date Activated Date Inactivated Comments 03/29/2019 12:13 PM 04/15/2019 12:40 PM Question Answer Comments Code Status Discussion: Per Existing Order Care Teams Bus Steward Relationship Specialty Start Date End Date Chandrika Sutton MD [address] [place] [address] PCP - General Family Practice 02/19/23 Marcelle Portillo, TRANSFUSION NURSE Stroke Rehab Care Coordination - [facility] Care Guide 07/14/19 Dolores Louis, RN [address] [address] Stroke Rehab Care Coordination - [facility] Registered Nurse 07/20/19 Yonatan Madison, PharmD Pharmacist Medication Management Pharmacology 07/25/22 07/25/24
--- OUTSIDE RECORDS SUMMARY | 2024-02-22 19:03 | XMS_ITS | Clinical Summary ---
Author Organization [facility] Address [address] [address] Phone Care Team Providers Care Cornice Upholsterer Name Role Phone Elsewhere, Pcp Primary Care Provider Unavailabl e Allergies No known active allergies Medications celecoxib (CELEBREX) 200 MG capsule Take 200 [...] Recorded Sex Assigned at Not on file Legal Sex Male 7:25 PM TRANSPLANT NURSE Gender Identity Not on file Sexual Orientation [...] CDT Plan of Treatment Not on file Insurance [employer] MEDICARE COST PART A&B Care Teams Cornice Upholsterer Relationship Specialty Start Date End Date Elsewhere, Pcp PCP - General 10/18/11
== END 2024-02-18 21:09 | disposition home or self-care (01) ==
LOC: AMB 02-22 19:00
PROVIDERS: PCP Family Medicine; Visit Provider Student in an Organized Health Care Education/Training Program
DX: R53.1 Weakness (principal)
CPT/HCPCS: A0998

== ENCOUNTER 2024-03-06 12:57 | Outpatient (CLI) | payer MEDICARE, OTHER, SELFPAY ==
--- OUTSIDE RECORDS SUMMARY | 2024-03-12 16:53 | XMS_ITS | Clinical Summary ---
Author Organization [facility] Address [place], [place] [address] Care Team Providers Care Non Destructive Evaluation Manager Name Role Phone Bandar, Marcelle Yvonne NEON INSTALLER Unavailable [phone] Dolores Louis RN Unavailable [phone] Yonatan Madison PharmD Unavailable Chandrika Sutton [...] pain As directed. 1 unit 10/31/2021 Active Alqdo-1-NCC-EPA-F marah Oil 1,000 mg (120 mg-180 mg) [...] Pain. for pain 30 Tablet 01/08/2023 Active donepeziL (ARICEPT) 10 mg tabletIndications :Memory impairment Take 1 Tablet (10 mg) by mouth at bedtime. 90 Tablet 3 07/03/2023 Active metoprolol tartrate [...] the morning. 90 Tablet 3 01/21/2024 Active atorvastatin (LIPITOR) 40 mg tabletIndications :Adjustment disorder, unspecified type TAKE ONE TABLET BY MOUTH AT BEDTIME 90 Tablet 3 02/09/2024 Active miscellaneous medical supply miscIndications:A rthritis of finger of right hand As directed. Hot wax machine for arthritis for the joints 1 Each 02/05/2024 Active famotidine (PEPCID) 20 mg tabletIndications :Poor appetite Take 1 Tablet (20 mg) by mouth two times daily. 60 Tablet 3 02/05/2024 Active codeine-guaiFENes in 10-100 mg/5 mL liquidIndications :Chronic cough Take 5 mL by mouth every 4 hours if needed for Cough. Max dose 60 mL per 24 hrs. 118 mL 1 02/05/2024 Active gabapentin (NEURONTIN) 100 mg capsuleIndication s:Neuropathic pain TAKE TWO CAPSULES(200MG) BY MOUTH TWO TIMES DAILY 120 Capsule 3 02/09/2024 Active potassium chloride (MICRO-K) 10 mEq Controlled-releas e capsuleIndication s:Hypokalemia TAKE ONE CAPSULE BY MOUTH DAILY WITH A MEAL 90 Capsule 03/10/2024 Active montelukast (SINGULAIR) 10 mg tabletIndications :Adjustment disorder, unspecified type TAKE ONE TABLET BY MOUTH EVERY DAY AT BEDTIME 90 Tablet 3 03/10/2024 Active potassium chloride (MICRO-K) 10 mEq Controlled-releas e capsuleIndication s:Hypokalemia TAKE ONE CAPSULE BY MOUTH DAILY WITH A MEAL 90 Capsule 3 03/04/2023 03/10/20 24 Discontinued montelukast (SINGULAIR) 10 mg tabletIndications :Adjustment disorder, unspecified type TAKE ONE TABLET BY MOUTH EVERY DAY AT BEDTIME 90 Tablet 3 03/13/2023 03/10/20 24 Discontinued Active Problems Problem Noted Date Diagnosed [...] Encounters Date Type Department Care Team Description 03/07/[address] [address] Chandrika Suttno MD Refill Request (Potassium Chloride, Montelukast) 02/08/2024 Refill [facility] [address] [place] [address] Chandrika Sutton MD Refill Request (Gabapentin) 02/05/2024 12:10 PM CDT Telemedicine [facility] [address] [place] [address] Chandrika Sutton MD Follow Up (Email sent with concerns.); Telehealth (Patient and would prefer a phone call. [phone]) 02/05/[address] [address] Chandrika Sutton MD Refill Request (Atorvastatin) 01/29/2024 Orders Only [address] [address] Chandrika Sutton MD <No scans attached> 01/26/2024 Orders Only [facility] Scanner 1 scan: (1-Ord) [facility] [place] BARIUM SWALLOW, 01/26/2024 01/22/2024 Telephone [facility] [address] [place] [address] Chandrika Sutton MD Procedure (CONSULT TO SPEECH LANGUAGE ) 01/20/2024 Telephone [facility] [address] [place] [address] Chandrika Sutton MD Appointment Request 01/07/2024 Refill [facility] [address] [place] [address] Chandrika Sutton MD Refill Request (Clopidogrel, Amlodipine) 12/17/2023 Refill [facility] [address] [place] [address] Sweta Hall PA Refill Request (Triamcinolone) from Last 3 Months Immunizations Name Administration Dates Next Due COVID-19 VACCINE SPIKEVAX (M ODERNA 50MCG/0.5ML) 12YO+ PFS 02/11/2023 COVID-19 vaccine (Colectica-Bio NTech 30mcg/0.3mL) 12YO+ BIVALENT PF, MDV 01/30/2022 [...] Sex Assigned at Male 03/23/2020 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 Gender Identity Not on file Sexual Orientation Straight 03/23/2020 9: 48 PM DYE PENETRANT TESTING TECHNICIAN Obstetrics History Last Filed Vital Signs Vital Sign Reading Time Taken Comments Blood Pressure 107/61 07/03/2023 9:37 AM DYE PENETRANT TESTING TECHNICIAN Pulse 60 07/03/2023 9:37 AM DYE PENETRANT TESTING TECHNICIAN Temperature 36.5 ??C (97.7 ??F) 02/19/2023 9 :31 AM CDT Respiratory Rate 16 08/28/2022 8:10 AM CDT Oxygen Saturation 95% 07/03/2023 9:3 7 AM DYE PENETRANT TESTING TECHNICIAN Inhaled Oxygen Concentration - - Weight 88.9 kg (196 lb) 07/03/2023 9:37 AM DYE PENETRANT TESTING TECHNICIAN was holding onto bars and unsteady Height [...] Documents on File Type Date Recorded 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 [employer] 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 Expl anation Healthcare Directive 03/30/2019 8:47 AM s igned 01/23/05 * Full Code (Latest Code Status on File) Date Activated Date Inactivated Comments 04/18/2020 8:33 AM 04/18/2020 4:22 PM Question Answer Comments Code Status Discussion: Not Discussed * Full Code Date Activated Date Inactivated Comments 03/29/2019 12:13 PM 04/15/2019 12:40 PM Question Answer Comments Code Status Discussion: Per Existing Order Care Teams Non Destructive Evaluation Manager Relationship Specialty Start Date End Date Chandrika Sutton MD [address] [place] [address] PCP - General Family Practice 02/19/23 Marcelle Portillo, NEON INSTALLER Stroke Rehab Care Coordination - [facility] Care Guide 07/14/19 Dolores Louis, RN [address] [address] Stroke Rehab Care Coordination - [facility] Registered Nurse 07/20/19 Yonatan Madison, PharmD Pharmacist Medication Management Pharmacology 07/25/22 07/25/24
--- OUTSIDE RECORDS SUMMARY | 2024-03-12 16:53 | XMS_ITS | Clinical Summary ---
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 MEDICARE COST PART A&B Care Teams Induction Furnace Operator Relationship Specialty Start Date End Date Elsewhere, Pcp PCP - General 10/18/11
== END 2024-03-06 12:58 | disposition home or self-care (01) ==
LOC: AMB 03-12 16:50
PROVIDERS: PCP Family Medicine; Visit Provider Emergency Medicine
DX: R53.1 Weakness (principal)
CPT/HCPCS: A0998

== ENCOUNTER 2024-04-24 10:11 | Outpatient (CLI) | payer MEDICARE, OTHER, SELFPAY | END 2024-04-24 10:12 | disposition home or self-care (01) | LOC: AMB 04-26 13:48 | PROVIDERS: PCP Family Medicine; Visit Provider Emergency Medicine | DX: K92.0 Hematemesis (principal); R11.2 Nausea with vomiting, unspecified | CPT/HCPCS: A0425; A0427 ==

== ENCOUNTER 2024-04-24 10:39 | Inpatient (IN) | payer MEDICARE, OTHER, SELFPAY ==
[2024-04-24] VITALS (8 sets, daily range): BP systolic 116–163; BP diastolic 43–81; PULSE 60–64; RESP 16–22; TEMP 36.6–38.3; O2SAT 88–92; BMI 28.2
--- NOTE | 2024-04-24 10:43 | ED_ITS ---
HPI - General Adult General Date Seen: 04/24/24 Chief complaint: Nausea/Vomiting Stated complaint: vomitting Time Seen by Provider: 04/24/24 10:42 History of Present Illness HPI narrative: This is an 88-year-old male brought in by EMS. He lives at home with his but it sounds like he has a lot of trouble with mobility and has some baseline dementia. EMS reports that they been called to his home several times to help with lift assist. They brought him in this morning because beginning at 11:00 a.m. last night he started having nausea and vomiting. Initially he his emesis was apparently food (he had pizza for dinner last night) but overnight the emes is is changed be more brown colored. They say he has had 8 episodes of vomiting. They also note that he has a fever with a temperature 100.7?. Blood pressure was 113/68. He has a paced cardiac rhythm. They report he has a history of stroke and history of dementia. Patient is not able to answer most questions. Does not know what meds he is on. EMS reports his will be coming in. They also note that they bumped his elbow when they were transferring him out of the house and has a small skin tear there. He has a past medical history of atrial fibrillation, pacemaker, history of right MCA stroke, history of COVID. Paramedics report that he is on a blood thinner, but on his med list in the EMS run sheet they have no blood thinners listed. In his med list in our computer system it looks like he is on Plavix. Related Data Home Medications ?Medication ?Instructions ?Recorded ?Confirmed amlodipine 10 mg tablet 10 mg PO DAILY 06/28/22 04/24/24 donepezil 10 mg tablet 10 mg PO HS 06/28/22 04/24/24 metoprolol tartrate 25 mg tablet 25 mg PO BID 06/28/22 04/24/24 montelukast 10 mg tablet 10 mg PO HS 06/28/22 04/24/24 tamsulosin 0.4 mg capsule 0.4 mg PO DAILY 06/28/22 04/24/24 atorvastatin 40 mg tablet 40 mg PO HS 08/04/22 04/24/24 aspirin 81 mg tablet,delayed 81 mg PO DAILY 11/27/22 04/01/23 release (Adult Low Dose Aspirin) cholecalciferol (vitamin D3) 50 50 mcg PO DAILY 11/27/22 04/01/23 mcg (2,000 unit) tablet famotidine 20 mg tablet 20 mg PO BID 11/27/22 04/24/24 omega 5-oop-gvj-fish oil 1,000 mg 1 cap PO DAILY 11/27/22 04/24/24 (120 mg-180 mg) capsule (Fish Oil) gabapentin 100 mg capsule 200 mg PO BID 04/24/24 04/24/24 sertraline 100 mg tablet 100 mg PO QAM 04/24/24 04/24/24 Previous Rx's ?Medication ?Instructions ?Recorded clopidogrel 75 mg tablet 75 mg PO DAILY #30 tabs 12/01/22 potassium chloride 10 mEq 10 meq PO DAILYWM #30 caps 12/01/22 capsule,extended release Allergies Allergy/AdvReac Type Severity Reaction Status Date / Time No Known Drug Allergies Allergy Verified 04/07/23 09:[address] [facility] Medical History (Updated 04/24/24 @ 15:21 by Josh Littlejohn MD) Abnormal urinalysis ?R82.90 - Unspecified abnormal findings in urine (ICD-10) Malignant melanoma ?C43.9 - Malignant melanoma of skin, unspecified (ICD-10) Hyperlipidemia ?E78.5 - Hyperlipidemia, unspecified (ICD-10) Atrial fibrillation ?I48.91 - Unspecified atrial fibrillation (ICD-10) Presence of Watchman left atrial appendage closure device ?Z95.818 - Presence of other cardiac implants and grafts (ICD-10) Hypertension ?I10 - Essential (primary) hypertension (ICD-10) CVA (cerebral vascular accident) ?I63.9 - Cerebral infarction, unspecified (ICD-10) Surgical History (Updated 11/27/22 @ 14:17 by Estrella Chan MD) H/O hernia repair ?Z98.890 - Other specified postprocedural states (ICD-10) ?Z87.19 - Personal history of other diseases of the digestive system (ICD-10) S/P placement of cardiac pacemaker ?Z95.0 - Presence of cardiac pacemaker (ICD-10) History of total knee arthroplasty ?Z96.659 - Presence of unspecified artificial knee joint (ICD-10) History of total hip arthroplasty ?Z96.649 - Presence of unspecified artificial hip joint (ICD-10) Social History (Updated 11/27/22 @ 14:07 by Estrella Chan MD) Narrative: Lives with Hue (retired OT), she would be MDM if needed. 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 2 adult sons, one in [place]. Nonsmoker, rare/social scotch. Requests DNR/DNI status. What is your current living situation?: I presently have a place to live Problems where you live: no known problems Problems where you live details: n/a In the past 12 months, utilities in danger of being shut off: no In past 12 months, lack of transportation kept you from medical appts, meetings, work, or getting things needed for daily living: no In the past 12 mos, have been you worried that your food would run out before you had money to buy more?: never true In the past 12 mos, the food you bought just didn't last and you didn't have money to buy more?: never true Smoking Status: Never smoker How often do you have a drink containing alcohol: never AUDIT-C Alcohol total score: 0 Non-prescribed substance use: denies use How often does anyone, including family, friends and others, physically hurt you : never How often does anyone, including family, friends and others, insult or talk down to you: never How often does anyone, including family, friends and others, threaten you with harm: never How often does anyone, including family, friends and others, scream or curse at you: never service: No Exam Const: Vital Signs, click to edit/add: Vital Signs - 24 hr 04/24/24 10:44 04/24/24 12:48 04/24/24 14:31 Temperature 100.0 F H 98.9 F Pulse Rate 60 Pulse Rate [Pulse Oximeter] 60 60 Respiratory Rate 16 22 20 Blood Pressure 131/56 L Blood Pressure [Ri ght Upper Arm] 116/43 L 163/71 H Pulse Oximetry 92 92 90 Oxygen Delivery Me thod Room Air Room Air 04/24/24 14:44 Temperature 100.9 F H Pulse Rate Pulse Rate [Pulse Oximeter] Respiratory Rate Blood Pressure Blood Pressure [Ri ght Upper Arm] Pulse Oximetry Oxygen Delivery Me thod Course Vital Signs Vital signs: Initial Vital Signs Temperature 100.0 F H 04/24/24 10:44 Temperature Source Temporal Artery Scan 04/24/24 10:44 Pulse Rate 60 04/24/24 10:44 Respiratory Rate 16 04/24/24 10:44 Blood Pressure 116/43 L 04/24/24 10:44 Blood Pressure Mean 67 L 04/24/24 10:44 Blood Pressure Position Supine 04/24/24 10:44 Pulse Oximetry 92 04/24/24 10:44 Oxygen Delivery Method Room Air 04/24/24 10:44 Vital Signs Temperature 100.0 F H 04/24/24 10:44 Pulse Rate 60 04/24/24 10:44 Respiratory Rate 16 04/24/24 10:44 Blood Pressure 116/43 L 04/24/24 10:44 Pulse Oximetry 92 04/24/24 10:44 Oxygen Delivery Method Room Air 04/24/24 10:44 Temperature 100.9 F H 04/24/24 14:44 Pulse Rate 60 04/24/24 14:31 Respiratory Rate 20 04/24/24 14:31 Blood Pressure 131/56 L 04/24/24 14:31 Pulse Oximetry 90 04/24/24 14:31 Oxygen Delivery Method Room Air 04/24/24 12:48 Medications Administered Medications: Discontinued Medications Generic Name Dose Route Start Last Admin Trade Name Freq PRN Reason Stop Dose Admin Sodium Chloride 500 mls @ 500 mls/hr 04/24/24 10:44 04/24/24 14:42 0.9 % Sodium Chloride 500 Ml IV 04/24/24 11:43 Infused .Q1H ONE Infusion Ceftriaxone Sodium 1 gm/ 100 mls @ 200 mls/hr 04/24/24 13:16 04/24/24 14:43 Sodium Chloride IVPB 04/24/24 13:17 Infused ONCE ONE Infusion Azithromycin 500 mg/ Sodium 255 mls @ 255 mls/hr 04/24/24 13:16 04/24/24 14:40 Chloride IVPB 04/24/24 13:17 255 mls/hr ONCE ONE Administration Ondansetron HCl 4 mg 04/24/24 10:44 04/24/24 12:56 Ondansetron 2 Mg/Ml Inj IVP 04/24/24 10:45 4 mg ONCE ONE Administration Pantoprazole Sodium 80 mg 04/24/24 10:44 04/24/24 12:56 Pantoprazole Sodium 40 Mg Inj IVP 04/24/24 10:45 80 mg ONCE ONE Administration Medical Decision Making MDM Narrative Medical decision making narrative: 88-year-old male who is on Plavix (history of stroke, possible history of coronary disease) presenting to the ER today with nausea and vomiting that began yesterday evening about 11:00 p.m.. EMS reports he had 8 episodes is throwing up overnight. Initially emesis was food but subsequently was brown coffee- ground. He is confirmed to have blood in his emesis based on gastroc all here in the ER. Suspicion is for upper GI bleed. Fortunately blood pressure is normal and stable here in the ER. Hemoglobin initially is reassuring at 13.4. He does have some dementia with some altered mental status but that is apparently at baseline. Venous lactic acid is normal. At this point no evidence for shock from upper GI bleed. He is on Plavix but no other anticoagulants. Platelet count is 164. No indication for platelet transfusion, red cell transfusion, and no medication requiring immediate reversal with FFP or andaxanet alpha. Incidentally has a low-grade fever. No other definitive symptoms with that. Possibly has a mild cough. COVID/influenza PCR is negative. Chest x-ray shows possible mild pulmonary edema or possible mild infiltrates. Will start the patient on antibiotics for community-acquired pneumonia, although this is not a definitive diagnosis. Discussed this patient for admission with Dr. Claudio at about 1:30 p.m.. He accepted but requested that we get a CT scan just to make sure there is nothing else going on contributing to vomiting. CT scan abdomen/pelvis with IV contrast is obtained. It shows no acute perforation, obstruction, inflammation of the GI tract. No immediate surgical pathology. Incidentally there is a 5.2 cm inf rarenal abdominal aortic aneurysm without evidence for acute rupture but there is an mural hematoma. I discussed this with the patient's by phone. She is not sure if it has been previously known. At this point does not need immediate vascular surgery evaluation, but does need close follow-up and likely will need surveillance imaging. They prefer to follow-up with [facility] for all of his cardiovascular needs. She will arrange a follow-up appointment with his primary care here in [place] within a couple of weeks and then they can coordinate follow-up with vascular at [place]. Lab Data Labs: Lab Results 04/24/24 04/24/24 04/24/24 Range/Units 11:05 11:22 11:43 WBC 10.36 (4.50-11.00) K/uL RBC 4.18 L (4.30-5.90) m/uL Hgb 13.4 L (13.5-17.5) gm/dL Hct 40.4 (37.0-53.0) % MCV 97 (80-100) fL MCH 32 (26-34) pg MCHC 33 (32-36) gm/dL RDW Coeff of Aiden 12.3 (11.5-15.5) % Plt Count 164 (140-440) K/uL Neut % (Auto) 94.6 H (42.0-72.0) % Lymph % (Auto) 1.2 L (20-44) % Alfalfa % (Auto) 3.9 (0.0-11.0) % Eos % (Auto) 0.0 (0.0-7.0) % Baso % (Auto) 0.1 (0.0-3.0) % Neut # (Auto) 9.80 H (1.7-7.0) K/uL Lymph # (Auto) 0.10 L (0.90-2.90) K/uL Alfalfa # (Auto) 0.40 (0.00-0.90) K/UL Eos # (Auto) 0.00 (0.00-0.50) K/uL Baso # (Auto) 0.01 (0.00-0.30) K/uL Abs Immat Gran (auto) 0.02 (0.00-0.30) K/uL Imm/Tot Granulo (auto) 0.2 % Sodium 141 (135-149) mmol/L Potassium 4.3 (3.6-5.1) mmol/L Chloride 108 (96-114) mmol/L Carbon Dioxide 23 (20-32) mmol/L Anion Gap 10 (7-15) mEq/L BUN 30 (7-30) mg/dL Creatinine 1.0 (0.5-1.5) mg/dL Estimated GFR 73 ml/min Glucose 140 H (60-115) mg/dL Lactate 1.5 (0.5-1.9) mmol/L Calcium 8.6 (8.4-10.6) mg/dL Troponin I 0.03 (0.01-0.04) ng/mL Gastric Fluid pH Not Reportable Gastric Occult Blood POSITIVE A (Negative) SARS-CoV-2 (PCR) Negative SARS-CoV-2 (Negative) Influenza Type A (PCR) Negative PCR FLU A (Negative) Influenza Type B (PCR) Negative PCR FLU B (Negative) 04/24/24 Range/Units 13:43 WBC (4.50-11.00) K/uL RBC (4.30-5.90) m/uL Hgb 13.0 L (13.5-17.5) gm/dL Hct (37.0-53.0) % MCV (80-100) fL MCH (26-34) pg MCHC (32-36) gm/dL RDW Coeff of Aiden (11.5-15.5) % Plt Count (140-440) K/uL Neut % (Auto) (42.0-72.0) % Lymph % (Auto) (20-44) % Alfalfa % (Auto) (0.0-11.0) % Eos % (Auto) (0.0-7.0) % Baso % (Auto) (0.0-3.0) % Neut # (Auto) (1.7-7.0) K/uL Lymph # (Auto) (0.90-2.90) K/uL Alfalfa # (Auto) (0.00-0.90) K/UL Eos # (Auto) (0.00-0.50) K/uL Baso # (Auto) (0.00-0.30) K/uL Abs Immat Gran (auto) (0.00-0.30) K/uL Imm/Tot Granulo (auto) % Sodium (135-149) mmol/L Potassium (3.6-5.1) mmol/L Chloride (96-114) mmol/L Carbon Dioxide (20-32) mmol/L Anion Gap (7-15) mEq/L BUN (7-30) mg/dL Creatinine (0.5-1.5) mg/dL Estimated GFR ml/min Glucose (60-115) mg/dL Lactate (0.5-1.9) mmol/L Calcium (8.4-10.6) mg/dL Troponin I (0.01-0.04) ng/mL Gastric Fluid pH Gastric Occult Blood (Negative) SARS-CoV-2 (PCR) (Negative) Influenza Type A (PCR) (Negative) Influenza Type B (PCR) (Negative) Imaging Data Chest x-ray: Attestation: I have reviewed the pertinent imaging results. Radiologist's impression: Impression: Mildly increased interstitial markings seen throughout commensurate with likely pulmonary edema with basilar atelectasis, early infiltrates may be difficult to exclude. CT scan - abdomen: Attestation: I have reviewed the pertinent imaging results. Radiologist's impression: Impression: 1. Minimal nonspecific fluid distention of central small bowel loops likely representing mild enteritis changes. An early obstruction may be difficult to exclude. 2. Incidental note made of a 5.2 centimeter infrarenal abdominal aortic aneurysm. ECG Data Attestation: I personally reviewed and interpreted this ECG as follows: Interpretation: Ventricular paced rhythm Rate: 60 NV: na QRS axis: Left axis deviation paced QRS. ST segment/T wave: No ST segment elevation or depression per Sgarbossa criteria QTc: 586 Discharge Plan Discharge Clinical Impression: Vomiting, Acute upper GI bleed, Fever, Aneurysm of infrarenal abdominal aorta Prescriptions: No Action donepezil 10 mg tablet 10 mg PO HS Patient Comments: TAKE ONE TABLET BY MOUTH AT BEDTIME tamsulosin 0.4 mg capsule 0.4 mg PO DAILY Patient Comments: TAKE ONE CAPSULE BY MOUTH DAILY AFTER A MEAL amlodipine 10 mg tablet 10 mg PO DAILY Patient Comments: TAKE 1 TABLET (10 MG) BY MOUTH ONCE DAILY. montelukast 10 mg tablet 10 mg PO HS Patient Comments: TAKE ONE TABLET BY MOUTH EVERY DAY AT BEDTIME metoprolol tartrate 25 mg tablet 25 mg PO BID Patient Comments: TAKE ONE TABLET BY MOUTH TWICE A DAY atorvastatin 40 mg tablet 40 mg PO HS sertraline 100 mg tablet 100 mg PO QAM gabapentin 100 mg capsule 200 mg PO BID aspirin [Adult Low Dose Aspirin] 81 mg tablet,delayed release (DR/EC) 81 mg PO DAILY famotidine 20 mg tablet 20 mg PO BID omega 0-nqc-quk-fish oil [Fish Oil] 1,000 mg (120 mg-180 mg) capsule 1 cap PO DAILY cholecalciferol (vitamin D3) 50 mcg (2,000 unit) tablet 50 mcg PO DAILY clopidogrel 75 mg Tablet 75 mg PO DAILY Qty: 30 0RF potassium chloride 10 mEq Capsule, Extended Release 10 meq PO DAILYWM Qty: 30 0RF Follow Up/Referrals: Chandrika Sutton MD [Primary Care Provider] -
--- NOTE | 2024-04-24 10:44 | CRLHL7_ITS ---
For Patients: As a result of the Century Cures Act, medical imaging exams and procedure reports are released immediately into your electronic medical record. You may view this report before your referring provider. If you have questions, please contact your health care provider. Indication: Fever and vomiting Comparison: Single-view chest April 07, 2023 Technique: PA and lateral views of the chest Findings: There is hyperinflation and chronic interstitial change with questionable trace blunting of the costophrenic angle. There is no pneumothorax or pleural effusion. The cardiac silhouette is mildly prominent similar to previous exam with dual-chamber pacer. Old left-sided rib deformities are again appreciated. Impression: Mildly increased interstitial markings seen throughout commensurate with likely pulmonary edema with basilar atelectasis, early infiltrates may be difficult to exclude. Dictated by Gamaliel Kim MD @ 04/24/2024 12:10:31 PM (Electronically Signed)
[2024-04-24 11:17] LABS: Lactate* 1.5 mmol/L (0.5-1.9)
[2024-04-24 11:24] LABS: Basophils Absolute Auto 0.01 K/uL (0.00-0.30); Basophils Percent Auto 0.1 % (0.0-3.0); Hematocrit 40.4 % (37.0-53.0); Hemoglobin* 13.4 gm/dL (13.5-17.5); Immature Granulocytes Abs Auto 0.02 K/uL (0.00-0.30); Immature Granulocytes Pct Auto 0.2 %; Lymphocytes Percent Auto 1.2 % (20-44); Mean Corpuscular HGB Conc 33 gm/dL (32-36); Mean Corpuscular Hemoglobin 32 pg (26-34); Mean Corpuscular Volume 97 fL (80-100); Monocytes Percent Auto 3.9 % (0.0-11.0); Neutrophils Percent Auto 94.6 % (42.0-72.0); Platelet Count* 164 K/uL (140-440); RDW Coefficient of Variation % 12.3 % (11.5-15.5); Red Blood Count 4.18 m/uL (4.30-5.90); White Blood Count* 10.36 K/uL (4.50-11.00)
[2024-04-24 11:28] LABS: Slide Review Reflex No
[2024-04-24 11:55] LABS: Troponin I* 0.03 ng/mL (0.01-0.04)
[2024-04-24 11:57] LABS: PCR FLU A Negative PCR FLU A (Negative); PCR FLU B Negative PCR FLU B (Negative); SARS PCR* Negative SARS-CoV-2 (Negative)
[2024-04-24 12:09] LABS: Chloride* 108 mmol/L (96-114); Potassium* 4.3 mmol/L (3.6-5.1); Sodium* 141 mmol/L (135-149)
[2024-04-24 12:11] LABS: Estimated Glomerular Filt Rate 73 ml/min
[2024-04-24 12:12] LABS: Anion Gap 10 mEq/L (7-15); Blood Urea Nitrogen* 30 mg/dL (7-30); Calcium* 8.6 mg/dL (8.4-10.6); Carbon Dioxide* 23 mmol/L (20-32); Glucose* 140 mg/dL (60-115)
[2024-04-24] MEDS: 0.9 % SODIUM CHLORIDE 500 ML 500 ML IV (12:56)
[2024-04-24] MEDS: ONDANSETRON 2 MG/ML inj 4 MG IVP (12:56)
[2024-04-24] MEDS: PANTOPRAZOLE SODIUM 40 MG INJ 80 MG IVP (12:56)
[2024-04-24 13:01] LABS: Gastric Occult Blood* POSITIVE (Negative)
--- NOTE | 2024-04-24 13:34 | CRLHL7_ITS ---
For Patients: As a result of the Century Cures Act, medical imaging exams and procedure reports are released immediately into your electronic medical record. You may view this report before your referring provider. If you have questions, please contact your health care provider. Indication: Vomiting and fever Technique: Volumetric multidetector CT images of the abdomen and pelvis were obtained after the administration of intravenous contrast. 98 cc Isovue 370 low osmolar intravenous contrast Comparison: None available. Findings: There is minimal basilar atelectasis and parenchymal scar. Cystic changes of the liver are appreciated with out evidence intrahepatic biliary ductal prominence. The portal vein is patent. The gallbladder is unremarkable without evidence of radiopaque calculus. There is no significant common biliary ductal dilatation or abrupt cut off. The spleen is normal in enhancement and size. The stomach and duodenum are grossly unremarkable. Mild to moderate pancreatic atrophy is appreciated. The adrenal glands are unremarkable. Cystic changes of the kidneys are appreciated with otherwise preserved corticomedullary differentiation. Minimal nonspecific fluid is seen within central small bowel loops with moderate stool seen throughout the colon. Minimal decompressed appearance of the distal colon. No overt pericolonic or perienteric inflammation. The appendix is unremarkable. There is no significant mesenteric, retroperitoneal, or pelvic sidewall lymph nodes. The aorta demonstrates a 4.7 x 5.2 centimeter infrarenal aneurysm with moderate scattered atherosclerotic plaque. Evaluation of central pelvic structures is limited due to beam hardening artifact from bilateral hip arthroplasties. There is no free fluid or free air. The anterior abdominal wall is intact without significant hernias. The lumbar vertebral body heights are grossly maintained with minimal endplate Schmorl`s defects and chronic deformity of the anterior superior L3 level. Impression: 1. Minimal nonspecific fluid distention of central small bowel loops likely representing mild enteritis changes. An early obstruction may be difficult to exclude. 2. Incidental note made of a 5.2 centimeter infrarenal abdominal aortic aneurysm. Please note that all CT scans at this facility use dose modulation, iterative reconstruction, and/or weight-based dosing when appropriate to reduce radiation dose to as low as reasonably achievable. Dictated by Gamaliel Kim MD @ 04/24/2024 3:17:30 PM (Electronically Signed)
[2024-04-24] MEDS: cefTRIAXone 1 GM in 0.9 % SODIUM CHLORIDE Mini-bag 100 ML IVPB (13:43)
[2024-04-24] MEDS: AZITHROMYCIN 500 MG in 0.9 % SODIUM CHLORIDE 250 ml 250 ML 255 MG IVPB (14:40)
--- NOTE | 2024-04-24 16:01 | PM.IMHP1 ---
Hospitalist- H&P: HPI History of Present Illness Date Seen: 04/24/24 Chief complaint: vomitting Narrative: Willie Ahmadi is a 88 year old male who presented to the ER by EMS for nausea/vomiting. Hue present for H&P and provides history. Patient has dementia with difficulty providing history. Starting vomiting around 2300 last night; had pizza for dinner. Had multiple episodes of vomiting that continued into the morning, at which time emesis became more brown/coffee ground in quality. Denies abdominal pain or nausea. History of chronic constipation alternating with diarrhea. ER Course and Findings: - positive gastroccult, given Zofran and IV PPI - mild pulmonary edema on CXR, + interstitial markings, early infiltrate not excluded - Tmax 100.9, given Azithromycin and Ceftriaxone - findings of likely enteritis on CT of ab/pelvis, incidental finding of 5.2cm infrarenal AAA Given patient's concern for UGIB, need for serial Hgb monitoring, and fever with possible CAP, patient is admitted to the hospital. Multiple comorbidities: atrial fibrillation (s/p Watchman), h/o CVA with residual L sided weakness. Histories updated below, PCP is Dr. Sutton at the [facility]. Review of Systems Narrative: - alternating diarrhea/constipation - chronic back pain, no changes or new injury. At home, improved with moving into lift chair - no cough, no fever at home [facility] Medical History (Updated 04/24/24 @ 20:42 by Estrella Chan MD) Aspiration into airway ?T17.908A - Unspecified foreign body in respiratory tract, part unspecified causing other injury, initial encounter (ICD-10) GERD (gastroesophageal reflux disease) ?K21.9 - Gastro-esophageal reflux disease without esophagitis (ICD-10) Pacemaker ?Z95.0 - Presence of cardiac pacemaker (ICD-10) Nontraumatic thalamic hemorrhage ?I61.9 - Nontraumatic intracerebral hemorrhage, unspecified (ICD-10) EDUAR (obstructive sleep apnea) ?G47.33 - Obstructive sleep apnea (adult) (pediatric) (ICD-10) (HFpEF) heart failure with preserved ejection fraction ?I50.30 - Unspecified diastolic (congestive) heart failure (ICD-10) 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 ?K22.70 - 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 (ICD-10) History of right MCA stroke ?Z86.73 - Personal history of transient ischemic attack (TIA), and cerebral infarction without residual deficits (ICD-10) Malignant melanoma ?C43.9 - Malignant melanoma of skin, unspecified (ICD-10) Hyperlipidemia ?E78.5 - Hyperlipidemia, unspecified (ICD-10) Atrial fibrillation ?I48.91 - Unspecified atrial fibrillation (ICD-10) Presence of Watchman left atrial appendage closure device ?Z95.818 - Presence of other cardiac implants and grafts (ICD-10) Hypertension ?I10 - Essential (primary) hypertension (ICD-10) CVA (cerebral vascular accident) ?I63.9 - Cerebral infarction, unspecified (ICD-10) Surgical History (Updated 11/27/22 @ 14:17 by Estrella Chan MD) H/O hernia repair ?Z98.890 - Other specified postprocedural states (ICD-10) ?Z87.19 - Personal history of other diseases of the digestive system (ICD-10) S/P placement of cardiac pacemaker ?Z95.0 - Presence of cardiac pacemaker (ICD-10) History of total knee arthroplasty ?Z96.659 - Presence of unspecified artificial knee joint (ICD-10) History of total hip arthroplasty ?Z96.649 - Presence of unspecified artificial hip joint (ICD-10) Social History (Updated 11/27/22 @ 14:07 by Estrella Chan MD) Narrative: Lives with Hue (retired OT), she would be MDM if needed. 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 2 adult sons, one in [place]. Nonsmoker, rare/social scotch. Requests DNR/DNI status. What is your current living situation?: I presently have a place to live Problems where you live: no known problems Problems where you live details: n/a In the past 12 months, utilities in danger of being shut off: no In past 12 months, lack of transportation kept you from medical appts, meetings, work, or getting things needed for daily living: no In the past 12 mos, have been you worried that your food would run out before you had money to buy more?: never true In the past 12 mos, the food you bought just didn't last and you didn't have money to buy more?: never true Smoking Status: Never smoker How often do you have a drink containing alcohol: never AUDIT-C Alcohol total score: 0 Non-prescribed substance use: denies use How often does anyone, including family, friends and others, physically hurt you: never How often does anyone, including family, friends and others, insult or talk down to you: never How often does anyone, including family, friends and others, threaten you with harm: never How often does anyone, including family, friends and others, scream or curse at you: never service: No Meds Home Medications and Allergies Home Medications ?Medication ?Instructions ?Recorded ?Confirmed ?Type amlodipine 10 mg tablet 10 mg PO DAILY 06/28/22 04/24/24 History donepezil 10 mg tablet 10 mg PO HS 06/28/22 04/24/24 History metoprolol tartrate 25 mg tablet 25 mg PO BID 06/28/22 04/24/24 History montelukast 10 mg tablet 10 mg PO HS 06/28/22 04/24/24 History tamsulosin 0.4 mg capsule 0.4 mg PO DAILY 06/28/22 04/24/24 History atorvastatin 40 mg tablet 40 mg PO HS 08/04/22 04/24/24 History aspirin 81 mg tablet,delayed 81 mg PO DAILY 11/27/22 04/24/24 History release (Adult Low Dose Aspirin) cholecalciferol (vitamin D3) 50 50 mcg PO DAILY 11/27/22 04/24/24 History mcg (2,000 unit) tablet famotidine 20 mg tablet 20 mg PO BID 11/27/22 04/24/24 History omega 7-xjj-fvr-fish oil 1,000 mg 1 cap PO DAILY 11/27/22 04/24/24 History (120 mg-180 mg) capsule (Fish Oil) gabapentin 100 mg capsule 200 mg PO BID 04/24/24 04/24/24 History sertraline 100 mg tablet 100 mg PO QAM 04/24/24 04/24/24 History Allergies Allergy/AdvReac Type Severity Reaction Status Date / Time No Known Drug Allergies Allergy Verified 04/07/23 09:34 Exam Narrative: Exam Narrative: GEN: Awake and laying in bed, nontoxic HEENT: Pupils miotic, no scleral icterus CV: RRR, + blowing systolic murmur heard best at left sternal border R: LCTA bilaterally without concerning wheezing Ab: soft without masses, mild discomfort on deep palpation of RUQ, negative Rivers's sign. No abdominal bruits, hyperactive bowel sounds Ext: wwp, no concerning edema. + corn on right foot Skin: Scattered SKs, scattered bruising, no bleeding lesions Neuro: Exam limited by cognition, no resting tremor, + left-sided weakness Psych: Cognitive impairment without agitation Const: Vital Signs, click to edit/add: Vital Signs - 24 hr 04/24/24 10:44 04/24/24 12:48 04/24/24 14:31 Temperature 100.0 F H 98.9 F Pulse Rate 60 Pulse Rate [Pulse Oximeter] 60 60 Respiratory Rate 16 22 20 Blood Pressure 131/56 L Blood Pressure [Ri ght Upper Arm] 116/43 L 163/71 H Pulse Oximetry 92 92 90 Oxygen Delivery Me thod Room Air Room Air 04/24/24 14:44 Temperature 100.9 F H Pulse Rate Pulse Rate [Pulse Oximeter] Respiratory Rate Blood Pressure Blood Pressure [Ri ght Upper Arm] Pulse Oximetry Oxygen Delivery Me thod Hospitalist - H&P: Result Labs Labs: Short CBC 04/24/24 04/24/24 Range/Units 11:05 13:43 WBC 10.36 (4.50-11.00) K/uL Hgb 13.4 L 13.0 L (13.5-17.5) gm/dL Hct 40.4 (37.0-53.0) % Plt Count 164 (140-440) K/uL BMP 04/24/24 11:22 Sodium 141 Potassium 4.3 Chloride 108 Carbon Dioxide 23 BUN 30 Creatinine 1.0 Glucose 140 H Calcium 8.6 Cardiac Enzymes 04/24/24 Range/Units 11:05 Troponin I 0.03 (0.01-0.04) ng/mL Assessment and Plan Assessment and plan (1) Vomiting: Problem comment: - ddx: viral illness, biliary colic - noted elevation in LFTs - will obtain abdominal ultrasound tomorrow morning to evaluate for biliary disease Status: Acute (2) Acute upper GI bleed: Problem comment: - possible given coffee ground emesis 2/2 vomiting - NPO after midnight for abdominal ultrasound +/- EGD tomorrow morning, follow Hgb Status: Acute (3) Fever: Problem comment: - source: atelectasis vs early infiltrate vs related to enteritis vs biliary disease - no hypotension, no tachycardia (may be masked by BB), WBC 10 with PMN predominance Status: Acute (4) GERD (gastroesophageal reflux disease): Problem comment: - intermittently on Famotidine, restarted by PCP fall Status: Acute (5) Aspiration into airway: Problem comment: - barium swallow 01/2024 exhibited aspiration of thin liquids - following this study, Famotidine restarted Status: Acute (6) Aneurysm of infrarenal abdominal aorta: Problem comment: - 5.2cm on 04/26 imaging - per Epic, measured at 4.8cm in November 2020 Status: Acute (7) Atrial fibrillation: Problem comment: - rate controlled on Metoprolol, paced - has Watchman device Status: Acute Plan - per above - Hue updated at bedside, questions answered
[2024-04-24] MEDS: ACETAMINOPHEN 325 MG TABLET 975 MG PO (18:31)
[2024-04-24] MEDS: FAMOTIDINE 20 MG TABLET PO (18:41)
[2024-04-24] MEDS: SODIUM CHLORIDE 0.9 % (FLUSH) 10 ML SYRINGE 5 ML IVF (18:41)
[2024-04-24 20:19] LABS: Hemoglobin* 12.7 gm/dL (13.5-17.5)
--- NOTE | 2024-04-24 23:20 | PC.NURSE ---
ADMISSION/SHIFT NOTE: Pt pleasant, alert to place, person, and situation. Pt denies SOB, CP, and N/V. Was able to eat supper and tolerated well, no emesis. PRN Tylenol given for chronic back pain with pt reporting relief. Pt changed and T&R with a 2A Q2H. Pt with a chronic cough per , stated pt was not on thickened liquids. Pt has a transfer device at home that his states she uses to transfer pt out of bed and into wheelchair, car etc.
[2024-04-24] MEDS: ATORVASTATIN CALCIUM 40 MG TABLET PO (23:59)
[2024-04-24] MEDS: METOPROLOL TARTRATE 25 MG TABLET PO (23:59)
[2024-04-24] MEDS: GABAPENTIN 100 MG CAPSULE 200 MG PO (23:59)
[2024-04-24] MEDS: DONEPEZIL 10 MG TABLET PO (23:59)
[2024-04-25] VITALS (10 sets, daily range): BP systolic 113–135; BP diastolic 55–73; PULSE 60–64; RESP 17–22; TEMP 36.4–37.1; O2SAT 90–92
[2024-04-25 06:43] LABS: Basophils Absolute Auto 0.01 K/uL (0.00-0.30); Basophils Percent Auto 0.2 % (0.0-3.0); Eosinophils Absolute Auto 0.03 K/uL (0.00-0.50); Eosinophils Percent Auto 0.7 % (0.0-7.0); Hematocrit 38.4 % (37.0-53.0); Hemoglobin* 12.5 gm/dL (13.5-17.5); Immature Granulocytes Abs Auto 0.03 K/uL (0.00-0.30); Immature Granulocytes Pct Auto 0.7 %; Lymphocytes Percent Auto 8.5 % (20-44); Mean Corpuscular HGB Conc 33 gm/dL (32-36); Mean Corpuscular Hemoglobin 32 pg (26-34); Mean Corpuscular Volume 100 fL (80-100); Monocytes Percent Auto 13.6 % (0.0-11.0); Neutrophils Percent Auto 76.3 % (42.0-72.0); Platelet Count* 140 K/uL (140-440); RDW Coefficient of Variation % 12.8 % (11.5-15.5); Red Blood Count 3.86 m/uL (4.30-5.90); White Blood Count* 4.57 K/uL (4.50-11.00)
[2024-04-25 06:48] LABS: Slide Review Reflex No
--- NOTE | 2024-04-25 06:52 | PC.NURSE ---
Turn/Repo Q2H. External cath reapplied during sleep hours due to leaking and wet bed, no urine output since to collect for UA. NPO since midnight. No N/V.
[2024-04-25 06:59] LABS: Albumin* 3.3 g/dL (3.3-5.0)
[2024-04-25 07:00] LABS: Chloride* 113 mmol/L (96-114); Potassium* 3.7 mmol/L (3.6-5.1); Sodium* 142 mmol/L (135-149)
--- NOTE | 2024-04-25 07:00 | CRLHL7_ITS ---
For Patients: As a result of the Cures Act, medical imaging exams and procedure reports are released immediately into your electronic medical record. You may view this report before your referring provider. If you have questions, please contact your health care provider. Indication: Abnormal liver function tests. Vomiting. Technique: Sonography of the abdomen was performed limited to the structures discussed below. Comparison: Portions of a CT dated April 24, 2024 Findings: The liver is slightly hyperechoic in a pattern most consistent with fatty infiltration. There is no intrahepatic biliary ductal dilation. No visible solid mass. Numerous cysts are noted largest of which is in the left lobe measuring about 1.6 centimeters in greatest dimension. The common duct measures 5 millimeters which is normal Gallbladder wall thickness is normal at 2 millimeters. No sludge, calculus or pericholecystic fluid. No reported sonographic Rivers`s sign. The pancreas was poorly visualized due to overlying bowel gas. The right kidney measures 9.4 x 4.4 x 4.7 centimeters. No evidence of hydronephrosis or solid mass. The IVC was poorly seen due to overlying bowel gas. An abdominal aortic aneurysm is noted. This is 7.2 centimeters in length and 5.0 x 5.4 centimeters trans axially. There is eccentric mural thrombus as was noted on the recent CT. The proximal common iliac arteries were poorly seen on this exam No ascites Impression: 1. Abnormal hepatic echogenicity probably due to fatty infiltration. Small cysts. No solid mass. No intrahepatic biliary ductal dilation. 2. The common duct measures 5 millimeters which is normal. 3. Gallbladder appears normal. 4. Pancreas poorly visualized due to overlying bowel gas. Right kidney and IVC as visualized show no significant positive findings. 5. Abdominal aortic aneurysm measuring 5.0 x 5.4 centimeters trans axially and 7.2 centimeters in length. There is eccentric mural thrombus as was noted on the prior CT. Dictated by Stone Chairez MD @ 04/25/2024 9:13:10 AM (Electronically Signed)
[2024-04-25 07:02] LABS: Bilirubin Total* 0.8 mg/dL (0.1-1.5); Creatinine* 0.9 mg/dL (0.5-1.5); Estimated Glomerular Filt Rate 83 ml/min
[2024-04-25 07:03] LABS: Alanine Aminotransferase* 18 U/L (4-50); Alkaline Phosphatase* 67 U/L (40-150); Anion Gap 3 mEq/L (7-15); Aspartate Amino Transferase* 30 U/L (12-35); Blood Urea Nitrogen* 30 mg/dL (7-30); Calcium* 8.2 mg/dL (8.4-10.6); Carbon Dioxide* 26 mmol/L (20-32); Glucose* 104 mg/dL (60-115); Lipase* 33 U/L (23-300); Total Protein* 5.8 g/dL (6.0-8.3)
[2024-04-25] MEDS: POTASSIUM CHLORIDE 10 MEQ CAPSULE ER PO (07:28)
[2024-04-25] MEDS: OMEPRAZOLE 20 MG CAPSULE DR 40 MG PO (07:28)
[2024-04-25 07:44] LABS: Gamma Glutamyl Transpeptidase* 18 U/L (8-55)
[2024-04-25 09:03] LABS: Appearance Urine Clear (Clear); Bilirubin Urine Negative (Negative); Blood Urine Negative (Negative); Color Urine Yellow (Yellow); Glucose Urine Negative (Negative); Ketones Urine Negative (Negative); Leukocyte Esterase Urine 1+ (Negative); Nitrite Urine Positive (Negative); Protein Urine 1+ (Negative); Urobilinogen Urine 0.2 (0.2-1.0)
[2024-04-25 09:24] LABS: RBC Urine 0-2 (0-2)
[2024-04-25 09:25] LABS: Bacteria Urine Few
[2024-04-25] MEDS: FAMOTIDINE 20 MG TABLET PO ×2 (09:32→21:22)
[2024-04-25] MEDS: TAMSULOSIN HCL 0.4 MG CAPSULE PO (09:32)
[2024-04-25] MEDS: GABAPENTIN 100 MG CAPSULE 200 MG PO ×2 (09:32→21:21)
[2024-04-25] MEDS: AMLODIPINE 10 MG TABLET PO (09:32)
[2024-04-25] MEDS: SODIUM CHLORIDE 0.9 % (FLUSH) 10 ML SYRINGE 5 ML IVF ×2 (09:33→21:48)
[2024-04-25] MEDS: SERTRALINE 100 MG TABLET PO (09:33)
[2024-04-25] MEDS: METOPROLOL TARTRATE 25 MG TABLET PO ×2 (09:33→21:22)
--- NOTE | 2024-04-25 09:53 | NUTR.NU ---
RDN with nutrition screen for positive skin risk and wound present. Patient admitted with vomiting, possible coffee grounds, 1 day prior to admit. Possible GI bleed. Plan for EDG today. Lives with . Past medical history includes dementia. Current weight 199 lb; height 6ft; BMI 27.0 kg/m2. Per weight records weight has been stable recently. Current diet is NPO. No intakes recorded since admit and diet order. Per nursing documentation, wound present is red raised bumps on buttock region. No open areas currently. With stable weights and no open wounds, no nutrition interventions at this time. RDN will continue to monitor and follow-up prn.
--- NOTE | 2024-04-25 11:12 | P.ANES_ITS ---
Anesthesia Charges Start Date/Time Anesthesia Start Date: 04/25/24 Anesthesia Start Time: 10:50 Stop Date/Time Anesthesia Stop Date: 04/25/24 Anesthesia Stop Time: 11:06 Summary Emergency: [facility]
[2024-04-25 11:53] LABS: C.Difficile Negative (Negative); CDIFFEPI 027 PRESUMPTIVE NEGATIVE (Negative)
--- NOTE | 2024-04-25 13:43 | PC.SOCIAL ---
Discharge planning: detention worker met with pt and his this afternoon. Pt will most likely be discharged tomorrow from the hospital. Pt's plans to take him home at discharge and is comfortable with that plan. 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 Pt also has in home physical therapy from Ирина at [facility] who comes to pt's home through a program called Medicare Maintenance through Medicare. Pt's said that she and Ирина determine how often Ирина comes out to the house to work with the pt, but before his hospitalization it was one time a week. Pt's stated that Ирина maybe coming up to the hospital later today to visit the pt. detention worker provided pt's with this worker's contact information if she should have anymore questions that arise. Social work to follow-up as needed.
--- NOTE | 2024-04-25 16:31 | PM.IMPN1 ---
Progress Note: A&P Assessment and plan (1) Vomiting: Problem details: Suspect this is due to acute gastroenteritis. Continue to monitor. No specific therapy. Status: Acute (2) Acute upper GI bleed: Problem details: Clinically appeared to have upper GI bleeding but EGD is reassuring. No further intervention at this time. Status: Acute (3) Fever: Problem details: Fever of 100.9 on admission. Not recurrent. Continue to monitor. Status: Acute (4) GERD (gastroesophageal reflux disease): Problem details: - intermittently on Famotidine, restarted by PCP fall Status: Acute (5) Aspiration into airway: Problem details: - barium swallow 01/2024 exhibited aspiration of thin liquids - following this study, Famotidine restarted Status: Acute (6) Aneurysm of infrarenal abdominal aorta: Problem details: - 5.2cm on 04/26 imaging - per [facility], measured at 4.8cm in November 2020. Outpatient follow-up based on goals of care Status: Acute (7) Atrial fibrillation: Problem details: - rate controlled on Metoprolol, paced - has Watchman device Status: Acute (8) Impaired mobility: Problem details: Patient does not walk. manages transfers. Has well drill operator helper cable tool in the home for several hours a day to assist with this as well. She would like to take him home again and continue caring for him. She uses EMS as a resource when he falls and she can not get him up on her own. Status: Acute Plan Continue in hospital for evaluation of vomiting, diarrhea, acute on chronic weakness, upper GI bleeding, fever. If clinically improving plan discharge to home. Plan of care is discussed with patient, his , other providers about current diagnosis treatment, prognosis and disposition. Total time spent is 55 minutes Subjective Date Seen: 04/25/24 Interval history: 88-year-old male admitted to the hospital with vomiting progressing from emesis containing last meal to dark brown or black emesis which was Hemoccult positive. Because this he was brought to the hospital for evaluation. In the emergency department he was found to have gastro occult positive emesis. Hemoglobin was low normal and stable. There was concern for possible community-acquired pneumonia and antibiotics were given. Does have significant history of aspiration and aspiration risk with thin liquids. CT scan suggested some enteritis. Incidentally noted AAA This morning he developed diarrhea. His is uncertain if this is part of his chronic cycle of diarrhea and constipation or diarrhea related to possible gastroenteritis. He had a EGD today which was unremarkable for source of bleeding. Ultrasound was also unremarkable. He has tolerated some p.o. intake so far. No significant further diarrhea.. Exam Narrative: Exam Narrative: He is sleepy but easily arouses to voice. He is oriented to being in the hospital. Respirations are clear to auscultation. Cardiovascular: S1, S2, regular rate and rhythm. Abdomen is soft without tenderness or mass. Extremities without edema. Const: Vital Signs, click to edit/add: Vital Signs - 24 hr 04/24/24 19:00 04/24/24 23:00 04/24/24 23:00 Temperature 99 F Pulse Rate Pulse Rate [Left] 64 Respiratory Rate 20 20 20 Blood Pressure Blood Pressure [Le ft Arm] 131/81 Blood Pressure [Ri ght Arm] Pulse Oximetry 91 88 Oxygen Delivery Il thod Room Air Room Air 04/24/24 23:59 04/25/24 03:20 04/25/24 07:30 Temperature 97.8 F 97.7 F Pulse Rate Pulse Rate [Left] 60 60 60 Respiratory Rate 20 20 18 Blood Pressure Blood Pressure [Le ft Arm] 134/72 Blood Pressure [Ri ght Arm] 135/68 Pulse Oximetry 88 90 Oxygen Delivery Il thod Room Air Room Air 04/25/24 07:30 04/25/24 07:30 04/25/24 11:30 Temperature 97.6 F 98.5 F Pulse Rate 60 Pulse Rate [Left] 60 Respiratory Rate 18 18 20 Blood Pressure 123/67 Blood Pressure [Le ft Arm] Blood Pressure [Ri ght Arm] 118/55 L Pulse Oximetry 91 91 90 Oxygen Delivery Il thod Room Air Room Air Room Air 04/25/24 11:45 04/25/24 12:00 04/25/24 12:15 Temperature 98.5 F 98.4 F Pulse Rate 60 60 60 Pulse Rate [Left] Respiratory Rate 20 18 18 Blood Pressure 125/64 121/61 113/58 L Blood Pressure [Le ft Arm] Blood Pressure [Ri ght Arm] Pulse Oximetry 91 91 92 Oxygen Delivery Il thod Room Air Room Air Room Air 04/25/24 12:30 04/25/24 15:30 04/25/24 15:30 Temperature 98.4 F Pulse Rate 60 Pulse Rate [Left] 60 Respiratory Rate 18 18 18 Blood Pressure 126/68 Blood Pressure [Le ft Arm] Blood Pressure [Ri ght Arm] Pulse Oximetry 91 91 Oxygen Delivery Me thod Room Air Room Air 04/25/24 15:30 Temperature 98.8 F Pulse Rate Pulse Rate [Left] 60 Respiratory Rate 18 Blood Pressure Blood Pressure [Le ft Arm] 118/65 Blood Pressure [Ri ght Arm] Pulse Oximetry 91 Oxygen Delivery Me thod Room Air Documenting provider has reviewed patient's vital signs: yes Labs Labs: Laboratory Results - last 24 hr 04/24/24 04/25/24 04/25/24 20:14 06:00 08:58 WBC 4.57 RBC 3.86 L Hgb 12.7 L 12.5 L Hct 38.4 MCV 100 MCH 32 MCHC 33 RDW Coeff of Aiden 12.8 Plt Count 140 Neut % (Auto) 76.3 H Lymph % (Auto) 8.5 L Lucas % (Auto) 13.6 H Eos % (Auto) 0.7 Baso % (Auto) 0.2 Neut # (Auto) 3.50 Lymph # (Auto) 0.40 L Lucas # (Auto) 0.60 Eos # (Auto) 0.03 Baso # (Auto) 0.01 Abs Immat Gran (auto) 0.03 Imm/Tot Granulo (auto) 0.7 Sodium 142 Potassium 3.7 Chloride 113 Carbon Dioxide 26 Anion Gap 3 L BUN 30 Creatinine 0.9 Estimated Creat Clear 58.20 Estimated GFR 83 Glucose 104 Calcium 8.2 L Total Bilirubin 0.8 GGT 18 AST 30 ALT 18 Alkaline Phosphatase 67 Total Protein 5.8 L Albumin 3.3 Lipase 33 Urine Color Yellow Urine Appearance Clear Urine pH 5.0 Ur Specific [place] 1.020 Urine Protein 1+ A Urine Glucose (UA) Negative Urine Ketones Negative Urine Blood Negative Urine Nitrite Positive A Urine Bilirubin Negative Urine Urobilinogen 0.2 Ur Leukocyte Esterase 1+ A Urine RBC 0-2 Urine WBC 10-25 A Ur Squamous Epith Cells None Urine Bacteria Few A Stl C. diff Tox B Gene Stl C. diff [id number] 04/25/24 10:27 WBC RBC Hgb Hct MCV MCH MCHC RDW Coeff of Aiden Plt Count Neut % (Auto) Lymph % (Auto) Lucas % (Auto) Eos % (Auto) Baso % (Auto) Neut # (Auto) Lymph # (Auto) Lucas # (Auto) Eos # (Auto) Baso # (Auto) Abs Immat Gran (auto) Imm/Tot Granulo (auto) Sodium Potassium Chloride Carbon Dioxide Anion Gap BUN Creatinine Estimated Creat Clear Estimated GFR Glucose Calcium Total Bilirubin GGT AST ALT Alkaline Phosphatase Total Protein Albumin Lipase Urine Color Urine Appearance Urine pH Ur Specific [place] Urine Protein Urine Glucose (UA) Urine Ketones Urine Blood Urine Nitrite Urine Bilirubin Urine Urobilinogen Ur Leukocyte Esterase Urine RBC Urine WBC Ur Squamous Epith Cells Urine Bacteria Stl C. diff Tox B Gene Negative Stl C. diff [id number] PRESUMPTIVE NEGATIVE
--- NOTE | 2024-04-25 18:55 | PC.NURSE ---
End of shift summary: Pt has been A&O, afebrile and VSS. Delayed & slightly slurred speech with h/o CVA. He is Ax2 with Sera steady for transfers. He is baseline incontinent of B&B. He had x3 loose stools this AM, C. Diff was negative. External male catheter in place with clear, jane urine. PIV in right FA SL and C/D/I. Pt was NPO this morning for an EGD then advanced to a regular diet. He denies having any pain with eating and no N/V after diet advancement. Denies pain, SOB or dizziness. Slept well in between cares with present in the room. ?
[2024-04-25] MEDS: DONEPEZIL 10 MG TABLET PO (21:22)
[2024-04-25] MEDS: ATORVASTATIN CALCIUM 40 MG TABLET PO (21:22)
[2024-04-26 02:23] VITALS: BP 113/74; PULSE 60; RESP 20; TEMP 36.6; O2SAT 91
[2024-04-26] MEDS: OMEPRAZOLE 20 MG CAPSULE DR 40 MG PO (06:13)
[2024-04-26 08:25] VITALS: BP 111/63; PULSE 60; RESP 16; TEMP 36.8; O2SAT 94
[2024-04-26] MEDS: GABAPENTIN 100 MG CAPSULE 200 MG PO (09:15)
[2024-04-26] MEDS: TAMSULOSIN HCL 0.4 MG CAPSULE PO (09:16)
[2024-04-26] MEDS: SERTRALINE 100 MG TABLET PO (09:16)
[2024-04-26] MEDS: POTASSIUM CHLORIDE 10 MEQ CAPSULE ER PO (09:16)
[2024-04-26] MEDS: SODIUM CHLORIDE 0.9 % (FLUSH) 10 ML SYRINGE 5 ML IVF (09:16)
[2024-04-26] MEDS: AMLODIPINE 10 MG TABLET PO (09:16)
[2024-04-26] MEDS: FAMOTIDINE 20 MG TABLET PO (09:16)
[2024-04-26] MEDS: METOPROLOL TARTRATE 25 MG TABLET PO (09:19)
--- NOTE | 2024-04-26 13:37 | P.DS_ITS ---
DS: Providers Provider Date Seen: 04/26/24 Date of admission: 04/24/24 17:33 Primary care physician: Chandrika Sutton MD Admitting Clinician: Mynor Claudio MD Attending Physician on discharge: Art Claudio MD Date of Discharge: 04/26/24 DS: Diagnosis Discharge Diagnosis (1) Gastroenteritis: Status: Acute (2) Fever: Status: Acute Problem details: Fever of 100.9 on admission. Not recurrent. Continue to monitor. (3) Acute upper GI bleed: Status: Acute Problem details: Clinically appeared to have upper GI bleeding but EGD is reassuring. No further intervention at this time. (4) Aneurysm of infrarenal abdominal aorta: Status: Acute Problem details: - 5.2cm on 04/26 imaging - per Epic, measured at 4.8cm in November 2020. Outpatient follow-up based on goals of care (5) GERD (gastroesophageal reflux disease): Status: Acute Problem details: - intermittently on Famotidine, restarted by PCP fall (6) Aspiration into airway: Status: Acute Problem details: - barium swallow 01/2024 exhibited aspiration of thin liquids - following this study, Famotidine restarted (7) Impaired mobility: Status: Acute Problem details: Patient does not walk. manages transfers. 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 She would like to take him home again and continue caring for him. She uses EMS as a resource when he falls and she can not get him up on her own. (8) Vomiting: Status: Acute Problem details: Suspect this is due to acute gastroenteritis. Continue to monitor. No spec ific therapy. DS: Summary Hospital Course Hospital Course: 88-year-old male admitted to the hospital with vomiting progressing from emesis containing last meal to dark brown or black emesis which was Hemoccult positive. Because this he was brought to the hospital for evaluation. In the emergency department he was found to have gastro occult positive emesis. Hemoglobin was low normal and stable. There was concern for possible community- acquired pneumonia and antibiotics were given. Does have significant history of aspiration and aspiration risk with thin liquids. CT scan suggested some enteritis. Incidentally noted AAA This morning he developed diarrhea. His is uncertain if this is part of his chronic cycle of diarrhea and constipation or diarrhea related to possible gastroenteritis. He had a EGD today which was unremarkable for source of bleeding. Ultrasound was also unremarkable. He has tolerated some p.o. intake so far. No significant further diarrhea. 04/26/2024: Overnight he has had no further vomiting. He has been able to eat. No significant diarrhea. He reports feeling well and is anxious to go home. Status at Discharge Functional status at discharge: wheelchair bound Overall status at discharge: patient is progressing back to baseline Time Spent with Patient Time attestation: Total time spent providing and/or coordinating discharge services: 40 minutes Time spent: Greater than 30 minutes Exam Narrative: Exam Narrative: He is alert and appears in no distress. Respirations are clear to auscultation. Cardiovascular: S1, S2, regular rate and rhythm. Abdomen: Bowel sounds active. Abdomen is soft without tenderness or mass. Extremities without edema. Const: Vital Signs, click to edit/add: Vital Signs - 24 hr 04/25/24 15:30 04/25/24 15:30 04/25/24 15:30 Temperature 98.8 F Pulse Rate [Left R adial] Pulse Rate [Left] 60 60 Respiratory Rate 18 18 18 Blood Pressure [Le ft Arm] 118/65 Blood Pressure [Ri ght Arm] Pulse Oximetry 91 91 Oxygen Delivery Me thod Room Air Room Air 04/25/24 19:00 04/25/24 23:00 04/25/24 23:00 Temperature 98.6 F 98.3 F Pulse Rate [Left R adial] Pulse Rate [Left] 64 60 Respiratory Rate 22 17 17 Blood Pressure [Le ft Arm] Blood Pressure [Ri ght Arm] 119/65 115/73 Pulse Oximetry 90 90 Oxygen Delivery Me thod Room Air Room Air 04/25/24 23:00 04/26/24 02:23 04/26/24 08:25 Temperature 97.9 F 98.3 F Pulse Rate [Left R adial] 60 Pulse Rate [Left] 60 Respiratory Rate 17 20 16 Blood Pressure [Le ft Arm] Blood Pressure [Ri ght Arm] 113/74 111/63 Pulse Oximetry 90 91 94 Oxygen Delivery Me thod Room Air Room Air Room Air 04/26/24 08:25 Temperature Pulse Rate [Left R adial] Pulse Rate [Left] Respiratory Rate 16 Blood Pressure [Le ft Arm] Blood Pressure [Ri ght Arm] Pulse Oximetry 94 Oxygen Delivery Me thod Room Air Documenting provider has reviewed patient's vital signs: yes DS: Data Data Completed and Pending Labs on day of discharge: Preliminary micro results at discharge 04/24/24 11:05 Blood Culture - Preliminary Blood NO GROWTH AFTER 48 HOURS 04/25/24 08:58 Urine Culture - Preliminary Urine,Clean Catch Imaging CT scan - abdomen: Radiologist's impression: Indication: Vomiting and fever Technique: Volumetric multidetector CT images of the abdomen and pelvis were obtained after the administration of intravenous contrast. 98 cc Isovue 370 low osmolar intravenous contrast Comparison: None available. Findings: There is minimal basilar atelectasis and parenchymal scar. Cystic changes of the liver are appreciated with out evidence intrahepatic biliary ductal prominence. The portal vein is patent. The gallbladder is unremarkable without evidence of radiopaque calculus. There is no significant common biliary ductal dilatation or abrupt cut off. The spleen is normal in enhancement and size. The stomach and duodenum are grossly unremarkable. Mild to moderate pancreatic atrophy is appreciated. The adrenal glands are unremarkable. Cystic changes of the kidneys are appreciated with otherwise preserved corticomedullary differentiation. Minimal nonspecific fluid is seen within central small bowel loops with moderate stool seen throughout the colon. Minimal decompressed appearance of the distal colon. No overt pericolonic or perienteric inflammation. The appendix is unremarkable. There is no significant mesenteric, retroperitoneal, or pelvic sidewall lymph nodes. The aorta demonstrates a 4.7 x 5.2 centimeter infrarenal aneurysm with moderate scattered atherosclerotic plaque. Evaluation of central pelvic structures is limited due to beam hardening artifact from bilateral hip arthroplasties. There is no free fluid or free air. The anterior abdominal wall is intact without significant hernias. The lumbar vertebral body heights are grossly maintained with minimal endplate Schmorl`s defects and chronic deformity of the anterior superior L3 level. Impression: 1. Minimal nonspecific fluid distention of central small bowel loops likely representing mild enteritis changes. An early obstruction may be difficult to exclude. 2. Incidental note made of a 5.2 centimeter infrarenal abdominal aortic aneurysm. US - abdomen: Radiologist's impression: Indication: Abnormal liver function tests. Vomiting. Technique: Sonography of the abdomen was performed limited to the structures discussed below. Comparison: Portions of a CT dated April 24, 2024 Findings: The liver is slightly hyperechoic in a pattern most consistent with fatty infiltration. There is no intrahepatic biliary ductal dilation. No visible solid mass. Numerous cysts are noted largest of which is in the left lobe measuring about 1.6 centimeters in greatest dimension. The common duct measures 5 millimeters which is normal Gallbladder wall thickness is normal at 2 millimeters. No sludge, calculus or pericholecystic fluid. No reported sonographic Rivers`s sign. The pancreas was poorly visualized due to overlying bowel gas. The right kidney measures 9.4 x 4.4 x 4.7 centimeters. No evidence of hydronephrosis or solid mass. The IVC was poorly seen due to overlying bowel gas. An abdominal aortic aneurysm is noted. This is 7.2 centimeters in length and 5.0 x 5.4 centimeters trans axially. There is eccentric mural thrombus as was noted on the recent CT. The proximal common iliac arteries were poorly seen on this exam No ascites Impression: 1. Abnormal hepatic echogenicity probably due to fatty infiltration. Small cysts. No solid mass. No intrahepatic biliary ductal dilation. 2. The common duct measures 5 millimeters which is normal. 3. Gallbladder appears normal. 4. Pancreas poorly visualized due to overlying bowel gas. Right kidney and IVC as visualized show no significant positive findings. 5. Abdominal aortic aneurysm measuring 5.0 x 5.4 centimeters trans axially and 7.2 centimeters in length. There is eccentric mural thrombus as was noted on the prior CT. Chest x-ray: Radiologist's impression: Indication: Fever and vomiting Comparison: Single-view chest April 07, 2023 Technique: PA and lateral views of the chest Findings: There is hyperinflation and chronic interstitial change with questionable trace blunting of the costophrenic angle. There is no pneumothorax or pleural effusion. The cardiac silhouette is mildly prominent similar to previous exam with dual-chamber pacer. Old left-sided rib deformities are again appreciated. Impression: Mildly increased interstitial markings seen throughout commensurate with likely pulmonary edema with basilar atelectasis, early infiltrates may be difficult to exclude. Discharge Plan Discharge Disposition: Home, Self-Care Date of Admission: 04/24/24 17:33 Attending Provider on Discharge: Mynor Claudio Primary Care Provider: Chandrika Sutton Condition: Improved Anticipated Discharge Date/Time: 04/26/24 10:35 Discharge Medications: Continued donepezil 10 mg tablet 10 mg PO HS Patient Comments: TAKE ONE TABLET BY MOUTH AT BEDTIME tamsulosin 0.4 mg capsule 0.4 mg PO DAILY Patient Comments: TAKE ONE CAPSULE BY MOUTH DAILY AFTER A MEAL amlodipine 10 mg tablet 10 mg PO DAILY Patient Comments: TAKE 1 TABLET (10 MG) BY MOUTH ONCE DAILY. montelukast 10 mg tablet 10 mg PO HS Patient Comments: TAKE ONE TABLET BY MOUTH EVERY DAY AT BEDTIME metoprolol tartrate 25 mg tablet 25 mg PO BID Patient Comments: TAKE ONE TABLET BY MOUTH TWICE A DAY atorvastatin 40 mg tablet 40 mg PO HS sertraline 100 mg tablet 100 mg PO QAM gabapentin 100 mg capsule 200 mg PO BID famotidine 20 mg tablet 20 mg PO BID omega 4-kar-iur-fish oil [Fish Oil] 1,000 mg (120 mg-180 mg) capsule 1 cap PO DAILY cholecalciferol (vitamin D3) 50 mcg (2,000 unit) tablet 50 mcg PO DAILY clopidogrel 75 mg Tablet 75 mg PO DAILY Qty: 30 0RF potassium chloride 10 mEq Capsule, Extended Release 10 meq PO DAILYWM Qty: 30 0RF Discharge Orders: Discharge Order (Routine); Ordered 04/26/24 Ordered By: Mynor Claudio Patient Education: Gastroenteritis (DC), Acute Nausea and Vomiting (DC) Activity Level: Up with assist Discharge Diet: Regular Diet Detail: Consider thickening of liquids due to aspiration of thin liquids on barium swallow in January Follow Up Appointments: Chandrika Sutton MD [Primary Care Provider] - 05/10/24 2:40 pm ([facility] for follow up with PCP) Forms: [employer] Info Instructions
--- NOTE | 2024-05-08 08:03 | ED_ITS ---
HPI - General Adult General Date Seen: 04/24/24 Chief complaint: Nausea/Vomiting Stated complaint: vomitting Time Seen by Provider: 04/24/24 10:42 History of Present Illness HPI narrative: This is an addendum my ER note from 04/24/2024. I inadvertently Omitted this patient physical exam from my previous note. Related Data Home Medications ?Medication ?Instructions ?Recorded ?Confirmed amlodipine 10 mg tablet 10 mg PO DAILY 06/28/22 04/24/24 donepezil 10 mg tablet 10 mg PO HS 06/28/22 04/24/24 metoprolol tartrate 25 mg tablet 25 mg PO BID 06/28/22 04/24/24 montelukast 10 mg tablet 10 mg PO HS 06/28/22 04/24/24 tamsulosin 0.4 mg capsule 0.4 mg PO DAILY 06/28/22 04/24/24 atorvastatin 40 mg tablet 40 mg PO HS 08/04/22 04/24/24 cholecalciferol (vitamin D3) 50 50 mcg PO DAILY 11/27/22 04/24/24 mcg (2,000 unit) tablet famotidine 20 mg tablet 20 mg PO BID 11/27/22 04/24/24 omega 1-idd-mpl-fish oil 1,000 mg 1 cap PO DAILY 11/27/22 04/24/24 (120 mg-180 mg) capsule (Fish Oil) gabapentin 100 mg capsule 200 mg PO BID 04/24/24 04/24/24 sertraline 100 mg tablet 100 mg PO QAM 04/24/24 04/24/24 Previous Rx's ?Medication ?Instructions ?Recorded clopidogrel 75 mg tablet 75 mg PO DAILY #30 tabs 12/01/22 potassium chloride 10 mEq 10 meq PO DAILYWM #30 caps 12/01/22 capsule,extended release Allergies Allergy/AdvReac Type Severity Reaction Status Date / Time No Known Drug Allergies Allergy Verified 04/24/24 21:[address] [facility] Medical History (Updated 05/02/24 @ 00:00 by Background Daemon) Impaired mobility ?Z74.09 - Other reduced mobility (ICD-10) Aspiration into airway ?T17.908A - Unspecified foreign body in respiratory tract, part unspecified causing other injury, initial encounter (ICD-10) GERD (gastroesophageal reflux disease) ?K21.9 - Gastro-esophageal reflux disease without esophagitis (ICD-10) Pacemaker ?Z95.0 - Presence of cardiac pacemaker (ICD-10) Nontraumatic thalamic hemorrhage ?I61.9 - Nontraumatic intracerebral hemorrhage, unspecified (ICD-10) EDUAR (obstructive sleep apnea) ?G47.33 - Obstructive sleep apnea (adult) (pediatric) (ICD-10) (HFpEF) heart failure with preserved ejection fraction ?I50.30 - Unspecified diastolic (congestive) heart failure (ICD-10) 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 ?K22.70 - 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 (ICD-10) History of right MCA stroke ?Z86.73 - Personal history of transient ischemic attack (TIA), and cerebral infarction without residual deficits (ICD-10) Malignant melanoma ?C43.9 - Malignant melanoma of skin, unspecified (ICD-10) Hyperlipidemia ?E78.5 - Hyperlipidemia, unspecified (ICD-10) Atrial fibrillation ?I48.91 - Unspecified atrial fibrillation (ICD-10) Presence of Watchman left atrial appendage closure device ?Z95.818 - Presence of other cardiac implants and grafts (ICD-10) Hypertension ?I10 - Essential (primary) hypertension (ICD-10) CVA (cerebral vascular accident) ?I63.9 - Cerebral infarction, unspecified (ICD-10) Surgical History (Updated 11/27/22 @ 14:17 by Estrella Chan MD) H/O hernia repair ?Z98.890 - Other specified postprocedural states (ICD-10) ?Z87.19 - Personal history of other diseases of the digestive system (ICD-10) S/P placement of cardiac pacemaker ?Z95.0 - Presence of cardiac pacemaker (ICD-10) History of total knee arthroplasty ?Z96.659 - Presence of unspecified artificial knee joint (ICD-10) History of total hip arthroplasty ?Z96.649 - Presence of unspecified artificial hip joint (ICD-10) Social History (Updated 11/27/22 @ 14:07 by Estrella Chan MD) Narrative: Lives with Hue (retired OT), she would be MDM if needed. 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 2 adult sons, one in [place]. Nonsmoker, rare/social scotch. Requests DNR/DNI status. What is your current living situation?: I presently have a place to live Problems where you live: no known problems Problems where you live details: n/a In the past 12 months, utilities in danger of being shut off: no In past 12 months, lack of transportation kept you from medical appts, meetings, work, or getting things needed for daily living: no In the past 12 mos, have been you worried that your food would run out before you had money to buy more?: never true In the past 12 mos, the food you bought just didn't last and you didn't have money to buy more?: never true Smoking Status: Never smoker How often do you have a drink containing alcohol: never How often do you have six or more drinks on one occasion: Never AUDIT-C Alcohol total score: 0 Non-prescribed substance use: denies use How often does anyone, including family, friends and others, physically hurt you : never How often does anyone, including family, friends and others, insult or talk down to you: never How often does anyone, including family, friends and others, threaten you with harm: never How often does anyone, including family, friends and others, scream or curse at you: never service: No Exam Narrative: Exam Narrative: Constitutional: Appears well-developed and well-nourished. Alert. awake and follows simple commands. Answers simple questions but not able to provide detailed history. Does not know his meds. generally weak. Requires assistance to sit up. No focal deficits. HENT: Head: Atraumatic. Nose: Nose normal. Mouth/Throat: Oral mucosa is clear and moist. no trismus. Pharynx normal. Tonsils symmetric. No tonsillar enlargement, erythema, or exudate. Eyes: Conjunctivae normal. EOM normal. Pupils equal, round, and reactive to light. No scleral icterus. Neck: Normal range of motion. Neck supple. No tracheal deviation present. Cardiovascular: Normal rate, regular rhythm. No gallop. No friction rub. No murmur heard. Symmetric radial artery pulses , Normal cap refill. Pulmonary/Chest: Effort normal. No stridor. No respiratory distress. No wheezes. No rales. No rhonchi . No tenderness. Abdominal: Soft. Bowel sounds normal. No distension. No mass. Perhaps mild epigastric tenderness. No rebound. No guarding. Musculoskeletal: RUE: Normal range of motion. No tenderness. No deformity LUE: Normal range of motion. No tenderness. No deformity RLE: Normal range of motion. No edema. No tenderness. No deformity LLE: Normal range of motion. No edema. No tenderness. No deformity Neurological: Alert and oriented to person, place, and time. Normal strength. CN II-VII intact. No Focal sensory deficit. GCS eye subscore is 4. GCS verbal subscore is 5. GCS motor subscore is 6. Normal coordination . generalized weakness. Skin: Skin is warm and dry. No rash noted. Conjunctivae and palms look pink.No pallor. No mottling.Normal capillary refill. Psychiatric: Normal mood. somewhat flat affect but might just be feeling unwell. Course Vital Signs Vital signs: Initial Vital Signs Temperature 100.0 F H 04/24/24 10:44 Temperature Source Temporal Artery Scan 04/24/24 10:44 Pulse Rate 60 04/24/24 10:44 Respiratory Rate 16 04/24/24 10:44 Blood Pressure 116/43 L 04/24/24 10:44 Blood Pressure Mean 67 L 04/24/24 10:44 Blood Pressure Position Supine 04/24/24 10:44 Pulse Oximetry 92 04/24/24 10:44 Oxygen Delivery Method Room Air 04/24/24 10:44 Vital Signs Temperature 100.0 F H 04/24/24 10:44 Pulse Rate 60 04/24/24 10:44 Respiratory Rate 16 04/24/24 10:44 Blood Pressure 116/43 L 04/24/24 10:44 Pulse Oximetry 92 04/24/24 10:44 Oxygen Delivery Method Room Air 04/24/24 10:44 Temperature 98.3 F 04/26/24 08:25 Pulse Rate 60 04/26/24 08:25 Respiratory Rate 16 04/26/24 08:25 Blood Pressure 111/63 04/26/24 08:25 Pulse Oximetry 94 04/26/24 08:25 Oxygen Delivery Method Room Air 04/26/24 08:25 Medications Administered Medications: Discontinued Medications Generic Name Dose Route Start Last Admin Trade Name Freq PRN Reason Stop Dose Admin Acetaminophen 975 mg 04/24/24 17:33 04/24/24 18:31 Acetaminophen 325 Mg Tablet PO 975 mg Q8H PRN Administration Amlodipine Besylate 10 mg 04/25/24 09:00 04/26/24 09:16 Amlodipine 10 Mg Tablet PO 10 mg DAILY KYLEE Administration Atorvastatin Calcium 40 mg 04/24/24 21:00 04/25/24 21:22 Atorvastatin Calcium 40 Mg Tablet PO 40 mg HS KYLEE Administration Donepezil HCl 10 mg 04/24/24 21:00 04/25/24 21:22 Donepezil 10 Mg Tablet PO 10 mg HS KYLEE Administration Famotidine 20 mg 04/24/24 21:00 04/26/24 09:16 Famotidine 20 Mg Tablet PO 20 mg BID KYLEE Administration Gabapentin 200 mg 04/24/24 21:00 04/26/24 09:15 Gabapentin 100 Mg Capsule PO 200 mg BID KYLEE Administration Sodium Chloride 500 mls @ 500 mls/hr 04/24/24 10:44 04/24/24 14:42 0.9 % Sodium Chloride 500 Ml IV 04/24/24 11:43 Infused .Q1H ONE Infusion Ceftriaxone Sodium 1 gm/ 100 mls @ 200 mls/hr 04/24/24 13:16 04/24/24 14:43 Sodium Chloride IVPB 04/24/24 13:17 Infused ONCE ONE Infusion Azithromycin 500 mg/ Sodium 255 mls @ 255 mls/hr 04/24/24 13:16 04/25/24 07:44 Chloride IVPB 04/24/24 13:17 Infused ONCE ONE Infusion Metoprolol Tartrate 25 mg 04/24/24 21:00 04/26/24 09:19 Metoprolol Tartrate 25 Mg Tablet PO 25 mg BID KYLEE Administration Omeprazole 40 mg 04/25/24 07:00 04/26/24 06:13 [address]eprazole [address] PO 40 mg DAILY@0700 KYLEE Administration Ondansetron HCl 4 mg 04/24/24 10:44 04/24/24 12:56 Ondansetron 2 Mg/Ml Inj IVP 04/24/24 10:45 4 mg ONCE ONE Administration Pantoprazole Sodium 80 mg 04/24/24 10:44 04/24/24 12:56 Pantoprazole Sodium 40 Mg Inj IVP 04/24/24 10:45 80 mg ONCE ONE Administration Potassium Chloride 10 meq 04/25/24 08:00 04/26/24 09:16 Potassium Chloride 10 Meq Capsule Er PO 10 meq DAILYWM KYLEE Administration Sertraline HCl 100 mg 04/25/24 09:00 04/26/24 09:16 Sertraline 100 Mg Tablet PO 100 mg QAM KYLEE Administration Sodium Chloride 5 ml 04/24/24 21:00 04/26/24 09:16 Sodium Chloride 0.9 % (Flush) 10 Ml Syringe IVF 5 ml BID KYLEE Administration Tamsulosin HCl 0.4 mg 04/25/24 09:00 04/26/24 09:16 Tamsulosin Hcl 0.4 Mg Capsule PO 0.4 mg DAILY KYLEE Administration Medical Decision Making Lab Data Labs: Lab Results 04/24/24 04/24/24 04/24/24 Range/Units 11:05 11:22 11:43 WBC 10.36 (4.50-11.00) K/uL RBC 4.18 L (4.30-5.90) m/uL Hgb 13.4 L (13.5-17.5) gm/dL Hct 40.4 (37.0-53.0) % MCV 97 (80-100) fL MCH 32 (26-34) pg MCHC 33 (32-36) gm/dL RDW Coeff of Aiden 12.3 (11.5-15.5) % Plt Count 164 (140-440) K/uL Neut % (Auto) 94.6 H (42.0-72.0) % Lymph % (Auto) 1.2 L (20-44) % Garrard % (Auto) 3.9 (0.0-11.0) % Eos % (Auto) 0.0 (0.0-7.0) % Baso % (Auto) 0.1 (0.0-3.0) % Neut # (Auto) 9.80 H (1.7-7.0) K/uL Lymph # (Auto) 0.10 L (0.90-2.90) K/uL Garrard # (Auto) 0.40 (0.00-0.90) K/UL Eos # (Auto) 0.00 (0.00-0.50) K/uL Baso # (Auto) 0.01 (0.00-0.30) K/uL Abs Immat Gran (auto) 0.02 (0.00-0.30) K/uL Imm/Tot Granulo (auto) 0.2 % Sodium 141 (135-149) mmol/L Potassium 4.3 (3.6-5.1) mmol/L Chloride 108 (96-114) mmol/L Carbon Dioxide 23 (20-32) mmol/L Anion Gap 10 (7-15) mEq/L BUN 30 (7-30) mg/dL Creatinine 1.0 (0.5-1.5) mg/dL Estimated GFR 73 ml/min Glucose 140 H (60-115) mg/dL Lactate 1.5 (0.5-1.9) mmol/L Calcium 8.6 (8.4-10.6) mg/dL Troponin I 0.03 (0.01-0.04) ng/mL Gastric Fluid pH Not Reportable Gastric Occult Blood POSITIVE A (Negative) SARS-CoV-2 (PCR) Negative SARS-CoV-2 (Negative) Influenza Type A (PCR) Negative PCR FLU A (Negative) Influenza Type B (PCR) Negative PCR FLU B (Negative) 04/24/24 Range/Units 13:43 WBC (4.50-11.00) K/uL RBC (4.30-5.90) m/uL Hgb 13.0 L (13.5-17.5) gm/dL Hct (37.0-53.0) % MCV (80-100) fL MCH (26-34) pg MCHC (32-36) gm/dL RDW Coeff of Aiden (11.5-15.5) % Plt Count (140-440) K/uL Neut % (Auto) (42.0-72.0) % Lymph % (Auto) (20-44) % Garrard % (Auto) (0.0-11.0) % Eos % (Auto) (0.0-7.0) % Baso % (Auto) (0.0-3.0) % Neut # (Auto) (1.7-7.0) K/uL Lymph # (Auto) (0.90-2.90) K/uL Garrard # (Auto) (0.00-0.90) K/UL Eos # (Auto) (0.00-0.50) K/uL Baso # (Auto) (0.00-0.30) K/uL Abs Immat Gran (auto) (0.00-0.30) K/uL Imm/Tot Granulo (auto) % Sodium (135-149) mmol/L Potassium (3.6-5.1) mmol/L Chloride (96-114) mmol/L Carbon Dioxide (20-32) mmol/L Anion Gap (7-15) mEq/L BUN (7-30) mg/dL Creatinine (0.5-1.5) mg/dL Estimated GFR ml/min Glucose (60-115) mg/dL Lactate (0.5-1.9) mmol/L Calcium (8.4-10.6) mg/dL Troponin I (0.01-0.04) ng/mL Gastric Fluid pH Gastric Occult Blood (Negative) SARS-CoV-2 (PCR) (Negative) Influenza Type A (PCR) (Negative) Influenza Type B (PCR) (Negative) Discharge Plan Discharge Clinical Impression: Vomiting, Acute upper GI bleed, Fever, Aneurysm of infrarenal abdominal aorta Patient Disposition: Admitted As Observation Condition: Improved Activity Level: Up with assist Discharge Diet: Regular Diet Detail: Consider thickening of liquids due to aspiration of thin liquids on barium swallow in January
== END 2024-04-26 13:13 | disposition home or self-care (01) | DRG 392 ==
LOC: ED 13:50 → MEDSURG 15:51
PROVIDERS: Family Medicine; Admitting Provider Family Medicine; Emergency Provider Emergency Medicine; PCP Family Medicine; Visit Provider Family Medicine
DX: K52.9 Noninfective gastroenteritis and colitis, unspecified (principal); K92.0 Hematemesis; I71.43 Infrarenal abdominal aortic aneurysm, without rupture; Z95.0 Presence of cardiac pacemaker; R50.9 Fever, unspecified; K21.9 Gastro-esophageal reflux disease without esophagitis; G47.33 Obstructive sleep apnea (adult) (pediatric); I48.91 Unspecified atrial fibrillation; Z79.01 Long term (current) use of anticoagulants; Z86.73 Personal history of transient ischemic attack (TIA), and cerebral infarction without residual deficits; Z74.09 Other reduced mobility; T17.9 Foreign body in respiratory tract, part unspecified; E78.5 Hyperlipidemia, unspecified; I10 Essential (primary) hypertension; R05.3 Chronic cough; R01.1 Cardiac murmur, unspecified
CPT/HCPCS: 00731; 36415; 43239; 71046; 74177; 76705; 80048; 80053; 81001; 82977; 83605; 83690; 83986; 84484; 85018; 85025; 87040; 87086; 87493; 87631; 88305; 93005; 97162; 97166; 97530; 99140; 99284; 99285; A9270; J0456; J0696; J2405; J2470; J2704; J3490; J7030; J7050; Q9967

== ENCOUNTER 2024-06-09 21:42 | Outpatient (CLI) | payer MEDICARE, OTHER, SELFPAY | END 2024-06-09 21:43 | disposition home or self-care (01) | LOC: AMB 06-14 15:16 | PROVIDERS: PCP Family Medicine; Visit Provider Emergency Medicine | DX: R53.1 Weakness (principal) | CPT/HCPCS: A0998 ==

== ENCOUNTER 2024-07-02 22:10 | Outpatient (CLI) | payer MEDICARE, OTHER, SELFPAY | END 2024-07-02 22:11 | disposition home or self-care (01) | PROVIDERS: PCP Family Medicine; Visit Provider Family Medicine | DX: R53.1 Weakness (principal) | CPT/HCPCS: A0998 ==

== ENCOUNTER 2024-09-04 12:47 | Outpatient (CLI) | payer MEDICARE, OTHER, SELFPAY | END 2024-09-04 12:48 | disposition home or self-care (01) | LOC: AMB 09-05 13:39 | PROVIDERS: PCP Family Medicine; Visit Provider Family Medicine | DX: R53.1 Weakness (principal) | CPT/HCPCS: A0998 ==

== ENCOUNTER 2024-09-29 13:41 | Outpatient (CLI) | payer MEDICARE, OTHER, SELFPAY | END 2024-09-29 13:42 | disposition home or self-care (01) | LOC: AMB 09-30 10:16 | PROVIDERS: PCP Family Medicine; Visit Provider Student in an Organized Health Care Education/Training Program | DX: R53.1 Weakness (principal) | CPT/HCPCS: A0998 ==

== ENCOUNTER 2024-11-01 13:50 | Emergency (ER) | payer MEDICARE, OTHER, SELFPAY ==
--- OUTSIDE RECORDS SUMMARY | 2024-09-28 07:45 | XMS_ITS | Encounter Summary ---
Author Organization [facility] Er Address [address] [place] [address] Care Team Providers Care Mercerizing Range Controller Name Role Phone Elsewhere, Pcp Primary Care Provider Unavailabl e Encounter Details Date Type Department Care Team (Latest Contact Info) Description 09/28/2024 7:45 AM CDT - 09/28/2024 2:14 PM CDT Hospital Encounter Division of Cardiovascular Diseases in [place], [place] [address] [place] [address] Leti Whatley M.B.B.S. [address] [place] [address] Device Cardiac Status Post Discharge Disposition: Home or Self Care Social History Tobacco Use Types Packs/Day Years Used Date Smoking Tobacco: Former Cigarettes Q uit: 01/05/1990 Pipe Smokeless Tobacco: Never Alcohol Use Standard Drinks/Week Comments Yes 0 (1 standard drink = 0.6 oz pur e alcohol) Hunger Vital Sign Answer Date Recorded Within the past 12 months, y ou worried that your food would run out before you got the money to buy more. Never true 10/04/19 21 Within the past 12 months, t he food you bought just didn't last and you didn't have money to get more. Never true 10/03/2020 PRAPARE - Transportation Answer Date Re corded In the past 12 months, has l ack of transportation kept you from medical appointments or from getting medications? No 06/2020 In the past 12 months, has l ack of transportation kept you from meetings, work, or from getting things needed for daily living? Yes 10/03/2020 Housing Stability Vital Sign Answer Jamel e Recorded In the last 12 months, was t here a time when you were not able to pay the mortgage or rent on time? No 10/03/2020 In the last 12 months, how many places have you lived? 1 10/03/2020 In the last 12 months, was t here a time when you did not have a steady place to sleep or slept in a usp (including now)? No 10/03/2020 Depression Answer Date Recor ded PHQ-9 Total Score (max 27) 5 11/16 Education Answer Date Recorded What is the highest level of school you have completed or the highest degree you have received? Doctorate 02/17/2020 Sex and Gender Information Value Date Recorded Sex Assigned at Not on file Legal Sex Male 5:41 AM [employer]SE [employer]AY[employer] Gender Identity Not on file Sexual Orientation Not on file documented as of this encounter Last Filed Vital Signs Vital Sign Reading Time Taken Comments Blood Pressure 102/31 09/28/2024 1:24 PM CDT Pulse 60 09/28/2024 1:54 PM CDT Temperature 36.4 C (97.5 F) 09/28/2024 9:09 AM CDT Respiratory Rate 9 09/28/2024 11:36 AM CDT Oxygen Saturation 93% 09/28/2024 1:54 PM CDT Inhaled Oxygen Concentration - - Weight - - Height 182.9 cm (6' 0.01) 09/28/2024 10:50 AM C DT Body Mass Index - - documented in this encounter Discharge Instructions * Discharge Instructions* Donovan Sorenson, R.N. - 09/28/2024 12:00 PM CDT Pacemaker Replacement Instructions Activity Restrictions: No driving or important decision-making for the next 24 hours. Avoid vigorous, upper body activity & heavy lifting (more than 10 pounds) for the next week. Wound Care: Watch incision daily for signs and symptoms of infection and bleeding: Redness, swelling, large amount of drainage, oral temperature greater than 100.4?? F. If any of these are present, please call the [facility] ([phone]) or your local primary care provider. Types of Dressings Over Device Incision: MEPILEX: Remove dressing on or before 10/05/24. Check dressing daily for intact seal. If dressing is no longer intact, may need to remove sooner. Ok to shower day after implant with dressing on. Once dressing is removed, leave incision open to air. Pat incision dry after showering. Do not apply any lotions or creams directly to incision. Do not submerge incision in water until completely healed (usually 3-4 weeks). Pain control: You may use [id number] Tylenol (acetaminophen). DO NOT EXCEED 4 grams of acetaminophen from ALL sources in any 24-hour period. Follow-Up: Routine transmitter follow-up dates will be every 3 months. If a new transmitter is provided, please connect transmitter as directed. Important contact information: Please contact your device company with concerns or issues regarding your home transmitter. [employer] [phone] Question or concerns? Call [facility] at or [phone] Thursday - Thursday, 8:00 AM - 4:30 PM [employer]SE [employer]. For rescheduling of an in-clinic device check, please call [phone]. ALWAYS call [phone] in the event of an emergency documented in this encounter Medications at Time of Discharge acetaminophen (TYLENOL) 500 mg tablet Take 2 tablets (1,000 mg total) by mouth every 6 (six) hours as needed for pain. 05/05/2018 amLODIPine (NORVASC) 10 mg tablet 10 mg daily. 07/28/2020 aspirin 81 mg chewable tablet Chew 1 tablet (81 mg total) daily. 01/14/2020 atorvastatin (LIPITOR) 40 mg tablet Take 1 tablet by mouth daily. 12/21/2015 baclofen (LIORESAL) 10 mg tablet Take 5 mg by mouth 2 (two) times a day. Takes half tablet in AM and half tablet in PM cholecalciferol (VITAMIN D3) 25 mcg (1,000 Unit) capsule Take 25 mcg by mouth daily. diclofenac sodium (VOLTAREN) 1 % gel Apply 1.5 g topically 4 (four) times a day as needed (pain). donepeziL (ARICEPT) 10 mg tablet Take 10 mg by mouth daily. 04/06/2018 fluorouraciL (EFUDEX) 5 % cream as needed. 08/07/2020 loratadine (CLARITIN) 10 mg tablet Take 10 mg by mouth daily. melatonin 3 mg tablet Take 1.5 mg by mouth at bedtime. meloxicam (MOBIC) 7.5 mg tablet Take 7.5 mg by mouth daily. 09/26/2020 metoprolol tartrate (LOPRESSOR) 25 mg tablet Take 25 mg by mouth 2 (two) times a day. 2016 montelukast (SINGULAIR) 10 mg tablet Take 10 mg by mouth daily. 09/20/2019 sertraline (ZOLOFT) 50 mg tablet Take 50 mg by mouth daily. 12/13/2019 tamsulosin (FLOMAX) 0.4 mg 24 hr capsule Take 0.4 mg by mouth daily. 10/12/2014 triamcinolone (KENALOG) 0.5 % cream Apply 1 application topically as needed. 05/24/2020 trospium (SANCTURA) 20 mg tablet Take 20 mg by mouth 2 (two) times a day with meals. 02/09/2020 documented as of this encounter H&P Notes * Snow Avila Admin Closure - 09/28/2024 2:14 PM CDT Administrative Closure: This record is being filed as incomplete for a missing H&P. Health Information Management Services documented in this encounter Nursing Notes * Donovan Sorenson P, R.N. - 09/28/2024 12:33 PM CDT Patient returns status post AUTO TOP MECHANIC-P generator change. Patient's level of consciousness is A&O. The Left chest site is D/I and a Mepilex is in place. There is not a hematoma present. Patient may resume all home medications per Dr. Whatley. Patient was instructed to refrain from driving for 24 hours. Patient will follow up via [facility]. Patient will continue to use [facility] remote home monitor and will pair upon returning home. Patient may be discharged when dismissal criteria info is met. Device education has been completed. documented in this encounter Plan of Treatment Not on file documented as of this encounter Procedures Procedure Name Priority Date/Time Associated Diagnosis Comments POTASSIUM, S/P STAT 09/28/2024 1:25 PM CDT HEART RHYTHM PROCEDURE Routine 09/28/2024 11:45 AM CDT Device Cardiac Status Post CAR CARDIAC DEVICE INTERROGATION Routine 09/28/2024 11:10 AM CDT DX CHEST PORTABLE 1 VIEW RAD - Routine (most inpatients and all outpatients) 09/28/2024 9:36 AM CDT CBC WITHOUT DIFFERENTIAL, B Routine 09/28/2024 9:25 AM CDT SODIUM, S/P Routine 09/28/2024 9:25 AM CDT CREATININE WITH EGFR, S/P Routine 09/28/2024 9:25 AM CDT documented in this encounter Results * Potassium (09/28/2024 1:25 PM CDT) Potassium, P 4.4 3.6 - 5.2 mmol/L 09/28/2024 1:47 PM CDT STMA Blood (Blood, Venous) 09/28/2024 1:25 PM CDT 09/28/2024 1:34 PM CDT us Terrie Alfaro APRN, C.N.P., M.S.N. LAB BLOOD ADD- ON Final Result [facility] [address] [place] [address], [facility] STMA [facility] [address] [place] [address] * PPM GENERATOR CHANGE - BIV (09/28/2024 11:45 AM CDT) Anatomical Region Laterality Modality X-Ray Angiograph y 09/28/2024 10:5 8 AM CDT Narrative 09/29/2024 4:29 PM CDT For the complete report, see the Order-Level Documents. PROCEDURE TYPES 1. PPM GENERATOR CHANGE - BIV PRE-PROCEDURE DIAGNOSIS 1. Device Cardiac Status Post HRS NOTE The patient was brought to the operating room for replacement of AUTO TOP MECHANIC-P pulse generator due to current generator reaching ROQUE. The procedure was performed under moderate sedation. Chest was prepared and draped in the usual fashion.?A procedural pause was carried out. ?After subcutaneous instillation of 1% Lidocaine, incision was made through the previous scar and carried down to the generator and lead. ?The lead and generator were dissected free from their fibrous connections and delivered from the wound. ?The leads were removed from the existing generator. ?A new generator was selected and attached to the leads. ?The atrial port was plugged. The wound was irrigated and the generator and leads placed back in the pocket. ?Pacing, sensing, and impedance values were confirmed using the external system software programmer. ?These values were consistent with those measured prior to the procedure. The wound was then closed using two layers of 2-0 Vicryl and a layer of running 4-0 Monocryl. ? For the complete report, see the Order-Level Documents. Procedure Note Leti Whatley M.B.B.S. - 09/29/2024 For the complete report, see the Order-Level Documents. PROCEDURE TYPES 1. PPM GENERATOR CHANGE - BIV PRE-PROCEDURE DIAGNOSIS 1. Device Cardiac Status Post HRS NOTE The patient was brought to the operating room for replacement of AUTO TOP MECHANIC-Ppulse generator due to current generator reaching ROQUE. The procedure wasperformed under moderate sedation. Chest was prepared and draped in theusual fashion.?A procedural pause was carried out. ?After subcutaneousinstillation of 1% Lidocaine, incision was made through the previous scarand carried down to the generator and lead. ?The lead and generator weredissected free from their fibrous connections and delivered from thewound. ?The leads were removed from the existing generator. ?A newgenerator was selected and attached to the leads. ?The atrial port wasplugged. The wound was irrigated and the generator and leads placed backin the pocket. ?Pacing, sensing, and impedance values were confirmed usingthe external system software programmer. ?These values were consistent with those measuredprior to the procedure. The wound was then closed using two layers of 2-0Vicryl and a layer of running 4-0 Monocryl. ? For the complete report, see the Order-Level Documents. Compa Padilla CV ELECTROPHYSIOLOG Y PROCS Final Result * CARDIOVASCULAR IMPLANTABLE ELECTRONIC DEVICE - NO CHARGE (09/28/2024 11:10 AM CDT) Date Time Interrogation Session [id number] [facility] Implantable Pulse Generator Network Specialist [employer] [facility] Implantable Pulse Generator Type Cardiac Resynchronization Therapy - Pacemaker [facility] Implantable Pulse Generator Model U228 [facility] Implantable Pulse Generator Serial Number [id number] [facility] Implantable Pulse Generator Implant Date 20240928 [facility] Battery Status [facility]IE [facility] Lead Channel Setting Sensing Sensitivity 10.00 [facility] Lead Channel Setting Sensing Sensitivity 2.50 [facility] Lead Channel Impedance Value 419 [facility] Lead Channel Pacing Threshold Amplitude 0.900 [facility] Lead Channel Pacing Threshold Pulse Width 0.4 [facility] Lead Channel Measurements Date and Time 20240928 [facility] Lead Channel Setting Pacing Amplitude 3.500 [facility] Lead Channel Setting Pacing Pulse Width 0.4 [facility] Lead Channel Setting Sensing Sensitivity 2.50 [facility] Lead Channel Impedance Value 625 [facility] Lead Channel Pacing Threshold Amplitude 0.800 [facility] Lead Channel Pacing Threshold Pulse Width 0.4 [facility] Lead Channel Measurements Date and Time 20240928 [facility] Lead Channel Setting Pacing Amplitude 1.800 [facility] Lead Channel Setting Pacing Pulse Width 0.4 [facility] Marlon Setting Mode (NBG Code) VVIR [facility] Ventricular chambers paced during AUTO TOP MECHANIC pacing. BiV [facility] Marlon Setting Lower Rate Limit 60 [facility] Marlon Setting Maximum Sensor Rate 130 [facility] Marlon Setting PAV Delay 180 [facility] Zone Setting Type Category VF [facility] Zone Setting Status On [facility] Murj Zone ID 1 [facility] Zone Setting Type Category VT [facility] Murj Rate 1 160 [facility] Zone Setting Status On F[facility] Murj Zone ID 2 [facility] Zone Setting Type Category VT1 [facility] Zone Setting Status On F[facility] Murj Zone ID 3 [facility] Implantable Lead Network Specialist [employer] [facility] Implantable Lead Model 4671 Acuity X4 Straight [facility] Implantable Lead Location Left Ventricle [facility] Implantable Lead Connection Status Connected [facility] Implantable Lead Serial Number [id number] [facility] Implantable Lead Implant Date 20160129 [facility] Implantable Lead Special Function Lead length: 86.00 cm [facility] Implantable Lead Network Specialist [employer] [facility] Implantable Lead Model 4076 CapsureFix Novus MRI SureScan [facility] Implantable Lead Location Right Ventricle [facility] Implantable Lead Connection Status Connected [facility] Implantable Lead Serial Number [id number] [facility] Implantable Lead Implant Date 20160129 [facility] Implantable Lead Special Function Lead length: 58.00 cm [facility] Anatomical Region Laterality Modality Other 09/28/2024 3:45 PM CDT Impressions 09/28/2024 3:45 PM CDT Encounter Impression: Title: Generator Change * Generator change performed on 09/28/24 * Device implanted by Dr. Whatley at [facility] * Programmed parameters were reviewed * Presenting Rhythm: BiV paced @ 60 bpm * Underlying Rhythm: Continued to V pace @ 30 bpm * Temporary Pacemaker Used: N, used previous device * Temporary Pacemaker Site: NA * Dressing: Mepilex * Same Day Dismissal: Y * Summary: All device function appears normal * Interrogation performed by: Rasta Cheatham RN Plan: This patient underwent device interrogation. I agree that the device interrogation was medically indicated to provide appropriate care and continue routine device interrogations as indicated. Encounter Summary: This report includes 1 transmission that was received on 2024-09-28. Battery was reviewed. Narrative Procedure Note Amber Franco M.D., Ph.D. - 09/28/2024 IMPRESSION: Encounter Impression: Title: Generator Change * Generator change performed on 09/28/24 * Device implanted by Dr. Whatley at [facility] * Programmed parameters were reviewed * Presenting Rhythm: BiV paced @ 60 bpm * Underlying Rhythm: Continued to V pace @ 30 bpm * Temporary Pacemaker Used: N, used previous device * Temporary Pacemaker Site: NA * Dressing: Mepilex * Same Day Dismissal: Y * Summary: All device function appears normal * Interrogation performed by: Rasta Cheatham RN Plan: This patient underwent device interrogation. I agree that the deviceinterrogation was medically indicated to provide appropriate care andcontinue routine device interrogations as indicated. Encounter Summary: This report includes 1 transmission that was receivedon 2024-09-28. Battery was reviewed. us Dyan Stewart APRN, C.N.P., M.S.N. CV IMPLANTABL E CARDIAC DEVICE Final Result * DX Chest Portable 1 View (09/28/2024 9:36 AM CDT) Anatomical Region Laterality Modality Chest, Thoracic RST LOS, Tho racic ARZ LOS, Thoracic FLA LOS N/A Digital Radiography Impressions 09/28/2024 9:44 AM CDT Compared to chest x-ray 11/15/2019. Left chest wall dual-lead pacemaker. Similar enlargement of the cardiac silhouette. Thoracic aorta calcifications with mild unfolding. No significant pleural effusion or discernible pneumothorax. Prior reverse left shoulder arthroplasty partly visualized, degenerative changes of the spine. Narrative 09/28/2024 9:44 AM CDT EXAM: DX CHEST PORTABLE 1 VIEW Procedure Note Newton Beckham D.O. - 09/28/2024 EXAM: DX CHEST PORTABLE 1 VIEW IMPRESSION: Compared to chest x-ray 11/15/2019. Left chest wall dual-lead pacemaker.Similar enlargement of the cardiac silhouette. Thoracic aortacalcifications with mild unfolding. No significant pleural effusion ordiscernible pneumothorax. Prior reverse left shoulder arthroplasty partly visualized, degenerative changesof the spine. Leti Padilla IMG DIAGNOSTIC IMAGING PROCEDURES Final Result * Sodium (09/28/2024 9:25 AM CDT) Sodium, S 139 135 - 145 mmol/L 09/28/2024 11:06 AM CDT DTL Blood (Blood, Venous) 09/28/2024 9:25 AM CDT 09/28/2024 10:10 AM CDT Leti GonzalezS. LAB BLOOD ADD-ON Final Result Performing Organization Address [facility] Co de Phone Number [facility] [address] [facility] [address] [place] [address] * Creatinine with Estimated GFR (09/28/2024 9:25 AM CDT) Creatinine 0.92 0.74 - 1.35 mg/dL 09/28/2024 11:06 AM CDT DTL Estimated GFR (eGFR) 81 >=60 mL/min/BSA 09/28/2024 11:06 AM CDT DTL Comment: Estimated GFR calculated using the 2020 CKD_EPI creatinine equation. Blood (Blood, Venous) 09/28/2024 9:25 AM CDT 09/28/2024 10:10 AM CDT Leti GonzalezS. LAB BLOOD ADD-ON Final Result Performing Organization Address [facility] de Phone Number [facility] [address] [place] [address] * (ABNORMAL) CBC without Differential (09/28/2024 9:25 AM CDT) Hemoglobin 14.0 13.2 - 16.6 g/dL 09/28/2024 10:40 AM CDT DTL Hematocrit 41.6 38.3 - 48.6 % 09/28/2024 10:40 AM CDT DTL Erythrocytes 4.26(L) 4.35 - 5.65 x10(12)/L 09/28/2024 10:40 AM CDT DTL MCV 97.7 78.2 - 97.9 fL 09/28/2024 10:40 AM CDT DTL RBC Distrib Width 12.5 11.8 - 14.5 % 09/28/2024 10:40 AM CDT DTL Platelet Count 153 135 - 317 x10(9)/L 09/28/2024 10:40 AM CDT DTL Leukocytes 7.9 3.4 - 9.6 x10(9)/L 09/28/2024 10:40 AM CDT DTL Blood (Blood, Venous) 09/28/2024 9:25 AM CDT 09/28/2024 9:54 AM CDT us Leti Padilla LAB BLOOD ADD-ON Final Result [facility] [address] [place] [address], [facility] [address] [place] [address] documented in this encounter Visit Diagnoses Diagnosis Device Cardiac Status Post- Primary Device Cardiac Status Post documented in this encounter Admitting Diagnoses Diagnosis Device Cardiac Status Post documented in this encounter Administered Medications Inactive Administered Medications - up to 3 most recent administrations Medication Order MAR Action Action Date Dose Rate Site acetaminophen suppository 650 mg (TylenoL) 650 mg, rectal, Every 6 hours PRN, mild pain or score 1-3 of 10, Starting on Thu09/28/24 at 1158, Postprocedure (CV), If unable to give orally. acetaminophen suppository 650 mg (TylenoL) 650 mg, rectal, Every 6 hours PRN, mild pain or score 1-3 of 10, Starting on Thu09/28/24 at 1312, Postprocedure (CV), If unable to give orally. acetaminophen tablet 1,000 mg (TylenoL) 1,000 mg, oral, Every 6 hours PRN, mild pain or score 1-3 of 10, Starting on Thu09/28/24 at 1158, Postprocedure (CV) acetaminophen tablet 1,000 mg (TylenoL) 1,000 mg, oral, Every 6 hours PRN, mild pain or score 1-3 of 10, Starting on Thu09/28/24 at 1312, Postprocedure (CV) ondansetron (PF) injection 4 mg (Zofran) 4 mg, intravenous, Once as needed, nausea, first line option, Starting on Thu09/28/24 at 1158, For 1 dose, Postprocedure (CV) ondansetron (PF) injection 4 mg (Zofran) 4 mg, intravenous, Once as needed, nausea, first line option, Starting on Thu09/28/24 at 1312, For 1 dose, Postprocedure (CV) sodium chloride 0.9 % injection 10 mL 10 mL, intravenous, As needed, line care, Peripheral Intravenous Catheter and Rapid Infusion Catheter, Starting on Thu09/28/24 at 0858, Preprocedure (CV), Prior to blood sampling, post blood transfusion or post blood sampling. sodium chloride 0.9 % injection 3 mL 3 mL, intravenous, As needed, line care, Peripheral Intravenous Catheter and Rapid Infusion Catheter, Starting on Thu09/28/24 at 0858, Preprocedure (CV), Prior to and following infusion and between multiple consecutive infusions. sodium chloride 0.9 % injection 3 mL 3 mL, intravenous, Every 12 hours scheduled, First dose on Thu09/28/24 at 2100, Preprocedure (CV), Peripheral Intravenous Catheter and Rapid Infusion Catheter: When no infusion to maintain patency. documented in this encounter Active and Recently Administered Medications Times are shown in CDT. Scheduled Medication Order 09/26/2024 09/27/2024 09/28/2024 ceFAZolin injection 25 mg/kg (Ancef) (COMPLETED) 25 mg/kg, intravenous, Once, On Thu09/28/24 at 1100, For 1 dose, Intraprocedure (CV), Administer within 1 hour prior to surgical incision For immediate IV push administration, reconstitute vial per IVAG or package insert instructions. See IVAG for administration guidelines., Drug Monitoring Program: Pharmacist to adjust medication dosing based on indication and drug clearance factors., Indications: Prophylaxis, surgical 1051 (Given - Provid er: Sonido Ratliff R.N.)1100 (Due) sodium chloride 0.9 % injection 3 mL 3 mL, intravenous, Every 12 hours scheduled, First dose on Thu09/28/24 at 2100, Preprocedure (CV), Peripheral Intravenous Catheter and Rapid Infusion Catheter: When no infusion to maintain patency. PRN Medication Order 09/26/2024 09/27/2024 09/28/2024 acetaminophen suppository 650 mg (TylenoL)(Linked Group 1) 650 mg, rectal, Every 6 hours PRN, mild pain or score 1-3 of 10, Starting on Thu09/28/24 at 1158, Postprocedure (CV), If unable to give orally. acetaminophen suppository 650 mg (TylenoL)(Linked Group 2) 650 mg, rectal, Every 6 hours PRN, mild pain or score 1-3 of 10, Starting on Thu09/28/24 at 1312, Postprocedure (CV), If unable to give orally. acetaminophen tablet 1,000 mg (TylenoL)(Linked Group 1) 1,000 mg, oral, Every 6 hours PRN, mild pain or score 1-3 of 10, Starting on Thu09/28/24 at 1158, Postprocedure (CV) acetaminophen tablet 1,000 mg (TylenoL)(Linked Group 2) 1,000 mg, oral, Every 6 hours PRN, mild pain or score 1-3 of 10, Starting on Thu09/28/24 at 1312, Postprocedure (CV) fentaNYL injection (Sublimaze) (CANCELED) Code/trauma/sedation medication, Starting on Thu09/28/24 at 1044, Intraprocedure (CV) 1044 (Given - Provid er: Sonido Ratliff R.N.)1101 (Given - Provider: Sonido Ratliff R.N.)1125 (Given - Provider: Armida Stratton R.N.)1128 (Canceled Entry - Provider: Armida Stratton R.N.) lidocaine 10 mg/mL (1 %) injection (Xylocaine) (CANCELED) Code/trauma/sedation medication, Starting on Thu09/28/24 at 1102, Intraprocedure (CV) 1102 (Given - Provid er: Randy Handley) midazolam (PF) injection (Versed) (CANCELED) Code/trauma/sedation medication, Starting on Thu09/28/24 at 1045, Intraprocedure (CV) 1045 (Given - Provid er: Sonido Ratliff R.N.)1105 (Given - Provider: Armida Stratton R.N.)1114 (Given - Provider: Armida Stratton R.N.)1135 (Given - Provider: Armida Stratton R.N.) ondansetron (PF) injection 4 mg (Zofran) 4 mg, intravenous, Once as needed, nausea, first line option, Starting on Thu09/28/24 at 1158, For 1 dose, Postprocedure (CV) ondansetron (PF) injection 4 mg (Zofran) 4 mg, intravenous, Once as needed, nausea, first line option, Starting on Thu09/28/24 at 1312, For 1 dose, Postprocedure (CV) sodium chloride 0.9 % injection 10 mL 10 mL, intravenous, As needed, line care, Peripheral Intravenous Catheter and Rapid Infusion Catheter, Starting on Thu09/28/24 at 0858, Preprocedure (CV), Prior to blood sampling, post blood transfusion or post blood sampling. sodium chloride 0.9 % injection 3 mL 3 mL, intravenous, As needed, line care, Peripheral Intravenous Catheter and Rapid Infusion Catheter, Starting on Thu09/28/24 at 0858, Preprocedure (CV), Prior to and following infusion and between multiple consecutive infusions. Linked Groups Order Group 1: acetaminophen tablet 1,000 mg (TylenoL)Jump to med 1,000 mg, oral, Every 6 hours PRN, mild pain or score 1-3 of 10, Starting on Thu09/28/24 at 1158, Postprocedure (CV) Or acetaminophen suppository 650 mg (TylenoL)Jump to med 650 mg, rectal, Every 6 hours PRN, mild pain or score 1-3 of 10, Starting on Thu09/28/24 at 1158, Postprocedure (CV), If unable to give orally. Group 2: acetaminophen tablet 1,000 mg (TylenoL)Jump to med 1,000 mg, oral, Every 6 hours PRN, mild pain or score 1-3 of 10, Starting on Thu09/28/24 at 1312, Postprocedure (CV) Or acetaminophen suppository 650 mg (TylenoL)Jump to med 650 mg, rectal, Every 6 hours PRN, mild pain or score 1-3 of 10, Starting on Thu09/28/24 at 1312, Postprocedure (CV), If unable to give orally. documented in this encounter Additional Health Concerns Assessment Noted Time PHQ-9 Depression Total Score: 5 11/17/19 20 4:22 AM CDT documented as of this encounter Care Teams Mercerizing Range Controller Relationship Specialty Start Date End Date Elsewhere, Pcp PCP - General Internal Medicine 09/28/24 documented as of this encounter
--- OUTSIDE RECORDS SUMMARY | 2024-09-28 10:20 | XMS_ITS | Encounter Summary ---
Author Organization [facility] Address [address] [place] [id number] Care Team Providers Care Motorized Squad Sergeant Name Role Phone Elsewhere, Pcp Primary Care Provider Unavailabl e Encounter Details Date Type Department Care Team (Late st Contact Info) Description 09/28/2024 10:20 AM CDT - 09/28/2024 12:12 PM CDT Surgery Division of Cardiovascular Diseases in [place], [place] [address] [place] [phone] Leti Whatley M.B.B.S. [address] [place] [phone] PPM GENERATOR CHANGE - BIV Social History Tobacco Use Types Packs/Day Years [...] place to sleep or slept in a prison (including now)? No 10/03/2020 Depression Answer Date Recor ded PHQ-9 Total Score (max 27) 5 11/16 Education Answer Date Recorded What is the highest level of school you have completed or the highest degree you have received? Doctorate 02/17/2020 Sex and Gender Information Value Date Recorded Sex Assigned at Not on file Legal Sex Male 5:41 AM BRIM ROUNDER Gender Identity Not on file Sexual Orientation Not on file documented as of this encounter Last Filed Vital Signs Vital Sign Reading Time Taken Comments Blood Pressure 114/56 09/28/2024 12:09 PM CDT Pulse 60 09/28/2024 12:09 PM CDT Temperature 36.4 C (97.5 F) 09/28/2024 9:09 AM CDT Respiratory Rate 9 09/28/2024 11:36 AM CDT Oxygen Saturation 90% 09/28/2024 12:09 PM CDT Inhaled Oxygen Concentration - - [...] of these are present, please call the [facility] ([phone]) or your local primary care provider. Types [...] 3-4 weeks). Pain control: You may use [id number] Tylenol (acetaminophen). DO NOT EXCEED 4 grams of acetaminophen from ALL sources in any 24-hour period. Follow-Up: Routine transmitter follow-up dates will be every 3 months. If a new transmitter is provided, please connect transmitter as directed. Important contact information: Please contact your device company with concerns or issues regarding your home transmitter. [employer] [phone] Question or concerns? Call [facility] at or [phone] Thursday - Thursday, 8:00 AM - 4:30 PM BRIM ROUNDER. For rescheduling of an in-clinic device check, please call [phone]. ALWAYS call [phone] in the event of an emergency documented in this encounter Medications at Time of Discharge amLODIPine (NORVASC) 10 mg tablet 10 mg daily. 07/28/2020 atorvastatin (LIPITOR) 40 mg tablet Take 1 tablet by mouth daily. 12/21/2015 cholecalciferol (VITAMIN D3) 25 mcg (1,000 Unit) capsule Take 25 mcg by mouth daily. donepeziL (ARICEPT) 10 mg tablet Take 10 mg by mouth daily. 04/06/2018 melatonin 3 mg tablet Take 1.5 mg by mouth at bedtime. metoprolol tartrate (LOPRESSOR) 25 mg tablet Take 25 mg by mouth 2 (two) times a day. 2016 sertraline (ZOLOFT) 50 mg tablet Take 50 mg by mouth daily. 12/13/2019 trospium (SANCTURA) 20 mg tablet Take 20 mg by mouth 2 (two) times a day with meals. 02/09/2020 acetaminophen (TYLENOL) 500 mg tablet Take 2 tablets (1,000 mg total) by mouth every 6 (six) hours as needed for pain. 05/05/2018 aspirin 81 mg chewable tablet Chew 1 tablet (81 mg total) daily. 01/14/2020 baclofen (LIORESAL) 10 mg tablet Take 5 mg by mouth 2 (two) times a day. Takes half tablet in AM and half tablet in PM diclofenac sodium (VOLTAREN) 1 % gel Apply 1.5 g topically 4 (four) times a day as needed (pain). fluorouraciL (EFUDEX) 5 % cream as needed. 08/07/2020 loratadine (CLARITIN) 10 mg tablet Take 10 mg by mouth daily. meloxicam (MOBIC) 7.5 mg tablet Take 7.5 mg by mouth daily. 09/26/2020 montelukast (SINGULAIR) 10 mg tablet Take 10 mg by mouth daily. 09/20/2019 tamsulosin (FLOMAX) 0.4 mg 24 hr capsule Take 0.4 mg by mouth daily. 10/12/2014 triamcinolone (KENALOG) 0.5 % cream Apply 1 application topically as needed. 05/24/2020 documented as of this encounter H&P Notes * Snow Avila Admin Closure - 09/28/2024 2:14 PM CDT Administrative Closure: This record is being filed as incomplete for a missing H&P. Health Information Management Services documented in this encounter Nursing Notes * Donovan Sorenson, R.N. - 09/28/2024 12:33 PM CDT Patient returns status post CATTLE SORTER-P generator change. Patient's level of consciousness is A&O. The Left chest site is D/I and a Mepilex is in place. There is not a hematoma present. Patient may resume all home medications per Dr. Whatley. Patient was instructed to refrain from driving for 24 hours. Patient will follow up via [facility]. Patient will continue to use current [facility] remote home monitor and will [...] M.S.N. LAB BLOOD ADD- ON Final Result [facility] [address] [place] [address], [facility] [address] [place] [address] * PPM GENERATOR CHANGE - BIV (09/28/2024 11:45 AM CDT) Anatomical Region Laterality Modality X-Ray Angiograph y 09/28/2024 10:5 8 AM CDT Narrative 09/29/2024 4:29 PM CDT For the complete report, see the Order-Level Documents. PROCEDURE TYPES 1. PPM GENERATOR CHANGE - BIV PRE-PROCEDURE DIAGNOSIS 1. Device Cardiac Status Post HRS NOTE The patient was brought to the operating room for replacement of CATTLE SORTER-P pulse generator due to current generator reaching [...] impedance values were confirmed using the external java programmer. ?These values were consistent with those [...] to the operating room for replacement of CATTLE SORTER-Ppulse generator due to current generator reaching ROQUE. [...] and impedance values were confirmed usingthe external java programmer. ?These values were consistent with those measuredprior to the procedure. The wound was then closed using two layers of 2-0Vicryl and a layer of running 4-0 Monocryl. ? For the complete report, see the Order-Level Documents. Compa Padilla CV ELECTROPHYSIOLOG Y PROCS Final Result * CARDIOVASCULAR IMPLANTABLE ELECTRONIC DEVICE - NO CHARGE (09/28/2024 11:10 AM CDT) Date Time Interrogation Session [id number] [facility] Implantable Pulse Generator Commercial Artist Lettering Valier Sellsy [facility] Implantable Pulse Generator Type Cardiac Resynchronization Therapy - Pacemaker [facility] Implantable Pulse Generator Model U228 [facility] Implantable Pulse Generator Serial Number [id number] [facility] Implantable Pulse Generator Implant Date 20240928 [facility] Battery Status [facility] Lead Channel Setting Sensing Sensitivity 10.00 [facility] Lead Channel Setting Sensing Sensitivity 2.50 [facility] Lead Channel Impedance Value [...] Lead Channel Measurements Date and Time 20240928 [facility] Lead Channel Setting Pacing Amplitude 1.800 [facility] Lead Channel Setting Pacing Pulse Width 0.4 [facility] Marlon Setting Mode (NBG Code) VVIR [facility] Ventricular chambers paced during CATTLE SORTER pacing. BiV [facility] Marlon Setting Lower Rate Limit 60 [facility] Marlon Setting Maximum Sensor Rate 130 [facility] Marlon Setting PAV Delay 180 [facility] Zone Setting Type Category [...] 3 [facility] Implantable Lead Commercial Artist Lettering Valier [employer] [facility] Implantable Lead Model 4671 Acuity X4 Straight [facility] Implantable Lead Location Left Ventricle [facility] Implantable Lead Connection Status Connected [facility] Implantable Lead Serial Number [id number] [facility] Implantable Lead Implant Date 20160129 [facility] Implantable Lead Special Function Lead length: 86.00 cm [facility] Implantable Lead Commercial Artist Lettering Medtronic [facility] Implantable Lead Model 4076 CapsureFix Novus MRI SureScan [facility] Implantable Lead Location Right Ventricle [facility] Implantable Lead Connection Status Connected [facility] Implantable Lead Serial Number [id number] [facility] Implantable Lead Implant Date 20160129 [facility] Implantable Lead Special Function Lead length: 58.00 cm [facility] Anatomical Region Laterality Modality Other 09/28/2024 3:45 PM CDT Impressions 09/28/2024 3:45 PM CDT Encounter Impression: Title: Generator Change * Generator change performed on 09/28/24 * Device implanted by Dr. Whatley at [facility] * Programmed parameters were reviewed * [...] * Device implanted by Dr. Whatley at [facility] * Programmed parameters were reviewed * [...] BLOOD ADD-ON Final Result Performing Organization Address [facility] de Phone Number [facility] [address] [facility] 200 [place] [address] * Creatinine with Estimated GFR (09/28/2024 9:25 AM CDT) Creatinine 0.92 0.74 - 1.35 mg/dL 09/28/2024 11:06 AM CDT DTL Estimated GFR (eGFR) 81 >=60 mL/min/BSA 09/28/2024 11:06 AM CDT DTL Comment: Estimated GFR calculated using the 2020 CKD_EPI creatinine equation. Blood (Blood, Venous) 09/28/2024 9:25 AM CDT 09/28/2024 10:10 AM CDT eLti GonzalezS. LAB BLOOD ADD-ON Final Result Performing Organization Address [facility] de Phone Number [facility] 200 [place] [address], [facility] 200 [place] [address] * (ABNORMAL) CBC without Differential (09/28/2024 9:25 [...] 9:25 AM CDT 09/28/2024 9:54 AM CDT Leti Padilla LAB BLOOD ADD-ON Final Result [facility] 200 [place] [address], [facility] [address] [address] documented in this encounter Visit Diagnoses Diagnosis [...] Starting on Thu09/28/24 at 1312, Postprocedure (CV) ceFAZolin injection 25 mg/kg (Ancef) 25 mg/kg, intravenous, Once, On Thu09/28/24 at 1100, For 1 dose, Intraprocedure (CV), Administer within 1 hour prior to surgical incision For immediate IV push administration, reconstitute vial per IVAG or package insert instructions. See IVAG for administration guidelines., Drug Monitoring Program: Pharmacist to adjust medication dosing based on indication and drug clearance factors., Indications: Prophylaxis, surgicalIndications:Prophylaxis, surgical Given 09/28/2024 10:51 AM CDT 2 g fentaNYL injection (Sublimaze) Code/trauma/sedation medication, Starting on Thu09/28/24 at 1044, Intraprocedure (CV) Given 09/28/2024 11:25 AM CDT 25 mcg Given 09/28/2024 11:01 AM CDT 50 mcg Given 09/28/2024 10:44 AM CDT 25 mcg lidocaine 10 mg/mL (1 %) injection (Xylocaine) Code/trauma/sedation medication, Starting on Thu09/28/24 at 1102, Intraprocedure (CV) Given 09/28/2024 11:02 AM CDT 13 mL midazolam (PF) injection (Versed) Code/trauma/sedation medication, Starting on Thu09/28/24 at 1045, Intraprocedure (CV) Given 09/28/2024 11:35 AM CDT 0. 5 mg Given 09/28/2024 11:14 AM CDT 0.5 mg Given 09/28/2024 11:05 AM CDT 0.5 mg ondansetron (PF) injection 4 mg (Zofran) 4 [...] (CV) 1044 (Given - Provid er: Sonido Rtaliff R.N.)1101 (Given - Provider: Sonido Ratliff R.N.)1125 [...] Noted Time PHQ-9 Depression Total Score: 5 11/16/ 20 4:22 AM CDT documented as of this encounter Care Teams Motorized Squad Sergeant Relationship Specialty Start Date End Date Elsewhere, Pcp PCP - General Internal Medicine 09/28/24 documented as of this encounter
--- OUTSIDE RECORDS SUMMARY | 2024-10-05 07:37 | XMS_ITS | Encounter Summary ---
Author Organization [facility] Address [address] [place] [address] Care Team Providers Care Extrusion Engineer Name Role Phone Elsewhere, Pcp Primary Care Provider Unavailabl e Encounter Details Date Type Department Care Team (Latest Contact Info) Description 10/05/2024 7:37 AM CDT - 10/05/2024 11:59 PM CDT Hospital Encounter Department of Cardiovascular Diseases in [place], [place] [address] [place] [address] Nato Hendrix M.D. [address] [place] [phone] Discharge Disposition: Home or Self Care Social [...] place to sleep or slept in a custodial (including now)? No 10/03/2020 Depression Answer Date Recor ded PHQ-9 Total Score (max 27) 5 11/16 Education Answer Date Recorded What is the highest level of school you have completed or the highest degree you have received? Doctorate 02/17/2020 Sex and Gender Information Value Date Recorded Sex Assigned at Not on file Legal Sex Male 5:41 AM EVENTS MANAGER Gender Identity Not on file Sexual Orientation Not on file documented as of this encounter Medications at Time of Discharge [...] meals. 02/09/2020 documented as of this encounter Plan of Treatment Not on file documented as of this encounter Procedures Procedure Name Priority Date/Time Associated Diagnosis Comments INTERFACED REMOTE DEVICE CHECK Routine 10/05/2024 7:37 AM CDT documented in this encounter Results * CAR CARDIAC DEVICE INTERROGATION (10/05/2024 7:37 AM CDT) Date Time Interrogation Session [id number] [facility] Type Interrogation Session Remote Device Initiated [facility] Implantable Pulse Generator Evaporator Operator [facility] Implantable Pulse Generator Type Cardiac Resynchronization Therapy - Pacemaker [facility] Implantable Pulse Generator Model U228 [facility] Implantable Pulse Generator Serial Number [id number] [facility] Implantable Pulse Generator Implant Date 20240928 [facility] Battery Remaining Percentage 100.00 % [facility] Battery Remaining Longevity 84.0 mo [facility] Battery Status Beginning of Service [facility] Marlon Statistic RA Percent Paced 0.00 [facility] Marlon Statistic RV Percent Paced 100.00 [facility] OIL REFINERY PROCESS TECHNICIAN Statistic LV Percent Paced 100.00 [facility] OIL REFINERY PROCESS TECHNICIAN Statistic OIL REFINERY PROCESS TECHNICIAN Percent Paced 100.00 [facility] Lead Channel Setting Sensing Sensitivity 10.00 [facility] Lead Channel Measurements Date and Time 20241004 [facility] Lead Channel Setting Sensing Sensitivity 2.50 [facility] Lead Channel Impedance Value 420 [facility] Lead Channel Pacing Threshold Amplitude 1.100 [facility] Lead Channel Pacing Threshold Pulse Width 0.4 [facility] Lead Channel Measurements Date and Time 20241003 [facility] Lead Channel Setting Pacing Amplitude 2.600 [facility] Lead Channel Setting Pacing Pulse Width 0.4 [facility] Lead Channel Impedance Value 597 [facility] Lead Channel Setting Pacing Amplitude 1.800 [facility] Lead Channel Setting Pacing Pulse Width 0.4 [facility] Marlon Setting Mode (NBG Code) VVIR [facility] Ventricular chambers paced during OIL REFINERY PROCESS TECHNICIAN pacing. BiV [facility] Marlon Setting Lower Rate Limit 60 [facility] Marlon Setting AT Mode Switch Rate 170 [facility] Marlon Setting Maximum Sensor Rate 130 [facility] OIL REFINERY PROCESS TECHNICIAN LV-RV Delay 0 [facility] Lead Channel Setting Sensing Polarity Bipolar [facility] Lead Channel Setting Pacing Polarity Bipolar [facility] Lead Channel Pacing Threshold Polarity Bipolar [facility] Lead Channel Pacing Threshold Polarity Unipolar [facility] Zone Setting Type Category VT [facility] Murj Rate 1 160 [facility] Zone Setting Status Monitor [facility] Murj Zone ID 1 [facility] Implantable Lead Evaporator Operator [place] Scientific [facility] Implantable Lead Model 4671 Acuity X4 Straight [facility] Implantable Lead Location Left Ventricle [facility] Implantable Lead Connection Status Connected [facility] Implantable Lead Serial Number [id number] [facility] Implantable Lead Implant Date 20160129 [facility] Implantable Lead Special Function Lead length: 86.00 cm [facility] Implantable Lead Evaporator Operator Medtronic [facility] Implantable Lead Model 4076 CapsureFix Novus MRI SureScan [facility] Implantable Lead Location Right Ventricle [facility] Implantable Lead Connection Status Connected [facility] Implantable Lead Serial Number [id number] [facility] Implantable Lead Implant Date 20160129 [facility] Implantable Lead Special Function Lead length: 58.00 cm [facility] Anatomical Region Laterality Modality Other 10/28/2024 1:42 PM CDT Impressions 10/28/2024 1:42 PM CDT Encounter Impression: Title: Initial Home Monitor Setup * Device interrogation for initial monitor setup * Alerts or Events: 0 * Battery: Battery is at 100%, 7.00 yrs * Programmed parameters reviewed * Presenting rhythm reviewed and reports BiV pacing at 60 bpm. Additional Notes: Atrial pacing lead impedance out of range. An automatic safety switch from bipolar to unipolar occurred on September 28, 2024 due to an RA Pace Impedance measurement of >3000 . Recent pack change, programmed VVIR Plan: This patient underwent device interrogation. I agree that the device interrogation was medically indicated to provide appropriate care and continue routine device interrogations as indicated. Encounter Summary: This report includes 1 transmission that was received on 2024-10-05. Battery was reviewed. Narrative Procedure Note Nato Hendrix M.D. - 10/28/2024 IMPRESSION: Encounter Impression: Title: Initial Home Monitor Setup * Device interrogation for initial monitor setup * Alerts or Events: 0 * Battery: Battery is at 100%, 7.00 yrs * Programmed parameters reviewed * Presenting rhythm reviewed and reports BiV pacing at 60 bpm. Additional Notes: Atrial pacing lead impedance out of range. An automatic safety switch from bipolar to unipolar occurred on September due to an RA Pace Impedance measurement of >3000 . Recent packchange, programmed VVIR Plan: This patient underwent device interrogation. I agree that the deviceinterrogation was medically indicated to provide appropriate care andcontinue routine device interrogations as indicated. Encounter Summary: This report includes 1 transmission that was receivedon 2024-10-05. Battery was reviewed. Nato Hendrix M.D. CV IMPLANTABLE CARDIAC DEVICE Final Result documented in this encounter Visit Diagnoses Not on filedocumented in this encounter Additional Health Concerns Assessment Noted Time PHQ-9 Depression Total Score: 5 11/17/19 20 4:22 AM CDT documented as of this encounter Care Teams Extrusion Engineer Relationship Specialty Start Date End Date Elsewhere, Pcp PCP - General Internal Medicine 09/28/24 documented as of this encounter
--- OUTSIDE RECORDS SUMMARY | 2024-11-01 13:53 | XMS_ITS | Clinical Summary ---
Author Organization [facility] Address [address] [place] [address] Care Team Providers Care Teaching Artist Name Role Phone Elsewhere, Pcp Primary Care Provider Unavailabl e Source Comments Patient records contain information from all sites at [facility]. For routine questions regarding patient records, call [phone] during business hours, M-F 8:00 AM - 5:00 PM Central Time. Record requests for emergency care only can be directed to [phone] at any time.[facility] Allergies Active Allergy Reactions Criticality Noted Date Comments House Dust Mite Other (see comments) 08/07/2007 Nasal congestion Pollen Extracts Other (see comments) 01/20/2005 Nasal stuffiness Medications atorvastatin (LIPITOR) 40 mg tablet Take 1 tablet by mouth daily. 6 Active metoprolol tartrate (LOPRESSOR) 25 mg tablet Take 25 mg by mouth 2 (two) times a day. 7 Active donepeziL (ARICEPT) 10 mg tablet Take 10 mg by mouth daily. 8 Active acetaminophen (TYLENOL) 500 mg tablet Take 2 tablets (1,000 mg total) by mouth every 6 (six) hours as needed for pain. 9 Active Additional Information Patient taking differently: 500 mgoral,(No frequency reported), (No PRN reasons reported), 4-6 tabs a day, Informant: Self, Reported on 09/28/2024 baclofen (LIORESAL) 10 mg tablet Take 5 mg by mouth 2 (two) times a day. Takes half tablet in AM and half tablet in PM Active loratadine (CLARITIN) 10 mg tablet Take 10 mg by mouth daily. Active diclofenac sodium (VOLTAREN) 1 % gel Apply 1.5 g topically 4 (four) times a day as needed (pain). Active montelukast (SINGULAIR) 10 mg tablet Take 10 mg by mouth daily. 0 Active sertraline (ZOLOFT) 50 mg tablet Take 50 mg by mouth daily. 0 Active melatonin 3 mg tablet Take 1.5 mg by mouth at bedtime. Active aspirin 81 mg chewable tablet Chew 1 tablet (81 mg total) daily. 0 Active cholecalciferol (VITAMIN D3) 25 mcg (1,000 Unit) capsule Take 25 mcg by mouth daily. Active trospium (SANCTURA) 20 mg tablet Take 20 mg by mouth 2 (two) times a day with meals. 0 Active triamcinolone (KENALOG) 0.5 % cream Apply 1 application topically as needed. 1 Active tamsulosin (FLOMAX) 0.4 mg 24 hr capsule Take 0.4 mg by mouth daily. 5 Active amLODIPine (NORVASC) 10 mg tablet 10 mg daily. 1 Active meloxicam (MOBIC) 7.5 mg tablet Take 7.5 mg by mouth daily. 1 Active fluorouraciL (EFUDEX) 5 % cream as needed. 1 Active Active Problems Problem Noted Date Diagnosed Date Atrial Fibrillation Longstanding Persistent 01/02 Stroke 11/15/2019 Other Pericardial Effusion Noninflammatory 11/07 Overview (11/08/2019): Transthoracic echocardiogram 11/08/19: Small pericardial effusion noted anteriorly and at the apex. Hemodynamically stable. Ablation Atrioventricular Node Status Post 11/06 Overview (11/07/2019): 2016. 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 He is spastic in both the left upper and lower extremity. 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 Fracture Femur Greater Troch anter Displaced Closed Subsequent With Routine Healing Left 05/27/2018 Fracture Periprosthetic Other Internal Joint Ini tial 05/03/2018 Fracture Periprosthetic Hip Initial Left 018 Fracture Femur Greater Troch anter Displaced Closed Initial Left 05/01/2018 Barretts Esophagus Without Dysplasia 05/15/2017 Overview (01/12/2020): Overview: EGD 05/2017 [facility], repeat EGD in 1 year Benign Prostatic Hyperplasia With Lower Urinary Tract Symptom 07/28/2016 Device Cardiac Status Post 01/30/2016 Atrial Fibrillation 01/28/2016 Overview (01/12/2020): [id number] 5 (age 4, CVA 2, HTN). HAS-BLED 4. 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 Central Sleep Apnea Syndrome 07/14/2008 Hypertension Essential Primary 01/20/2005 Hyperlipidemia 01/20/2005 Resolved Problems Problem Noted Date Diagnosed Date Resolved Date Heart Failure NOS 01/16/2016 11/07/2019 Cardiomyopathy 07/14/2008 11/07/2019 Encounters Date Type Department Care Team Description 10/05/2024 7:37 AM CDT - 10/05/2024 11:59 PM CDT Hospital Encounter Department of Cardiovascular Diseases in [place], [place] [address] [place] [address] Nato Hendrix M.D. Discharge Disposition: Home or Self Care 09/29/2024 Clinical Communication Department of Cardiovascular Medicine in [place], [place] [address] [place] [address] Leti Whatley M.B.B.S. 09/29/2024 Clinical Communication Department of Cardiovascular Medicine in [address] [address] Leti Whatley M.B.B.S. DEVICE REGISTRATION (PPM GENERATOR CHANGE ///) 09/28/2024 10:20 AM CDT - 09/28/2024 12:12 PM CDT Surgery Division of Cardiovascular Diseases in [address] [address] Leti Whatley M.B.B.S. PPM GENERATOR CHANGE - BIV 09/28/2024 7:45 AM CDT - 09/28/2024 2:14 PM CDT Hospital Encounter Division of Cardiovascular Diseases in [address] [address] Leti Whatley M.B.B.S. Device Cardiac Status Post Discharge Disposition: Home or Self Care 09/28/2024 Clinical Communication Department of Cardiovascular Medicine in [address] [address] Leti Whatley M.B.B.S. telephone call 09/06/2024 Clinical Communication Department of Cardiovascular Diseases in [address] [address] Benja Jackson R.N. [employer] Advisory Generator replacement 08/03/2024 10:09 AM CDT - 08/03/2024 11:59 PM CDT Hospital Encounter Department of Cardiovascular Diseases in [place], [place] [address] [place] [phone] Mike Boggs M.D., M.P.H. Discharge Disposition: Home or Self Care from Last 3 Months Immunizations Immunization Administration Dates Next Due H1N1 All Forms 04/18/2009 HZV (ZOSTAVAX) 03/12/2006 HepA / HepB 02/03/2012, 4,04/19/2001,2000 HepB Adult 10/18/2001 Influenza Split 03/08/2012, 2,02/01/2010,2003 Influenza TIV (IM) 03/08/2002,04/19/2001, 000 Influenza, Seasonal, Injectable 02/20/2005 Influenza, Unspecified 03/08/2012,02/01/2010 PCV13 07/13/2014 PCV7 (discontinued) 04/19/2001 PPSV23 05/04/2002 Td, (Adult) Unspecified 05/04/2002 Tdap 02/03/2012,09/15/2010 TyVi (inj) 04/06/2006,05/22/2003 influenza trivalent high dos e (HD)(PF) 02/11/2017,01/30/2016,01/29/2015,2013 influenza trivalent vaccine (6 months and older)(PF) 02/03/2013,01/27/2011 Family History Medical History Relation Name Comments Diabetes Father Jared Osteoporosis Mother Ramya Relation Name Status Comments Father Jared Mother Ramya Social History Tobacco Use Types Packs/Day Years [...] place to sleep or slept in a chcf (including now)? No 10/03/2020 Depression Answer Date Recor ded PHQ-9 Total Score (max 27) 5 11/16 Education Answer Date Recorded What is the highest level of school you have completed or the highest degree you have received? 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 Gender Identity Not on file Sexual Orientation Not on file Last Filed Vital Signs Vital Sign Reading Time Taken Comments Blood Pressure 102/31 09/28/2024 1:24 PM CDT Pulse 60 09/28/2024 1:54 PM CDT Temperature 36.4 C (97.5 F) 09/28/2024 9:09 AM CDT Respiratory Rate 9 09/28/2024 11:36 AM CDT Oxygen Saturation 93% 09/28/2024 1:54 PM CDT Inhaled Oxygen Concentration - - Weight 95 kg (209 lb 7 oz) 02/04/2021 7:54 AM CD T Height 182.9 cm (6' 0.01) 09/28/2024 10:50 AM C DT Body Mass Index 28.68 02/04/2021 7:54 AM CDT Plan of Treatment Health Maintenance Due Date Last Done Comments DTaP,Tdap,and Td Vaccines (3 - Td or Tdap) 02/02/2022 02/03/2012, 09/15/2010, 12/19/2002, Additional history exists Zoster Vaccines (3 of 3) 06/15/2023 04/20/2023, 11/01/2006 Depression Screening (Annual PHQ-2) 05/04/2024 COVID-19 Vaccine ( season) 2024 02/11/2024, 02/11/2023, 01/30/2022, Additional history exists Influenza Vaccine (#1) 2025 , 02/11/2023, 01/30/2022, Additional history exists Hepatitis A Vaccines Completed 02/03/2012, 03/04/2004, 04/19/2001, Additional history exists Hepatitis B Vaccines Completed 02/03/2012, 03/04/2004, 10/18/2001, Additional history exists Pneumococcal vaccine (50+ years) Completed 06/13/2021, 07/13/2014, 02/01/2007, Additional history exists RSV vaccine - (32-36 weeks) or 60+ years Completed 01/08/2023 Fall Risk Screen (Annual) Completed 09/28/2024 IPV Vaccines Aged Out No longer eligi ble based on patient's age to complete this topic Medical Devices Implanted Type Area Photographic Supervisor Device Identifier Shelf Expiration Date Model / Serial / Lot Lead Acuity Corporate Director Of Pharmacy X4 Straight - [place] [id number] Implanted:Qty: 1 on 01/29/2016 Cardiac Lead Coronary [employer] / [id number] / Description:Device Manufactu rer - [employer]. Body Location - Other. Coronary Sinus. Device Status Text - CARD LEAD-[id number]. Lead 4076-58 Capsurefix Novus - [place] [id number] Implanted:Qty: 1 on 01/29/2016 Cardiac Lead Heart Medtronic / [id number] / Description:Device Manufactu rer - Medtronic [place] Inc. Body Location - Other. Right Ventricle. Device Status Text - CARD LEAD-[id number]. Pin-Plug Kit 6725 Is-1 - [place] [id number] Implanted:Qty: 1 on 01/29/2016 Cardiac Other Medtronic Description:Device Manufactu rer - Medtronic [place] Inc. Device Status Text - CARDOTHER-04235. [place] Screw 2 Canc 6.5 X 50 - [place] [id number] Implanted:Qty: 2 on 01/23/2005 Hardware e.g. pins/screws /rods Mouth [employer] Inc Description:Device Manufactu rer - J & J Ortho. Device Status Text - HARDWARE-27277. Screw Biomet Fixed Locking 4.75 X 15 - [place] [id number] Implanted:Qty: 1 on 07/06/2012 Hardware e.g. pins/screws /rods Other/Legacy - See Implant Description BioMet Description:Device Manufactu rer - Biomet Inc. Body Location - Other. Left. Device Status Text - HARDWARE-297607. Screw Biomet Fixed Locking 4.75 X 15 - [place] [id number] Implanted:Qty: 1 on 07/06/2012 Hardware e.g. pins/screws /rods Other/Legacy - See Implant Description BioMet Description:Device Manufactu rer - Biomet Inc. Body Location - Other. Left. Device Status Text - HARDWARE-134587. Biomet Pin Jose 9 [id number] - [place] [id number] Implanted:Qty: 1 on 07/06/2012 Hardware e.g. pins/screws /rods BioMet Description:Device Manufactu rer - Biomet Inc. Device Status Text - HARDWARE-006864. Screw Biomet Fixed Locking 4.75 X 30 - [place] [id number] Implanted:Qty: 1 on 07/06/2012 Hardware e.g. pins/screws /rods Other/Legacy - See Implant Description BioMet Description:Device Manufactu rer - Biomet Inc. Body Location - Other. Left. Device Status Text - HARDWARE-797564. Screw Biomet Fixed Locking 4.75 X 30 - [place] [id number] Implanted:Qty: 1 on 07/06/2012 Hardware e.g. pins/screws /rods Other/Legacy - See Implant Description BioMet Description:Device Manufactu rer - Biomet Inc. Body Location - Other. Left. Device Status Text - HARDWARE-360365. [place] Shell Multi 2 60mm - [place] [id number] Implanted:Qty: 1 on 01/23/2005 Hip Implant [employer] Description:Device Manufactu Druidly. Device Status Text - HIP IMP-45101. Hip Stem Secur-Fit +Max 13 40 - [place] [id number] Implanted:Qty: 1 on 01/23/2005 Hip Implant Basil Description:Device Manufactu [email or web address] - Basil Ender.. Device Status Text - HIP IMP-35213. Ost Head C-Taper 32 +2.5 Nk - [place] [id number] Implanted:Qty: 1 on 01/23/2005 Hip Implant Basil Description:Device Manufactu rer - [place]anca Ender.. Device Status Text - HIP IMP-01870. J J Insert P Abena Neut 32x60 - [place] [id number] Implanted:Qty: 1 on 01/23/2005 Hip Implant [employer] Description:Device Manufactu Druidly. Device Status Text - HIP IMP-03832. Conversions - Default Historical Implant Device Implanted:05/07 (Quantity not on file) Hip Implant Description:Device Status Te xt - Hip Imp. both hips. Conversions - Default Historical Implant Device Implanted:01/28 (Quantity not on file) Knee Implant Right: Knee Description:Body Location - Knee R. Device Status Text - Knee Imp. Dev Cls Wtchmn Flx Chary 31 - [id number] Implanted:Qty: 1 on 01/12/2020 by Vernon Galvan Jr., M.D. at [facility] Mesh or Patch N/A: Heart Full [employer] 05/15/2022 [id number] / / [id number] Description:Left Atrial appe ndage Visionist X4 - [id number] - [id number] Implanted:Qty: 1 on 09/28/2024 by Leti Whatley M.B.B.S. at [facility] Pacemaker Left: Chest [employer] 07/22/2026 U228 / [id number] / Biomet Central Screw 6.5mm X 30mm - [place] [id number] Implanted:Qty: 1 on 07/06/2012 Shoulder Implant Other/Legacy - See Implant Description BioMet Description:Device Manufactu rer - Biomet Inc. Body Location - Other. Left. Device Status Text - SHOULDER-276235. Biomet Humeral Bearing 44m X 36mm Std - [place] [id number] Implanted:Qty: 1 on 07/06/2012 Shoulder Implant Other/Legacy - See Implant Description BioMet Description:Device Manufactu rer - Biomet Inc. Body Location - Other. Left. Device Status Text - SHOULDER-320834. Biomet Glendsphere 36mm Std. - [place] [id number] Implanted:Qty: 1 on 07/06/2012 Shoulder Implant Other/Legacy - See Implant Description BioMet Description:Device Manufactu rer - Biomet Inc. Body Location - Other. Left. Device Status Text - SHOULDER-602391. Bio. Comp Micro Stem 8mm - [place] [id number] Implanted:Qty: 1 on 07/06/2012 Shoulder Implant Other/Legacy - See Implant Description BioMet Description:Device Manufactu rer - Biomet Inc. Body Location - Other. Left. Device Status Text - SHOULDER-041487. Biomet Hum Tray Comp Rev 44mm Std - [place] [id number] Implanted:Qty: 1 on 07/06/2012 Shoulder Implant Other/Legacy - See Implant Description BioMet Description:Device Manufactu rer - Biomet Inc. Body Location - Other. Left. Device Status Text - SHOULDER-394383. Biomet Glenoid Baseplate Mini W Adaptor - [place] [id number] Implanted:Qty: 1 on 07/06/2012 Shoulder Implant Other/Legacy - See Implant Description BioMet Description:Device Manufactu rer - Biomet Inc. Body Location - Other. Left. Device Status Text - SHOULDER-159660. Explanted Type Area Photographic Supervisor Device Identifier Shelf Expiration Date Model / Serial / Lot Pacer Valitude X4 Is4 Corporate Director Of Pharmacy-P U128 - [place] [id number] Implanted:Qty: 1 on 01/29/2016 Explanted:Qty: 1 on 09/28/2024 by Leti Whatley M.B.B.SVeena at [facility] Pacemaker Other/Legacy - See Implant Description [employer] / [id number] / Description:Device Manufactu rer - Full Genomes Corporation. Body Location - Other. Left. Device Status Text - PACEMAKER-[id number]. Procedures Procedure Name Priority Date/Time Associated Diagnosis Comments INTERFACED REMOTE DEVICE CHECK Routine 10/05/2024 7:37 AM CDT POTASSIUM, S/P STAT 09/28/2024 1:25 PM CDT HEART RHYTHM PROCEDURE Routine 09/28/2024 11:45 AM CDT Device Cardiac Status Post CAR CARDIAC DEVICE INTERROGATION Routine 09/28/2024 11:10 AM CDT DX CHEST PORTABLE 1 VIEW RAD - Routine (most inpatients and all outpatients) 09/28/2024 9:36 AM CDT SODIUM, S/P Routine 09/28/2024 9:25 AM CDT CREATININE WITH EGFR, S/P Routine 09/28/2024 9:25 AM CDT CBC WITHOUT DIFFERENTIAL, B Routine 09/28/2024 9:25 AM CDT INTERFACED REMOTE DEVICE CHECK Routine 08/03/2024 10:09 AM CDT from Last 3 Months Results * CAR CARDIAC DEVICE INTERROGATION (10/05/2024 7:37 AM CDT) Only the most recent of2 resultswithin the time period is included. Date Time Interrogation Session [id number] [facility] Type Interrogation Session Remote Device Initiated [facility] Implantable Pulse Generator Photographic Supervisor [employer] [facility] Implantable Pulse Generator Type Cardiac Resynchronization Therapy - Pacemaker [facility] Implantable Pulse Generator Model U228 [facility] Implantable Pulse Generator Serial Number [id number] [facility] Implantable Pulse Generator Implant Date 20240928 [facility] Battery Remaining Percentage 100.00 % [facility] Battery Remaining Longevity 84.0 mo [facility] Battery Status Beginning of Service [facility] Marlon Statistic RA Percent Paced 0.00 [employer] [facility] Marlon Statistic RV Percent Paced 100.00 [employer] [facility] CRUSHING MILL OPERATOR Statistic LV Percent Paced 100.00 [employer] [facility] SYSTEM CRUSHING MILL OPERATOR Statistic CRUSHING MILL OPERATOR Percent Paced 100.00 [facility] Lead Channel Setting Sensing Sensitivity 10.00 [facility] Lead Channel Measurements Date and Time 20241004 [facility] Lead Channel Setting Sensing Sensitivity 2.50 [facility] Lead Channel Impedance Value 420 [facility] Lead Channel Pacing Threshold Amplitude 1.100 [facility] Lead Channel Pacing Threshold Pulse Width 0.4 [facility] Lead Channel Measurements Date and Time 20241003 [facility] Lead Channel Setting Pacing Amplitude 2.600 [facility] Lead Channel Setting Pacing Pulse Width 0.4 [facility] Lead Channel Impedance Value 597 [facility] Lead Channel Setting Pacing Amplitude 1.800 [facility] Lead Channel Setting Pacing Pulse Width 0.4 [facility] Marlon Setting Mode (NBG Code) VVIR [facility] Ventricular chambers paced during CRUSHING MILL OPERATOR pacing. BiV [facility] Marlon Setting Lower Rate Limit 60 [facility] Marlon Setting AT Mode Switch Rate 170 [facility] Marlon Setting Maximum Sensor Rate 130 [facility] CRUSHING MILL OPERATOR LV-RV Delay 0 [facility] Lead Channel Setting Sensing Polarity Bipolar [facility] Lead Channel Setting Pacing Polarity Bipolar [facility] Lead Channel Pacing Threshold Polarity Bipolar [facility] Lead Channel Pacing Threshold Polarity Unipolar [facility] Zone Setting Type Category VT [facility] Murj Rate 1 160 [facility] Zone Setting Status Monitor [facility] Murj Zone ID 1 [facility] Implantable Lead Photographic Supervisor [employer] SYSTEM Implantable Lead Model 4671 Acuity X4 Straight [facility] Implantable Lead Location Left Ventricle [facility] Implantable Lead Connection Status Connected [facility] Implantable Lead Serial Number [id number] [facility] Implantable Lead Implant Date 20160129 [facility] Implantable Lead Special Function Lead length: 86.00 cm [facility] Implantable Lead Photographic Supervisor Medtronic [facility] Implantable Lead Model 4076 CapsureFix Novus MRI SureScan [facility] Implantable Lead Location Right Ventricle [facility] Implantable Lead Connection Status Connected [facility] Implantable Lead Serial Number [id number] [facility] Implantable Lead Implant Date [...] M.D. CV IMPLANTABLE CARDIAC DEVICE Final Result * Potassium (09/28/2024 1:25 PM CDT) Potassium, P 4.4 3.6 - 5.2 mmol/L 09/28/2024 1:47 PM CDT STMA Blood (Blood, Venous) 09/28/2024 1:25 PM CDT 09/28/2024 1:34 PM CDT Terrie Alfaro APRN C.N.P., M.S.N. LAB BLOOD ADD- ON Final Result [facility] [address] [place] [address], [facility] [address] [place] [address] * PPM GENERATOR CHANGE - BIV (09/28/2024 11:45 AM CDT) Anatomical Region Laterality Modality X-Ray Angiograph y 09/28/2024 10:5 8 AM CDT Narrative 09/29/2024 4:29 PM CDT For the complete report, see the Order-Level Documents. PROCEDURE TYPES 1. PPM GENERATOR CHANGE - BIV PRE-PROCEDURE DIAGNOSIS 1. Device Cardiac Status Post HRS NOTE The patient was brought to the operating room for replacement of CRUSHING MILL OPERATOR-P pulse generator due to current generator reaching [...] impedance values were confirmed using the external .net programmer. ?These values were consistent with those [...] to the operating room for replacement of CRUSHING MILL OPERATOR-Ppulse generator due to current generator reaching ROQUE. [...] and impedance values were confirmed usingthe external .net programmer. ?These values were consistent with those measuredprior to the procedure. The wound was then closed using two layers of 2-0Vicryl and a layer of running 4-0 Monocryl. ? For the complete report, see the Order-Level Documents. Compa GonzalezS. CV ELECTROPHYSIOLOG Y PROCS Final Result * CARDIOVASCULAR IMPLANTABLE ELECTRONIC DEVICE - NO CHARGE (09/28/2024 11:10 AM CDT) Date Time Interrogation Session [id number] [employer] [facility] Implantable Pulse Generator Photographic Supervisor [employer] [facility] Implantable Pulse Generator Type Cardiac Resynchronization Therapy - Pacemaker [employer] [facility] Implantable Pulse Generator Model U228 [employer] [employer] [facility] Implantable Pulse Generator Serial Number [id number] [facility] Implantable Pulse Generator Implant Date 20240928 [facility] Battery Status LESLIE FOUND ATG2 [facility] Lead Channel Setting Sensing Sensitivity 10.00 [employer] [facility] Lead Channel Setting Sensing Sensitivity 2.50 [facility] Lead Channel Impedance Value 419 [facility] Lead Channel Pacing Threshold Amplitude 0.900 [facility] Lead Channel Pacing Threshold Pulse [...] Lead Channel Pacing Threshold Pulse Width 0.4 [facility] Lead Channel Measurements Date and Time 20240928 [facility] Lead Channel Setting Pacing Amplitude 1.800 [facility] Lead Channel Setting Pacing Pulse Width 0.4 [facility] Marlon Setting Mode (NBG Code) VVIR [facility] Ventricular chambers paced during CRUSHING MILL OPERATOR pacing. BiV [facility] Marlon Setting Lower Rate Limit 60 [facility] Marlon Setting Maximum Sensor Rate 130 [facility] Marlon Setting PAV Delay 180 [facility] Zone Setting Type Category VF [...] 3 [facility] Implantable Lead Photographic Supervisor [employer] [facility] Implantable Lead Model 4671 Acuity X4 Straight [facility] Implantable Lead Location Left Ventricle [facility] Implantable Lead Connection Status Connected [facility] Implantable Lead Serial Number [id number] [facility] Implantable Lead Implant Date 20160129 [facility] Implantable Lead Special Function Lead length: 86.00 cm [facility] Implantable Lead Photographic Supervisor Medtronic [facility] Implantable Lead Model 4076 CapsureFix Novus MRI SureScan [facility] Implantable Lead Location Right Ventricle [facility] Implantable Lead Connection Status Connected [facility] Implantable Lead Serial Number [id number] [facility] Implantable Lead Implant Date [id number] [facility] Implantable Lead Special Function Lead length: 58.00 cm [facility] Anatomical Region Laterality Modality Other 09/28/2024 3:45 PM CDT Impressions 09/28/2024 3:45 PM CDT Encounter Impression: Title: Generator Change * Generator change performed on 09/28/24 * Device implanted by Dr. Whatley at [facility] * Programmed parameters were reviewed * Presenting [...] * Device implanted by Dr. Whatley at [facility] * Programmed parameters were reviewed * Presenting [...] that was receivedon 2024-09-28. Battery was reviewed. Dyan Stewart APRN, C.N.P., M.S.N. CV IMPLANTABL [...] arthroplasty partly visualized, degenerative changesof the spine. us Leti MillerB.S. IMG DIAGNOSTIC IMAGING PROCEDURES Final Result * (ABNORMAL) CBC without Differential (09/28/2024 9:25 [...] CDT 09/28/2024 9:54 AM CDT us Leti MillerB.S. LAB BLOOD ADD-ON Final Result [facility] [address] [place] [address], [facility] [address] [place] [address] * Sodium (09/28/2024 9:25 AM CDT) Sodium, S 139 135 - 145 mmol/L 09/28/2024 11:06 AM CDT DTL Blood (Blood, Venous) 09/28/2024 9:25 AM CDT 09/28/2024 10:10 AM CDT Leti MillerB.S. LAB BLOOD ADD-ON Final Result Performing Organization Address [facility] Co de Phone Number [facility] [address] [place] [address], [facility] [address] [place] [address] * Creatinine with Estimated GFR (09/28/2024 9:25 AM CDT) Creatinine 0.92 0.74 - 1.35 mg/dL 09/28/2024 11:06 AM CDT DTL Estimated GFR (eGFR) 81 >=60 mL/min/BSA 09/28/2024 11:06 AM CDT DTL Comment: Estimated GFR calculated using the 2020 CKD_EPI creatinine equation. Blood (Blood, Venous) 09/28/2024 9:25 AM CDT 09/28/2024 10:10 AM CDT Leti MillerB.S. LAB BLOOD ADD-ON Final Result [facility] [address] [place] [address], [facility] [address] [place] [address] from Last 3 Months Insurance ([place]) [address] [place] [id number] [employer] [place] [id number] Advance Directives For more information, please contact: [phone] Documents on File Type Date Recorded Patient Stamp Analyst Expl anation Advance Directives 01/27/2005 12:00 AM Leg acy document. See document viewer. * Full Code (Latest Code Status on File) Date Activated Date Inactivated Comments 01/12/2020 5:05 PM 01/13/2020 3:52 PM Question Answer Comments Full Code: Not Discussed Due to: Patient not available * Full Code Date Activated Date Inactivated Comments 11/15/2019 7:13 PM 11/18/2019 5:53 PM Question Answer Comments Full Code: Discussed * Full Code Date Activated Date Inactivated Comments 11/07/2019 10:19 AM 11/08/2019 5:18 PM Question Answer Comments Full Code: Not Discussed Due to: Patient not available * Full Code Date Activated Date Inactivated Comments 03/23/2019 1:09 PM 03/29/2019 11:29 AM Question Answer Comments Full Code: Discussed * Full Code Date Activated Date Inactivated Comments 05/05/2018 3:07 PM 03/23/2019 12:55 PM Question Answer Comments Full Code: Discussed 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
--- OUTSIDE RECORDS SUMMARY | 2024-11-01 13:53 | XMS_ITS ---
Author Name Interface, [id number] lity Address [address] [place] [address] Oncology Address [address] [place] [address] Allergies and Adverse Reactions Plan Reason for Visit Encounters Diagnostic Results Medications Problems Vital Signs
--- OUTSIDE RECORDS SUMMARY | 2024-11-01 13:54 | XMS_ITS | Clinical Summary ---
Author Organization [employer] [facility] Address [address] [place] [id number] Care Team Providers Care Equipment Processer Storage Name Role Phone Marcelle Portillo MASTER FISHER Unavailable Dolores Louis RN Unavailable [phone] Chandrika Xie MD Primary Care Provide r [facility] [place] Unavailable Allergies Active Allergy Reactions Criticality Noted Date Comments Dust Mites Other - Describe In Comment Field 08/07/2007 Nasal congestion Pollen Extracts Other - Describe In Comment Field 03/29/2019 Nasal stuffiness Pantoprazole Rash 09/22/2019 Sulfamethoxazole-Trimet hoprim Itching Low 07/12/2021 Medications melatonin 3 mg tabletIndication s:Adjustment disorder, unspecified type Take 1 tablet by mouth at bedtime. 30 tablet 06/23/19 20 Active miscellaneous medical supply miscIndications: HTN (hypertension) As directed. Automatic arm cuff--home blood pressure machine 1 Each 07/01/19 20 Active wheelchairIndica tions:Left hemiparesis (HC),Hemorrhagic stroke (HC) Wheelchair: Transition wheelchair with leg rests: (Swing away Length of need: 99 months), Back folds down, about 19 lbs if possible. 1 Device 09/15/19 20 Active acetaminophen (TYLENOL EXTRA STRGTH) 500 mg tabletIndication s:Lumbar degenerative disc disease Take 2 tablets by mouth every 6 hours if needed (Pain). 180 tablet 12/12/19 20 Active CPAPIndications: EDUAR (obstructive sleep apnea) CPAP machine for home use at pressure 9cm/H2O, full face mask x1/3month with a full face cushion x1/mo 1 Device 11 08/01/19 21 Active loratadine (CLARITIN) 10 mg tabletIndication s:Allergic rhinitis, unspecified seasonality, unspecified trigger,Cough Take 1 Tablet (10 mg) by mouth once daily. 30 tablet. 2 10/24/19 21 Active miscellaneous medical supply miscIndications: Buttock pain As directed. 1 unit 11/01/19 22 Active Jtvti-5-TBX-EPA- Fish Oil 1,000 mg (120 mg-180 mg) cap Take 1 Capsule (1,000 mg) by mouth. 0 06/17/19 23 Active calcium citrate-vitamin D3 (Citracal Ultradense) 200 mg-6.25 mcg (250 unit) tabletIndication s:Routine general medical examination at a health care facility Take 2 Tablets by mouth once daily with a meal. 0 07/25/19 23 Active fluticasone (50 mcg per actuation) nasal solution (FLONASE)Indicat ions:Nasal congestion,Nasal septal deviation,Chroni c rhinitis Inhale 2 Sprays into affected nostril(s) once daily. 30 mL 3 07/26/19 23 Active ipratropium (ATROVENT NASAL) 42 mcg (0.06 %) nasal sprayIndications :Nasal congestion Inhale 2 Sprays to both nostrils 3 times daily if needed for Rhinitis. (if otherwise not well controlled on fluticasone) 15 mL 2 07/26/19 23 Active cholecalciferol (VITAMIN D3) 2,000 unit capsuleIndicatio ns:Low vitamin D level Take 1 Capsule (50 mcg) by mouth once daily. 07/30/19 23 Active glycopyrrolate (ROBINUL) 1 mg tabletIndication s:Cerebrovascula r accident (CVA), unspecified mechanism (HC) TAKE ONE TABLET (1 MG) BY MOUTH THREE TIMES DAILY. 90 Tablet 1 12/13/19 23 Active oxyCODONE (ROXICODONE) 5 mg immediate release tabletIndication s:Buttock pain Take 1 Tablet (5 mg) by mouth every 6 hours if needed for Pain. for pain 30 Tablet 01/09/20 23 Active External Catheter, Male miscIndications: Continuous leakage of urine As directed. Condom catheter, size 35 30 Each 07/03/19 24 Active Diaper,Brief, Adult,Disposable Indications:Cont inuous leakage of urine For home use. 96 Each 07/03/19 24 Active Urinary Bag miscIndications: Continuous leakage of urine As directed. Urinary catheter bag, standard size, 5 bags, 5 each 5 Each 08/14/19 24 Active nystatin (MYCOSTATIN) 100,000 unit/gram topical creamIndications :Intertrigo APPLY TOPICALLY TO AFFECTED AREA(S) TWO TIMES DAILY. 30 g 5 08/18/19 24 Active amoxicillin (AMOXIL) 500 mg tabletIndication s:Unspecified prophylactic or treatment measure Take 4 tablets or 2000 mg 60 minutes prior to procedure. 4 Tablet 12/04/19 24 Active atorvastatin (LIPITOR) 40 mg tabletIndication s:Adjustment disorder, unspecified type TAKE ONE TABLET BY MOUTH AT BEDTIME 90 Tablet 3 02/09/20 24 Active miscellaneous medical supply miscIndications: Arthritis of finger of right hand As directed. Hot wax machine for arthritis for the joints 1 Each 02/05/20 24 Active montelukast (SINGULAIR) 10 mg tabletIndication s:Adjustment disorder, unspecified type TAKE ONE TABLET BY MOUTH EVERY DAY AT BEDTIME 90 Tablet 3 03/10/20 24 Active tamsulosin 0.4 mg capsuleIndicatio ns:Hemorrhagic stroke (HC) TAKE 1 CAPSULE BY MOUTH DAILY AFTER A MEAL. 90 Capsule 2 06/07/19 25 Active famotidine (PEPCID) 20 mg tabletIndication s:Poor appetite TAKE 1 TABLET (20 MG) BY MOUTH TWO TIMES DAILY. 180 Tablet 3 06/09/19 25 Active sertraline (ZOLOFT) 100 mg tabletIndication s:Adjustment disorder, unspecified type Take 2 Tablets (200 mg) by mouth once daily in the morning. 180 Tablet 3 06/14/19 25 Active donepeziL (ARICEPT) 10 mg tabletIndication s:Memory impairment TAKE 1 TABLET (10 MG) BY MOUTH AT BEDTIME. 90 Tablet 07/08/19 25 Active amLODIPine (NORVASC) 10 mg tabletIndication s:HTN (hypertension) TAKE 1 TABLET (10 MG) BY MOUTH ONCE DAILY. 90 Tablet 2 07/08/19 25 Active triamcinolone (ARISTOCORT; KENALOG) 0.1 % creamIndications :Rash APPLY TOPICALLY TO AFFECTED AREA(S) THREE TIMES DAILY. TO RASH/ITCHY AREAS. 454 g 3 07/13/19 25 Active clopidogreL (PLAVIX) 75 mg tabletIndication s:Cerebrovascula r accident (CVA), unspecified mechanism (HC) Take 1 Tablet (75 mg) by mouth once daily. 90 Tablet 3 07/16/19 25 Active wheelchairIndica tions:Cerebrovas cular accident (CVA), unspecified mechanism (HC),Hemorrhagic stroke (HC),Left hemiparesis (HC) Wheelchair: power wheelchair with joystick for operation with leg rests: (Elevating Length of need: 99 months, need a chair that raises up to bed level 1 Each 08/10/19 25 Active potassium chloride 10 mEq Controlled-relea se capsuleIndicatio ns:Hypokalemia TAKE ONE CAPSULE BY MOUTH DAILY WITH A MEAL 90 Capsule 3 09/10/19 25 Active gabapentin 100 mg capsuleIndicatio ns:Neuropathic pain TAKE TWO CAPSULES (200MG) BY MOUTH TWO TIMES DAILY 360 Capsule 09/10/19 25 Active metoprolol tartrate 25 mg tabletIndication s:Adjustment disorder, unspecified type TAKE 1 TABLET (25 MG) BY MOUTH TWO TIMES DAILY. 180 Tablet 10/07/19 25 Active codeine-guaiFENe sin 10-100 mg/5 mL liquidIndication s:Chronic cough TAKE 5 ML BY MOUTH EVERY 4 HOURS IF NEEDED FOR COUGH. MAX DOSE 60 ML PER 24 HRS. 118 mL 1 10/26/19 25 Active codeine-guaiFENe sin 10-100 mg/5 mL liquidIndication s:Chronic cough Take 5 mL by mouth every 4 hours if needed for Cough. Max dose 60 mL per 24 hrs. 118 mL 1 02/05/20 24 025 Discontinued metoprolol tartrate (LOPRESSOR) 25 mg tabletIndication s:Adjustment disorder, unspecified type TAKE 1 TABLET (25 MG) BY MOUTH TWO TIMES DAILY. 180 Tablet 07/08/19 25 025 Discontinued Active Problems Problem Noted Date Diagnosed Date Infrarenal abdominal aortic aneurysm (AAA) witho ut rupture 05/19/2024 Urinary incontinence with continuous leakage Thrombocytopenia 07/03/2023 [...] Encounters Date Type Department Care Team Description 11/01/2024 Telephone [facility] [place] [address] [place] [address] Angelita Foster MD Questions (Appointment 11-01-2024) 11/01/2024 Telephone [facility] [address] [place] [address] Chandrika Xie MD Urinary Problem (UTI ) 11/01/2024 Nurse Triage [facility] [address] [place] [address] Chandrika Xie MD Urinary Problem 10/31/2024 11:00 AM CDT Ancillary Procedure [facility] [address] [place] [address] Arrived 10/31/2024 Travel 10/24/2024 Refill [facility] [address] [place] [address] Chandrika Xie MD Refill Request (Codeine-guaifenes in) 10/12/[address] [address] Chandrika Xie MD Questions (Diabetes/) 10/05/[address] [address] Chandrika Xie MD Refill Request (Metoprolol Tartrate) 09/28/[address] [address] Chandrika Xie MD Concerns (Narrowing of valve) 09/07/2024 11:15 AM CDT Orders Only [address] [address] [facility] 09/07/[address] [address] Chandrika Xie MD Refill Request (Potassium Chloride, Gabapentin) 09/06/2024 10:41 AM CDT - 09/06/2024 11:59 PM CDT Hospital Encounter [facility] [address] [place] [address] Chandrika Xie MD Faber, Kelly, PT Left hemiparesis (HC); Cerebrovascular accident (CVA), unspecified mechanism (HC) 09/06/2024 Travel 09/05/2024 3:45 PM CDT Phone Office Visit [address] [address] Ligia Bradley PA UTI (will bring UA in the morning, confusion, Becerra is President, ) 09/05/2024 Travel 09/05/2024 Telephone [facility] [address] [facility] [place] [address] Chandrika Xie MD Medication Management (Patient requesting UTI test) 08/11/2024 Telephone [facility] [address] [facility] [place] [address] Chandrika Xie MD Referral 08/09/2024 3:30 PM CDT Telemedicine [facility] [address] [facility] [place] [address] Chandrika Xie MD Follow Up (Electric wheelchair) 08/09/2024 Travel 08/05/2024 Travel from Last 3 Months Immunizations Immunization Administration Dates Next Due COVID-19 VACCINE SPIKEVAX (M ODERNA 50MCG/0.5ML) 12YO+ PFS 02/11/2023 COVID-19 vaccine (Sumoing-Bio NTech 30mcg/0.3mL) 12YO+ BIVALENT PF, MDV 01/30/2022 COVID-19 vaccine (Pfizer-Bio NTech 30mcg/0.3mL) PF, MDV 06/30/2020,06/09/2020 HepA-HepB (Twinrix) 02/03/2012, 4,04/19/2001,12/25 Hepatitis B (Adult) 10/18/2001 Influenza Virus, Unspecified 02/11/2023, 01/30/2022,01/20/2020,02/03,02/11/2017,01/30/2016,01/29/2015 ,02/07/2014,02/03/2013,03/08/2012,06/2011,01/27/2011,02/04/2010, 0,02/20/2005,02/02/2004 Influenza, High-dose Inactivated 024,02/11/2021,02/10/2019,02/03 Influenza, High-dose Quadriv alent Inactivated 02/11/2021 Influenza, [...] 1 07/03/2023 Social Connections Answer Date Recorded Do you often feel lonely or isolated from those around you? 4 06/13/2024 Financial Resource Strain Answer Date R ecorded Difficulty of Paying Living Expenses 3 05/10/2024 Difficulty of Paying Living Expenses Not on file 05/10/2024 Food Insecurity Answer Date Recorded Do you worry your food will run out before you are able to buy more? 2 06/13/2024 Transportation Needs Answer Date Record ed Does lack of transportation keep you from medica l appointments? 1 06/13/2024 Does lack of transportation keep you from work, meetings or getting things that you need? 1 06/13/2024 Housing Stability Answer Date Recorded What is your housing situation today? 1 06/13/2024 Utilities Answer Date Recorded Do you have trouble paying f or utilities (for example, heat, electricity, water, phone)? 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 Legal Sex Male 6:06 AM FAX MACHINE OPERATOR Gender Identity Not on file Sexual Orientation Straight 03/23/2020 9: 48 PM FAX MACHINE OPERATOR Occupation Industry Job Start Date Job End Date RETIRED Not on file Not on file Not on file Obstetrics History Last Filed Vital Signs Vital Sign Reading Time Taken Comments Blood Pressure 102/61 05/19/2024 2:13 PM FAX MACHINE OPERATOR Pulse 59 05/19/2024 2:13 PM FAX MACHINE OPERATOR Temperature 36.5 C (97.7 F) 02/19/2023 9:31 AM CDT Respiratory Rate 16 08/28/2022 8:10 AM CDT Oxygen Saturation 97% 05/19/2024 2:1 3 PM FAX MACHINE OPERATOR Inhaled Oxygen Concentration - - Weight 88.9 kg (196 lb) 07/03/2023 9:37 AM FAX MACHINE OPERATOR was holding onto bars and unsteady Height 182.9 cm (6' 0.01) 11/27/2020 3 :15 PM CDT Body Mass Index 26.58 11/27/2020 3:15 PM CDT Plan of Treatment Upcoming Encounters Date Type Department Care Team (Late st Contact Info) Description 11/17/2024 9:55 AM CDT Office Visit [facility] [address] [place] [address] Chandrika Xie MD [address] [address] 12/12/2024 11:00 AM CDT Ancillary Procedure [facility] [address] [place] [address] 12/12/2024 11:30 AM CDT Office Visit [facility] [address] [place] [address] Gallito Arriaga MD [address] [place] [address] Health Maintenance Due Date Last Done Comments BMI (ht and wt on same day) for age 18+ 11/27/2021 11/27/2020, 07/28/2016 Tetanus booster 02/02/2022 02/03/2012, 09/01, 12/19/2002, Additional history exists Zoster (shingles) series for age 50+ (3 of 3) 06/15/2023 04/20/2023, 03/12/2006 Depression screening for age 12+ 07/02/2024 07/03/2023, 07/24/2022, 06/19/2022, Additional history exists Medicare Wellness for age 65+ 07/03/2024, 06/17/2022, 06/13/2021 COVID-19 vaccine series ( season) 2024 02/11/2024, 02/11/2023, 01/30/2022, Additional history exists Influenza Vaccine (#1) 2025 , 02/11/2023, 02/11/2023, Additional history exists Hepatitis B series for 19+ Completed 02/02, 03/04/2004, 10/18/2001, Additional history exists Pneumococcal series for age 50+ Completed 06/13/2021, 07/13/2014, 05/04/2002, Additional history exists RSV vaccine for adults or Completed 01/08/2023 Procedures Procedure Name Priority Date/Time Associated Diagnosis Comments ECHO TTE COMPLETE WO CONTRAST Routine 10/31/2024 12:02 PM CDT Aortic valve stenosis, etiology of cardiac valve disease unspecified URINALYSIS MACROSCOPIC - [facility] ONLY POC DIP ([facility]) Routine 09/07/2024 9:28 AM CDT Lower urinary tract symptoms (LUTS) URINALYSIS MICROSCOPIC Routine 09/07/2024 9:27 AM CDT Lower urinary tract symptoms (LUTS) URINE CULTURE Routine 09/07/2024 9:27 AM CDT Lower urinary tract symptoms (LUTS) from Last 3 Months Results * ECHO TTE COMPLETE WO CONTRAST (10/31/2024 12:02 PM CDT) AORTIC VALVE MEAN PG 32 mmHg EJECTION FRACTION 61 % PEAK TR VELOCITY 2.3 m/s LVEDD 5.0 cm EJECTION FRACTION 60 - 65% Anatomical Region Laterality Modality Ultrasound 10/31/2024 11:2 7 AM CDT Narrative 10/31/2024 12:33 PM CDT ECHOCARDIOGRAM YONATAN AHMADI : 1935 89 years Study Date: 10/31/2024 11:27:09 AM Gender: M BP: 108/54 mmHg Height: 183.00 cm BSA: 2.11 m Weight: 89.00 kg Tech: R Referring MD: CHANDRIKA XIE Site: [facility] Reading Location: MOBILE OP Patient Location: Outpatient. Procedure: 2D, Color Doppler and Spectral Doppler. Indication for study: aortic stenosis Cardiac Rhythm: Ventricular paced.Study quality: Fair. Final Impressions: 1. Normal left ventricular size, mildly increased wall thickness, normal global systolic function, calculated EF of 61 %. 2. Right ventricular cavity size is moderately enlarged, global systolic RV function is borderline reduced. 3. Severely enlarged left atrium. 4. The aortic valve is trileaflet and calcified, severe stenosis and moderate regurgitation. The aortic valve peak velocity is 3.6 m/s, the peak gradient is 52 mmHg, and the mean gradient is 32 mmHg. The aortic valve area is 0.81 cm with a dimensionless index of 0.22. The stroke volume index is 31.7 ml/m . 5. Tricuspid valve is normal, mild tricuspid regurgitation. 6. The mitral valve is sclerotic, no mitral regurgitation. 7. Trivial pericardial effusion. 8. Based on the echo findings, consider cardiology/valve consult. Chamber Sizes and Function Normal left ventricular size, mildly increased wall thickness, normal global systolic function, calculated EF of 61 %. No resting regional wall motion abnormality visualized. Left atrial size is severely enlarged. Right ventricular cavity size is moderately enlarged, global systolic RV function is borderline reduced. The right atrium is severely enlarged. Right atrial volume index is 51 ml/m . Right atrial area is 30 cm . The pulmonary artery is of normal size and origin. The sinus of Valsalva is normal sized. The ascending aorta is normal sized. Valves, RV Pressures and Diastolic Function The aortic valve is trileaflet and calcified, severe stenosis and moderate regurgitation. The mitral valve is sclerotic, no mitral regurgitation. Indeterminate pattern of LV diastolic filling. The tricuspid valve is normal in structure, mild tricuspid regurgitation. The tricuspid regurgitant velocity is 2.3 m/s, the estimated right ventricular systolic pressure is 22 mmHg plus right atrial pressure. The pulmonic valve is not well visualized. No pulmonary regurgitation. Masses, Effusion, Shunts There is trivial pericardial effusion. The inferior vena cava is normal sized, respiratory size variation greater than 50%. No left to right shunting was detected by limited color flow Doppler interrogation of the interatrial septum. MEASUREMENTS AND CALCULATIONS 2-D Measurements and LV Function: LVID (d) 5.0 cm Planimetered EF 61 % LVID (s) 2.9 cm LV FS% (2D) 42 % IVS (d) 1.3 cm LVOT diameter 2.2 cm LVPW (d) 1.2 cm HR 60 bpm Ao Sinus 3.5 cm LA Vol index 58 ml/m2 Ao Sinus ULN 4.2 cm * RA Vol index 51 ml/m2 Ao ST junct 3.0 cm RA area 30 cm Asc Ao 3.8 cm RV Basal Diam 5.0 cm Asc Ao ULN 4.4 cm * RV Mid Diam 3.9 cm LA 4.2 cm * Input BSA and age are outside of ranges, reported values correspond to BSA = 2.1 and Age = 80 Diastology: Mitral Tissue Doppler E Peak 1.2 m/s e', Septum 0.10 m/s A Peak 0.2 m/s e', Lateral 0.07 m/s E/A 7.1 E/e' Average 14.29 DT 216 msec Aortic Valve: Vmax 3.6 m/s LENNIE (V) 0.75 cm AI P 1/2 774 msec VTI 0.83 m LENNIE (I) 0.81 cm LVOT V max 0.7 m/s Max PG 52 mmHg LVOT VTI 0.18 m Mean PG 32 mmHg SV 67 ml Dim Index 0.22 SV index 32 ml/m CO 4.0 l/min CI 1.9 l/min/m Mitral Valve: MVA 3.5 cm MV P 1/2 63 msec Tricuspid Valve and estimated PA pressures: TR Vmax 2.3 m/s TAPSE 1.4 cm TR maxG 22 mmHg . This study was interpreted by an [facility] accredited facility. Final Procedure Note Zulema Leung, [facility] - 10/31/2024 ECHOCARDIOGRAM YONATAN AHMADI : 1935 89 years Study Date: 10/31/2024 11:27:09 AM Gender: M BP: 108/54 mmHg Height: 183.00 cm BSA: 2.11 m Weight: 89.00 kg Tech: Nino Referring MD: CHANDRIKA XIE Site: [facility] Reading Location: MOBILE OP Patient Location: Outpatient. Procedure: 2D, Color Doppler and Spectral Doppler. Indication for study: aortic stenosis Cardiac Rhythm: Ventricular paced.Study quality: Fair. Final Impressions: 1. Normal left ventricular size, mildly increased wall thickness, normalglobal systolic function, calculated EF of 61 %. 2. Right ventricular cavity size is moderately enlarged, global systolicRV function is borderline reduced. 3. Severely enlarged left atrium. 4. The aortic valve is trileaflet and calcified, severe stenosis andmoderate regurgitation. The aortic valve peak velocity is 3.6 m/s, thepeak gradient is 52 mmHg, and the mean gradient is 32 mmHg. The aorticvalve area is 0.81 cm with a dimensionless index of 0.22. The strokevolume index is 31.7 ml/m . 5. Tricuspid valve is normal, mild tricuspid regurgitation. 6. The mitral valve is sclerotic, no mitral regurgitation. 7. Trivial pericardial effusion. 8. Based on the echo findings, consider cardiology/valve consult. Chamber Sizes and Function Normal left ventricular size, mildly increased wall thickness, normalglobal systolic function, calculated EF of 61 %. No resting regional wallmotion abnormality visualized. Left atrial size is severely enlarged.Right ventricular cavity size is moderately enlarged, global systolic RVfunction is borderline reduced. The right atrium is severely enlarged.Right atrial volume index is 51 ml/m . Right atrial area is 30 cm . Thepulmonary artery is of normal size and origin. The sinus of Valsalva isnormal sized. The ascending aorta is normal sized. Valves, RV Pressures and Diastolic Function The aortic valve is trileaflet and calcified, severe stenosis and moderateregurgitation. The mitral valve is sclerotic, no mitral regurgitation.Indeterminate pattern of LV diastolic filling. The tricuspid valve isnormal in structure, mild tricuspid regurgitation. The tricuspidregurgitant velocity is 2.3 m/s, the estimated right ventricular systolicpressure is 22 mmHg plus right atrial pressure. The pulmonic valve is notwell visualized. No pulmonary regurgitation. Masses, Effusion, Shunts There is trivial pericardial effusion. The inferior vena cava is normalsized, respiratory size variation greater than 50%. No left to rightshunting was detected by limited color flow Doppler interrogation of theinteratrial septum. MEASUREMENTS AND CALCULATIONS 2-D Measurements and LV Function: LVID (d) 5.0 cm Planimetered EF 61% LVID (s) 2.9 cm LV FS% (2D) 42% IVS (d) 1.3 cm LVOT diameter2.2 cm LVPW (d) 1.2 cm HR 60bpm Ao Sinus 3.5 cm LA Vol index 58ml/m2 Ao Sinus ULN 4.2 cm * RA Vol index 51ml/m2 Ao ST junct 3.0 cm RA area 30cm Asc Ao 3.8 cm RV Basal Diam5.0 cm Asc Ao ULN 4.4 cm * RV Mid Diam3.9 cm LA 4.2 cm * Input BSA and age are outside of ranges, reported values correspond to BSA = 2.1 and Age = 82 Diastology: Mitral Tissue Doppler E Peak 1.2 m/s e', Septum 0.10 m/s A Peak 0.2 m/s e', Lateral 0.07 m/s E/A 7.1 E/e' Average 14.29 DT 216 msec Aortic Valve: Vmax 3.6 m/s LENNIE (V) 0.75 cm AI P 1/2 774 msec VTI 0.83 m LENNIE (I) 0.81 cm LVOT V max 0.7 m/s Max PG 52 mmHg LVOT VTI 0.18 m Mean PG 32 mmHg SV 67 ml Dim Index 0.22 SV index 32 ml/m CO 4.0 l/min CI 1.9 l/min/m Mitral Valve: MVA 3.5 cm MV P 1/2 63 msec Tricuspid Valve and estimated PA pressures: TR Vmax 2.3 m/s TAPSE 1.4 cm TR maxG 22 mmHg . This study was interpreted by an [facility] accredited facility. Final us Chandrika Xie MD ECHO ORD Final Result * (ABNORMAL) POCT Urinalysis Dipstick Only [[id number]] (09/07/2024 9:28 AM CDT) PH 5.0 5.0 - 8.0 [facility] SPECIFIC GRAVITY > OR = 1.030 1.001 - 1.035 [facility] Comment: Specific Dawson values resulted are outside the analytical measurement range of this device. Recommend repeat/additional testing as clinically indicated. GLUCOSE NEGATIVE NEGATIVE [facility] BILIRUBIN NEGATIVE NEGATIVE [facility] KETONES NEGATIVE NEGATIVE [facility] OCCULT BLOOD NEGATIVE NEGATIVE [facility] PROTEIN NEGATIVE NEGATIVE [facility] NITRITE POSITIVE(A) NEGATIVE [facility] LEUKOCYTE ESTERASE TRACE(A) NEGATIVE [facility] Urine URINE SPECIMEN / Unknown 09/07/2024 9:28 AM CDT 09/07/2024 9:28 AM CDT us Ligia PERAZA URINE Final Result [facility] [address] [place] [address], [facility] [address] [place] [address] * URINALYSIS MICROSCOPIC [71284.1] - routine (09/07/2024 9:27 AM CDT) RBC 0-2 0-2, None Seen /HPF 09/07/2024 4:07 PM CDT [facility] WBC 0-2 0-2, 3-5, None Seen /HPF 09/07/2024 4:07 PM CDT [facility] BACTERIA Few None Seen, Rare, Few Bacteria/ HPF 09/07/2024 4:07 PM CDT [facility] EPITHELIAL CELLS None Seen None Seen, Few Epi/HPF 09/07/2024 4:07 PM CDT [facility] HYALINE CASTS 0-2 0-2, 3-5 /LPF 09/07/2024 4:07 PM CDT [facility] Urine URINE SPECIMEN / Unknown Non-Blood / Unknown 09/07/2024 9:27 AM CDT 09/07/2024 9:27 AM CDT Ligia PERAZA URINE Final Result [facility] [address] [place] [address], * URINE CULTURE [[id number]] (09/07/2024 9:27 AM CDT) CULTURE No growth (<1,000 CFU/mL) 09/08/2024 1:21 PM CDT [facility] Urine URINE SPECIMEN / Unknown Non-Blood / Unknown 09/07/2024 9:27 AM CDT 09/07/2024 9:27 AM CDT Ligia PERAZA MICROBIOLOGY Final Result [facility] 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 Expl anation Healthcare Directive 03/30/2019 8:47 AM s igned 01/23/05 * Full Code (Latest Code Status on File) Date Activated Date Inactivated Comments 04/18/2020 8:33 AM 04/18/2020 4:22 PM Question Answer Comments Code Status Discussion: Not Discussed * Full Code Date Activated Date Inactivated Comments 03/29/2019 12:13 PM 04/15/2019 12:40 PM Question Answer Comments Code Status Discussion: Per Existing Order Care Teams Equipment Processer Storage Relationship Specialty Start Date End Date Chandrika Xie MD [address] [place] [address] PCP - General Family Practice 02/19/23 Marcelle Portillo, MASTER FISHER [facility] Coordination - [facility] Care Guide 07/14/19 Dolores Louis, MARC [address] [address] St[facility] Care Coordination - [facility] Registered Nurse 07/20/19 [facility] [address] [place] [address] 05/11/24
--- OUTSIDE RECORDS SUMMARY | 2024-11-01 13:55 | XMS_ITS ---
Author Name Interface, [id number] lity Address [address] [place] [address] Oncology Address [address] [place] [address] Allergies and Adverse Reactions Plan Reason for Visit Encounters Diagnostic Results Medications Problems Vital Signs
--- OUTSIDE RECORDS SUMMARY | 2024-11-01 13:55 | XMS_ITS | Encounter Summary ---
Author Organization [facility] Address [address] [place] [address] Care Team Providers Care Dry House Worker Name Role Phone Elsewhere, Pcp Primary Care Provider Unavailabl e Encounter Details Date Type Department Care Team (Late st Contact Info) Description 04/02/2018 [facility] [address] [place] [address] Alireza Lundy M.D. [address] [place] [address] Runny Nose (Primary Dx) Social History Tobacco Use Types Packs/Day Years Used Date Smoking Tobacco: Former Sex and Gender Information Value Date Recorded Sex Assigned at Not on file Legal Sex Male 5:41 AM CANINE DEPUTY Gender Identity Not on file Sexual Orientation Not on file documented as of this encounter Plan of Treatment Not on file documented as of this encounter Visit Diagnoses Diagnosis Runny Nose- Primary documented in this encounter Additional Health Concerns Infection Onset Date Last Indicated Resolved Time COVID19 Pending 11/03/2019 11/03/2019 11/04/2019 7 :12 PM CDT COVID19 Pending 11/15/2019 11/15/2019 11/16/2019 3 :30 PM CDT COVID19 Pending 01/10/2020 01/10/2020 01/10/2020 1 0:22 PM CDT COVID19 Pending 02/19/2020 02/19/2020 02/20/2020 1 2:01 AM CDT COVID19 Pending 03/11/2020 03/11/2020 03/12/2020 1 2:31 AM CANINE DEPUTY COVID19 Pending 01/31/2021 02/01/2021 02/02/2021 9 :46 AM CDT Assessment Noted Time PHQ-9 Depression Total Score: 1 12/18/19 16 5:44 PM CDT documented as of this encounter Care Teams Dry House Worker Relationship Specialty Start Date End Date Elsewhere, Pcp PCP - General Internal Medicine 09/28/24 documented as of this encounter
--- OUTSIDE RECORDS SUMMARY | 2024-11-01 13:55 | XMS_ITS | Clinical Summary ---
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 Gender Identity Not on file Sexual Orientation Not on file Obstetrics History Last Filed Vital Signs Vital Sign Reading Time Taken Comments Blood Pressure 95/62 10/14/2012 12:34 PM CDT Pulse 60 10/14/2012 12:34 PM CDT Temperature 36.4 C (97.5 F) 10/14/2012 10:07 AM CDT Respiratory Rate 29 10/14/2012 12:34 PM CDT Oxygen Saturation 97% 10/14/2012 11:26 AM CDT Inhaled Oxygen Concentration - - Weight 98 kg (216 lb) 10/14/2012 10:07 AM CDT Height 182.9 cm (6') 10/14/2012 10:07 AM CDT Body Mass Index 29.29 10/14/2012 10:07 AM CDT Plan of Treatment Not on file Insurance [place] MEDICARE COST PART A&B Care Teams Forensic Social Worker Relationship Specialty Start Date End Date Elsewhere, Pcp PCP - General 10/18/11
--- OUTSIDE RECORDS SUMMARY | 2024-11-01 13:55 | XMS_ITS ---
Author Organization [facility] Care Team Providers Care Director It Project Name Role Phone Rick Méndez Unavailable Unavailable [place] Unavailable Unavailable Sugey Neumann Unavailable Unavailable Kiera Daigle Unavailable Unavailable Allergies and adverse reactions Code CodeSystem Substance Reaction Severity StartDate Concern Status Pollen Unknown Unknown active Dust Unknown Unknown active Care Team Name Role Address Phone Organization Dates Rick Méndez PCP [facility] [address] [place] [address], [facility], [place] (Office): [facility] 04/15/2019 - 06/24/2019 [facility] [place] (Office): [facility] 04/15/2019 - 06/24/2019 Sugey Neumann [facility] [address] [place] [address], [facility], [facility] (Office): [facility] 04/15/2019 - 06/24/2019 Kiera Daigle [facility] [address] [place] [address], [facility], [place] (Office): [facility] 04/15/2019 - 06/24/2019 Goals Section Goals Description Status Target Date Ability to plan and go on a trip into the community using accessible public transportation. Active 07/20/2019 Adequate hydration, 8-10 glasses of fluid daily Active 07/20/2019 Adhere to prescribed diet Active 2019 Awareness of 8 community leisure resources of in [facility]. Active 07/20/2019 Client will allow staff to perform procedure as ordered/ needed Active 07/20/2019 Client will be resuscitated per MD orders Active 07/20/2019 Client will improve ability compensate for limia tions. Active 07/20/2019 Client will initiate ADL's a s able and will be accepting of assistance. Active 07/20/2019 Client will maintain normal breathing pattern as evidenced by normal respirations, normal skin color, and regular respiratory rate/pattern through the review date. Active 07/20/2019 Client will participate willingly in daily treat ment plan. Active 07/20/2019 Client will verbalize acceptance of life changes . Active 07/20/2019 Client will work with therap y's as ordered to attain the highest practicable level of functioning. Active 07/20/2019 Decreasing number of falls Active 07/19 Dentures will be properly store & maintained in good repair Active 07/20/2019 Develop a discharge plan Active 020 Develop skills necessary to participate in 5 leisure pursuits independently or with minimal assistance. Active 07/20/2019 Eat single portions at meals Active Participant identifies measu res that will increase their rest/sleep. Active 07/20/2019 Participant will demonstrate a knoweldge of risk factors and interventions for preventing skin breakdown. Active 0 Participant will demonstrate an ability to scan the affected visual field to compensate for loss. Active 07/20/2019 Participant will demonstrate appropriate judgement and safety in regards to vulnerabilities to self and others. Active 020 Participant will direct needs to prevent skin br eakdown. Active 07/20/2019 Participant will express that they have adequate rest. Active 07/20/2019 Participant will identify safety hazards in the environment. Active 07/20/2019 Participant will participate in plan to prevent pressure ulcers. Active 07/20/2019 Participant's skin will jakub in intact with no signs/symptoms of irritation. Active 07/20/2019 Participate in 1 community trip each month. Acti ve 07/20/2019 Participate in leisure opportunities during unst ructured time. Active 07/20/2019 Performs activities of daily living without being compromised by pain. Active 07/20/2019 Reduced pain Active 07/20/2019 Stable emotional status. Active 020 The client will be able to c ommnicate basic needs on a daily basis. Active 07/20/2019 The client will improve decsion making ability. Active 07/20/2019 To be able to correctly breast puller own need to urinat e Active 07/20/2019 To re-establish bladder function Active 07/20/2019 To show minimal/ no side effects of medications taken Active 07/20/2019 Will be able to interact effectively with others Active 07/20/2019 Will be able to safely navigate environment Acti ve 07/20/2019 Will be free from s/sx of co mplications of cardiac problems through the review date. Active 07/20/2019 Will increase knoweldge of m edication and make informed decision on continued use. Active 07/20/2019 Will reduce risk of abuse/ne glect to self or other vulnerable adults. Active 07/20/2019 Will remain free of complica tion related to hypertension through review date. Active 07/20/2019 wt will maintain between 205 -215#, m eal intakes will be at least 75% of meals, w ill tolerate diet as ordered, s kin will remain intact, l abs will be WNL, w ill maintain adequate hydration status. Active 07/20/2019 Immunizations Immunization Status Vaccine Details Vaccine Code CodeSystem Date Notes Influenza completed Influenza, high-dose, split virus, quadrivalent, injectable, preservative free 197 CVX created date: 04/15/2019 administer ed date: 02/10/2019 TB 2 Step Mantoux Skin Test completed tuberculin skin test; unspecified formulation lotNumber: [id number] expiry: 07/26/2021 Mfg: [employer] Given 0.1 ml Right Forearm intradermally Step 2 of Multi-step with next step required 98 CVX created date: 04/26/2019 consent date: 04/25/2019 administer ed date: 04/26/2019 TB 2 Step Mantoux Skin Test completed tuberculin skin test; unspecified formulation lotNumber: [id number] expiry: 09/24/2020 Mfg: [employer] Given 0.1 ml Left Forearm intradermally Step 1 of Multi-step with next step required 98 CVX created date: 04/15/2019 consent date: 04/15/2019 administer ed date: 04/15/2019 Educated by Admit RN on 04/15/2019 read by ban mosley RN 1700 left forearm Prevnar 13 completed created date: 04/19/2019 administer ed date: 07/16/2014 Medications Section Medication Name Status Code CodeSystem Dose Route Frequency Admin Type Sig Text Start Date End Date Melatonin Tablet active 3 mg Oral at bedtime Routine Give 3 mg by mouth at bedtim e for insomn ia 2018 - Lidocaine Patch 5 % active 9082732 RXNORM n/a n/a Topical one time a day Routine Apply to affect ed area topica lly one time a day for pain and remove per schedu le 2018 - Fluticasone Propionate Suspension 50 MCG/ACT active 4152347 RXNORM 2 spray Nasal one time a day Routine 2 spray in both nostri ls one time a day for allerg ic rhinit is 2018 - Baclofen Tablet active 5 mg Oral two times a day Routine Give 5 mg by mouth two times a day for muscle spasms 2018 - Citalopram Hydrobromide Tablet active 20 mg Oral one time a day Routine Give 20 mg by mouth one time a day for adjust ment disord er 2018 - Montelukast Sodium Tablet active 10 mg Oral at bedtime Routine Give 10 mg by mouth at bedtim e for allerg ies 2018 - Tamsulosin HCl Capsule 0.4 MG active 139982 RXNORM 0.4 mg Oral one time a day Routine Give 0.4 mg by mouth one time a day for urinar y retens ion after a meal 2018 - Bisacodyl Suppository 10 MG active 155376 RXNORM 1 suppos itory Rectal one time a day Routine Insert 1 suppos itory rectal ly one time a day for bowel progra m 2018 - Famotidine Tablet active 20 mg Oral two times a day Routine Give 20 mg by mouth two times a day for GERD 2018 - Loratadine Tablet active 10 mg Oral one time a day Routine Give 10 mg by mouth one time a day for allerg ies 2018 - Sennosides-Do cusate Sodium Tablet 8.6-50 MG active 320419 RXNORM 2 tablet Oral as needed PRN Give 2 tablet by mouth as needed for consti pation BID 2018 - Acetaminophen Tablet active 650 mg Oral as needed PRN Give 650 mg by mouth every 4 hours as needed for fever NTE 4000mg /24h 2018 - Apixaban Tablet active 5 mg Oral two times a day Routine Give 5 mg by mouth two times a day for A fib 2018 - Atorvastatin Calcium Tablet active 40 mg Oral at bedtime Routine Give 40 mg by mouth at bedtim e for hyperl ipidem ia 2018 - Lisinopril Tablet active 20 mg Oral one time a day Routine Give 20 mg by mouth one time a day for HTN Hold for SBP less than 100 2018 - Senokot S Tablet 8.6-50 MG active 5779136 RXNORM 2 tablet Oral one time a day Routine Give 2 tablet by mouth one time a day for contap ation 2018 - Tylenol Tablet active 1000 mg Oral three times a day Routine Give 1000 mg by mouth three times a day for pain per Dr Montgomery 2018 - Diclofenac Sodium Gel 1 % active 825340 RXNORM 1.5 gram Transde rmal as needed PRN Apply 1.5 gram transd ermall y as needed for pain QID 2019 - guaiFENesin Liquid active 2 tsp Oral as needed PRN Give 2 tsp by mouth every 6 hours as needed for cough 2019 - Donepezil HCl Tablet active 10 mg Oral at bedtime Routine Give 10 mg by mouth at bedtim e for mild cognit omaira impair ment 2019 - Oxybutynin Chloride ER Tablet Extended Release 24 Hour active 5 mg Oral one time a day Routine Give 5 mg by mouth one time a day for urinar y incont inence 2019 - Nystatin Powder active n/a n/a Topical two times a day Routine Apply to groin topica lly two times a day for rash 2019 - amLODIPine Besylate Tablet active 10 mg Oral one time a day Routine Give 10 mg by mouth one time a day for HTN hold for SBP less than 100 2019 - Metoprolol Tartrate Tablet active 25 mg Oral two times a day Routine Give 25 mg by mouth two times a day for HTN Hold for SBP less than 100 2019 - Mental Status Section Date Assessment Total Score Description 06/24/2019 BIMS 15 cognitively int act CAM 0 No delirium ind icated PHQ-9 02 minimal depress ion 04/22/2019 BIMS 14 cognitively int act CAM 0 No delirium ind icated PHQ-9 03 minimal depress ion Problems Problem # Description Date of onset Resolved Date Code CodeSystem Concern Status 1 ABNORMAL POSTURE [address] active 2 ADJUSTMENT DISORDER, UNSPECIFIED [address] active 3 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 [address] active 4 CONSTIPATION, UNSPECIFIED [address] active 5 DYSPHAGIA, OROPHARYNGEAL PHASE [address] active 6 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 [address] active 7 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 [address] active 8 HYPERLIPIDEMIA, UNSPECIFIED [address] active 9 INSOMNIA, UNSPECIFIED [address] active 10 MEMORY DEFICIT FOLLOWING CEREBRAL INFARCTION [address] active 11 MUSCLE WEAKNESS (GENERALIZED) [address] active 12 OTHER ALLERGIC RHINITIS [address] active 13 ACUTE EMBOLISM AND THROMBOSIS OF UNSPECIFIED DEEP VEINS OF UNSPECIFIED LOWER EXTREMITY [address] active 14 DYSPHAGIA FOLLOWING CEREBRAL INFARCTION [address] active 15 ESSENTIAL (PRIMARY) HYPERTENSION [address] active 16 GASTRO-ESOPHAGEAL REFLUX DISEASE WITHOUT ESOPHAGITIS [address] active 17 ALF (CURRENT) USE OF ANTICOAGULANTS [address] active 18 MILD COGNITIVE IMPAIRMENT OF UNCERTAIN OR UNKNOWN ETIOLOGY [address] active 19 NEUROGENIC BOWEL, NOT ELSEWHERE CLASSIFIED [address] active 20 NEUROMUSCULAR DYSFUNCTION OF BLADDER, UNSPECIFIED [address] active 21 OTHER ABNORMALITIES OF GAIT AND MOBILITY [address] active 22 OTHER REDUCED MOBILITY [address] active 23 UNSPECIFIED ATRIAL FIBRILLATION [address] active 24 HEMIPLEGIA, UNSPECIFIED AFFECTING LEFT NONDOMINANT SIDE [address] active 25 NONTRAUMATIC INTRACRANIAL HEMORRHAGE, UNSPECIFIED [address] active Reason for Referral No Reasons for Referral Entered Social History Social History Observation Description Start Date End Date Code Code System Current Smoking Status Tobacco smoking consumption unknown 679589613 SNOMED CT Sex Assigned At Male 1935 19896-0 [facility] Gender Identity Vital Signs Code Code System Vitals Name Values and Units Timing Information 8462-4 [facility] Blood Pressure-Diastolic Value=72 Un its=mmHg 06/24/2019 8480-6 [facility] Blood Pressure-Systolic Ddlxs=580 Un its=mmHg 06/24/2019 30595-7 [facility] Pain Level Value=0.0 06/24/2019 8310-5 [facility] Body Temperature Value=97.9 Units= F 06/24/2019 8867-4 [facility] Heart rate Value=70.0 Units=/min 9279-1 [facility] Respiratory Rate Value=18.0 Units=/m in 06/23/2019 05899-2 [facility] O2 % BldC Oximetry Value=96.0 Units= % 06/23/2019 35043-9 [facility] Weight Hsnow=016.7 Units=Lbs 8302-2 [facility] Height Value=72.0 Units=Inches 04/19/2019
--- OUTSIDE RECORDS SUMMARY | 2024-11-01 13:55 | XMS_ITS | Encounter Summary ---
Author Organization [facility] Address [address] [place] [address] Care Team Providers Care Plastic Frame Inserter Name Role Phone Elsewhere, Pcp Primary Care Provider Unavailabl e Reason for Visit * Reason Onset Date Comments telephone call 09/28/2024 Encounter Details Date Type Department Care Team (Latest Contact Info) Description 09/28/2024 Clinical Communication Department of Cardiovascular Medicine in [place], [place] [address] [place] [address] Leti Whatley M.B.B.S. [address] [place] [address] telephone call Social History Tobacco Use Types Packs/Day Years [...] place to sleep or slept in a intermediate (including now)? No 10/03/2020 Depression Answer Date Recor ded PHQ-9 Total Score (max 27) 5 11/16 Education Answer Date Recorded What is the highest level of school you have completed or the highest degree you have received? 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
--- OUTSIDE RECORDS SUMMARY | 2024-11-01 13:56 | XMS_ITS | Encounter Summary ---
Author Organization [facility] Address [address] [place] [address] Care Team Providers Care Take Away Worker Name Role Phone Elsewhere, Pcp Primary Care Provider Unavailabl e Reason for Visit * Reason Onset Date Comments DEVICE REGISTRATION 09/29/2024 PPM GENERATO R CHANGE Encounter Details Date Type Department Care Team (Latest Contact Info) Description 09/29/2024 Clinical Communication Department of Cardiovascular Medicine in [place], [place] [address] [place] [address] Leti Whatley M.B.B.S. [address] [place] [address] DEVICE REGISTRATION (PPM GENERATOR CHANGE ///) Social History Tobacco Use Types Packs/Day Years [...] place to sleep or slept in a assisted (including now)? No 10/03/2020 Depression Answer Date Recor ded PHQ-9 Total Score (max 27) 5 11/16 Education Answer Date Recorded What is the highest level of school you have completed or the highest degree you have received? 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 PPM GENERATOR CHANGE Tracking number: Fed EX [id number] X [place] PPM & Leads- Include Explanted/Capped/Reused X Extra copy for Bhupendra Rausch; medical recrods @ ci; rs.[email or web address] X Create [place] Case X Manage [place] Items X double cut off saw operator E-Form X Place copies in communication message documented in this encounter Plan of Treatment Not on file documented as of this encounter Visit Diagnoses Not on filedocumented in this encounter Additional Health Concerns Assessment Noted Time PHQ-9 Depression Total Score: 5 11/17/19 20 4:22 AM CDT documented as of this encounter Care Teams Take Away Worker Relationship Specialty Start Date End Date Elsewhere, Pcp PCP - General Internal Medicine 09/28/24 documented as of this encounter
--- OUTSIDE RECORDS SUMMARY | 2024-11-01 13:56 | XMS_ITS | Encounter Summary ---
Author Organization [facility] Address [address] [place] [id number] Care Team Providers Care Technical Illustrator Name Role Phone Unavailable Primary Care Provider Unavailabl e Reason for Visit * Reason Onset Date Comments Precision Through Imaging Advisory Generator replacement 09/06/2024 Encounter Details Date Type Department Care Team (Latest Contact Info) Description 09/06/2024 Clinical Communication Department of Cardiovascular Diseases in [place], [place] [address] [place] [address] Benja Jackson, RVeenaN. [address] [place] [phone] Precision Through Imaging Advisory Generator replacement Social History Tobacco Use Types Packs/Day Years [...] place to sleep or slept in a senior living (including now)? No 10/03/2020 Depression Answer Date Recor ded PHQ-9 Total Score (max 27) 5 11/16 Education Answer Date Recorded What is the highest level of school you have completed or the highest degree you have received? 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 - 09/19/2024 10:45 AM CDT INFORMATION DISCUSSED Returned Mrs. Ahmadi's call (release on file). She reiterates he is totally dependent and she is coordinating with his care givers so someone will be available on the day of procedure to help with transport. Caller relayed per charting he needs to report by 7:30am 09/28. Mrs. Ahmadi was under the impression they were to report by 9am. She says it takes an hour to get him ready and out the door. Caller will send a message to device team to confirm his report time on 09/28 and give Mrs. Ahmadi a return call to verify. Addendum: Talked to device team and they recommended: Considering that Mr. Ahmadi needs device check, labs, CXR, consult, H&P morning of procedure, I think 0730 would be best. Not sure how she was told 0900. Please let me know if 0730 is not acceptable and we can likely list as a 3rd case -- wecan request for a call time of 0900, but will not be sure as to when he will actually go into procedure. Mrs. Ahmadi would prefer to report at 7:30am 09/28. She will plan on this. PLAN Disposition/Recommendation: self-care is appropriate at this time, patient encouraged to call back with questions Education: patient/caller able to teach back Caller agreeable to plan of care: yes The following references were used: nursing clinical judgement * Addendum Note - Jamil Benedict R.N. - 09/16/2024 3:03 PM CDTAddended by: JAMIL BENEDICT on: 09/16/2024 03:03 PM Modules accepted: Orders * Telephone Encounter - Nicole Hankins R.N. - 09/14/2024 8:39 PM CDT INFORMATION DISCUSSED Contacted Mr. Ahmadi to arrange generator change. His answered (release on file). Caller inquired about their availability in the coming weeks given the urgency noted on the procedure request (2weeks). Mrs. Ahmadi reports they would be available for procedure the week of 09/26. Mrs. 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 Mrs. Ahmadi says he can stand for approximately 5 seconds. He is dependent on Mrs. Ahmadi and his caregivers who come into their home 6 days a week. One caregiver would be traveling with to assist with transfers/travel. The caregiver willbe available until 2pm, so an earlier case is ideal for them. Given Mr. Ahmadi's physical limitations and extra help required for travel, caller will reach out to device charge to determine the safest, most efficient way to coordinate Mr. Ahmadi's procedure. Addendum: MARC Ro device charge via teams 4:47pm: I think considering his debility and organizing help for appointments/transportation we can do labs & device check the morning of the gen change. I don't think we need a CXR. I just spoke with MARC Bealsey (who requested the gen change) and he agrees with me that week of 09/26 is just fine for the gen change. Thursday 09/28 might be a better day as we have 3 implanters/rooms that day. No need to order labs and device check for the morning of the gen change; just put a note in the listing that he needs that done in prep. MD can see patient in prep area as well. PLAN Disposition/Recommendation: self-care is appropriate at this time, patient encouraged to call back with questions Education: patient/caller able to teach back Caller agreeable to plan of care: yes The following references were used: nursing clinical judgement * Telephone Encounter - Nicole Hankins R.N. - 09/08/2024 3:02 PM CDT Contact Willie Malhotra regarding the scheduling of their generator change. Pre-procedure testing/appointment: All required pre-procedure testing and visit will be completed when you report for your procedure on 09/28/24. Procedure date: 09/28/24 Procedure: PROFESSOR OF FOOD BIOCHEMISTRY-P Generator change Report Time: Please plan to arrive by 7:30 am On the day of your procedure: Check into [facility], [facility] 4th Floor (East elevators) at the [facility] 4D desk. Youdo not need to check into the Admissions Desk prior. Fasting Instructions: You must fast prior to this procedure. Please stop eating solid foods eight (8) hours prior to yourarrival time. You may continue clear liquids until two (2) hours prior to your arrival time. Medication Instructions: Anticoagulation medications: Continue, do not stop for procedure. Cardiac medications: Continue, do not stop for procedure. Diabetes medications: None Weight loss medications: None All other medications: Continue taking all other medications as prescribed. On the morning of your procedure, take only your prescription medications and skip any supplements that are not prescribed by a medical provider. If your medications change prior to the procedure, please call or send a portal message to re-review medication instructions. Contrast Allergy: No CPAP/BIPAP Instructions: Please bring your CPAP or BiPAP machine with you to your procedure if you currently use one. It maybe used during the procedure or as you recover. Do you have any open wounds or infections? No Hibiclens Instructions: Please, shower the night prior to your procedure and the morning of your procedure with Hibiclens soap. This is available at your local pharmacy [email or web address] for purchase. Please review the educational link Reducing Your Risk of Surgical Infection on how to shower prior to your procedure. Please remember to wash gently with a soft washcloth when using Hibiclens so thatskin irritation does not occur. [email or web address] Discharge Plan: For this procedure, you will be dismissed the same day. In this case, you will need to either live within 100 miles of [place], [place] or spend the night in [place], [place] post procedure. If you live within 100 miles outside of [place], [place], it is highly recommended that you spend the night in [place], [place]. - If you experience any complications or have questions post procedure overnight, please call the [facility] Coin Machine Assembler at: [phone] and ask for [facility]. They will connect you to the on-call provider to assist you further. - You will receive sedation for your procedure, so an adult horse and wagon driver and supervision is required for 24 hours after the procedure. Please ensure you have someone present with you the day of your procedure. - Please note: If you experience any post-operative complications and/or your procedure is late in the day, you may spend the night in the hospital and if well, be dismissed the next day. Driving Restrictions: You may not drive for at least 24 hours post procedure due to sedation. Activity Restrictions: Avoid vigorous, upper arm activity and heavy lifting for one week. Contact Information: - If you have any further questions prior to your procedure, please contact the [facility] R[facility] Services Nurse Line at [phone] (available M-F 8 am to 5 pm BACK ROLL LATHE OPERATOR). - If you have any concerns or questions regarding your schedule, please contact the scheduling teamat [phone]. - If you have any concerns or questions about your insurance or procedure coverage, please contact the business office at [phone]. [facility] Specific Instructions: - We encourage you to check [email or web address] for more information on these instructions including visitor policies. The patient verbalized understanding and agreement with instructions. All questions were answered. * Telephone Encounter - Benja Jackson R.N. - 09/06/2024 8:48 AM CDT Device side: Left Number of chambers: BiV Type of Device: Pacemaker Device Location: Prepectoral Known lead issues: No Medications: None Pacemaker dependency: Yes Urgency: Advisory Device-follow up within 2 weeks. Battery estimate is currently at 3.5 year as of remote 05-13-24. Please arrange as soon as possible. documented in this encounter Plan of Treatment Not on file documented as of this encounter Visit Diagnoses Diagnosis Device Cardiac Status Post- Primary Preoperative Examination Cardiovascular documented in this encounter Additional Health Concerns Assessment Noted Time PHQ-9 Depression Total Score: 5 11/17/19 20 4:22 AM CDT documented as of this encounter
--- OUTSIDE RECORDS SUMMARY | 2024-11-01 13:56 | XMS_ITS | Encounter Summary ---
Author Organization [facility] Address [address] [place] [address] Care Team Providers Care Administrative Operations Coordinator Name Role Phone Elsewhere, Pcp Primary Care Provider Unavailabl e Encounter Details Date Type Department Care Team (Latest Contact Info) Description 09/29/2024 Clinical Communication Department of Cardiovascular Medicine in [place], [place] [address] [place] [address] Leti Whatley M.B.B.S. [address] [place] [address] Social History Tobacco Use Types Packs/Day Years [...] place to sleep or slept in a nursing home (including now)? No 10/03/2020 Depression Answer Date Recor ded PHQ-9 Total Score (max 27) 5 11/16 Education Answer Date Recorded What is the highest level of school you have completed or the highest degree you have received? 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
--- OUTSIDE RECORDS SUMMARY | 2024-11-01 13:56 | XMS_ITS | CCD ---
Author Name Interface, [id number] lity Address [address] [place] [address] [place] [address] Care Team Providers Care Java Front End Web Developer Name Role Phone Mike BEASLEY, Moreno Unavailable Unavailable Roderick DAVIES, Castro Unavailable Unavai lable Allergies and Adverse Reactions Reason for Visit Medications Problems Social History
--- OUTSIDE RECORDS SUMMARY | 2024-11-01 13:56 | XMS_ITS | Encounter Summary ---
Author Organization [facility] Address [address] [place] [address] Care Team Providers Care Digital Pre Press Operator Name Role Phone Elsewhere, Pcp Primary Care Provider Unavailabl e Encounter Details Date Type Department Care Team (Late st Contact Info) Description 07/14/2008 Historical Ophthalmology [facility] Trav Monge M.D. 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 - 07/14/2008 12:38 PM CDT Eye General CHIEF COMPLAINT Baseline for amiodarone use; floaters HISTORY OF PRESENT ILLNESS The patient describes floaters in both eyes for the past 30+ years, which is occasional, mild. Patient reports visual acuity is stable in both eyes, distance and near. Denies flashes and diplopia. Denies ocular pain. Patient began taking amiodarone one week ago. 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 CDM Reports - EYEGEN Id: [id number] Status: Fnl documented in this encounter Plan of Treatment Not on file documented as of this encounter Visit Diagnoses Not on filedocumented in this encounter Additional Health Concerns Infection Onset Date Last Indicated Resolved Time COVID19 Pending 11/03/2019 11/03/2019 11/04/2019 7 :12 PM CDT COVID19 Pending 11/15/2019 11/15/2019 11/16/2019 3 :30 PM CDT COVID19 Pending 01/10/2020 01/10/2020 01/10/2020 1 0:22 PM CDT COVID19 Pending 02/19/2020 02/19/2020 02/20/2020 1 2:01 AM CDT COVID19 Pending 03/11/2020 03/11/2020 03/12/2020 1 2:31 AM PHONE TRIAGE SPECIALIST COVID19 Pending 01/31/2021 02/01/2021 02/02/2021 9 :46 AM CDT documented as of this encounter Care Teams Digital Pre Press Operator Relationship Specialty Start Date End Date Elsewhere, Pcp PCP - General Internal Medicine 09/28/24 documented as of this encounter
[2024-11-01 13:57] VITALS: BP 96/60; PULSE 60; RESP 22; TEMP 36.6; O2SAT 91; BMI 27.0
--- NOTE | 2024-11-01 14:43 | ED_ITS ---
HPI - General Adult General Chief complaint: Urogenital Problems, Male Stated complaint: Pain/blood in urine Time Seen by Provider: 11/01/24 14:12 History of Present Illness HPI narrative: Pt here w/ spouse and caregiver for dysuria and hematuria since yesterday. Does wear a condom catheter at night is sometimes incontinent of urine as well. Per caregiver, pt is weaker today. Pt is on Plavix. Denies pain in triage . 89-year-old man presenting to the emergency department with concern of potential urinary tract infection. Does have a condom cath at night. Was incontinent of urine earlier. Caregiver is noted blood in urine. He has also said ow now when urinating. Does have a history of urinary tract infections. Seems weaker today. I note somewhat soft blood pressure on arrival here 96/60. I discussed with spouse during echocardiogram this week had a blood pressure 1 teens she says. Next blood pressure is 107/60 here. Findings she says on echocardiogram which are unknown to Mr. Ahmadi at this point are that there is some ?stenosis and as well as an aneurysm which it has been decided will not be intervened with. History of CVA with left-sided hemiparesis. Has not had fever. Is denying any pain at this point. Does take Plavix. GI bleed secondary acute gastroenteritis with last hospital admission 6 or 7 months ago. Related Data Home Medications ?Medication ?Instructions ?Recorded ?Confirmed amlodipine 10 mg tablet 10 mg PO DAILY 06/28/2205/28 donepezil 10 mg tablet 10 mg PO HS 06/28/22 5 metoprolol tartrate 25 mg tablet 25 mg PO BID 06/28/22 11/01/24 montelukast 10 mg tablet 10 mg PO HS 06/28/22 5 tamsulosin 0.4 mg capsule 0.4 mg PO DAILY 06/28/2205/28 atorvastatin 40 mg tablet 40 mg PO HS 08/04/22 5 cholecalciferol (vitamin D3) 50 50 mcg PO DAILY 11/01/24 mcg (2,000 unit) tablet famotidine 20 mg tablet 20 mg PO BID 11/27/22 gabapentin 100 mg capsule 200 mg PO BID 12/22/24 07/01 /25 sertraline 100 mg tablet 100 mg PO QAM 04/24/2411/01 Previous Rx's ?Medication ?Instructions ?Recorded clopidogrel 75 mg tablet 75 mg PO DAILY #30 tabs 11/03 05/26 potassium chloride 10 mEq 10 meq PO DAILYWM #30 caps 0 12/01/22 capsule,extended release Allergies Allergy/AdvReac Type Severity Reaction Status Date / Time No Known Drug Allergies Allergy Verified 11/01/24 14:00 Review of Systems Status of ROS: Reports: 6 or more systems reviewed and unremarkable except as noted in History and below (Other than the immediate, obtain from spouse) [facility] Medical History Impaired mobility ?Z74.09 - Other reduced mobility (ICD-10) Aspiration into airway ?T17.908A - Unspecified foreign body in respiratory tract, part unspecified causing other injury, initial encounter (ICD-10) GERD (gastroesophageal reflux disease) ?K21.9 - Gastro-esophageal reflux disease without esophagitis (ICD-10) Pacemaker ?Z95.0 - Presence of cardiac pacemaker (ICD-10) Nontraumatic thalamic hemorrhage ?I61.9 - Nontraumatic intracerebral hemorrhage, unspecified (ICD-10) EDUAR (obstructive sleep apnea) ?G47.33 - Obstructive sleep apnea (adult) (pediatric) (ICD-10) (HFpEF) heart failure with preserved ejection fraction ?I50.30 - Unspecified diastolic (congestive) heart failure (ICD-10) 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 ?K22.70 - 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 (ICD-10) History of right MCA stroke ?Z86.73 - Personal history of transient ischemic attack (TIA), and cerebral infarction without residual deficits (ICD-10) Malignant melanoma ?C43.9 - Malignant melanoma of skin, unspecified (ICD-10) Hyperlipidemia ?E78.5 - Hyperlipidemia, unspecified (ICD-10) Atrial fibrillation ?I48.91 - Unspecified atrial fibrillation (ICD-10) Presence of Watchman left atrial appendage closure device ?Z95.818 - Presence of other cardiac implants and grafts (ICD-10) Hypertension ?I10 - Essential (primary) hypertension (ICD-10) CVA (cerebral vascular accident) ?I63.9 - Cerebral infarction, unspecified (ICD-10) Surgical History H/O hernia repair ?Z98.890 - Other specified postprocedural states (ICD-10) ?Z87.19 - Personal history of other diseases of the digestive system (ICD-10) S/P placement of cardiac pacemaker ?Z95.0 - Presence of cardiac pacemaker (ICD-10) History of total knee arthroplasty ?Z96.659 - Presence of unspecified artificial knee joint (ICD-10) History of total hip arthroplasty ?Z96.649 - Presence of unspecified artificial hip joint (ICD-10) Social History Narrative: Lives with Hue (retired OT), she would be MDM if needed. 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 2 adult sons, one in [place]. Nonsmoker, rare/social scotch. Requests DNR/DNI status. What is your current living situation?: I presently have a place to live Problems where you live: no known problems Problems where you live details: n/a In the past 12 months, utilities in danger of being shut off: no In past 12 months, lack of transportation kept you from medical appts, meetings, work, or getting things needed for daily living: no In the past 12 mos, have been you worried that your food would run out before you had money to buy more?: never true In the past 12 mos, the food you bought just didn't last and you didn't have money to buy more?: never true Smoking Status: Never smoker How often do you have a drink containing alcohol: never How often do you have six or more drinks on one occasion: Never AUDIT-C Alcohol total score: 0 Non-prescribed substance use: denies use How often does anyone, including family, friends and others, physically hurt you : never How often does anyone, including family, friends and others, insult or talk down to you: never How often does anyone, including family, friends and others, threaten you with harm: never How often does anyone, including family, friends and others, scream or curse at you: never service: No Exam Narrative: Exam Narrative: NAD. Responds quickly and very limited to questions. He as lose Compression sleeves on both upper extremities. Is not spontaneously moving the left side. Lungs sound clear. Some upper airway or throat congestion. Appears well perfused. Heart in slower rate, regular rhythm. Abdomen is soft and nontender. Const: Vital Signs, click to edit/add: Vital Signs - 24 hr 11/01/24 13:57 11/01/24 14:50 11/01/24 16:06 Temperature 98 F Pulse Rate [Pulse Oximeter] 60 60 60 Respiratory Rate 22 20 20 Blood Pressure [Ri ght Upper Arm] 96/60 107/60 121/66 Pulse Oximetry 91 93 95 Oxygen Delivery Me thod Room Air Room Air Room Air Documenting provider has reviewed patient's vital signs: yes Course Vital Signs Vital signs: Initial Vital Signs Temperature 98 F 11/01/24 13:57 Temperature Source Temporal Artery Scan 11/01/24 13:57 Pulse Rate 60 11/01/24 13:57 Pulse Rhythm Regular 11/01/24 13:57 Respiratory Rate 22 11/01/24 13:57 Blood Pressure 96/60 11/01/24 13:57 Blood Pressure Mean 72 11/01/24 13:57 Blood Pressure Position Sitting 11/01/24 13:57 Pulse Oximetry 91 11/01/24 13:57 Oxygen Delivery Method Room Air 11/01/24 13:57 Vital Signs Temperature 98 F 11/01/24 13:57 Pulse Rate 60 11/01/24 13:57 Respiratory Rate 22 11/01/24 13:57 Blood Pressure 96/60 11/01/24 13:57 Pulse Oximetry 91 11/01/24 13:57 Oxygen Delivery Method Room Air 11/01/24 13:57 Temperature 98 F 11/01/24 13:57 Pulse Rate 60 11/01/24 16:06 Respiratory Rate 20 11/01/24 16:06 Blood Pressure 121/66 11/01/24 16:06 Pulse Oximetry 95 11/01/24 16:06 Oxygen Delivery Method Room Air 11/01/24 16:06 Medications Administered Medications: Discontinued Medications Generic Name Dose Route Start Last Admin Trade Name Freq PRN Reason Stop Dose Admin Ceftriaxone Sodium 1 gm 11/01/24 15:38 11/01/24 15:58 Ceftriaxone 1 Gm Vial IM 11/01/24 15:39 1 gm ONCE ONE Administration Lidocaine HCl 6 ml 11/01/24 14:51 11/01/24 15:08 Lidocaine Hcl 2 % Jelly (Top) Sterile TOPICAL 11/01/24 14:52 6 ml ONCE ONE Administration Lidocaine HCl 2.1 ml 11/01/24 15:38 11/01/24 15:58 Lidocaine 1% 5 Ml (Pf) 5 Ml Vial IM 2.1 ml DIRECTED PRN Administration Pain Medical Decision Making MDM Narrative Medical decision making narrative: Given history and concerns certainly would collect a urine. Spouse expressed some concern as this has been painful procedure him. Not anticipating placement a Ramirez but simply straight cath would give uroject in this effort. Cystitis complicated by Plavix certainly could be contributing to this hematuria. Initial oximetry was a little low but appears improved now. Does not have respiratory symptoms otherwise. Monitoring vitals over time in the emergency department as potentially further indication of more serious infection. Initial pressure as noted was a little soft but appears to have rebounded. Urinalysis ultimately collected via cath specimen. Does look to be infected. Positive for nitrite Discussed options for care. We settled on injection of Rocephin and outpatient cephalexin. Does appear otherwise well for discharge. Urine culture pending. See patient discharge plan for further discussion A urine culture will be pending here. We will contact you if antibiotics might need to be changed. Be seen for worsening weakness, fever. Prescribing cephalexin from [email or web address]. Your received a shot of Rocephin here in the emergency department. Medical Records Medical records reviewed: Yes I reviewed the patient's medical records Lab Data Labs: Lab Results 11/01/24 Range/Units 15:08 Urine Color Red A (Yellow) Urine Appearance Cloudy A (Clear) Urine pH 8.5 (5.0-8.5) Ur Specific Wheeler 1.020 (1.000-1.030) Urine Protein 3+ A (Negative) Urine Glucose (UA) Negative (Negative) Urine Ketones 1+ A (Negative) Urine Blood 3+ A (Negative) Urine Nitrite Positive A (Negative) Urine Bilirubin 1+ A (Negative) Urine Urobilinogen 1.0 (0.2-1.0) Ur Leukocyte Esterase 2+ A (Negative) Urine RBC 25-50 A (0-2) Urine WBC 10-25 A (0-5) Ur Squamous Epith Cells Few (None-Few) Calcium Oxalate Crystal Few A (None) Amorphous Sediment Few A (None) Urine Bacteria Many A (None) Discharge Plan Discharge Clinical Impression: UTI (urinary tract infection) Patient Disposition: Home w/ Parent or Adult Condition: Stable Additional Instructions: A urine culture will be pending here. We will contact you if antibiotics might need to be changed. Be seen for worsening weakness, fever. Prescribing cephalexin from [facility]. Your received a shot of Rocephin here in the emergency department. Prescriptions: No Action donepezil 10 mg tablet 10 mg PO HS Patient Comments: TAKE ONE TABLET BY MOUTH AT BEDTIME tamsulosin 0.4 mg capsule 0.4 mg PO DAILY Patient Comments: TAKE ONE CAPSULE BY MOUTH DAILY AFTER A MEAL amlodipine 10 mg tablet 10 mg PO DAILY Patient Comments: TAKE 1 TABLET (10 MG) BY MOUTH ONCE DAILY. montelukast 10 mg tablet 10 mg PO HS Patient Comments: TAKE ONE TABLET BY MOUTH EVERY DAY AT BEDTIME metoprolol tartrate 25 mg tablet 25 mg PO BID Patient Comments: TAKE ONE TABLET BY MOUTH TWICE A DAY atorvastatin 40 mg tablet 40 mg PO HS sertraline 100 mg tablet 100 mg PO QAM gabapentin 100 mg capsule 200 mg PO BID famotidine 20 mg tablet 20 mg PO BID cholecalciferol (vitamin D3) 50 mcg (2,000 unit) tablet 50 mcg PO DAILY clopidogrel 75 mg Tablet 75 mg PO DAILY Qty: 30 0RF potassium chloride 10 mEq Capsule, Extended Release 10 meq PO DAILYWM Qty: 30 0RF Follow Up/Referrals: Chandrika Sutton MD [Primary Care Provider, Family Practice] Stand Alone Forms: [facility] Info Instructions
[2024-11-01 14:50] VITALS: BP 107/60; PULSE 60; RESP 20; O2SAT 93
[2024-11-01] MEDS: lidocaine HCL 2 % JELLY (TOP) STERILE 6 ML TOPICAL (15:08)
--- NOTE | 2024-11-01 15:09 | ED.NURSE ---
Straight catheter performed to obtain urine sample. Urojet used to well driller helper in patient comfort.
--- OUTSIDE RECORDS SUMMARY | 2024-11-01 15:09 | XMS_ITS | CCD ---
Author Name Interface, [id number] lity Address [address] [place] [address] [place] [address] Care Team Providers Care Engineering Vice President Name Role Phone Mike BEASLEY, Moreno Unavailable Unavailable Roderick DAVIES, Castro Unavailable Unavai lable Allergies and Adverse Reactions Reason for Visit Medications Problems Social History
--- OUTSIDE RECORDS SUMMARY | 2024-11-01 15:10 | XMS_ITS ---
Author Name Interface, [id number] lity Address [address] [facility] [address] [place] [address] [facility] Address [address] [facility] [address] [place] [address] Allergies and Adverse Reactions Medication/Group Name Reaction Severity Date No known allergies Plan Date Type Value 11/20/2020 APPOINTMENT RC - 158 ARM 3 M [facility] RC - SCANS DONE PRIOR 11/20/2020 APPOINTMENT RC - 158 ARM 3 M [facility] RC - SCANS DONE PRIOR 11/13/2020 APPOINTMENT ULS - 158 CAP W. CONTRAST ULS AXILLA - CKIN: 8:15 NPO 2 HOURS 11/13/[address] - 158 CAP W. CONTRAST ULS AXILLA - CKIN: 8:15 NPO 2 HOURS 07/26/2020 APPOINTMENT CHTCK - [address] - [address] 07/25/[address] - 44 CT BRAIN W/ CONTRAST NPO 2 - CKIN: 8:45 [facility] 07/19/2020 APPOINTMENT CHTCK - 158 DID R/S PET SCAN? 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 - 158 SJ BY R EQ/MELANOMA - REF DR LANTIGUA 06/26/2020 APPOINTMENT BARGAIN TABLE CLERK - 158 SJ BY R EQ/MELANOMA - REF DR LANTIGUA 07/05/2020 LABORDER PET/CT scan, sku ll base/mid thigh 07/24/2020 LABORDER MRI brain w/ & w /o contrast 07/24/[address] brain w/ & w/ o contrast 11/06/2020 LABORDER U/S axilla, righ t 11/06/[address] chest/abdomen /pelvis w/ IV contrast 11/20/2020 LABORDER CMP 11/20/2020 LABORDER CBC w/ auto diff Reason for Visit RC - 158 ARM 3 MONTH RC - SCANS DONE PRIOR Encounters Date Name 06/26/2020 Brain lesion 06/26/2020 Melanoma Diagnostic Results Date Type Test Units Lower Limit Upper Limit Result Flag Comments Status Ordered By Specimen Source Lab Address 07/25 Misc other lab See attache alex 08/10 Misc other lab See attache alex 11/13 Misc other lab See streetcar repairer d Medications Date Name Route Dose Frequency Instructions Start Date End Date Status Dextromethorphan -Guaifenesin Oral Liquid 10 mg-100 mg/5 mL PRN activ e Tamsulosin Oral daily a ctive Clopidogrel Oral daily active Loratadine Oral daily a ctive Amlodipine Oral daily a ctive Acetaminophen Oral 2.0 tablet PRN active Metoprolol Oral (Tartrate) BID active Baclofen Oral 0.5 tablet BID active Aspirin Oral daily acti ve Trospium Oral bid act omaira Atorvastatin Oral daily active Melatonin Oral 0.5 tablet daily active Sertraline Oral daily a ctive Donepezil Oral daily ac tive 021 acetaminophen 325 MG / hydrocodone bitartrate 5 MG Oral Tablet orally 1.0 tablet every 4 hours 06/08/19 21 active Problems Diagnosis Status Date of Diagnosis Resolution Date Melanoma Active 04/02/2020 Brain lesion Active Vital Signs Date Type Value 06/26/2020 Body Temperature 96.60 06/26/2020 Heart Beat 60.00 06/26/2020 Oxygen Saturation 98.00 06/26/2020 Intravascular Systolic 104 06/26/2020 Intravascular Diastolic 67 06/26/2020 Pain Scale 4.00 06/26/2020 Height 72.00 06/26/2020 Respiratory Rate 16.00
--- OUTSIDE RECORDS SUMMARY | 2024-11-01 15:11 | XMS_ITS ---
Author Name Interface, [id number] lity Address [address] [place] [address] Oncology Address [address] [place] [address] Allergies and Adverse Reactions Plan Reason for Visit Encounters Diagnostic Results Medications Problems Vital Signs
--- OUTSIDE RECORDS SUMMARY | 2024-11-01 15:11 | XMS_ITS | CCD ---
Author Name Interface, [id number] lity Address [address] [place] [address] Organization [facility] Address [address] [place] [address] Care Team Providers Care Office Clin Asst Name Role Phone Mike BEASLEY, Moreno Unavailable Unavailable Roderick DAVIES, Castro Unavailable Unavai lable Allergies and Adverse Reactions Medication/Group Name Reaction Severity Date No known allergies Reason for Visit RC - 158 ARM 3 MONTH RC - SCANS DONE PRIOR Medications Date Name Route Dose Frequency Instructions Start Date End Date Status Donepezil Oral daily ac tive Acetaminophen Oral 2.0 tablet PRN active Trospium Oral bid act omaira Dextromethorphan- Guaifenesin Oral Liquid 10 mg-100 mg/5 mL PRN active Amlodipine Oral daily a ctive Aspirin Oral daily acti ve Sertraline Oral daily a ctive Melatonin Oral 0.5 tablet daily active Metoprolol Oral (Tartrate) BID active Atorvastatin Oral daily active Tamsulosin Oral daily a ctive Clopidogrel Oral daily active Loratadine Oral daily a ctive Baclofen Oral 0.5 tablet BID active Problems Diagnosis Status Date of Diagnosis Resolution Date Melanoma Active 04/02/2020 Brain lesion Active Social History Date Name Value 04/09/2020 Sex Male
--- OUTSIDE RECORDS SUMMARY | 2024-11-01 15:11 | XMS_ITS ---
Author Organization [facility] Care Team Providers Care Steamfitter Name Role Phone Rick Méndez Unavailable Unavailable [facility] Unavailable Unavailable Sugey Neumann Unavailable Unavailable Kiera Daigle Unavailable Unavailable Allergies and adverse reactions Code CodeSystem Substance Reaction Severity StartDate Concern Status Pollen Unknown Unknown active Dust Unknown Unknown active Care Team Name Role Address Phone Organization Dates Rick Méndez PCP [facility] [address] [place] [address], [facility], [place] (Office): [facility] 04/15/2019 - 06/24/2019 [facility] [place] (Office): [facility] 04/15/2019 - 06/24/2019 Sugey Neumann [facility] [address] [place] [address], [facility], [facility] (Office): [facility] 04/15/2019 - 06/24/2019 Kiera Daigle [facility] [address] [place] [address], [facility], [place] (Office): [facility] 04/15/2019 - 06/24/2019 Goals Section Goals Description Status Target Date Ability to plan and go on a trip into the community using accessible public transportation. Active 07/20/2019 Adequate hydration, 8-10 glasses of fluid daily Active 07/20/2019 Adhere to prescribed diet Active 2019 Awareness of 8 community leisure resources of in [facility]. 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 e Active 07/20/2019 [...] completed tuberculin skin test; unspecified formulation lotNumber: [id number] expiry: 07/26/2021 Mfg: JANZZ Given 0.1 ml Right Forearm intradermally Step 2 of Multi-step with next step required 98 CVX created date: 04/26/2019 consent date: 04/25/2019 administer ed date: 04/26/2019 TB 2 Step Mantoux Skin Test completed tuberculin skin test; unspecified formulation lotNumber: [id number] expiry: 09/24/2020 Mfg: [employer] Given 0.1 ml Left Forearm intradermally Step [...] 2018 - Lidocaine Patch 5 % active 6080581 RXNORM n/a n/a Topical one time a day Routine Apply to affect ed area topica lly one time a day for pain and remove per schedu le 2018 - Fluticasone Propionate Suspension 50 MCG/ACT active 0486861 RXNORM 2 spray Nasal one time a [...] - Tamsulosin HCl Capsule 0.4 MG active 044441 RXNORM 0.4 mg Oral one time a day Routine Give 0.4 mg by mouth one time a day for urinar y retens ion after a meal 2018 - Bisacodyl Suppository 10 MG active 799998 RXNORM 1 suppos itory Rectal one time [...] Sennosides-Do cusate Sodium Tablet 8.6-50 MG active 278734 RXNORM 2 tablet Oral as needed PRN [...] - Senokot S Tablet 8.6-50 MG active 6821272 RXNORM 2 tablet Oral one time a day Routine Give 2 tablet by mouth one time a day for contap ation 2018 - Tylenol Tablet active 1000 mg Oral three times a day Routine Give 1000 mg by mouth three times a day for pain per Dr [place] 2018 - Diclofenac Sodium Gel 1 % active 118703 RXNORM 1.5 gram Transde rmal as needed [...] CodeSystem Concern Status 1 ABNORMAL POSTURE [address] active 2 ADJUSTMENT DISORDER, UNSPECIFIED [address] active 3 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 [address] active 4 CONSTIPATION, UNSPECIFIED [address] active 5 DYSPHAGIA, OROPHARYNGEAL PHASE [address] active 6 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 [address] active 7 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 [address] active 8 HYPERLIPIDEMIA, UNSPECIFIED [address] active 9 INSOMNIA, UNSPECIFIED [address] active 10 MEMORY DEFICIT FOLLOWING CEREBRAL INFARCTION [address] active 11 MUSCLE WEAKNESS (GENERALIZED) [address] active 12 OTHER ALLERGIC RHINITIS [address] active 13 ACUTE EMBOLISM AND THROMBOSIS OF UNSPECIFIED DEEP VEINS OF UNSPECIFIED LOWER EXTREMITY [address] active 14 DYSPHAGIA FOLLOWING CEREBRAL INFARCTION [address] active 15 ESSENTIAL (PRIMARY) HYPERTENSION [address] active 16 GASTRO-ESOPHAGEAL REFLUX DISEASE WITHOUT ESOPHAGITIS [address] active 17 LONG-TERM (CURRENT) USE OF ANTICOAGULANTS [address] active 18 MILD COGNITIVE IMPAIRMENT OF UNCERTAIN OR UNKNOWN ETIOLOGY [address] active 19 NEUROGENIC BOWEL, NOT ELSEWHERE CLASSIFIED [address] active 20 NEUROMUSCULAR DYSFUNCTION OF BLADDER, UNSPECIFIED [address] active 21 OTHER ABNORMALITIES OF GAIT AND MOBILITY [address] active 22 OTHER REDUCED MOBILITY [address] active 23 UNSPECIFIED ATRIAL FIBRILLATION [address] active 24 HEMIPLEGIA, UNSPECIFIED AFFECTING LEFT NONDOMINANT SIDE [address] active 25 NONTRAUMATIC INTRACRANIAL HEMORRHAGE, UNSPECIFIED [address] active Reason for Referral No Reasons for Referral Entered Social History Social History Observation Description Start Date End Date Code Code System Current Smoking Status Tobacco smoking consumption unknown 264621618 SNOMED CT Sex Assigned At Male 1935 93010-0 [facility] Gender Identity Vital Signs Code Code System Vitals Name Values and Units Timing Information 8462-4 [facility] Blood Pressure-Diastolic Value=72 Un its=mmHg 06/24/2019 8480-6 [facility] Blood Pressure-Systolic Tffqc=976 Un its=mmHg 06/24/2019 94555-8 [facility] Pain Level Value=0.0 06/24/2019 8310-5 [facility] Body Temperature Value=97.9 Units= F 06/24/2019 8867-4 [facility] Heart rate Value=70.0 Units=/min 9279-1 [facility] Respiratory Rate Value=18.0 Units=/m in 06/23/2019 57054-1 [facility] O2 % BldC Oximetry Value=96.0 Units= % 06/23/2019 62713-5 [facility] Weight Xowdu=046.7 Units=Lbs 8302-2 [facility] Height Value=72.0 Units=Inches 04/19/2019
--- OUTSIDE RECORDS SUMMARY | 2024-11-01 15:11 | XMS_ITS ---
Author Name Interface, [id number] lity Address [address] [place] [address] Oncology Address [address] [place] [address] Allergies and Adverse Reactions Plan Reason for Visit Encounters Diagnostic Results Medications Problems Vital Signs
--- OUTSIDE RECORDS SUMMARY | 2024-11-01 15:11 | XMS_ITS ---
Author Name Interface, [email or web address] lity Address [address] [facility] [address] [place] [address] [facility] Address [address] [facility] [address] [place] [address] Allergies and Adverse Reactions Medication/Group Name Reaction Severity Date No known allergies Plan Date Type Value 11/20/2020 APPOINTMENT RC - 158 ARM 3 M [facility] RC - SCANS DONE PRIOR 11/20/2020 APPOINTMENT RC - 158 ARM 3 M [facility] RC - SCANS DONE PRIOR 11/13/2020 APPOINTMENT ULS - 158 CAP W. CONTRAST ULS AXILLA - CKIN: 8:15 NPO 2 HOURS 11/13/[address] - 158 CAP W. CONTRAST ULS AXILLA - CKIN: 8:15 NPO 2 HOURS 07/26/2020 APPOINTMENT CHTCK - [address] - [address] 07/25/[address] - 44 CT BRAIN W/ CONTRAST NPO 2 - CKIN: 8:45 [facility] 07/19/2020 APPOINTMENT CHTCK - 158 DID R/S PET SCAN? 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 - REF DR LANTIGUA 06/21/2020 APPOINTMENT PSTOP - PO#1 FINN ANOMA INSITU R FOREARM - 2-5-21 07/05/2020 LABORDER PET/CT scan, sku ll base/mid [...] - SCANS DONE PRIOR Encounters Date Name 06/21/2020 Brain lesion 06/21/2020 Melanoma Diagnostic Results Date Type Test Units Lower Limit Upper Limit Result Flag Comments Status Ordered By Specimen Source Lab Address 07/25 [facility] other lab See crotch piece baster d 08/10 [facility] other lab See crotch piece baster d 11/13 [facility] other lab See crotch piece baster d Medications Date Name Route Dose Frequency [...] lesion Active Vital Signs Date Type Value 06/21/2020 Body Temperature 97.70 06/21/2020 Heart Beat 60.00 06/21/2020 BSA 2.16 06/21/2020 BMI 28.07 06/21/2020 Height 72.00 06/21/2020 Weight 207.00 06/21/2020 Pain Scale 2.00 06/21/2020 Intravascular Systolic 112 06/21/2020 Intravascular Diastolic 58 06/21/2020 Oxygen Saturation 95.00 06/26/2020 Pain Scale 4.00 06/26/2020 Respiratory Rate 16.00 06/26/2020 Oxygen Saturation 98.00 06/26/2020 Heart Beat 60.00 06/26/2020 Body Temperature 96.60 06/26/2020 Height 72.00 06/26/2020 Intravascular Systolic 104 06/26/2020 Intravascular Diastolic 67
[2024-11-01 15:18] LABS: Appearance Urine Cloudy (Clear)
[2024-11-01] MEDS: cefTRIAXone 1 GM VIAL IM (15:58)
[2024-11-01] MEDS: LIDOCAINE 1% 5 ml (pf) 5 ML VIAL 2.1 ML IM (15:58)
[2024-11-01 16:06] VITALS: BP 121/66; PULSE 60; RESP 20; O2SAT 95
== END 2024-11-01 16:34 | disposition home or self-care (01) ==
PROVIDERS: Emergency Provider Family Medicine; PCP Family Medicine
DX: N39.0 Urinary tract infection, site not specified (principal)
CPT/HCPCS: 81001; 87086; 96372; 99284; J0696

== ENCOUNTER 2024-11-14 11:50 | Outpatient (CLI) | payer MEDICARE, OTHER, SELFPAY | END 2024-11-14 11:51 | disposition home or self-care (01) | PROVIDERS: PCP Family Medicine; Visit Provider Student in an Organized Health Care Education/Training Program | DX: R53.1 Weakness (principal) | CPT/HCPCS: A0998 ==

== ENCOUNTER 2024-11-14 16:44 | Outpatient (CLI) | payer MEDICARE, OTHER, SELFPAY | END 2024-11-14 16:45 | disposition home or self-care (01) | PROVIDERS: PCP Family Medicine; Visit Provider Student in an Organized Health Care Education/Training Program | DX: S29.9XXA Unspecified injury of thorax, initial encounter (principal); W19.XXXA Unspecified fall, initial encounter; Y92.009 Unspecified place in unspecified non-institutional (private) residence as the place of occurrence of the external cause | CPT/HCPCS: A0425; A0429 ==

== ENCOUNTER 2024-11-14 17:03 | Inpatient (IN) | payer MEDICARE, OTHER, SELFPAY ==
--- OUTSIDE RECORDS SUMMARY | 2017-11-26 10:19 | XMS_ITS | Continuity of Care Document ---
Author Organization [facility] Address [address] [address] [place] [address] Phone Care Team Providers Care Sanitary Napkin Machine Tender Name Role Phone Tal Kingston MD Unavailable Unavailable Advance Directives Directive Yes / No Effective Date File Name No Information Encounters Encounter Description Practice Location Reason(s) For Visit Diagnoses Date Provider Providers Copied on Encounter [facility], [address] [address], [place], [place], [id number], [place] tel:[phone] [facility] No Information 8 Link MD Parada. [address] [facility], [facility] [address], [place], [place], [id number] , [place]. tel:[phone] Family History Family Member Type Diagnosis Age At Onset No Information Payers Payer name Insurance type Covered green party ID Authoriza tion(s) No Information Social History Type Description Quantity Date Captured Comments Sex Male Smoking Status No Information Chief Complaint And Reason For Visit No Information Reason For Referral Reason For Referral No Information History Of Present Illness Encounter Date Complaint History Of Prese nt Illness No Information Functional Status Date Functional Assessmen t No Information Instructions Date Instruction Additional Infor mation No Information Assessments Type Assessment Date No Information Patient Care Teams Name Effective Dates (start - stop) Status Members No Information
--- OUTSIDE RECORDS SUMMARY | 2017-11-26 10:19 | XMS_ITS | Continuity of Care Document ---
Author Organization [facility] Address [address] [address] [place] [address] Phone Care Team Providers Care Real Estate Analyst Name Role Phone Tal Kingston MD Unavailable Unavailable Advance Directives Directive Yes / No Effective Date File Name No Information Encounters Encounter Description Practice Location Reason(s) For Visit Diagnoses Date Provider Providers Copied on Encounter [facility], [address] [address], [place], [place], [id number], [place] tel:[phone] [facility] No Information 8 Link MD Parada. [address] [facility], [facility] [address], [place], [place], [id number] , [place]. tel:[phone] Family History Family Member Type Diagnosis Age At Onset No Information Payers Payer name Insurance type Covered democrat ID Authoriza tion(s) No Information Social History [...]
--- OUTSIDE RECORDS SUMMARY | 2020-03-06 03:23 | XMS_ITS | Continuity of Care Document ---
Author Organization [facility] Address [address] [facility] [address] [place] [address] Phone Care Team Providers Care Business Planning Manager Name Role Phone RN, RN Unavailable Unavailable Allergies, Adverse Reactions, Alerts Substance Reaction Status Criticality No Known Allergies Active No Inform ation Medications Medication Instructions Dosage Effective Dates (start - stop) Status Comments amlodipine 10 mg tablet take 1 tablet by oral route every day 10 MG - Active Eliquis 5 mg tablet take 1 tablet by ora l route 2 times every day 5 MG - Active aspirin 81 mg chewable tablet chew 2 tablet by oral route every day 162 MG - Active atorvastatin 40 mg tablet take 1 tablet by oral route every day 40 MG - Active baclofen 10 mg tablet take 1 tablet by o ral route every day 10 MG - Active loratadine 10 mg tablet take 1 tablet by oral route every day 10 MG - Active melatonin 3 mg capsule - Active metoprolol tartrate 25 mg tablet take 1 tablet by oral route every day 25 MG - Active montelukast 10 mg tablet take 1 tablet by oral route every day in the evening 10 MG - Active Zoloft 50 mg tablet take 1 tablet by ora l route every day 50 MG - Active tamsulosin 0.4 mg capsule take 1 capsule by oral route every day 1/2 hour following the same meal each day 0.4 MG - Active Procedures Procedure Date New Pt Eval 45 Min Triggerpoint 1-2 Muscle Advance Directives Directive Yes / No Effective Date File Name No Information Encounters Encounter Description Practice Location Reason(s) For Visit Diagnoses Date Provider Providers Copied on Encounter [facility], [address] [facility] [address], [place], [place], [id number], tel:[phone] [facility] No Information 0 RN RN. [address] [facility], [place], [place], [id number], . tel:[phone] Referring Provider: Chandrika Wilkerson, [address] [place], [address]. tel:[phone] New Pt Eval [facility], [address], [place], [place], [id number], tel:[phone] [facility] back pain (chief complaint) back pain (chief complaint) Low back painPostlaminecto my syndromeInflammat ory arthropathy of facet jointA fibStrokeMyositis , unspecifiedMyalgi a, unspecified siteLow back pain 0 Gamaliel Nguyen. [address] [facility] [address], [place], [place], [id number], [place]. tel:[phone] Referring Provider: Chandrika Wilkerson, [address] [place], [address]. tel:[phone] Family History Family Member Type Diagnosis Age At Onset Mother Problem (finding) Cancer Father Problem (finding) Arthritis Mother Problem (finding) Arthritis Father Problem (finding) Depression Father Problem (finding) Diabetes Payers Payer name Insurance type Covered libertarian ID Kasey mcdonald(s) Medicare Part B [id number] [facility] - Commercial CI [id number] Social History Type Description Quantity Date Captured Comments Alcohol Use Details Unknown Caffeine Use Details Unknown Tobacco Use Status No Information Smoking Status No Information Sex Male Chief Complaint And Reason For Visit No Information Reason For Referral Reason For Referral No Information History Of Present Illness Encounter Date Complaint History Of Prese nt Illness back pain back pain Location of pain is middle back and lower back. Pain is radiated to the back.The patient describes the pain as an ache, burning, deep, diffuse, discomforting and sharp. Symptoms are aggravated by ascending stairs, bending, changing positions and daily activities. Symptoms are relieved by lying down. Functional Status Date Functional Assessmen t No Information Instructions Date Instruction Additional Infor mation No Information Assessments Type Assessment Date No Information Patient Care Teams Name Effective Dates (start - stop) Status Members No Information
--- OUTSIDE RECORDS SUMMARY | 2020-03-06 03:23 | XMS_ITS | Continuity of Care Document ---
Author Organization [facility] Address [address] [place] [address] Phone Care Team Providers Care Sack Maker Name Role Phone RN, RN Unavailable Unavailable Allergies, Adverse Reactions, Alerts Substance Reaction Status Criticality No Known Allergies Active No Inform ation Medications Medication Instructions Dosage Effective Dates (start - stop) Status Comments amlodipine 10 mg tablet take 1 tablet by oral route every day 10 MG - Active tamsulosin 0.4 mg capsule take 1 capsule by oral route every day 1/2 hour following the same meal each day 0.4 MG - Active Zoloft 50 mg tablet take 1 tablet by ora l route every day 50 MG - Active montelukast 10 mg tablet take 1 tablet by oral route every day in the evening 10 MG - Active metoprolol tartrate 25 mg tablet take 1 tablet by oral route every day 25 MG - Active melatonin 3 mg capsule - Active loratadine 10 mg tablet take 1 tablet by oral route every day 10 MG - Active baclofen 10 mg tablet take 1 tablet by o ral route every day 10 MG - Active atorvastatin 40 mg tablet take 1 tablet by oral route every day 40 MG - Active aspirin 81 mg chewable tablet chew 2 tablet by oral route every day 162 MG - Active Eliquis 5 mg tablet take 1 tablet by ora l route 2 times every day 5 MG - Active Procedures Procedure Date New Pt Eval 45 Min Triggerpoint 1-2 Muscle Advance Directives Directive Yes / No Effective Date File Name No Information Encounters Encounter Description Practice Location Reason(s) For Visit Diagnoses Date Provider Providers Copied on Encounter [facility], [address] [facility] [address], [place], [place], [id number], tel:[phone] [facility] No Information 0 RN RN. [address] [facility], [place], [place], [id number], . tel:[phone] Referring Provider: Chandrika Wilkerson, [address] [place], [address]. tel:[phone] New Pt Eval [facility], [address], [place], [place], [id number], tel:[phone] [facility] back pain (chief complaint) back pain (chief complaint) Low back painPostlaminecto my syndromeInflammat ory arthropathy of facet jointA fibStrokeMyositis , unspecifiedMyalgi a, unspecified siteLow back pain 0 Gamaliel Nguyen. [address] [facility] [address], [place], [place], [id number], [place]. tel:[phone] Referring Provider: Chandrika Wilkerson, [address] [place], [address]. tel:[phone] Family History Family Member Type Diagnosis Age At Onset Mother Problem (finding) Cancer Father Problem (finding) Arthritis Mother Problem (finding) Arthritis Father Problem (finding) Depression Father Problem (finding) Diabetes Payers Payer name Insurance type Covered republican ID Kasey mcdonald(s) Medicare Part B [id number] [facility] - Commercial CI [id number] Social History Type Description Quantity Date Captured [...]
--- OUTSIDE RECORDS SUMMARY | 2020-11-07 04:15 | XMS_ITS | Continuity of Care Document ---
Author Organization [facility] enter Address [address] [place] [address] Phone Care Team Providers Care Methods Time Analyst Name Role Phone [facility] Unavailable Unava ilable Procedures Procedure Date MAJOR JOINT OR BURSA INJ WITH ULTRASOUND Pt doc no events on discharg Pt w/o preop order iv ab pro Advance Directives Directive Yes / No Effective Date File Name No Information Encounters Encounter Description Practice Location Reason(s) For Visit Diagnoses Date Provider Providers Copied on Encounter [facility], [address] [place] [address], [id number], tel:[phone] [facility] No Information [facility]. [address] [place] [address], [id number], . tel:[phone] Referring Provider: Edgard Vicente, [address] [facility] [place], [address] . tel:[phone] Family History Family Member Type Diagnosis Age At Onset No Information Payers Payer name Insurance type Covered green party ID Authorerika mcdonald(s) Medicare MB [id number] [employer] Supplement Plan CI [id number] Social History Type Description Quantity Date Captured [...]
--- OUTSIDE RECORDS SUMMARY | 2020-11-07 04:15 | XMS_ITS | Continuity of Care Document ---
Author Organization [facility] enter Address [address] [place] [address] Phone Care Team Providers Care Dry Starch Supervisor Name Role Phone [facility] Unavailable Unava ilable Procedures Procedure Date MAJOR JOINT OR BURSA INJ WITH ULTRASOUND Pt doc no events on discharg Pt w/o preop order iv ab pro Advance Directives Directive Yes / No Effective Date File Name No Information Encounters Encounter Description Practice Location Reason(s) For Visit Diagnoses Date Provider Providers Copied on Encounter [facility], [address] [place] [address], [id number], tel:[phone] [facility] No Information [facility]. [address] [place] [address], [id number], . tel:[phone] Referring Provider: Edgard Vicente, [address] [facility] [place], [address] . tel:[phone] Family History Family Member Type Diagnosis Age At Onset No Information Payers Payer name Insurance type Covered libertarian ID Authorerika mcdonald(s) Medicare MB [id number] [employer] Supplement Plan [id number] Social History Type Description Quantity Date Captured [...]
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
--- OUTSIDE RECORDS SUMMARY | 2021-12-18 06:54 | XMS_ITS | Continuity of Care Document ---
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 [address], [place], [id number] , [place]. tel:[phone] OFFICE VISIT, EST TELEMEDICINE [facility], [address] [place], [place], [id number] , [place] tel:[phone] [facility] [place] Widespread pain (chief complaint) Pain in left wristChronic pain syndromeOther superintendent terminal (current) drug therapyTrochanter ic bursitis, right hipLong term (current) use of opiate analgesicPain in right wristPain in right hip 2 Senait Guerra, [address] [place], [address], [place]. tel: [phone] [facility], [address] [place], [place], [id number] , [place] tel: [phone] [facility] [place] No Information 2 Argentina Huitron. [address] [facility] [address], [place], [id number] , [place]. tel: [phone] [facility], [address] [place], [place], [id number] , [place] tel: [phone] [facility] [place] No Information 1 José Luis Elana. [address], [place], [id number] , [place]. tel: [phone] OFFICE/OUTPAT IENT VISIT, [facility], [address] [place] [address], [id number] , [place] tel: [phone] [facility] Widespread pain (chief complaint) Pain in left wristChronic pain syndromeOther assisted (current) drug therapyTrochanter ic bursitis, right hipLong term (current) use of opiate analgesicPain in right wristPain in right hipEncounter for therapeutic drug level monitoring 1 José Luis Elana. [address] [facility] [address], [place], [id number] , [place]. tel: [phone] Referring Provider: Edgard Vicente, [address] [place], [address] . tel:[phone] OFFICE/OUTPAT IENT VISIT, EST [facility], [address] [place] [address], [id number] , [place] tel: [phone] [facility] Widespread pain (chief complaint) Chronic pain syndromeOther assisted (current) drug therapyTrochanter ic bursitis, right hipLow back painLong term (current) use of opiate analgesicPain in right wristPain in left wrist Sep- 1 José Luis Ealna. [address], [place], [id number] , [place]. tel:[phone] Referring Provider: Edgard Vicente, [facility] [place], [address] . tel:[phone] OFFICE/OUTPAT IENT VISIT, [facility], [address] [place], [id number] , [place] tel: [phone] [facility] [place] Widespread pain (chief complaint) Chronic pain syndromeOther superintendent terminal (current) drug therapyTrochanter ic bursitis, right hipLow back painLong term (current) use of opiate analgesicPain in right hip 1 [place] Huitron[id number] [place] [address] Rd [address], [place], [id number] , [place]. tel: [phone] Referring Provider: Edgard Vicente, [place], [address] . tel:[phone] [facility], [address] [place], [place] [address] [place], [id number] , [place] tel:[phone] [facility] Trochanteric bursitis, right hip 1 Ricardo Rene. [facility] [place], [id number] , [place]. tel: [phone] Referring Provider: Edgard Vicente, [place], [address] . tel:[phone] [facility], [address] [place] [address] [place], [id number] , [place] tel: [phone] [facility] [place] No Information 1 [place] Huitron. [address], [place], [id number] , [place]. tel:[phone] Referring Provider: Edgard Vicente, [facility] [place], [address] . tel:[phone] OFFICE/OUTPAT IENT VISIT, [facility], [address] [place], [place] [address]Maureen [place], [id number] , [place] tel:[phone] [facility] [place] Widespread pain (chief complaint) Chronic pain syndromeEncounter for therapeutic drug level monitoringEncount er for screening for other disorderTrochante melisa bursitis, right hipOther superintendent terminal (current) drug therapyLow back pain 1 [place] Huitron. [address], [place], [id number] , [place]. tel:[phone] Referring Provider: Edgard Vicente, [address] [place], [address] . 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 Due on due Goal Creatinine. Due on due Goal UDT. Due on due Goal OARS. Due on due Goal DIRECTOR OF PEDIATRIC REHABILITATION Scanned. Due on due Goal AST (SGOT). [...] Goal PHQ-9. Due on du e Goal Creatinine. Due on due Goal UDT. Due on due Goal OARS. Due on due Goal DIRECTOR OF PEDIATRIC REHABILITATION Scanned. Due on due Goal AST (SGOT). Due on due Goal ALT (SGPT). Due on due Goal Order Annual PT. 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 Due on due Goal Review Allergy List. Due on due Goal Medication Reconciliation. D ue on due Goal Weight. Due on d ue Goal Tobacco Use. Due on due Goal Height. Due on d ue Goal Update Social History. Due o n due Goal PHQ-9. Due on du e Goal Creatinine. Due on due Goal UDT. Due on due Goal OARS. Due on due Goal DIRECTOR OF PEDIATRIC REHABILITATION Scanned. Due on due Goal AST (SGOT). Due on due Goal ALT (SGPT). Due on due Goal Order Annual PT. 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 Due on due Goal Review Allergy List. Due on due Goal Medication Reconciliation. D ue on due Goal Weight. Due on d ue Goal Tobacco Use. Due on due Goal Height. Due on d ue Goal Update Social History. Due o n due Goal PHQ-9. Due on du e Goal Creatinine. Due on due Goal UDT. Due on due Goal OARS. Due on due Goal DIRECTOR OF PEDIATRIC REHABILITATION Scanned. Due on due Goal AST (SGOT). Due on due Goal ALT (SGPT). Due on due Goal Order Annual PT. 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 Due on due Goal Review Allergy List. Due on due Goal Medication Reconciliation. D ue on due Goal Weight. Due on d ue Goal Tobacco Use. Due on due Goal Height. Due on d ue Goal Update Social History. Due o n due Goal PHQ-9. Due on du e Goal Creatinine. Due on due Goal UDT. Due on due Goal OARS. Due on due Goal DIRECTOR OF PEDIATRIC REHABILITATION Scanned. Due on due Goal AST (SGOT). Due on due Goal ALT (SGPT). Due on due Goal Order Annual PT. 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 Due on due Goal Review Allergy [...] Tobacco Use. Due on 021 due Goal Height. Due on d ue Goal Update Social History. Due o n due Goal PHQ-9. Due on du e History Of Present Illness Encounter Date Complaint [...] fatigue, fever and incontinence (urinary). Widespread pain Severity [...] diarrhea, fever and incontinence (urinary). Widespread pain (comments) [...] SEs. No other concerns today. Widespread pain (comments) Guy dewey is a [...] PE. He consulted a hip surgeon at [facility] in [place] to evaluate hip hardware. Right leg/hip pain is likely due to a possible fracture in hip, that not seen via regular x-rays. The stem may adhere back in place, or may get worse. But the orthopedist recommended and ordered PT for strength and pain. He is completing 2 sessions/week at [facility]. Long car rides aggravate the pain.He has difficulty bearing weight on his legs, even with a walker. So he bears most of his weight on his wrists while walking. 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 [...] swollen, no blood clots. Latest X-rays from [facility] do not show any fracture, but [...] does f/u with Dr. Josué Denise at [facility], next visit is scheduled for early December.Off note, hx of 2 strokes.His is present and contributed to today's OV.He is self referred.Treatment Tried:lumbar BRITTNI at [facility] 4 months ago - not helpful.6extra strength Tylenol/dayMobic - not helpfulibuprofentramadol - caused dizzinessgabapentin 100mg TID started 2 week ago - not helpful.wrist Cortizone injection at [facility] - not helpful, will try acupuncture instead.lidocaine patches and gel - not helpful.Pt goal: [facility] to take over pain management, specifically medical cannabis. Widespread pain Severity level i s 5. Duration: chronic. Location of the pain is lower back, left shoulder, right hip and right foot. The patient describes it as sharp, achy and numbness. It occurs persistently. Symptom is aggravated by bending, sitting, standing, walking, lifting and twisting. Relieving factors include sitting, supine and rest. Pertinent negatives include diarrhea, dyspnea, fever and incontinence (urinary). Functional Status Date Functional Assessmen t No Information Instructions Date Instruction Additional Infor mation No Information Assessments Type Assessment Date No Information Patient Care Teams Name Effective Dates (start - stop) Status Members No Information
--- OUTSIDE RECORDS SUMMARY | 2024-10-05 07:37 | XMS_ITS | Encounter Summary ---
Author Organization [facility] Address [address] [place] [address] Care Team Providers Care Hair Machine Operator Name Role Phone Elsewhere, Pcp Primary Care Provider Unavailabl e Encounter Details Date Type Department Care Team (Latest Contact Info) Description 10/05/2024 7:37 AM CDT - 10/05/2024 11:59 PM CDT Hospital Encounter Department of Cardiovascular Diseases in [place], [place] [address] [place] [address] Nato Hendrix M.D. [address] [place] [phone] Discharge Disposition: Home or Self Care Social [...] place to sleep or slept in a fdc (including now)? No 10/03/2020 Depression Answer Date Recor ded PHQ-9 Total Score (max 27) 5 11/16 Education Answer Date Recorded What is the highest level of school you have completed or the highest degree you have received? Doctorate 02/17/2020 Sex and Gender Information Value Date Recorded Sex Assigned at Not on file Legal Sex Male 5:41 AM CLINICAL AIDE Gender Identity Not on file Sexual Orientation [...] 7:37 AM CDT) Date Time Interrogation Session [id number] [facility] Type Interrogation Session Remote Device Initiated [facility] Implantable Pulse Generator [employer] [facility] Implantable Pulse Generator Type Cardiac Resynchronization Therapy - Pacemaker [facility] Implantable Pulse Generator Model U228 [facility] Implantable Pulse Generator Serial Number [id number] [facility] Implantable Pulse Generator Implant Date [id number] [facility] Battery Remaining Percentage 100.00 % [facility] Battery Remaining Longevity 84.0 mo [facility] Battery Status Beginning of Service [facility] Marlon Statistic RA Percent Paced 0.00 [facility] Marlon Statistic RV Percent Paced 100.00 [facility] VENEER MATCHER Statistic LV Percent Paced 100.00 [facility] VENEER MATCHER Statistic VENEER MATCHER Percent Paced 100.00 [facility] Lead Channel Setting Sensing Sensitivity 10.00 [facility] Lead Channel Measurements Date and Time [id number] [facility] Lead Channel Setting Sensing Sensitivity 2.50 [facility] Lead Channel Impedance Value 420 [facility] Lead Channel Pacing Threshold Amplitude 1.100 [facility] Lead Channel Pacing Threshold Pulse Width 0.4 [facility] Lead Channel Measurements Date and Time 20241003 [facility] Lead Channel Setting Pacing Amplitude 2.600 [facility] Lead Channel Setting Pacing Pulse Width 0.4 [facility] Lead Channel Impedance Value 597 [facility] Lead Channel Setting Pacing Amplitude 1.800 [facility] Lead Channel Setting Pacing Pulse Width 0.4 [facility] Marlon Setting Mode (NBG Code) VVIR [facility] Ventricular chambers paced during VENEER MATCHER pacing. BiV [facility] Marlon Setting Lower Rate Limit 60 [facility] Marlon Setting AT Mode Switch Rate 170 [facility] Marlon Setting Maximum Sensor Rate 130 [facility] VENEER MATCHER LV-RV Delay 0 [facility] DATCOUNTS INCLUDE 234 [facility] Lead Channel Setting Sensing Polarity Bipolar [facility] Lead Channel Setting Pacing Polarity Bipolar [facility] Lead Channel Pacing Threshold Polarity Bipolar [facility] Lead Channel Pacing Threshold Polarity Unipolar [facility] Zone Setting Type Category VT [facility] Murj Rate 1 160 [facility] Zone Setting Status Monitor [facility] Murj Zone ID 1 [facility] Implantable Lead Cigar Packer And Grader Pine Knot Scientific [facility] Implantable Lead Model 4671 Acuity X4 Straight [facility] Implantable Lead Location Left Ventricle [facility] Implantable Lead Connection Status Connected [facility] Implantable Lead Serial Number [id number] [facility] Implantable Lead Implant Date 20160129 [facility] Implantable Lead Special Function Lead length: 86.00 cm [facility] Implantable Lead Cigar Packer And Grader Medtronic [facility] Implantable Lead Model 4076 CapsureFix Novus MRI SureScan [facility] Implantable Lead Location Right Ventricle [facility] Implantable Lead Connection Status Connected [facility] Implantable Lead Serial Number [id number] [facility] Implantable Lead Implant Date 20160129 [facility] Implantable Lead Special Function Lead length: 58.00 cm [facility] Anatomical Region Laterality Modality Other [...] documented as of this encounter Care Teams Hair Machine Operator Relationship Specialty Start Date End Date Elsewhere, Pcp PCP - General Internal Medicine 09/28/24 documented as of this encounter
--- OUTSIDE RECORDS SUMMARY | 2024-11-02 09:53 | XMS_ITS | Encounter Summary ---
Author Organization [facility] Address [address] [place] [address] Care Team Providers Care Volunteer Services Supervisor Name Role Phone Elsewhere, Pcp Primary Care Provider Unavailabl e Encounter Details Date Type Department Care Team (Latest Contact Info) Description 11/02/2024 9:53 AM CDT - 11/02/2024 11:59 PM CDT Hospital Encounter Department of Cardiovascular Diseases in [place], [place] [address] [place] [address] Jared Alvarez M.B., B.Ch., B.A.O. 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 Gender Identity Not on file Sexual Orientation [...] Diagnosis Comments INTERFACED REMOTE DEVICE CHECK Routine 11/02/2024 9:53 AM CDT documented in this encounter Results * CAR CARDIAC DEVICE INTERROGATION (11/02/2024 9:53 AM CDT) Date Time Interrogation Session [id number] [email or web address] Type Interrogation Session Remote Scheduled [facility] Implantable Pulse Generator [employer] Director [employer] [facility] Implantable Pulse Generator Type Cardiac Resynchronization Therapy - Pacemaker [facility] Implantable Pulse Generator Model U228 [facility] Implantable Pulse Generator Serial Number [id number] [facility] Implantable Pulse Generator Implant Date [id number] [facility] Battery Remaining Percentage 100.00 % [facility] Battery Remaining Longevity 132.0 mo [facility] Battery Status Beginning of Service [facility] Marlon Statistic RA Percent Paced 0.00 [email or web address] Marlon Statistic RV Percent Paced 99.00 [email or web address] EFFICIENCY EXPERT Statistic LV Percent Paced 99.00 [facility] Lead Channel Setting Sensing Sensitivity 10.00 [facility] Lead Channel Impedance Value 3,000 [facility] Lead Channel Measurements Date and Time 20241101 [facility] Lead Channel Setting Sensing Sensitivity 2.50 [facility] Lead Channel Impedance Value 430 [facility] Lead Channel Pacing Threshold Amplitude 1.100 [facility] Lead Channel Pacing Threshold Pulse Width 0.4 [facility] Lead Channel Measurements Date and Time [id number] [facility] Lead Channel Setting Pacing Amplitude 2.200 [facility] Lead Channel Setting Pacing Pulse Width 0.4 [facility] Lead Channel Impedance Value 561 [facility] Lead Channel Setting Pacing Amplitude 1.800 [facility] Lead Channel Setting Pacing Pulse Width 0.4 [facility] Marlon Setting Mode (NBG Code) VVIR [facility] Ventricular chambers paced during EFFICIENCY EXPERT pacing. BiV [facility] Marlon Setting Lower Rate Limit 60 [facility] Marlon Setting AT Mode Switch Rate 170 [facility] Marlon Setting Maximum Sensor Rate 130 [facility] EFFICIENCY EXPERT LV-RV Delay 0 [facility] Lead Channel Setting Sensing Polarity Bipolar [facility] Lead Channel Setting Pacing Polarity Bipolar [facility] Lead Channel Pacing Threshold Polarity Bipolar [facility] Lead Channel Pacing Threshold Polarity Unipolar [facility] Zone Setting Type Category VT [facility] Murj Rate 1 160 [facility] Zone Setting Status Monitor [facility] Murj Zone ID 1 [facility] Implantable Lead [employer] Director [employer] [facility] Implantable Lead Model 4671 Acuity X4 Straight [facility] Implantable Lead Location Left Ventricle [facility] Implantable Lead Connection Status Connected [facility] Implantable Lead Serial Number [id number] [facility] Implantable Lead Implant Date 20160129 [facility] Implantable Lead Special Function Lead length: 86.00 cm [facility] Implantable Lead [employer] Director [employer] [facility] Implantable Lead Model 4076 CapsureFix Novus MRI SureScan [facility] Implantable Lead Location Right Ventricle [facility] Implantable Lead Connection Status Connected [facility] Implantable Lead Serial Number [id number] [facility] Implantable Lead Implant Date 20160129 [facility] Implantable Lead Special Function Lead length: 58.00 cm [facility] Anatomical Region Laterality Modality Other 11/13/2024 9:17 PM CDT Impressions 11/13/2024 9:17 PM CDT Encounter Impression: Title: Normal Remote: No Events * Normal Device Function * Alerts or events: None * Battery: Battery is at 100%, 11.00 yrs * Sensing, impedance and thresholds reviewed * Programmed parameters reviewed * Presenting rhythm BiV pacing at 60 bpm * Heart Rate Histograms reviewed * No significant changes noted Plan: Routine remote follow up and as needed. This patient underwent device interrogation. I agree that the device interrogation was medically indicated to provide appropriate care and continue routine device interrogations as indicated. Encounter Summary: This report includes 1 transmission that was received on 2024-11-02. Battery was reviewed. Narrative Procedure Note Jared Alvarez M.B., Home., B.A.O. - 11/13/2024 IMPRESSION: Encounter Impression: Title: Normal Remote: No Events * Normal Device Function * Alerts or events: None * Battery: Battery is at 100%, 11.00 yrs * Sensing, impedance and thresholds reviewed * Programmed parameters reviewed * Presenting rhythm BiV pacing at 60 bpm * Heart Rate Histograms reviewed * No significant changes noted Plan: Routine remote follow up and as needed. This patient underwent device interrogation. I agree that the deviceinterrogation was medically indicated to provide appropriate care andcontinue routine device interrogations as indicated. Encounter Summary: This report includes 1 transmission that was receivedon 2024-11-02. Battery was reviewed. Jared Miller, Home., B.A.O. CV IMPLANTABLE CARDIAC DEVICE Final Result documented in this encounter Visit Diagnoses Not on filedocumented in this encounter Additional Health Concerns Assessment Noted Time PHQ-9 Depression Total Score: 5 11/17/19 20 4:22 AM CDT documented as of this encounter Care Teams Volunteer Services Supervisor Relationship Specialty Start Date End Date Elsewhere, Pcp PCP - General Internal Medicine 09/28/24 documented as of this encounter
[2024-11-14] VITALS (11 sets, daily range): BP systolic 122–141; BP diastolic 76–82; PULSE 59–60; RESP 8–20; TEMP 36.4–36.7; O2SAT 91–96; BMI 27.0; BMI 22.6
--- OUTSIDE RECORDS SUMMARY | 2024-11-14 17:06 | XMS_ITS | Clinical Summary ---
Author Organization [facility] Address [address] [place] [address] Care Team Providers Care Cosmetology Professor Name Role Phone Elsewhere, Pcp Primary Care Provider Unavailabl e Source Comments Patient records contain information from all sites at [facility]. For routine questions regarding patient records, call [phone] during business hours, M-F 8:00 AM - 5:00 PM Central Time. Record requests for emergency care only can be directed to [phone] at any time.[facility] Allergies Active Allergy Reactions Criticality Noted [...] Pacemaker Cardiac Status Post 11/07/2019 Overview (11/07/2019): PUMP SERVICER-P, 2016 secondary to history of left ventricular [...] Post 01/30/2016 Atrial Fibrillation 01/28/2016 Overview (01/12/2020): [id number] 5 (age 4, CVA 2, HTN). HAS-BLED 4. 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 Central Sleep Apnea Syndrome 07/14/2008 Hypertension Essential Primary 01/20/2005 Hyperlipidemia 01/20/2005 Resolved Problems Problem Noted Date Diagnosed Date Resolved Date Heart Failure NOS 01/16/2016 11/07/2019 Cardiomyopathy 07/14/2008 11/07/2019 Encounters Date Type Department Care Team Description 11/02/2024 9:53 AM CDT - 11/02/2024 11:59 PM CDT Hospital Encounter Department of Cardiovascular Diseases in [place], [place] [address] [place] [address] Jared Alvarez M.B., B.Ch., B.A.O. Discharge Disposition: Home or Self Care 10/05/2024 7:37 AM CDT - 10/05/2024 11:59 PM CDT Hospital Encounter Department of Cardiovascular Diseases in [place], [place] [address] [place] [phone] Nato Hendrix M.D. Discharge Disposition: Home or Self Care 09/29/2024 Clinical Communication Department of Cardiovascular Medicine in [place], [place] [address] [place] [phone] Leti Whatley M.B.B.S. 09/29/2024 Clinical Communication Department of Cardiovascular Medicine in [address] [phone] Leti Whatley M.B.B.S. DEVICE REGISTRATION (PPM GENERATOR CHANGE ///) 09/28/2024 10:20 AM CDT - 09/28/2024 12:12 PM CDT Surgery Division of Cardiovascular Diseases in [place], [place] [address] [place] [phone] Leti Whatley M.B.B.S. PPM GENERATOR CHANGE - BIV 09/28/2024 7:45 AM CDT - 09/28/2024 2:14 PM CDT Hospital Encounter Division of Cardiovascular Diseases in [address] [phone] Leti Whatley M.B.B.S. Device Cardiac Status Post Discharge Disposition: Home or Self Care 09/28/2024 Clinical Communication Department of Cardiovascular Medicine in [place], [place] [address] [place] [phone] Leti Whatley M.B.B.S. telephone call 09/06/2024 Clinical Communication Department of Cardiovascular Diseases in [place], [place] [address] [place] [phone] Benja Jackson R.N. StudioNow Advisory Generator replacement from Last 3 Months Immunizations Immunization Administration [...] place to sleep or slept in a snf (including now)? No 10/03/2020 Depression Answer Date Recor ded PHQ-9 Total Score (max 27) 5 11/16 Education Answer Date Recorded What is the highest level of school you have completed or the highest degree you have received? Doctorate 02/17/2020 Sex and Gender Information Value Date Recorded Sex Assigned at Not on file Legal Sex Male 5:41 AM CLIENT SERVICE COORDINATOR Gender Identity Not on file Sexual Orientation [...] this topic Medical Devices Implanted Type Area Drawing Tender Device Identifier Shelf Expiration Date Model / Serial / Lot Lead Acuity Mill Hand Plate Mill X4 Straight - [place]ras [id number] Implanted:Qty: 1 on 01/29/2016 Cardiac Lead Coronary Lightbox Scientific / [id number] / Description:Device Manufactu rer - Lightbox Scientific. Body Location - Other. Coronary Sinus. Device Status Text - CARD LEAD-0080202. Lead 4076-58 Capsurefix Novus - [place] [id number] Implanted:Qty: 1 on 01/29/2016 Cardiac Lead Heart Medtronic / [id number] / Description:Device Manufactu rer - Medtronic FoxyP2 Inc. Body Location - Other. Right Ventricle. Device Status Text - CARD LEAD-[id number]. Pin-Plug Kit 6725 Is-1 - [place] [id number] Implanted:Qty: 1 on 01/29/2016 Cardiac Other Medtronic Description:Device Manufactu rer - Medtronic FoxyP2 Inc. Device Status Text - CARDOTHER-84613. [place] Screw 2 Canc 6.5 X 50 - [place] [id number] Implanted:Qty: 2 on 01/23/2005 Hardware e.g. pins/screws /rods Mouth [employer] Description:Device Manufactu rer - J & J Ortho. Device Status Text - HARDWARE-48662. Screw Biomet Fixed Locking 4.75 X 15 - [place] [id number] Implanted:Qty: 1 on 07/06/2012 Hardware e.g. pins/screws /rods Other/Legacy - See Implant Description BioMet Description:Device Manufactu rer - Biomet Inc. Body Location - Other. Left. Device Status Text - HARDWARE-687532. Screw Biomet Fixed Locking 4.75 X 15 - [place] [id number] Implanted:Qty: 1 on 07/06/2012 Hardware e.g. pins/screws /rods Other/Legacy - See Implant Description BioMet Description:Device Manufactu rer - Biomet Inc. Body Location - Other. Left. Device Status Text - HARDWARE-867665. Biomet Pin Jose 9 [id number] - [place] [id number] Implanted:Qty: 1 on 07/06/2012 Hardware e.g. pins/screws /rods BioMet Description:Device Manufactu rer - Biomet Inc. Device Status Text - HARDWARE-653194. Screw Biomet Fixed Locking 4.75 X 30 - [place] [id number] Implanted:Qty: 1 on 07/06/2012 Hardware e.g. pins/screws /rods Other/Legacy - See Implant Description BioMet Description:Device Manufactu rer - Biomet Inc. Body Location - Other. Left. Device Status Text - HARDWARE-458011. Screw Biomet Fixed Locking 4.75 X 30 - [place] [id number] Implanted:Qty: 1 on 07/06/2012 Hardware e.g. pins/screws /rods Other/Legacy - See Implant Description BioMet Description:Device Manufactu rer - Biomet Inc. Body Location - Other. Left. Device Status Text - HARDWARE-658650. [place] Shell Multi 2 60mm - [place] [id number] Implanted:Qty: 1 on 01/23/2005 Hip Implant [employer] Inc Description:Device Manufactu [employer] ([employer]). Device Status Text - HIP IMP-20875. Hip Stem Secur-Fit +Max 13 40 - [place] [id number] Implanted:Qty: 1 on 01/23/2005 Hip Implant Basil Description:Device Manufactu Sticher - Basil Corp.. Device Status Text - HIP IMP-56053. Ost Head C-Taper 32 +2.5 Nk - [place] [id number] Implanted:Qty: 1 on 01/23/2005 Hip Implant Basil Description:Device Manufactu rer - Basil Ender.. Device Status Text - HIP IMP-07094. J J Insert P Abena Neut 32x60 - [place] [id number] Implanted:Qty: 1 on 01/23/2005 Hip Implant [employer] Inc Description:Device Manufactu [employer] ([employer]). Device Status Text - HIP IMP-11391. Conversions - Default Historical Implant Device Implanted:05/07 (Quantity not on file) Hip Implant Description:Device Status Te xt - Hip Imp. both hips. Conversions - Default Historical Implant Device Implanted:01/28 (Quantity not on file) Knee Implant Right: Knee Description:Body Location - Knee R. Device Status Text - Knee Imp. Dev Cls Wtchmn Flx Chary 31 - [id number] Implanted:Qty: 1 on 01/12/2020 by Vernon Galvan Jr., M.D. at [facility] Mesh or Patch N/A: Heart StudioNow 05/15/2022 [id number] / / [id number] Description:Left Atrial appe ndage Visionist X4 - [id number] - [id number] Implanted:Qty: 1 on 09/28/2024 by Leti Whatley M.B.B.S. at [facility] Pacemaker Left: Chest Chestnut Ridge Scientific 07/22/2026 U228 / [id number] / Biomet Central Screw 6.5mm X 30mm - [place]ras [id number] Implanted:Qty: 1 on 07/06/2012 Shoulder Implant Other/Legacy - See Implant Description BioMet Description:Device Manufactu rer - Biomet Inc. Body Location - Other. Left. Device Status Text - SHOULDER-511738. Biomet Humeral Bearing 44m X 36mm Std - [place] [id number] Implanted:Qty: 1 on 07/06/2012 Shoulder Implant Other/Legacy - See Implant Description BioMet Description:Device Manufactu rer - Biomet Inc. Body Location - Other. Left. Device Status Text - SHOULDER-694755. Biomet Glendsphere 36mm Std. - [place] [id number] Implanted:Qty: 1 on 07/06/2012 Shoulder Implant Other/Legacy - See Implant Description BioMet Description:Device Manufactu rer - Biomet Inc. Body Location - Other. Left. Device Status Text - SHOULDER-332650. Bio. Comp Micro Stem 8mm - [place] [id number] Implanted:Qty: 1 on 07/06/2012 Shoulder Implant Other/Legacy - See Implant Description BioMet Description:Device Manufactu rer - Biomet Inc. Body Location - Other. Left. Device Status Text - SHOULDER-666207. Biomet Hum Tray Comp Rev 44mm Std - [place] [id number] Implanted:Qty: 1 on 07/06/2012 Shoulder Implant Other/Legacy - See Implant Description BioMet Description:Device Manufactu rer - Biomet Inc. Body Location - Other. Left. Device Status Text - SHOULDER-475765. Biomet Glenoid Baseplate Mini W Adaptor - [place] [id number] Implanted:Qty: 1 on 07/06/2012 Shoulder Implant Other/Legacy - See Implant Description BioMet Description:Device Manufactu rer - Biomet Inc. Body Location - Other. Left. Device Status Text - SHOULDER-176376. Explanted Type Area Drawing Tender Device Identifier Shelf Expiration Date Model / Serial / Lot Pacer Valitude X4 Is4 Mill Hand Plate Mill-P U128 - [place]ras [id number] Implanted:Qty: 1 on 01/29/2016 Explanted:Qty: 1 on 09/28/2024 by Leti Whatley M.B.B.SVeena at [facility] Pacemaker Other/Legacy - See Implant Description Chestnut Ridge Scientific / [id number] / Description:Device Manufactu rer - StudioNow. Body Location - Other. Left. Device Status Text - PACEMAKER-4929634. Procedures Procedure Name Priority Date/Time Associated Diagnosis Comments INTERFACED REMOTE DEVICE CHECK Routine 11/02/2024 9:53 AM CDT INTERFACED REMOTE DEVICE CHECK Routine 10/05/2024 7:37 [...] DIFFERENTIAL, B Routine 09/28/2024 9:25 AM CDT from Last 3 Months Results * CAR CARDIAC DEVICE INTERROGATION (11/02/2024 9:53 AM CDT) Only the most recent of2 resultswithin the time period is included. Date Time Interrogation Session [id number] [facility] Type Interrogation Session Remote Scheduled [facility] Implantable Pulse Generator Drawing Tender Enpocket LAB SYSTEM Implantable Pulse Generator Type Cardiac Resynchronization Therapy - Pacemaker [facility] Implantable Pulse Generator Model U228 [facility] Implantable Pulse Generator Serial Number [id number] [facility] Implantable Pulse Generator Implant Date 20240928 [facility] Battery Remaining Percentage 100.00 % [facility] Battery Remaining Longevity 132.0 mo [facility] Battery Status Beginning of Service [facility] Marlon Statistic RA Percent Paced 0.00 [facility] Marlon Statistic RV Percent Paced 99.00 [facility] PUMP SERVICER Statistic LV Percent Paced 99.00 [facility] Lead Channel Setting Sensing Sensitivity 10.00 [facility] Lead Channel Impedance Value 3,000 [facility] Lead Channel Measurements Date and Time 20241101 [facility] Lead Channel Setting Sensing Sensitivity 2.50 [facility] Lead Channel Impedance Value 430 [facility] Lead Channel Pacing Threshold Amplitude 1.100 [facility] Lead Channel Pacing Threshold Pulse Width 0.4 [facility] Lead Channel Measurements Date and Time 20241031 [facility] Lead Channel Setting Pacing Amplitude 2.200 [facility] Lead Channel Setting Pacing Pulse Width 0.4 [facility] Lead Channel Impedance Value 561 [facility] Lead Channel Setting Pacing Amplitude 1.800 [facility] Lead Channel Setting Pacing Pulse Width 0.4 [facility] Marlon Setting Mode (NBG Code) VVIR [facility] Ventricular chambers paced during PUMP SERVICER pacing. BiV [facility] Marlon Setting Lower Rate Limit 60 [facility] Marlon Setting AT Mode Switch Rate 170 [facility] Marlon Setting Maximum Sensor Rate 130 [facility] PUMP SERVICER LV-RV Delay 0 [facility] Lead Channel Setting Sensing Polarity Bipolar [facility] Lead Channel Setting Pacing Polarity Bipolar [facility] Lead Channel Pacing Threshold Polarity Bipolar [facility] Lead Channel Pacing Threshold Polarity Unipolar [facility] Zone Setting Type Category VT [facility] Murj Rate 1 160 [facility] Zone Setting Status Monitor [facility] Murj Zone ID 1 [facility] ION [facility] Implantable Lead Drawing Tender StudioNow [facility] Implantable Lead Model 4671 Acuity X4 Straight [facility] Implantable Lead Location Left Ventricle [facility] Implantable Lead Connection Status Connected [facility] Implantable Lead Serial Number [id number] [facility] Implantable Lead Implant Date 20160129 [facility] Implantable Lead Special Function Lead length: 86.00 cm [facility] Implantable Lead Drawing Tender Medtronic [facility] Implantable Lead Model 4076 CapsureFix Novus MRI SureScan [facility] Implantable Lead Location Right Ventricle [facility] Implantable Lead Connection Status Connected [facility] Implantable Lead Serial Number [id number] [facility] Implantable Lead Implant Date [...] reviewed. Narrative Procedure Note Jared Alvarez M.B., Bassem.Ch., B.A.O. - 11/13/2024 IMPRESSION: Encounter Impression: Title: [...] B.A.O. CV IMPLANTABLE CARDIAC DEVICE Final Result * Potassium (09/28/2024 1:25 PM CDT) Potassium, P 4.4 3.6 - 5.2 mmol/L 09/28/2024 1:47 PM CDT STMA Blood (Blood, Venous) 09/28/2024 1:25 PM CDT 09/28/2024 1:34 PM CDT us Terrie Alfaro APRN, C.N.P., M.S.N. LAB BLOOD ADD- ON Final Result [facility] [address] [place] [address], [facility] [address] [place] [address] * PPM GENERATOR CHANGE - BIV (09/28/2024 11:45 AM CDT) Anatomical Region Laterality Modality X-Ray Angiograph y 09/28/2024 10:5 8 AM CDT Narrative 09/29/2024 4:29 PM CDT For the complete report, see the Order-Level Documents. PROCEDURE TYPES 1. PPM GENERATOR CHANGE - BIV PRE-PROCEDURE DIAGNOSIS 1. Device Cardiac Status Post HRS NOTE The patient was brought to the operating room for replacement of PUMP SERVICER-P pulse generator due to current generator reaching [...] impedance values were confirmed using the external cnc operator programmer. ?These values were consistent with those [...] to the operating room for replacement of PUMP SERVICER-Ppulse generator due to current generator reaching ROQUE. [...] and impedance values were confirmed usingthe external cnc operator programmer. ?These values were consistent with those measuredprior to the procedure. The wound was then closed using two layers of 2-0Vicryl and a layer of running 4-0 Monocryl. ? For the complete report, see the Order-Level Documents. Compa GonzalezSVeena CV ELECTROPHYSIOLOG Y PROCS Final Result * CARDIOVASCULAR IMPLANTABLE ELECTRONIC DEVICE - NO CHARGE (09/28/2024 11:10 AM CDT) Date Time Interrogation Session [id number] [facility] Implantable Pulse Generator Drawing Tender Enpocket LAB SYSTEM Implantable Pulse Generator Type Cardiac Resynchronization Therapy - Pacemaker [facility] Implantable Pulse Generator Model U228 [facility] Implantable Pulse Generator Serial Number [id number] [facility] Implantable Pulse Generator Implant Date 20240928 [facility] Battery Status LESLIE FOUND AT[employer] LAB SYSTEM Lead Channel Setting Sensing Sensitivity 10.00 [facility] Lead Channel Setting Sensing Sensitivity 2.50 [facility] Lead Channel Impedance Value 419 [facility] Lead Channel Pacing Threshold Amplitude 0.900 [facility] Lead Channel Pacing Threshold Pulse [...] Lead Channel Setting Pacing Pulse Width 0.4 [facility] Marlon Setting Mode (NBG Code) VVIR [facility] Ventricular chambers paced during PUMP SERVICER pacing. BiV [facility] Marlon Setting Lower Rate Limit 60 [facility] Marlon Setting Maximum Sensor Rate 130 [facility] Marlon Setting PAV Delay 180 [facility] Zone Setting Type [...] 3 [facility] ION [facility] Implantable Lead Drawing Tender Chestnut Ridge [employer] [facility] Implantable Lead Model 4671 Acuity X4 Straight [facility] Implantable Lead Location Left Ventricle [facility] Implantable Lead Connection Status Connected [facility] Implantable Lead Serial Number [id number] [facility] Implantable Lead Implant Date 20160129 [facility] Implantable Lead Special Function Lead length: 86.00 cm [facility] Implantable Lead Drawing Tender Medtronic [facility] Implantable Lead Model 4076 CapsureFix Novus MRI SureScan [facility] Implantable Lead Location Right Ventricle [facility] Implantable Lead Connection Status Connected [facility] Implantable Lead Serial Number [id number] [facility] Implantable Lead Implant Date 20160129 [facility] Implantable Lead Special Function Lead length: 58.00 cm [facility] Anatomical Region Laterality Modality Other 09/28/2024 3:45 PM CDT Impressions 09/28/2024 3:45 PM CDT Encounter Impression: Title: Generator Change * Generator change performed on 09/28/24 * Device implanted by Dr. Whatley at [facility] * Programmed parameters were reviewed * [...] * Device implanted by Dr. Whatley at [facility] * Programmed parameters were reviewed * [...] partly visualized, degenerative changesof the spine. Leti MillerB.S. IMG DIAGNOSTIC IMAGING PROCEDURES Final Result * (ABNORMAL) CBC without Differential (09/28/2024 9:25 AM CDT) Pathologist [facility] Hemoglobin 14.0 13.2 - 16.6 g/dL 09/28/2024 [...] AM CDT 09/28/2024 9:54 AM CDT Leti MillerB.S. LAB BLOOD ADD-ON Final Result [facility] [address] [place], [place] [address] [address] [place] [address] * Sodium (09/28/2024 9:25 AM CDT) Sodium, S 139 135 - 145 mmol/L 09/28/2024 11:06 AM CDT DTL Blood (Blood, Venous) 09/28/2024 9:25 AM CDT 09/28/2024 10:10 AM CDT Leti MillerB.S. LAB BLOOD ADD-ON Final Result [facility] [address] [place] [address], [facility] [address] [place] [address] * Creatinine with Estimated GFR (09/28/2024 9:25 AM CDT) Creatinine 0.92 0.74 - 1.35 mg/dL 09/28/2024 11:06 AM CDT DTL Estimated GFR (eGFR) 81 >=60 mL/min/BSA 09/28/2024 11:06 AM CDT DTL Comment: Estimated GFR calculated using the 2020 CKD_EPI creatinine equation. Blood (Blood, Venous) 09/28/2024 9:25 AM CDT 09/28/2024 10:10 AM CDT Leti MillerB.S. LAB BLOOD ADD-ON Final Result [facility] [address] [place] [address], [facility] [address] [place] [address] from Last 3 Months Insurance [facility] [place] [id number] Advance Directives For more information, please contact: [phone] Documents on File Type Date Recorded Patient Networking Administrator Expl anation Advance Directives 01/27/2005 12:00 AM [...] Answer Comments Full Code: Discussed Care Teams Cosmetology Professor Relationship Specialty Start Date End Date Elsewhere, Pcp PCP - General Internal Medicine 09/28/24
--- OUTSIDE RECORDS SUMMARY | 2024-11-14 17:07 | XMS_ITS | CCD ---
Author Name Interface, [id number] lity Address [address] [place] [address] Organization [facility] Address [address] [place] [address] Care Team Providers Care Encoding Clerk Name Role Phone Mike BEASLEY, Moreno Unavailable [...] a ctive Aspirin Oral daily acti ve Loratadine Oral daily a ctive Metoprolol Oral (Tartrate) BID active Baclofen Oral 0.5 tablet BID active Tamsulosin Oral daily a ctive Atorvastatin Oral daily active Sertraline Oral daily a ctive Clopidogrel Oral daily active Melatonin Oral 0.5 tablet daily active Problems Diagnosis Status Date of Diagnosis Resolution Date Melanoma Active 04/02/2020 Brain lesion Active Social History Date Name Value 04/09/2020 Sex Male
--- OUTSIDE RECORDS SUMMARY | 2024-11-14 17:07 | XMS_ITS | Encounter Summary ---
Author Organization [facility] Address [address] [place] [address] Care Team Providers Care Sales Effectiveness Manager Name Role Phone Elsewhere, Pcp Primary Care Provider Unavailabl e Encounter Details Date Type Department Care Team (Late st Contact Info) Description 04/02/[address] [facility] [address] [place] [address] Alireza Lundy M.D. [address] [place] [address] Runny Nose (Primary Dx) Social History Tobacco Use Types Packs/Day Years Used Date Smoking Tobacco: Former Sex and Gender Information Value Date Recorded Sex Assigned at Not on file Legal Sex Male 5:[address] TECHNICIAN Gender Identity Not on file Sexual [...] Pending 03/11/2020 03/11/2020 03/12/2020 1 2:[address] TECHNICIAN COVID19 Pending 01/31/2021 02/01/2021 02/02/2021 9 :46 AM CDT Assessment Noted Time PHQ-9 Depression Total Score: 1 12/18/19 16 5:44 PM CDT documented as of this encounter Care Teams Sales Effectiveness Manager Relationship Specialty Start Date End Date Elsewhere, Pcp PCP - General Internal Medicine 09/28/24 documented as of this encounter
--- OUTSIDE RECORDS SUMMARY | 2024-11-14 17:07 | XMS_ITS ---
Author Name Interface, [id number] lity Address [address] [facility] [address] [place] [address] [facility] Oncology Address [address] [facility] [address] [place] [address] Allergies and Adverse Reactions Medication/Group Name Reaction Severity Date No known allergies Plan Date Type Value 11/20/2020 APPOINTMENT RC - 158 ARM 3 M [facility] RC - SCANS DONE PRIOR 11/20/2020 APPOINTMENT RC - 158 ARM 3 M [facility] RC - SCANS DONE PRIOR 11/13/2020 APPOINTMENT ULS - 158 CAP W. CONTRAST ULS AXILLA - CKIN: 8:15 NPO 2 HOURS 11/13/[address] - 158 CAP W. CONTRAST ULS AXILLA - CKIN: 8:15 NPO 2 HOURS 07/26/2020 APPOINTMENT CHTCK - [address] - [address] 07/25/[address] - 44 CT BRAIN W/ CONTRAST NPO 2 - CKIN: 8:45 [place] 07/19/2020 APPOINTMENT CHTCK - 158 DID R/S PET SCAN? 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 DISPLAY DIRECTOR - 158 SJ BY R EQ/MELANOMA - REF DR LANTIGUA 06/26/2020 APPOINTMENT DISPLAY DIRECTOR - 158 SJ BY R EQ/MELANOMA - [...] attache alex 11/13 Misc other lab See animal physiologist d Medications Date Name Route Dose Frequency [...]
--- OUTSIDE RECORDS SUMMARY | 2024-11-14 17:07 | XMS_ITS | CCD ---
Author Name Interface, [id number] lity Address [address] [place] [address] [place] [address] Care Team Providers Care Computer Security Manager Name Role Phone Mike BEASLEY, Moreno Unavailable Unavailable Roderick DAVIES, Castro Unavailable Unavai lable Allergies and Adverse Reactions Reason for Visit Medications Problems Social History
--- OUTSIDE RECORDS SUMMARY | 2024-11-14 17:07 | XMS_ITS | Clinical Summary ---
Author Organization [facility] Address [address] [place] [address] Care Team Providers Care Home Health Lvn Name Role Phone Marcelle Portillo CONTRACTS ADVISOR Unavailable [phone] Dolores Louis RN Unavailable [phone] Chandrika Xie MD Primary Care Provide r [facility], [place] Unavailable Allergies Active Allergy Reactions Criticality Noted [...] As directed. 1 unit 11/01/19 22 Active Jdcge-1-GJK-EPA- Fish Oil 1,000 mg (120 mg-180 mg) [...] morning. 180 Tablet 3 06/14/19 25 Active amLODIPine (NORVASC) 10 mg tabletIndication [...] HRS. 118 mL 1 10/26/19 25 Active donepeziL 10 mg tabletIndication s:Memory impairment TAKE 1 TABLET (10 MG) BY MOUTH AT BEDTIME. 90 Tablet 11/05/19 25 Active codeine-guaiFENe sin 10-100 mg/5 mL liquidIndication s:Chronic cough Take 5 mL by mouth every 4 hours if needed for Cough. Max dose 60 mL per 24 hrs. 118 mL 1 02/05/20 24 025 Discontinued donepeziL (ARICEPT) 10 mg tabletIndication s:Memory impairment TAKE 1 TABLET (10 MG) BY MOUTH AT BEDTIME. 90 Tablet 07/08/19 25 025 Discontinued Active Problems [...] Date Type Department Care Team Description 11/02/2024 Refill [facility] [address] [place] [address] Chandrika Xie MD Refill Request (Donepezil) 11/02/2024 Telephone [facility] [address] [place] [address] Chandrika Xie MD Results (ECHO) 11/01/2024 Telephone [facility] [address] [place] [address] Chandrika Xie MD DME Supply (Power wheelchair ) 11/01/2024 Telephone [facility] [address] [place] [address] Angelita Foster MD Questions (Appointment 11-01-2024) 11/01/2024 Telephone [facility] [address] [place] [address] Chandrika Xie MD Urinary Problem (UTI ) 11/01/2024 Nurse Triage [facility] [address] [place] [address] Chandrika Xie MD Urinary Problem 10/31/2024 11:00 AM CDT Ancillary Procedure [facility] [address] [place] [address] 10/31/2024 Travel 10/24/[address] [address] Chandrika Xie MD Refill Request (Codeine-guaifenesi n) 10/12/[address] [address] Chandrika Xie MD Questions (Diabetes/) 10/05/[address] [address] Chandrika Xie MD Refill Request (Metoprolol Tartrate) 09/28/[address] [address] Chandrika Xie MD Concerns (Narrowing of valve) 09/07/2024 11:15 AM CDT Orders Only [address] [address] [facility] 09/07/[address] [address] Chandrika Xie MD Refill Request (Potassium Chloride, Gabapentin) 09/06/2024 10:41 AM CDT - 09/06/2024 11:59 PM CDT Hospital Encounter [facility] [address] [place] [address] Chandrika Xie MD Faber, Kelly, PT Left hemiparesis (HC); Cerebrovascular accident (CVA), unspecified mechanism (HC) 09/06/2024 Travel 09/05/2024 3:45 PM CDT Phone Office Visit [facility] [address] [place] [address] Ligia Bradley PA UTI (will bring UA in the morning, confusion, Becerra is President, ) 09/05/2024 Travel 09/05/2024 Telephone [facility] [address] [place] [address] Chandrika Xie MD Medication Management (Patient requesting UTI test) from Last 3 Months Immunizations Immunization Administration [...] Sex Assigned at Male 03/23/2020 9:48 PM CUSTOM STOCK MAKER Legal Sex Male 6:06 AM CUSTOM STOCK MAKER Gender Identity Not on file Sexual Orientation Straight 03/23/2020 9: 48 PM CUSTOM STOCK MAKER Occupation Industry Job Start Date Job End Date RETIRED Not on file Not on file Not on file Obstetrics History Last Filed Vital Signs Vital Sign Reading Time Taken Comments Blood Pressure 102/61 05/19/2024 2:13 PM CUSTOM STOCK MAKER Pulse 59 05/19/2024 2:13 PM CUSTOM STOCK MAKER Temperature 36.5 C (97.7 F) 02/19/2023 9:31 AM CDT Respiratory Rate 16 08/28/2022 8:10 AM CDT Oxygen Saturation 97% 05/19/2024 2:1 3 PM CUSTOM STOCK MAKER Inhaled Oxygen Concentration - - Weight 88.9 kg (196 lb) 07/03/2023 9:37 AM CUSTOM STOCK MAKER was holding onto bars and unsteady Height 182.9 cm (6' 0.01) 11/27/2020 3 :15 PM CDT Body Mass Index 26.58 11/27/2020 3:15 PM CDT Plan of Treatment Upcoming Encounters Date Type Department Care Team (Late st Contact Info) Description 11/17/2024 9:55 AM CDT Office Visit [facility] [address] [place] [address] Chandrika Xie MD [address] [address] 12/12/2024 11:00 AM CDT Ancillary Procedure [facility] [address] [place] [address] 12/12/2024 11:30 AM CDT Office Visit [facility] [address] [place] [address] Gallito Arriaga MD [address] [facility] [address] [place] [address] Health Maintenance Due Date Last Done Comments [...] cardiac valve disease unspecified URINALYSIS MACROSCOPIC - [facility] ONLY POC DIP (QUEST) Routine 09/07/2024 9:28 [...] BSA: 2.11 m Weight: 89.00 kg Tech: [facility] Referring MD: CHANDRIKA XIE Site: [facility] Reading Location: MOBILE OP Patient Location: Outpatient. [...] . This study was interpreted by an [facility] accredited facility. Final Procedure Note Zulema Leung, [facility] - 10/31/2024 ECHOCARDIOGRAM YONATAN AHMADI : 1935 89 years Study Date: 10/31/2024 11:27:09 AM Gender: M BP: 108/54 mmHg Height: 183.00 cm BSA: 2.11 m Weight: 89.00 kg Tech: [facility] Referring MD: CHANDRIKA XIE Site: [facility] Reading Location: MOBILE OP Patient Location: Outpatient. [...] . This study was interpreted by an [facility] accredited facility. Final us Chandrika Xie MD ECHO ORD Final Result * (ABNORMAL) POCT Urinalysis Dipstick Only [[id number]] (09/07/2024 9:28 AM CDT) PH 5.0 5.0 - 8.0 [facility] SPECIFIC GRAVITY > OR = 1.030 1.001 - 1.035 [facility] Comment: Specific [place] values resulted are outside the analytical measurement range of this device. Recommend repeat/additional testing as clinically indicated. GLUCOSE NEGATIVE NEGATIVE [facility] BILIRUBIN NEGATIVE NEGATIVE [facility] KETONES NEGATIVE NEGATIVE [facility] OCCULT BLOOD NEGATIVE NEGATIVE [facility] PROTEIN NEGATIVE NEGATIVE [facility] NITRITE POSITIVE(A) NEGATIVE [facility] LEUKOCYTE ESTERASE TRACE(A) NEGATIVE [facility] Urine URINE SPECIMEN / Unknown 09/07/2024 9:28 AM CDT 09/07/2024 9:28 AM CDT Ligia PERAZA URINE Final Result [facility] [address] [place] [address], [place] [phone] [facility] [address] [place] [address] * URINALYSIS MICROSCOPIC [34898.1] - routine (09/07/2024 9:27 AM CDT) RBC 0-2 0-2, None Seen /HPF 09/07/2024 4:07 PM CDT [facility] WBC 0-2 0-2, 3-5, None Seen /HPF 09/07/2024 4:07 PM CDT [facility] BACTERIA Few None Seen, Rare, Few Bacteria/ HPF 09/07/2024 4:07 PM CDT [facility] EPITHELIAL CELLS None Seen None Seen, Few Epi/HPF 09/07/2024 4:07 PM CDT [facility] HYALINE CASTS 0-2 0-2, 3-5 /LPF 09/07/2024 4:07 PM CDT [facility] Urine URINE SPECIMEN / Unknown Non-Blood / Unknown 09/07/2024 9:27 AM CDT 09/07/2024 9:27 AM CDT Ligia PERAZA URINE Final Result [facility] [address] [place] [address], [place] * URINE CULTURE [38431.2] (09/07/2024 9:27 AM CDT) CULTURE No growth (<1,000 CFU/mL) 09/08/2024 1:21 PM CDT [facility] Urine URINE SPECIMEN / Unknown Non-Blood / Unknown 09/07/2024 9:27 AM CDT 09/07/2024 9:27 AM CDT Ligia PERAZA MICROBIOLOGY Final Result [facility] 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 Healthcare Directive 03/30/2019 8:47 AM s igned 01/23/05 * Full Code (Latest Code Status on File) Date Activated Date Inactivated Comments 04/18/2020 8:33 AM 04/18/2020 4:22 PM Question Answer Comments Code Status Discussion: Not Discussed * Full Code Date Activated Date Inactivated Comments 03/29/2019 12:13 PM 04/15/2019 12:40 PM Question Answer Comments Code Status Discussion: Per Existing Order Care Teams Home Health Lvn Relationship Specialty Start Date End Date Chandrika Xie MD [address] [place] [address] PCP - General Family Practice 02/19/23 Marcelle Portillo, CONTRACTS ADVISOR Stroke Rehab Care Coordination - [facility] Care Guide 07/14/19 Dolores Louis RN [address] [address] Stroke Rehab Care Coordination - [facility] Registered Nurse 07/20/[address] [address] 05/11/24
--- OUTSIDE RECORDS SUMMARY | 2024-11-14 17:08 | XMS_ITS ---
Author Name Interface, [id number] lity Address [address] [place] [address] Oncology Address [address] [place] [address] Allergies and Adverse Reactions Plan Reason for Visit Encounters Diagnostic Results Medications Problems Vital Signs
--- OUTSIDE RECORDS SUMMARY | 2024-11-14 17:08 | XMS_ITS ---
Author Organization [facility] Care Team Providers Care Conveyor Loader Name Role Phone Rick Méndez Unavailable Unavailable [facility] Unavailable Unavailable Sugey Neumann Unavailable Unavailable Kiera Daigle Unavailable Unavailable Allergies and adverse reactions Code CodeSystem Substance Reaction Severity StartDate Concern Status Pollen Unknown Unknown active Dust Unknown Unknown active Care Team Name Role Address Phone Organization Dates Rick Méndez [facility]CP [facility] [address] [place] [address], [facility] [place] (Office): [facility] 04/15/2019 - 06/24/2019 [facility] [place] (Office): [facility] 04/15/2019 - 06/24/2019 Sugey Neumann [facility] [address] [place] [address], [facility], [facility] (Office): [facility] 04/15/2019 - 06/24/2019 Kiera Daigle [facility] [address] [place] [address], [facility], [place] (Office): [facility] 04/15/2019 - 06/24/2019 Goals Section Goals Description Status Target Date Ability to plan and go on a trip into the community using accessible public transportation. Active 07/20/2019 Adequate hydration, 8-10 glasses of fluid daily Active 07/20/2019 Adhere to prescribed diet Active 2019 Awareness of 8 community leisure resources of in [facility]. 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 e Active 07/20/2019 [...] completed tuberculin skin test; unspecified formulation lotNumber: [id number] expiry: 07/26/2021 Mfg: Nimbic (formerly [employer]) Given 0.1 ml Right Forearm intradermally Step 2 of Multi-step with next step required 98 CVX created date: 04/26/2019 consent date: 04/25/2019 administer ed date: 04/26/2019 TB 2 Step Mantoux Skin Test completed tuberculin skin test; unspecified formulation lotNumber: [id number] expiry: 09/24/2020 Mfg: [employer] Given 0.1 ml Left Forearm intradermally Step [...] 2018 - Lidocaine Patch 5 % active 7720392 RXNORM n/a n/a Topical one time a day Routine Apply to affect ed area topica lly one time a day for pain and remove per schedu le 2018 - Fluticasone Propionate Suspension 50 MCG/ACT active 8403561 RXNORM 2 spray Nasal one time a [...] - Tamsulosin HCl Capsule 0.4 MG active 078694 RXNORM 0.4 mg Oral one time a day Routine Give 0.4 mg by mouth one time a day for urinar y retens ion after a meal 2018 - Bisacodyl Suppository 10 MG active 705080 RXNORM 1 suppos itory Rectal one time [...] Sennosides-Do cusate Sodium Tablet 8.6-50 MG active 959254 RXNORM 2 tablet Oral as needed PRN [...] - Senokot S Tablet 8.6-50 MG active 6955593 RXNORM 2 tablet Oral one time a day Routine Give 2 tablet by mouth one time a day for contap ation 2018 - Tylenol Tablet active 1000 mg Oral three times a day Routine Give 1000 mg by mouth three times a day for pain per Dr Montgomery 2018 - Diclofenac Sodium Gel 1 % active 133246 RXNORM 1.5 gram Transde rmal as needed [...] CodeSystem Concern Status 1 ABNORMAL POSTURE [address] active 2 ADJUSTMENT DISORDER, UNSPECIFIED [address] active 3 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 [address] active 4 CONSTIPATION, UNSPECIFIED [address] active 5 DYSPHAGIA, OROPHARYNGEAL PHASE [address] active 6 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 [address] active 7 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 [address] active 8 HYPERLIPIDEMIA, UNSPECIFIED [address] active 9 INSOMNIA, UNSPECIFIED [address] active 10 MEMORY DEFICIT FOLLOWING CEREBRAL INFARCTION [address] active 11 MUSCLE WEAKNESS (GENERALIZED) [address] active 12 OTHER ALLERGIC RHINITIS [address] active 13 ACUTE EMBOLISM AND THROMBOSIS OF UNSPECIFIED DEEP VEINS OF UNSPECIFIED LOWER EXTREMITY [address] active 14 DYSPHAGIA FOLLOWING CEREBRAL INFARCTION [address] active 15 ESSENTIAL (PRIMARY) HYPERTENSION [address] active 16 GASTRO-ESOPHAGEAL REFLUX DISEASE WITHOUT ESOPHAGITIS [address] active 17 FCI (CURRENT) USE OF ANTICOAGULANTS [address] active 18 MILD COGNITIVE IMPAIRMENT OF UNCERTAIN OR UNKNOWN ETIOLOGY [address] active 19 NEUROGENIC BOWEL, NOT ELSEWHERE CLASSIFIED [address] active 20 NEUROMUSCULAR DYSFUNCTION OF BLADDER, UNSPECIFIED [address] active 21 OTHER ABNORMALITIES OF GAIT AND MOBILITY [address] active 22 OTHER REDUCED MOBILITY [address] active 23 UNSPECIFIED ATRIAL FIBRILLATION [address] active 24 HEMIPLEGIA, UNSPECIFIED AFFECTING LEFT NONDOMINANT SIDE [address] active 25 NONTRAUMATIC INTRACRANIAL HEMORRHAGE, UNSPECIFIED [address] active Reason for Referral No Reasons for Referral Entered Social History Social History Observation Description Start Date End Date Code Code System Current Smoking Status Tobacco smoking consumption unknown 422805504 SNOMED CT Sex Assigned At Male 1935 18139-3 [facility] Gender Identity Vital Signs Code Code System Vitals Name Values and Units Timing Information 8462-4 [facility] Blood Pressure-Diastolic Value=72 Un its=mmHg 06/24/2019 8480-6 [facility] Blood Pressure-Systolic Cmsbg=358 Un its=mmHg 06/24/2019 54964-3 [facility] Pain Level Value=0.0 06/24/2019 8310-5 [facility] Body Temperature Value=97.9 Units= F 06/24/2019 8867-4 [facility] Heart rate Value=70.0 Units=/min 9279-1 [facility] Respiratory Rate Value=18.0 Units=/m in 06/23/2019 97456-6 [facility] O2 % BldC Oximetry Value=96.0 Units= % 06/23/2019 17704-9 [facility] Weight Ygdfu=559.7 Units=Lbs 8302-2 [facility] Height Value=72.0 Units=Inches 04/19/2019
--- OUTSIDE RECORDS SUMMARY | 2024-11-14 17:09 | XMS_ITS ---
Author Name Interface, [id number] lity Address [address] [place] [address] Oncology Address [address] [place] [address] Allergies and Adverse Reactions Plan Reason for Visit Encounters Diagnostic Results Medications Problems Vital Signs
--- OUTSIDE RECORDS SUMMARY | 2024-11-14 17:09 | XMS_ITS ---
Author Name Interface, [id number] lity Address [address] [facility] [address] [place] [address] [facility] Oncology Address [address] [facility] [address] [place] [address] Allergies and Adverse Reactions Medication/Group Name Reaction Severity Date No known allergies Plan Date Type Value 11/20/2020 APPOINTMENT RC - 158 ARM 3 M [facility] RC - SCANS DONE PRIOR 11/20/2020 APPOINTMENT RC - 158 ARM 3 M [facility] RC - SCANS DONE PRIOR [...] W/ CONTRAST NPO 2 - CKIN: 8:45 [facility] 07/19/2020 APPOINTMENT CHTCK - 158 DID R/S PET SCAN? 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 SHADE CLASSIFIER - 158 SJ BY R EQ/MELANOMA - REF DR LANTIGUA 06/26/2020 APPOINTMENT SHADE CLASSIFIER - 158 SJ BY R EQ/MELANOMA - [...] attache alex 11/13 Misc other lab See electronic communications technician d Medications Date Name Route Dose Frequency [...]
--- OUTSIDE RECORDS SUMMARY | 2024-11-14 17:09 | XMS_ITS | Clinical Summary ---
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
--- OUTSIDE RECORDS SUMMARY | 2024-11-14 17:09 | XMS_ITS | Encounter Summary ---
Author Organization [facility] Address [address] [place] [address] Care Team Providers Care Door To Door Fundraising Collector Name Role Phone Elsewhere, Pcp Primary Care Provider Unavailabl e Encounter Details Date Type Department Care Team (Latest Contact Info) Description 09/29/2024 Clinical Communication Department of Cardiovascular Medicine in [place], [place] [address] [place] [address] Leti Whatley M.B.B.S. [address] [place] [address] Social History Tobacco Use Types Packs/Day Years [...] place to sleep or slept in a fci (including now)? No 10/03/2020 Depression Answer Date Recor ded PHQ-9 Total Score (max 27) 5 11/16 Education Answer Date Recorded What is the highest level of school you have completed or the highest degree you have received? 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
--- OUTSIDE RECORDS SUMMARY | 2024-11-14 17:09 | XMS_ITS | Encounter Summary ---
Author Organization [facility] Address [address] [place] [address] Care Team Providers Care Bankruptcy Processor Name Role Phone Elsewhere, Pcp Primary Care Provider Unavailabl e Reason for Visit * Reason Onset Date Comments telephone call 09/28/2024 Encounter Details Date Type Department Care Team (Latest Contact Info) Description 09/28/2024 Clinical Communication Department of Cardiovascular Medicine in [place], [place] [address] [place] [address] Leti Whatley M.B.B.S. [address] [place] [phone] telephone call Social History Tobacco Use Types [...] to sleep or slept in a senior care (including now)? No 10/03/2020 Depression Answer Date Recor ded PHQ-9 Total Score (max 27) 5 11/16 Education Answer Date Recorded What is the highest level of school you have completed or the highest degree you have received? 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
--- OUTSIDE RECORDS SUMMARY | 2024-11-14 17:09 | XMS_ITS | Encounter Summary ---
Author Organization [facility] Address [address] [place] [address] Care Team Providers Care [employer] Experimental Mechanic Name Role Phone Elsewhere, Pcp Primary Care Provider Unavailabl e Reason for Visit * Reason Onset Date Comments DEVICE REGISTRATION 09/29/2024 PPM GENERATO R CHANGE Encounter Details Date Type Department Care Team (Latest Contact Info) Description 09/29/2024 Clinical Communication Department of Cardiovascular Medicine in [place], [place] [address] [place] [address] Leti Whatley M.B.B.S. 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 PPM GENERATOR CHANGE Tracking number: Fed EX [id number] X [place] PPM & Leads- Include Explanted/Capped/Reused X Extra copy for Bhupendra Rausch; medical recrods @ ci; rs.[email or web address] X Create [place] Case X Manage [place] Items X exercise equipment specialist E-Form X Place copies in communication message documented in this encounter Plan of Treatment Not on file documented as of this encounter Visit Diagnoses Not on filedocumented in this encounter Additional Health Concerns Assessment Noted Time PHQ-9 Depression Total Score: 5 11/17/19 20 4:22 AM CDT documented as of this encounter Care Teams [employer] Experimental Mechanic Relationship Specialty Start Date End Date Elsewhere, Pcp PCP - General Internal Medicine 09/28/24 documented as of this encounter
--- OUTSIDE RECORDS SUMMARY | 2024-11-14 17:09 | XMS_ITS | Encounter Summary ---
Author Organization [facility] Address [address] [place] [address] Care Team Providers Care Flexographic Press Helper Name Role Phone Elsewhere, Pcp Primary Care Provider Unavailabl e Encounter Details Date Type Department Care Team (Late st Contact Info) Description 07/14/2008 Historical Ophthalmology [facility] Trav Monge M.D. [address] [place] [id number] Social History Tobacco Use Types Packs/Day Years Used Date Smoking Tobacco: Never Assessed Sex and Gender Information Value Date Recorded Sex Assigned at Not on file Legal Sex Male 5:41 AM CURATORIAL SPECIALIST Gender Identity Not on file Sexual [...] both eyes CDM Reports - EYEGEN Id: [id number] Status: Fnl documented in this encounter Plan [...] Pending 03/11/2020 03/11/2020 03/12/2020 1 2:31 AM CURATORIAL SPECIALIST COVID19 Pending 01/31/2021 02/01/2021 02/02/2021 9 :46 AM CDT documented as of this encounter Care Teams Flexographic Press Helper Relationship Specialty Start Date End Date Elsewhere, Pcp PCP - General Internal Medicine 09/28/24 documented as of this encounter
--- NOTE | 2024-11-14 17:21 | CRLHL7_ITS ---
For Patients: As a result of the Century Cures Act, medical imaging exams and procedure reports are released immediately into your electronic medical record. You may view this report before your referring provider. If you have questions, please contact your health care provider. INDICATION: Trauma. TECHNIQUE: CT chest, abdomen and pelvis acquired with 100 cc Omnipaque 350 IV contrast. COMPARISON: CT abdomen/pelvis, April 24, 2024. FINDINGS: CHEST: Cardiovascular structures: Cardiomegaly with coronary artery calcifications. Atrial appendage occlusion device. Thoracic aorta and main pulmonary artery are normal in caliber. Mediastinum and noah: No mass or adenopathy. Lungs and pleura: Pulmonary emphysema. Scattered atelectasis.. No suspicious nodules, infiltrates, or effusions. Chest wall and axilla: Left chest wall pacemaker device. No mass or adenopathy. Bones: Subtle left anterior 7th, 8th, 9th rib cortical buckling. Left shoulder arthroplasty causing streak artifact. Multiple chronic left-sided rib deformities. No acute fracture or dislocation. ABDOMEN AND PELVIS: Liver: Few scattered hepatic hypodensities. No sign of acute injury. Gallbladder and bile ducts: Unremarkable. Pancreas: Unremarkable. Spleen: Unremarkable. No sign of acute injury. Adrenal glands: Unremarkable. Kidneys: Tiny bilateral cortical hypodensities, too small to characterize. Tiny nonobstructing left renal pelvis stone. No hydronephrosis. GI tract: No bowel obstruction. Colonic diverticulosis without diverticulitis. Normal appendix.. Vascular structures: Aortoiliac arterial calcifications. Large infrarenal abdominal aortic aneurysm measuring 5.2 centimeters, not significantly changed since prior study. Mesenteric arteries are patent. Lymph nodes: Unremarkable. Miscellaneous: Unremarkable. No free air or significant free fluid. Pelvic Organs: Mildly distended bladder with posterior right diverticulum. Mild prostatomegaly. Bones: Bilateral hip arthroplasty causing streak artifact. Chronic right inferior pubic rami fracture. No acute fracture or dislocation. IMPRESSION: Subtle left anterior 7th, 8th, 9th rib cortical buckling, possibly nondisplaced fractures. Recommend correlation with point tenderness. Otherwise, no acute intrathoracic or intra-abdominal/pelvic abnormality. Pulmonary emphysema. Large 5.2 centimeter infrarenal abdominal aortic aneurysm, not significantly changed since prior study. Additional chronic findings as above. Please note that all CT scans at this facility use dose modulation, iterative reconstruction, and/or weight-based dosing when appropriate to reduce radiation dose to as low as reasonably achievable. Dictated by Valentino Bills MD @ 11/14/2024 9:01:33 PM (Electronically Signed)
--- NOTE | 2024-11-14 17:21 | CRLHL7_ITS ---
For Patients: As a result of the Cures Act, medical imaging exams and procedure reports are released immediately into your electronic medical record. You may view this report before your referring provider. If you have questions, please contact your health care provider. INDICATION: Trauma. TECHNIQUE: CT head without contrast. COMPARISON: November 28, 2022. FINDINGS: CSF spaces: Moderate diffuse parenchymal volume loss. Brain parenchyma and extra-axial spaces: Moderate chronic white matter ischemic disease with chronic right frontoparietal infarction. Additional chronic bilateral lacunar infarctions. The magallon-white differentiation is normal. No sign of mass, hemorrhage, or midline shift. No extra-axial fluid collection. Skull base and calvarium: The visualized paranasal sinuses and mastoid air cells demonstrate no acute or significant findings. The visualized orbits are grossly unremarkable. No skull fractures. IMPRESSION: No acute intracranial abnormality. Moderate diffuse parenchymal volume loss and chronic white matter ischemic disease. 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 Please note that all CT scans at this facility use dose modulation, iterative reconstruction, and/or weight-based dosing when appropriate to reduce radiation dose to as low as reasonably achievable. Dictated by Valentino Bills MD @ 11/14/2024 7:31:45 PM (Electronically Signed)
--- NOTE | 2024-11-14 17:21 | CRLHL7_ITS ---
For Patients: As a result of the Cures Act, medical imaging exams and procedure reports are released immediately into your electronic medical record. You may view this report before your referring provider. If you have questions, please contact your health care provider. INDICATION: Trauma. TECHNIQUE: CT cervical spine without contrast. COMPARISON: None. FINDINGS: Vertebrae: Alignment is normal. There are no fractures or suspicious bony lesions. Discs and facet joints: There are diffuse degenerative changes in the disc spaces and facet joints. Extraspinal findings: Paraspinous soft tissues are unremarkable. IMPRESSION: 1. No sign of acute injury. 2. Multilevel degenerative spondylosis. Please note that all CT scans at this facility use dose modulation, iterative reconstruction, and/or weight-based dosing when appropriate to reduce radiation dose to as low as reasonably achievable. Dictated by Valentino Bills MD @ 11/14/2024 7:35:00 PM (Electronically Signed)
[2024-11-14] MEDS: MORPHINE 4 MG/ML INJ IVP (17:49)
--- NOTE | 2024-11-14 18:14 | ED.FALL ---
HPI - Fall General Date Seen: 11/14/24 Chief Complaint: Fall/Minor Trauma Stated Complaint: Fall Time Seen by Provider: 11/14/24 17:13 Source: patient and EMS Mode of arrival: EMS History of Present Illness HPI Narrative: Patient is an 89-year-old male who presents emergency department after a fall that occurred earlier today. He was transferring from [facility] with a home health aide when he fell landed on left side. Patient has pain with continuing get were so home health care called 911 and the patient finally agreed to be seen. He is having pain left lower lateral ribs. Patient has had multiple strokes before and his is typically is full-time caregiver when home health aides are not there. She was admitted today for a hip fracture. They are looking into getting him into hospice care going forward. He denies any other injuries. He is able answer some questions appropriately Related Data Home Medications ?Medication ?Instructions ?Recorded ?Confirmed amlodipine 10 mg tablet 10 mg PO DAILY 06/28/22 11/01/24 donepezil 10 mg tablet 10 mg PO HS 06/28/22 11/01/24 metoprolol tartrate 25 mg tablet 25 mg PO BID 06/28/22 11/01/24 montelukast 10 mg tablet 10 mg PO HS 06/28/22 11/01/24 tamsulosin 0.4 mg capsule 0.4 mg PO DAILY 06/28/22 11/01/24 atorvastatin 40 mg tablet 40 mg PO HS 08/04/22 11/01/24 cholecalciferol (vitamin D3) 50 50 mcg PO DAILY 11/27/22 11/01/24 mcg (2,000 unit) tablet famotidine 20 mg tablet 20 mg PO BID 11/27/22 11/01/24 gabapentin 100 mg capsule 200 mg PO BID 04/24/24 11/01/24 sertraline 100 mg tablet 100 mg PO QAM 04/24/24 11/01/24 Previous Rx's ?Medication ?Instructions ?Recorded clopidogrel 75 mg tablet 75 mg PO DAILY #30 tabs 12/01/22 potassium chloride 10 mEq 10 meq PO DAILYWM #30 caps 12/01/22 capsule,extended release Allergies Allergy/AdvReac Type Severity Reaction Status Date / Time No Known Drug Allergies Allergy Verified 11/01/24 14:00 [facility] Medical History Impaired mobility ?Z74.09 - Other reduced mobility (ICD-10) Aspiration into airway ?T17.908A - Unspecified foreign body in respiratory tract, part unspecified causing other injury, initial encounter (ICD-10) GERD (gastroesophageal reflux disease) ?K21.9 - Gastro-esophageal reflux disease without esophagitis (ICD-10) Pacemaker ?Z95.0 - Presence of cardiac pacemaker (ICD-10) Nontraumatic thalamic hemorrhage ?I61.9 - Nontraumatic intracerebral hemorrhage, unspecified (ICD-10) EDUAR (obstructive sleep apnea) ?G47.33 - Obstructive sleep apnea (adult) (pediatric) (ICD-10) (HFpEF) heart failure with preserved ejection fraction ?I50.30 - Unspecified diastolic (congestive) heart failure (ICD-10) 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 ?K22.70 - 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 (ICD-10) History of right MCA stroke ?Z86.73 - Personal history of transient ischemic attack (TIA), and cerebral infarction without residual deficits (ICD-10) Malignant melanoma ?C43.9 - Malignant melanoma of skin, unspecified (ICD-10) Hyperlipidemia ?E78.5 - Hyperlipidemia, unspecified (ICD-10) Atrial fibrillation ?I48.91 - Unspecified atrial fibrillation (ICD-10) Presence of Watchman left atrial appendage closure device ?Z95.818 - Presence of other cardiac implants and grafts (ICD-10) Hypertension ?I10 - Essential (primary) hypertension (ICD-10) CVA (cerebral vascular accident) ?I63.9 - Cerebral infarction, unspecified (ICD-10) Surgical History H/O hernia repair ?Z98.890 - Other specified postprocedural states (ICD-10) ?Z87.19 - Personal history of other diseases of the digestive system (ICD-10) S/P placement of cardiac pacemaker ?Z95.0 - Presence of cardiac pacemaker (ICD-10) History of total knee arthroplasty ?Z96.659 - Presence of unspecified artificial knee joint (ICD-10) History of total hip arthroplasty ?Z96.649 - Presence of unspecified artificial hip joint (ICD-10) Social History Narrative: Lives with Hue (retired OT), she would be MDM if needed. 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 2 adult sons, one in [place]. Nonsmoker, rare/social scotch. Requests DNR/DNI status. What is your current living situation?: I presently have a place to live Problems where you live: no known problems Problems where you live details: n/a In the past 12 months, utilities in danger of being shut off: no In past 12 months, lack of transportation kept you from medical appts, meetings, work, or getting things needed for daily living: no In the past 12 mos, have been you worried that your food would run out before you had money to buy more?: never true In the past 12 mos, the food you bought just didn't last and you didn't have money to buy more?: never true Smoking Status: Never smoker How often do you have a drink containing alcohol: never How often do you have six or more drinks on one occasion: Never AUDIT-C Alcohol total score: 0 Non-prescribed substance use: denies use How often does anyone, including family, friends and others, physically hurt you: never How often does anyone, including family, friends and others, insult or talk down to you: never How often does anyone, including family, friends and others, threaten you with harm: never How often does anyone, including family, friends and others, scream or curse at you: never service: No Exam Const: Vital Signs, click to edit/add: Vital Signs - 24 hr 11/14/24 17:10 11/14/24 17:59 11/14/24 18:00 Temperature 97.8 F Pulse Rate 60 60 Pulse Rate [Right Apical] 60 Respiratory Rate 8 L 13 Blood Pressure 132/76 Blood Pressure [Ri ght Upper Arm] 122/77 Pulse Oximetry 96 91 93 Oxygen Delivery Me thod Room Air Room Air 11/14/24 18:15 11/14/24 18:30 11/14/24 18:45 Temperature Pulse Rate 59 L Pulse Rate [Right Apical] Respiratory Rate 13 13 15 Blood Pressure Blood Pressure [Ri ght Upper Arm] Pulse Oximetry 94 91 Oxygen Delivery Me thod 11/14/24 18:53 11/14/24 19:14 11/14/24 19:15 Temperature Pulse Rate 60 60 60 Pulse Rate [Right Apical] Respiratory Rate 12 13 12 Blood Pressure 133/82 Blood Pressure [Ri ght Upper Arm] Pulse Oximetry 93 91 93 Oxygen Delivery Me thod Room Air Course Vital Signs Vital signs: Initial Vital Signs Temperature 97.8 F 11/14/24 17:10 Temperature Source Temporal Artery Scan 11/14/24 17:10 Pulse Rate 60 11/14/24 17:10 Pulse Rhythm Regular 11/14/24 17:10 Blood Pressure 122/77 11/14/24 17:10 Blood Pressure Mean 92 11/14/24 17:10 Pulse Oximetry 96 11/14/24 17:10 Oxygen Delivery Method Room Air 11/14/24 17:10 Vital Signs Temperature 97.8 F 11/14/24 17:10 Pulse Rate 60 11/14/24 17:10 Blood Pressure 122/77 11/14/24 17:10 Pulse Oximetry 96 11/14/24 17:10 Oxygen Delivery Method Room Air 11/14/24 17:10 Temperature 97.8 F 11/14/24 17:10 Pulse Rate 60 11/14/24 19:15 Respiratory Rate 12 11/14/24 19:15 Blood Pressure 133/82 11/14/24 18:53 Pulse Oximetry 93 11/14/24 19:15 Oxygen Delivery Method Room Air 11/14/24 18:53 Medications Administered Medications: Discontinued Medications Generic Name Dose Route Start Last Admin Trade Name Freq PRN Reason Stop Dose Admin Morphine Sulfate 4 mg 11/14/24 17:38 11/14/24 17:49 Morphine 4 Mg/Ml Inj IVP 11/14/24 17:39 4 mg ONCE ONE Administration MDM - Fall MDM Narrative Medical decision making narrative: Patient is an 89-year-old male presenting to the emergency department after a fall. Will do a CT scan of his head, cervical spine chest abdomen pelvis. They are working on getting him in hospice care but is not yet in hospice care. Will do some basic labs also. CBC and BMP showed no concerning abnormalities. CT scan head and cervical spine showed no acute abnormalities. EKG shows no acute concerning findings. I spoke with the patient's son and he states they are unable to care for him tonight. I informed him that if he would be admitted would be an observation admission and what that would entail. He states he understands. I stated that the patient discharge tomorrow morning and he states he will have care for him set up by tomorrow morning. I spoke to Dr. Claudio who accepted the patient for admission. CT chest abdomen pelvis read is still pending. He is okay with accepted him at this time considering the patient is working toward hospice care. Lab Data Labs: Lab Results 11/14/24 Range/Units 18:04 WBC 8.51 (4.50-11.00) K/uL RBC 4.01 L (4.30-5.90) m/uL Hgb 12.9 L (13.5-17.5) gm/dL Hct 38.9 (37.0-53.0) % MCV 97 (80-100) fL MCH 32 (26-34) pg MCHC 33 (32-36) gm/dL RDW Coeff of Aiden 12.0 (11.5-15.5) % Plt Count 160 (140-440) K/uL Neut % (Auto) 81.5 H (42.0-72.0) % Lymph % (Auto) 7.9 L (20-44) % Lares % (Auto) 9.3 (0.0-11.0) % Eos % (Auto) 0.8 (0.0-7.0) % Baso % (Auto) 0.1 (0.0-3.0) % Neut # (Auto) 6.90 (1.7-7.0) K/uL Lymph # (Auto) 0.70 L (0.90-2.90) K/uL Lares # (Auto) 0.80 (0.00-0.90) K/UL Eos # (Auto) 0.07 (0.00-0.50) K/uL Baso # (Auto) 0.01 (0.00-0.30) K/uL Abs Immat Gran (auto) 0.03 (0.00-0.30) K/uL Imm/Tot Granulo (auto) 0.4 % Sodium 139 (135-149) mmol/L Potassium 4.6 (3.6-5.1) mmol/L Chloride 107 (96-114) mmol/L Carbon Dioxide 25 (20-32) mmol/L Anion Gap 7 (7-15) mEq/L BUN 27 (7-30) mg/dL Creatinine 1.0 (0.5-1.5) mg/dL Estimated Creat Clear 60.51 Estimated GFR 73 ml/min Glucose 96 (60-115) mg/dL Calcium 8.7 (8.4-10.6) mg/dL Troponin I < 0.01 (0.01-0.04) ng/mL Imaging Data CT scan head: Attestation: I have reviewed the pertinent imaging results. Radiologist's impression: No acute intracranial abnormality. Moderate diffuse parenchymal volume loss and chronic white matter ischemic disease. 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 Please note that all CT scans at this facility use dose modulation, iterative reconstruction, and/or weight-based dosing when appropriate to reduce radiation dose to as low as reasonably achievable. Dictated by Valentino Bills MD @ 11/14/2024 7:31:[address] scan cervical spine: Attestation: I have reviewed the pertinent imaging results. Radiologist's impression: 1. No sign of acute injury. 2. Multilevel degenerative spondylosis. Please note that all CT scans at this facility use dose modulation, iterative reconstruction, and/or weight-based dosing when appropriate to reduce radiation dose to as low as reasonably achievable. Dictated by Valentino Bills MD @ 11/14/2024 7:35:00 PM ECG Data Interpretation: Ventricular paced rhythm with rate 60 beats per minute, normal axis, no ST or T-wave abnormalities. Appears similar previous EKG on file Discharge Plan Discharge Clinical Impression: Difficulty performing activity of daily living (ADL) Patient Disposition: Admitted As Observation Condition: Stable
[2024-11-14 18:35] LABS: Chloride* 107 mmol/L (96-114); Sodium* 139 mmol/L (135-149)
[2024-11-14 18:36] LABS: Potassium* 4.6 mmol/L (3.6-5.1)
[2024-11-14 18:39] LABS: Anion Gap 7 mEq/L (7-15); Blood Urea Nitrogen* 27 mg/dL (7-30); Calcium* 8.7 mg/dL (8.4-10.6); Carbon Dioxide* 25 mmol/L (20-32); Creatinine* 1.0 mg/dL (0.5-1.5); Est. Creatinine Clearance* 60.51; Estimated Glomerular Filt Rate 73 ml/min; Glucose* 96 mg/dL (60-115); Hematocrit 38.9 % (37.0-53.0); Hemoglobin* 12.9 gm/dL (13.5-17.5); Immature Granulocytes Abs Auto 0.03 K/uL (0.00-0.30); Immature Granulocytes Pct Auto 0.4 %; Mean Corpuscular HGB Conc 33 gm/dL (32-36); Mean Corpuscular Hemoglobin 32 pg (26-34); Mean Corpuscular Volume 97 fL (80-100); RDW Coefficient of Variation % 12.0 % (11.5-15.5); Red Blood Count 4.01 m/uL (4.30-5.90); White Blood Count* 8.51 K/uL (4.50-11.00)
--- OUTSIDE RECORDS SUMMARY | 2024-11-14 18:40 | XMS_ITS ---
Author Name Interface, W0Evaulyd lity Address [address] [place] [address] [facility] Address [address] [place] [address] Allergies and Adverse Reactions Medication/Group Name Reaction Severity Date No known allergies Plan Date Type Value 11/20/2020 APPOINTMENT RC - 158 ARM 3 M [facility] RC - SCANS DONE PRIOR 11/20/2020 APPOINTMENT RC - 158 ARM 3 M [facility] RC - SCANS DONE PRIOR 11/13/2020 APPOINTMENT ULS - 158 CAP W. CONTRAST ULS AXILLA - CKIN: 8:15 NPO 2 HOURS 11/13/[address] - 158 CAP W. CONTRAST ULS AXILLA - CKIN: 8:15 NPO 2 HOURS 07/26/2020 APPOINTMENT CHTCK - [address] - [address] 07/25/[address] - 44 CT BRAIN W/ CONTRAST NPO 2 - CKIN: 8:45 [facility] 07/19/2020 APPOINTMENT CHTCK - 158 DID R/S PET SCAN? 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 SOCCER COACH - 158 SJ BY R EQ/MELANOMA - REF DR LANTIGUA 06/26/2020 APPOINTMENT SOCCER COACH - 158 SJ BY R EQ/MELANOMA - [...] Ordered By Specimen Source Lab Address 07/25 [facility] other lab [facility] 08/10 [facility] other lab [facility] 11/13 [facility] other lab [facility] Medications Date Name Route Dose Frequency [...]
--- OUTSIDE RECORDS SUMMARY | 2024-11-14 18:40 | XMS_ITS ---
Author Organization [facility] Care Team Providers Care Electromechanical Equipment Tester Name Role Phone Rick Méndez Unavailable Unavailable [place] Unavailable Unavailable Sugey Neumann Unavailable Unavailable Kiera Daigle Unavailable Unavailable Allergies and adverse reactions Code CodeSystem Substance Reaction Severity StartDate Concern Status Pollen Unknown Unknown active Dust Unknown Unknown active Care Team Name Role Address Phone Organization Dates Rick Méndez PCP [facility] [address] [place] [address], [facility], [place] (Office): [facility] 04/15/2019 - 06/24/2019 [facility] [place] (Office): [facility] 04/15/2019 - 06/24/2019 Sugey Neumann [facility] [address] [place] [address], [facility], [facility] (Office): [facility] 04/15/2019 - 06/24/2019 Kiera Daigle [facility] [address] [place] [address], [facility], [place] (Office): [facility] 04/15/2019 - 06/24/2019 Goals Section Goals Description Status Target Date Ability to plan and go on a trip into the community using accessible public transportation. Active 07/20/2019 Adequate hydration, 8-10 glasses of fluid daily Active 07/20/2019 Adhere to prescribed diet Active 2019 Awareness of 8 community leisure resources of in [facility]. 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 Active 07/20/2019 [...] completed tuberculin skin test; unspecified formulation lotNumber: [id number] expiry: 07/26/2021 Mfg: Kahub Given 0.1 ml Right Forearm intradermally Step 2 of Multi-step with next step required 98 CVX created date: 04/26/2019 consent date: 04/25/2019 administer ed date: 04/26/2019 TB 2 Step Mantoux Skin Test completed tuberculin skin test; unspecified formulation lotNumber: [id number] expiry: 09/24/2020 Mfg: [employer] Given 0.1 ml Left Forearm intradermally Step [...] 2018 - Lidocaine Patch 5 % active 7819006 RXNORM n/a n/a Topical one time a day Routine Apply to affect ed area topica lly one time a day for pain and remove per schedu le 2018 - Fluticasone Propionate Suspension 50 MCG/ACT active 6487062 RXNORM 2 spray Nasal one time a [...] - Tamsulosin HCl Capsule 0.4 MG active 063444 RXNORM 0.4 mg Oral one time a day Routine Give 0.4 mg by mouth one time a day for urinar y retens ion after a meal 2018 - Bisacodyl Suppository 10 MG active 849681 RXNORM 1 suppos itory Rectal one time [...] Sennosides-Do cusate Sodium Tablet 8.6-50 MG active 083188 RXNORM 2 tablet Oral as needed PRN [...] - Senokot S Tablet 8.6-50 MG active 1213133 RXNORM 2 tablet Oral one time a day Routine Give 2 tablet by mouth one time a day for contap ation 2018 - Tylenol Tablet active 1000 mg Oral three times a day Routine Give 1000 mg by mouth three times a day for pain per Dr Montgomery 2018 - Diclofenac Sodium Gel 1 % active 016706 RXNORM 1.5 gram Transde rmal as needed [...] CodeSystem Concern Status 1 ABNORMAL POSTURE [address] active 2 ADJUSTMENT DISORDER, UNSPECIFIED [address] active 3 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 [address] active 4 CONSTIPATION, UNSPECIFIED [address] active 5 DYSPHAGIA, OROPHARYNGEAL PHASE [address] active 6 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 [address] active 7 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 [address] active 8 HYPERLIPIDEMIA, UNSPECIFIED [address] active 9 INSOMNIA, UNSPECIFIED [address] active 10 MEMORY DEFICIT FOLLOWING CEREBRAL INFARCTION [address] active 11 MUSCLE WEAKNESS (GENERALIZED) [address] active 12 OTHER ALLERGIC RHINITIS [address] active 13 ACUTE EMBOLISM AND THROMBOSIS OF UNSPECIFIED DEEP VEINS OF UNSPECIFIED LOWER EXTREMITY [address] active 14 DYSPHAGIA FOLLOWING CEREBRAL INFARCTION [address] active 15 ESSENTIAL (PRIMARY) HYPERTENSION [address] active 16 GASTRO-ESOPHAGEAL REFLUX DISEASE WITHOUT ESOPHAGITIS [address] active 17 [facility] (CURRENT) USE OF ANTICOAGULANTS [address] active 18 MILD COGNITIVE IMPAIRMENT OF UNCERTAIN OR UNKNOWN ETIOLOGY [address] active 19 NEUROGENIC BOWEL, NOT ELSEWHERE CLASSIFIED [address] active 20 NEUROMUSCULAR DYSFUNCTION OF BLADDER, UNSPECIFIED [address] active 21 OTHER ABNORMALITIES OF GAIT AND MOBILITY [address] active 22 OTHER REDUCED MOBILITY [address] active 23 UNSPECIFIED ATRIAL FIBRILLATION [address] active 24 HEMIPLEGIA, UNSPECIFIED AFFECTING LEFT NONDOMINANT SIDE [address] active 25 NONTRAUMATIC INTRACRANIAL HEMORRHAGE, UNSPECIFIED [address] active Reason for Referral No Reasons for Referral Entered Social History Social History Observation Description Start Date End Date Code Code System Current Smoking Status Tobacco smoking consumption unknown 336363598 SNOMED CT Sex Assigned At Male 1935 59899-8 [facility] Gender Identity Vital Signs Code Code System Vitals Name Values and Units Timing Information 8462-4 [facility] Blood Pressure-Diastolic Value=72 Un its=mmHg 06/24/2019 8480-6 [facility] Blood Pressure-Systolic Kobyu=586 Un its=mmHg 06/24/2019 56095-8 [facility] Pain Level Value=0.0 06/24/2019 8310-5 [facility] Body Temperature Value=97.9 Units= F 06/24/2019 8867-4 [facility] Heart rate Value=70.0 Units=/min 9279-1 [facility] Respiratory Rate Value=18.0 Units=/m in 06/23/2019 40510-7 [facility] O2 % BldC Oximetry Value=96.0 Units= % 06/23/2019 91486-9 [facility] Weight Obppx=489.7 Units=Lbs 8302-2 [facility] Height Value=72.0 Units=Inches 04/19/2019
--- OUTSIDE RECORDS SUMMARY | 2024-11-14 18:41 | XMS_ITS | CCD ---
Author Name Interface, [id number] lity Address [address] [place] [address] Organization [facility] Address [address] [place] [address] Care Team Providers Care Childcare Provider Name Role Phone Mike BEASLEY, Moreno Unavailable [...]
--- OUTSIDE RECORDS SUMMARY | 2024-11-14 18:41 | XMS_ITS | CCD ---
Author Name Interface, [id number] lity Address [address] [place] [address] [place] [address] Care Team Providers Care Jai Alai Player Name Role Phone Mike BEASLEY, Moreno Unavailable Unavailable Roderick DAVIES, Castro Unavailable Unavai lable Allergies and Adverse Reactions Reason for Visit Medications Problems Social History
--- OUTSIDE RECORDS SUMMARY | 2024-11-14 18:41 | XMS_ITS ---
Author Name Interface, [id number] lity Address [address] [facility] [address] [place] [address] [facility] Address [address] [facility] [address] [place] [address] Allergies and Adverse Reactions Medication/Group Name Reaction Severity Date No known allergies Plan Date Type Value 11/20/2020 APPOINTMENT RC - 158 ARM 3 M [facility] RC - SCANS DONE PRIOR 11/20/2020 APPOINTMENT RC - 158 ARM 3 M [facility] RC - SCANS DONE PRIOR 11/13/2020 [...] W/ CONTRAST NPO 2 - CKIN: 8:45 [facility] 07/19/2020 APPOINTMENT CHTCK - 158 DID R/S PET SCAN? 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 JAR CAPPER - 158 SJ BY R EQ/MELANOMA - REF DR LANTIGUA 06/26/2020 APPOINTMENT JAR CAPPER - 158 SJ BY R EQ/MELANOMA - [...] Ordered By Specimen Source Lab Address 07/25 [facility] other lab See protector plate attacher d 08/10 [facility] other lab See protector plate attacher d 11/13 [facility] other lab See protector plate attacher d Medications Date Name Route Dose Frequency [...]
--- OUTSIDE RECORDS SUMMARY | 2024-11-14 18:41 | XMS_ITS ---
Author Name Interface, [id number] lity Address [address] [facility] [address] [place] [address] [facility] Address [address] [facility] [address] [place] [address] Allergies and Adverse Reactions Medication/Group Name Reaction Severity Date No known allergies Plan Date Type Value 11/20/2020 APPOINTMENT RC - 158 ARM 3 M [facility] RC - SCANS DONE PRIOR 11/20/2020 APPOINTMENT RC - 158 ARM 3 M [facility] RC - SCANS DONE PRIOR 11/13/2020 [...] W/ CONTRAST NPO 2 - CKIN: 8:45 [facility] 07/19/2020 APPOINTMENT CHTCK - 158 DID R/S PET SCAN? 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 LABORER CHEESEMAKING - 158 SJ BY R EQ/MELANOMA - REF DR LANTIGUA 06/26/2020 APPOINTMENT LABORER CHEESEMAKING - 158 SJ BY R EQ/MELANOMA - [...] attache alex 11/13 Misc other lab See drafter assistant d Medications Date Name Route Dose Frequency [...]
--- OUTSIDE RECORDS SUMMARY | 2024-11-14 18:41 | XMS_ITS ---
Author Name Interface, [id number] lity Address [address] [facility] [address] [place] [address] [facility] Address [address] [facility] [address] [place] [address] Allergies and Adverse Reactions Medication/Group Name Reaction Severity Date No known allergies Plan Date Type Value 11/20/2020 APPOINTMENT RC - 158 ARM 3 M [facility] RC - SCANS DONE PRIOR 11/20/2020 APPOINTMENT RC - 158 ARM 3 M [facility] RC - SCANS DONE PRIOR 11/13/2020 [...] W/ CONTRAST NPO 2 - CKIN: 8:45 [facility] 07/19/2020 APPOINTMENT CHTCK - 158 DID R/S PET SCAN? 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
[2024-11-14 18:52] LABS: Lymphocytes Absolute Auto 0.70 K/uL (0.90-2.90); Slide Review Reflex No
--- NOTE | 2024-11-14 21:03 | PM.IMHP1 ---
Assessment and Plan Assessment and plan (1) Ribs, multiple fractures: Problem comment: 11/14/2024: Left 7th 8th and 9th rib fractures Status: Acute (2) Impaired mobility: Problem comment: Patient does not walk. manages transfers. Has cook helper pastry in the home for several hours a day to assist with this as well. She would like to take him home again and continue caring for him. She uses EMS as a resource when he falls and she can not get him up on her own. Status: Acute (3) Dementia: Status: Acute (4) Aspiration into airway: Problem comment: - barium swallow 01/2024 exhibited aspiration of thin liquids - following this study, Famotidine restarted Status: Acute (5) Atrial fibrillation: Problem comment: - rate controlled on Metoprolol, paced - has Watchman device Status: Acute (6) AAA (abdominal aortic aneurysm), not a candidate for repair: Status: Acute (7) Severe aortic stenosis by prior echocardiography: Status: Acute (8) Palliative care encounter: Problem comment: According to the patient's and patient's primary care physician his goals of care have been changed to comfort care and he has been referred to hospice. This has occurred in the last week. Status: Acute (9) Discharge planning issues: Problem comment: Patient is cared for at home with his and hired part-time in-home assistance. Nonambulatory and demented. is hospitalized and unable to care for him, probably for a few weeks. Family has recently requested hospice enrollment. Status: Acute Plan Patient admitted to the hospital for management of multiple rib fractures. Attention to respiratory status and pain management. Will need to engage sr. social media & mobile manager to make determination about discharge planning. Total Time Spent Total Time Spent: Total time spent today is 85 minutes in reviewing outside records, coordinating care, discussion with patient and family about ongoing management of rib fractures, relatively severe and complicated disabilities and palliative care Hospitalist- H&P: HPI History of Present Illness Date Seen: 11/14/24 Chief complaint: Fall Narrative: Willie Ahmadi is a 89 year old male nonambulatory with history of previous strokes admitted to the hospital after a fall at home. Patient's is his primary caregiver. They live together at home and have hired in-home assistance. She came to the hospital today to get meals for them. While she was here she fell and broke her femur. Shortly after her fall he was being transferred at home and fell on his left side. He was brought to the emergency room for evaluation. Patient has dementia and is unable to give much history beyond knowing that he fell today. He he indicates that he is having pain over his left lower chest. He reports no other pain or injury. He reports no shortness of breath. He reports no other symptoms of illness. His son reports there is no one to stay home with him tonight. Review of Systems Narrative: Due to dementia unable to get much more information except as noted above. Medical Decision Making Medical Decision Making Code Status: DNR During This Stay, Who Would You Like To Make Decisions For You In The Event You Are Unable To Make Them For Yourself?: His Shilpa, also hospitalized here [facility] Medical History (Updated 11/14/24 @ 21:28 by Mynor Claudio MD) Discharge planning issues ?Z75.8 - Other problems related to medical facilities and other health care (ICD-10) Dementia ?F03.90 - Unspecified dementia, unspecified severity, without behavioral disturbance, psychotic disturbance, mood disturbance, and anxiety (ICD-10) Ribs, multiple fractures ?S22.49XA - Multiple fractures of ribs, unspecified side, initial encounter for closed fracture (ICD-10) Palliative care encounter ?Z51.5 - Encounter for palliative care (ICD-10) Severe aortic stenosis by prior echocardiography ?I35.0 - Nonrheumatic aortic (valve) stenosis (ICD-10) AAA (abdominal aortic aneurysm), not a candidate for repair ?I71.40 - Abdominal aortic aneurysm, without rupture, unspecified (ICD-10) Impaired mobility ?Z74.09 - Other reduced mobility (ICD-10) Aspiration into airway ?T17.908A - Unspecified foreign body in respiratory tract, part unspecified causing other injury, initial encounter (ICD-10) GERD (gastroesophageal reflux disease) ?K21.9 - Gastro-esophageal reflux disease without esophagitis (ICD-10) Pacemaker ?Z95.0 - Presence of cardiac pacemaker (ICD-10) Nontraumatic thalamic hemorrhage ?I61.9 - Nontraumatic intracerebral hemorrhage, unspecified (ICD-10) EDUAR (obstructive sleep apnea) ?G47.33 - Obstructive sleep apnea (adult) (pediatric) (ICD-10) (HFpEF) heart failure with preserved ejection fraction ?I50.30 - Unspecified diastolic (congestive) heart failure (ICD-10) 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 ?K22.70 - 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 (ICD-10) History of right MCA stroke ?Z86.73 - Personal history of transient ischemic attack (TIA), and cerebral infarction without residual deficits (ICD-10) Malignant melanoma ?C43.9 - Malignant melanoma of skin, unspecified (ICD-10) Hyperlipidemia ?E78.5 - Hyperlipidemia, unspecified (ICD-10) Atrial fibrillation ?I48.91 - Unspecified atrial fibrillation (ICD-10) Presence of Watchman left atrial appendage closure device ?Z95.818 - Presence of other cardiac implants and grafts (ICD-10) Hypertension ?I10 - Essential (primary) hypertension (ICD-10) CVA (cerebral vascular accident) ?I63.9 - Cerebral infarction, unspecified (ICD-10) Surgical History H/O hernia repair ?Z98.890 - Other specified postprocedural states (ICD-10) ?Z87.19 - Personal history of other diseases of the digestive system (ICD-10) S/P placement of cardiac pacemaker ?Z95.0 - Presence of cardiac pacemaker (ICD-10) History of total knee arthroplasty ?Z96.659 - Presence of unspecified artificial knee joint (ICD-10) History of total hip arthroplasty ?Z96.649 - Presence of unspecified artificial hip joint (ICD-10) Social History (Updated 11/14/24 @ 21:18 by Mynor Claudio MD) Narrative: Lives with Hue (retired OT), she would be MDM if needed. 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 2 adult sons, one in [place]. Nonsmoker, rare/social scotch. Requests DNR/DNI status. November 2024 decision was made to change goals of care to comfort care and he has been referred to hospice. No longer seeking evaluation or treatment for his severe aortic stenosis or AAA. He has had multiple strokes leaving him quite disabled. He requires assistance with transfers from bed to chair. He is nonambulatory. His has hired in-home assistance for a few hours each day to help with his cares. She is currently hospitalized and disabled with a femur fracture. What is your current living situation?: I presently have a place to live Problems where you live: no known problems Problems where you live details: n/a In the past 12 months, utilities in danger of being shut off: no In past 12 months, lack of transportation kept you from medical appts, meetings, work, or getting things needed for daily living: no In the past 12 mos, have been you worried that your food would run out before you had money to buy more?: never true In the past 12 mos, the food you bought just didn't last and you didn't have money to buy more?: never true Smoking Status: Never smoker How often do you have a drink containing alcohol: never How often do you have six or more drinks on one occasion: Never AUDIT-C Alcohol total score: 0 Non-prescribed substance use: denies use How often does anyone, including family, friends and others, physically hurt you: never How often does anyone, including family, friends and others, insult or talk down to you: never How often does anyone, including family, friends and others, threaten you with harm: never How often does anyone, including family, friends and others, scream or curse at you: never service: No Meds Home Medications and Allergies Home Medications ?Medication ?Instructions ?Recorded ?Confirmed ?Type amlodipine 10 mg tablet 10 mg PO DAILY 06/28/22 11/01/24 History donepezil 10 mg tablet 10 mg PO HS 06/28/22 11/01/24 History metoprolol tartrate 25 mg tablet 25 mg PO BID 06/28/22 11/01/24 History montelukast 10 mg tablet 10 mg PO HS 06/28/22 11/01/24 History tamsulosin 0.4 mg capsule 0.4 mg PO DAILY 06/28/22 11/01/24 History atorvastatin 40 mg tablet 40 mg PO HS 08/04/22 11/01/24 History cholecalciferol (vitamin D3) 50 50 mcg PO DAILY 11/27/22 11/01/24 History mcg (2,000 unit) tablet famotidine 20 mg tablet 20 mg PO BID 11/27/22 11/01/24 History clopidogrel 75 mg tablet 75 mg PO DAILY #30 tabs 12/01/22 11/01/24 Rx potassium chloride 10 mEq 10 meq PO DAILYWM #30 caps 12/01/22 11/01/24 Rx capsule,extended release gabapentin 100 mg capsule 200 mg PO BID 04/24/24 11/01/24 History sertraline 100 mg tablet 100 mg PO QAM 04/24/24 11/01/24 History Allergies Allergy/AdvReac Type Severity Reaction Status Date / Time No Known Drug Allergies Allergy Verified 11/01/24 14:00 Exam Narrative: Exam Narrative: He is alert but not oriented to his circumstances. Speech is fluent but he gives little information. Primarily answers 'I do not know,' to my inquiries. Head is without visible or palpable trauma. Eyes normal. No new facial asymmetry. Oropharynx with dry mucous membranes. Neck is nontender. Minimal motion in his neck. Respirations are clear to auscultation. Cardiovascular: S1, S2, 2/6 systolic ejection murmur. Best heard at the right upper sternal border. Pacemaker noted in the left upper chest. He has tenderness over the left lower ribs about the from the anterior axillary line to the mid axillary line near the costal margin. No obvious bruising or deformity is noted but exquisite tenderness to palpation. Abdomen has minimal tenderness in the left upper quadrant. Otherwise nontender. This is suspected to be secondary to rib fractures. No abdominal mass. External genitalia normal. He moves all 4 extremities though limited motion and function in his left upper extremity. Const: Vital Signs, click to edit/add: Vital Signs - 24 hr 11/14/24 17:10 11/14/24 17:59 11/14/24 18:00 Temperature 97.8 F Pulse Rate 60 60 Pulse Rate [Right Apical] 60 Respiratory Rate 8 L 13 Blood Pressure 132/76 Blood Pressure [Ri ght Upper Arm] 122/77 Pulse Oximetry 96 91 93 Oxygen Delivery Me thod Room Air Room Air 11/14/24 18:15 11/14/24 18:30 11/14/24 18:45 Temperature Pulse Rate 59 L Pulse Rate [Right Apical] Respiratory Rate 13 13 15 Blood Pressure Blood Pressure [Ri ght Upper Arm] Pulse Oximetry 94 91 Oxygen Delivery Me thod 11/14/24 18:53 11/14/24 19:14 11/14/24 19:15 Temperature Pulse Rate 60 60 60 Pulse Rate [Right Apical] Respiratory Rate 12 13 12 Blood Pressure 133/82 Blood Pressure [Ri ght Upper Arm] Pulse Oximetry 93 91 93 Oxygen Delivery Me thod Room Air Documenting provider has reviewed patient's vital signs: yes Hospitalist - H&P: Result Labs Labs: Short CBC 11/14/24 Range/Units 18:04 WBC 8.51 (4.50-11.00) K/uL Hgb 12.9 L (13.5-17.5) gm/dL Hct 38.9 (37.0-53.0) % Plt Count 160 (140-440) K/uL BMP 11/14/24 18:04 Sodium 139 Potassium 4.6 Chloride 107 Carbon Dioxide 25 BUN 27 Creatinine 1.0 Glucose 96 Calcium 8.7 Cardiac Enzymes 11/14/24 Range/Units 18:04 Troponin I < 0.01 (0.01-0.04) ng/mL Imaging CT Chest/Ab/Pelvis: Radiologist's impression: NDICATION: Trauma. TECHNIQUE: CT chest, abdomen and pelvis acquired with 100 cc Omnipaque 350 IV contrast. COMPARISON: CT abdomen/pelvis, April 24, 2024. FINDINGS: CHEST: Cardiovascular structures: Cardiomegaly with coronary artery calcifications. Atrial appendage occlusion device. Thoracic aorta and main pulmonary artery are normal in caliber. Mediastinum and noah: No mass or adenopathy. Lungs and pleura: Pulmonary emphysema. Scattered atelectasis.. No suspicious nodules, infiltrates, or effusions. Chest wall and axilla: Left chest wall pacemaker device. No mass or adenopathy. Bones: Subtle left anterior 7th, 8th, 9th rib cortical buckling. Left shoulder arthroplasty causing streak artifact. Multiple chronic left-sided rib deformities. No acute fracture or dislocation. ABDOMEN AND PELVIS: Liver: Few scattered hepatic hypodensities. No sign of acute injury. Gallbladder and bile ducts: Unremarkable. Pancreas: Unremarkable. Spleen: Unremarkable. No sign of acute injury. Adrenal glands: Unremarkable. Kidneys: Tiny bilateral cortical hypodensities, too small to characterize. Tiny nonobstructing left renal pelvis stone. No hydronephrosis. GI tract: No bowel obstruction. Colonic diverticulosis without diverticulitis. Normal appendix.. Vascular structures: Aortoiliac arterial calcifications. Large infrarenal abdominal aortic aneurysm measuring 5.2 centimeters, not significantly changed since prior study. Mesenteric arteries are patent. Lymph nodes: Unremarkable. Miscellaneous: Unremarkable. No free air or significant free fluid. Pelvic Organs: Mildly distended bladder with posterior right diverticulum. Mild prostatomegaly. Bones: Bilateral hip arthroplasty causing streak artifact. Chronic right inferior pubic rami fracture. No acute fracture or dislocation. IMPRESSION: Subtle left anterior 7th, 8th, 9th rib cortical buckling, possibly nondisplaced fractures. Recommend correlation with point tenderness. Otherwise, no acute intrathoracic or intra-abdominal/pelvic abnormality. Pulmonary emphysema. Large 5.2 centimeter infrarenal abdominal aortic aneurysm, not significantly changed since prior study. Additional chronic findings as above. Echo: Radiologist's impression: Echocardiogram from 10/31/2024: Final Impressions: 1. Normal left ventricular size, mildly increased wall thickness, normal global systolic function, calculated EF of 61 %. 2. Right ventricular cavity size is moderately enlarged, global systolic RV function is borderline reduced. 3. Severely enlarged left atrium. 4. The aortic valve is trileaflet and calcified, severe stenosis and moderate regurgitation. The aortic valve peak velocity is 3.6 m/s, the peak gradient is 52 mmHg, and the mean gradient is 32 mmHg. The aortic valve area is 0.81 cm?? with a dimensionless index of 0.22. The stroke volume index is 31.7 ml/m??. 5. Tricuspid valve is normal, mild tricuspid regurgitation. 6. The mitral valve is sclerotic, no mitral regurgitation. 7. Trivial pericardial effusion. 8. Based on the echo findings, consider cardiology/valve consult. CT scan - head: Radiologist's impression: INDICATION: Trauma. TECHNIQUE: CT head without contrast. COMPARISON: November 28, 2022. FINDINGS: CSF spaces: Moderate diffuse parenchymal volume loss. Brain parenchyma and extra-axial spaces: Moderate chronic white matter ischemic disease with chronic right frontoparietal infarction. Additional chronic bilateral lacunar infarctions. The magallon-white differentiation is normal. No sign of mass, hemorrhage, or midline shift. No extra-axial fluid collection. Skull base and calvarium: The visualized paranasal sinuses and mastoid air cells demonstrate no acute or significant findings. The visualized orbits are grossly unremarkable. No skull fractures. IMPRESSION: No acute intracranial abnormality. Moderate diffuse parenchymal volume loss and chronic white matter ischemic disease. 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 Cervical spine CT: Radiologist's impression: INDICATION: Trauma. TECHNIQUE: CT cervical spine without contrast. COMPARISON: None. FINDINGS: Vertebrae: Alignment is normal. There are no fractures or suspicious bony lesions. Discs and facet joints: There are diffuse degenerative changes in the disc spaces and facet joints. Extraspinal findings: Paraspinous soft tissues are unremarkable. IMPRESSION: 1. No sign of acute injury. 2. Multilevel degenerative spondylosis.
[2024-11-14] MEDS: ATORVASTATIN CALCIUM 40 MG TABLET PO (22:05)
[2024-11-14] MEDS: MONTELUKAST 10 MG TABLET PO (22:06)
[2024-11-14] MEDS: ACETAMINOPHEN 325 MG TABLET 650 MG PO (22:06)
[2024-11-14] MEDS: GABAPENTIN 100 MG CAPSULE 200 MG PO (22:06)
[2024-11-14] MEDS: METOPROLOL TARTRATE 25 MG TABLET PO (22:06)
[2024-11-14] MEDS: DONEPEZIL 10 MG TABLET PO (22:06)
[2024-11-14] MEDS: FAMOTIDINE 20 MG TABLET PO (22:07)
[2024-11-14] MEDS: SODIUM CHLORIDE 0.9 % (FLUSH) 10 ML SYRINGE 5 ML IVF (22:07)
[2024-11-14] MEDS: ENOXAPARIN 40 MG/0.4 ML INJ SUBCUT (22:07)
--- NOTE | 2024-11-15 00:28 | PC.NURSE ---
End of Shift: Patient admitted to 245. Pleasant and cooperative. Afebrile. C/o pain in left lower chest 4/10 and PRN Oxycodone and Tylenol given x1. Turn and reposition in bed. Incontinent x1.
[2024-11-15] MEDS: ACETAMINOPHEN 325 MG TABLET 650 MG PO (03:14)
[2024-11-15 03:15] VITALS: BP 149/78; PULSE 61; RESP 18; TEMP 36.4; O2SAT 93
--- NOTE | 2024-11-15 06:17 | PC.NURSE ---
Pt is alert and oriented to self, place, year, and month, but has difficulties with recent memory. Afebrile. Pt reports 7-9/10 left sided rib pain, pain managed with PRN medications. Pt was turned and repositioned throughout night. Pt?s external catheter changed previous one detached. Pt was changed and cleaned and new blankets placed. ?
[2024-11-15] MEDS: LIDOCAINE 5% PATCH 1 PATCH TRANSDERMA (08:08)
[2024-11-15] MEDS: SODIUM CHLORIDE 0.9 % (FLUSH) 10 ML SYRINGE 5 ML IVF ×2 (08:42→21:00)
[2024-11-15] MEDS: ONDANSETRON 2 MG/ML inj 4 MG IVP (08:42)
[2024-11-15 09:17] VITALS: O2SAT 84
[2024-11-15] MEDS: POTASSIUM CHLORIDE 10 MEQ CAPSULE ER PO (09:39)
[2024-11-15] MEDS: FAMOTIDINE 20 MG TABLET PO ×2 (09:39→21:00)
[2024-11-15] MEDS: GABAPENTIN 100 MG CAPSULE 200 MG PO ×2 (09:39→20:59)
[2024-11-15] MEDS: METOPROLOL TARTRATE 25 MG TABLET PO ×2 (09:39→20:59)
[2024-11-15] MEDS: SERTRALINE 100 MG TABLET PO (09:40)
[2024-11-15] MEDS: CLOPIDOGREL 75 MG TABLET PO (09:40)
[2024-11-15] MEDS: AMLODIPINE 10 MG TABLET PO (09:40)
[2024-11-15] MEDS: TAMSULOSIN HCL 0.4 MG CAPSULE PO (09:40)
[2024-11-15 10:22] LABS: Appearance Urine Clear (Clear)
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
[2024-11-15 11:00] VITALS: PULSE 60; RESP 12; O2SAT 96
[2024-11-15 15:00] VITALS: BP 136/72; PULSE 61; RESP 12; TEMP 36.6; O2SAT 93
[2024-11-15] MEDS: ACETAMINOPHEN 325 MG TABLET 975 MG PO (15:37)
--- NOTE | 2024-11-15 16:46 | PC.SOCIAL ---
Discharge planning: Discussed discharge plan with and later with and two sons. All are in agreement that a [place] term stay [place] a [place] [facility] [place] for both pt and his who is also hospitalized will be the best discharge plan. After a short term stay, hopes they can return home with home appliance installer care as needed. Pt was scheduled to start hospice at home with [facility] tomorrow, but family is now requesting hospice be arranged at a [place] [facility] [place]. Called and sent information for pt and to [facility] and [facility]. Received confirmation from both facilities of availability for both patients for admit tomorrow. Met with pt's and sons who chose [facility] for admission tomorrow. Family is aware of private pay cost and in agreement with this. Family is requesting non-emergency ambulance transport for pt and to [facility] tomorrow morning.Family is fine paying privately for this transportation. [facility] is requesting arrival before 1:00. head worker received call from [facility] stating they are not currently contracted with [facility] but would reach out to see if [facility] is willing to make a one time contract for this patient. Spoke with son, Landon, who would be pleased if contract is available between [facility] and [facility], but is also agreeable to another contracted hospice being arranged. head worker to follow up as needed.
--- NOTE | 2024-11-15 19:28 | PC.NURSE ---
End of shift [id number] - Pt alert, oriented to self only. Pleasant and directable. Up with Katherine-Steady per PT. Reports pain in L side by vocalizing ow and that really hurts but is unable to rate pain on 1-10 scale. Given medication per JUL and ice pack in place to improve comfort. Pt behavior appears to indicate improvement with pt observed to sleep during shift. Tolerating O2 via nasal cannula to maintain saturation per MD order. Appears to be resting in bed at end of shift with call light in reach.
[2024-11-15 19:44] VITALS: BP 138/83; PULSE 60; RESP 18; TEMP 36.3; O2SAT 97
[2024-11-15] MEDS: DONEPEZIL 10 MG TABLET PO (20:59)
[2024-11-15] MEDS: ATORVASTATIN CALCIUM 40 MG TABLET PO (20:59)
[2024-11-15] MEDS: MONTELUKAST 10 MG TABLET PO (21:00)
[2024-11-15] MEDS: ENOXAPARIN 40 MG/0.4 ML INJ SUBCUT (21:00)
[2024-11-15 23:30] VITALS: BP 126/68; PULSE 60; RESP 18; TEMP 36.4; O2SAT 95
[2024-11-16 03:00] VITALS: PULSE 60; RESP 16; O2SAT 93
[2024-11-16] MEDS: ACETAMINOPHEN 325 MG TABLET 975 MG PO (04:40)
[2024-11-16 05:19] VITALS: RESP 16
--- NOTE | 2024-11-16 05:38 | PC.NURSE ---
Pt is alert and oriented to self and place but has difficulties with time intermittently. Afebrile. Pt reports ?moderate? pain in ribs on left side, pain managed with PRN medications. Pt was turned and repositioned throughout night. Pt's external brennan catheter was patent and draining. ??
[2024-11-16] MEDS: LIDOCAINE 5% PATCH 1 PATCH TRANSDERMA (08:08)
[2024-11-16 09:00] VITALS: BP 143/82; PULSE 60; RESP 14; TEMP 36.4; O2SAT 95
[2024-11-16] MEDS: TAMSULOSIN HCL 0.4 MG CAPSULE PO (09:05)
[2024-11-16] MEDS: SERTRALINE 100 MG TABLET PO (09:05)
[2024-11-16] MEDS: GABAPENTIN 100 MG CAPSULE 200 MG PO (09:05)
[2024-11-16] MEDS: FAMOTIDINE 20 MG TABLET PO (09:05)
[2024-11-16] MEDS: CLOPIDOGREL 75 MG TABLET PO (09:05)
[2024-11-16] MEDS: AMLODIPINE 10 MG TABLET PO (09:05)
[2024-11-16] MEDS: METOPROLOL TARTRATE 25 MG TABLET PO (09:05)
[2024-11-16] MEDS: POTASSIUM CHLORIDE 10 MEQ CAPSULE ER PO (09:07)
--- NOTE | 2024-11-16 09:34 | NUTR.NU ---
RDN with nutrition screen for positive MST indicating unsure of weight loss and nutritional supplement needed. Patient admitted with a fall with multiple rib fractures. Medical history includes, but not limited to impaired mobility, dementia, aspiration, atrial fibrillation, AAA, CVA, and GERD. Per engineering documentation specialist, patient is consuming 25-75% of meals recorded since admission. Current weight 177lbs, 6ft 2in, and BMI 22.8 kg/m2. Weight history does show weight loss with weight 208lbs 04/24/24. Plan is to discharge to [facility] and start [facility] today. Recommend regular diet as ordered as patient desires/tolerates. Nutrition assessment and intervention not appropriate at this time due to discharge this morning and patient/family goals of care. RDN will follow prn.
--- NOTE | 2024-11-16 09:58 | P.DS_ITS ---
DS: Providers Provider Date Seen: 11/16/24 Date of admission: 11/14/24 21:30 Primary care physician: Chandrika Sutton MD Admitting Clinician: Mynor Claudio MD Consults: PT, SW Attending Physician on discharge: Estrella Chan MD Date of Discharge: 11/16/24 DS: Diagnosis Discharge Diagnosis (1) Ribs, multiple fractures: Status: Acute Problem details: - 11/14/2024: Left 7th 8th and 9th rib fractures - General Surgery (Dr. Hsieh) aware of patient during stay, elected against formal trauma consult given goals of care (2) Dementia: Status: Acute Problem details: - moving towards palliative care focus, has appt with [facility] 11/16 (3) Aspiration into airway: Status: Acute Problem details: - barium swallow 01/2024 exhibited aspiration of thin liquids - following this study, Famotidine restarted (4) Atrial fibrillation: Status: Acute Problem details: - rate controlled on Metoprolol, paced - has Watchman device (5) Palliative care encounter: Status: Acute Problem details: - goals of care have been changed to comfort care and he has been referred to hospice. This has occurred just prior to admission, seeing [facility] at [facility] 11/16 (6) Discharge planning issues: Status: Acute Problem details: Patient is cared for at home with his and hired part-time in-home assistance. Non ambulatory and demented. is hospitalized and unable to care for him, probably for a few weeks. Family has recently requested hospice enrollment. 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 Comorbidities include , AAA, GERD, weakness, atrial fibrillation, h/o CVA. Recently made decision with family and PCP to transition to comfort focused care, has an intake appt with [facility] this week. Had been living at home with and extra caregivers; unfortunately, fell and broke her hip and was hospitalized 11/14. During stay, pain management with high dose APAP, Lidocaine patch, prn Oxycodone. Required short course of supplemental oxygen early 11/15, transitioned to RA and not requiring any oxygen upon discharge. Medically appropriate for d/c to [facility] in [place] on 11/16. Status at Discharge Functional status at discharge: wheelchair bound Overall status at discharge: patient is progressing back to baseline Time Spent with Patient Time attestation: Total time spent providing and/or coordinating discharge services: Time spent: Greater than 30 minutes Specific discharge activities: Medication reconciliation, multidisciplinary team discussion Exam Narrative: Exam Narrative: GEN: Awake and si tting in bedside c hair HEENT: + xant helasma L upper ey elid, no scleral i cterus, + EOMIs CV : RRR, + blowing h olosystolic murmur heard best at LSB R: Rales L chest, no wheezing, air movement adequate Chest: No crepitus , no concerning br uising, + Lidocain e patch Skin: Scat tered bruising on extremities, small R arm skin tear, hemostatic. Covere d with Vaseline, T elfa, and Coban Ne uro: Generalized w eakness from previ ous CVA, no restin g tremor Psych: Ap pears to have cogn itive impairment, otherwise appropri ate Const: Vital Signs, click to edit/add: Vital Signs - 24 hr 11/15/24 11:00 11/15/24 15:00 11/15/24 15:00 Temperature 97.8 F Pulse Rate [Left A pical] 60 61 Pulse Rate [Pulse Oximeter] Respiratory Rate 12 12 12 Blood Pressure [Le ft Arm] 136/72 Pulse Oximetry 96 93 93 Oxygen Delivery Me thod Room Air Room Air Room Air Oxygen Flow Rate 1 11/15/24 19:44 11/15/24 23:30 11/15/24 23:30 Temperature 97.4 F L Pulse Rate [Left A pical] Pulse Rate [Pulse Oximeter] 60 Respiratory Rate 18 18 18 Blood Pressure [Le ft Arm] 138/83 Pulse Oximetry 97 95 Oxygen Delivery Me thod Room Air Room Air Oxygen Flow Rate 11/15/24 23:30 11/16/24 03:00 11/16/24 05:19 Temperature 97.6 F Pulse Rate [Left A pical] Pulse Rate [Pulse Oximeter] 60 60 Respiratory Rate 18 16 16 Blood Pressure [Le ft Arm] 126/68 Pulse Oximetry 95 93 Oxygen Delivery Me thod Room Air Room Air Oxygen Flow Rate 11/16/24 09:00 Temperature 97.5 F L Pulse Rate [Left A pical] 60 Pulse Rate [Pulse Oximeter] Respiratory Rate 14 Blood Pressure [Le ft Arm] 143/82 H Pulse Oximetry 95 Oxygen Delivery Me thod Room Air Oxygen Flow Rate DS: Data Data Completed and Pending Completed studies during hospitalization: Procedures Inspection of Upper Intestinal Tract, Via Natural or Artificial Opening Endoscopic (04/24/24) Labs on day of discharge: Labs from last 24 hours 11/15/24 10:14 Urine Color Yellow Urine Appearance Clear Urine pH 5.5 Ur Specific [place] 1.020 Urine Protein Negative Urine Glucose (UA) Negative Urine Ketones Negative Urine Blood Negative Urine Nitrite Negative Urine Bilirubin Negative Urine Urobilinogen 0.2 Ur Leukocyte Esterase Negative Preliminary micro results at discharge 11/15/24 10:14 Urine Culture - Preliminary Urine,Clean Catch Discharge Plan Discharge Disposition: [facility] Date of Admission: 11/14/24 21:30 Attending Provider on Discharge: Estrella Chan Primary Care Provider: Chandrika Sutton Anticipated Discharge Date/Time: 11/16/24 08:57 Discharge Medications: New lidocaine 5 % Adhesive Patch,Medicated 1 patch transdermal Q24H Qty: 30 0RF oxycodone 5 mg Tablet 5 mg PO Q4H PRN (Reason: Pain) Qty: 20 0RF Continued donepezil 10 mg tablet 10 mg PO HS tamsulosin 0.4 mg capsule 0.4 mg PO DAILY amlodipine 10 mg tablet 10 mg PO DAILY montelukast 10 mg tablet 10 mg PO HS metoprolol tartrate 25 mg tablet 25 mg PO BID atorvastatin 40 mg tablet 40 mg PO HS sertraline 100 mg tablet 200 mg PO QAM gabapentin 100 mg capsule 200 mg PO DAILY nystatin 100,000 unit/gram cream 1 applic topical BID codeine-guaifenesin 10-100 mg/5 mL liquid 5 ml PO Q4H PRN (Reason: cough) melatonin 3 mg tablet 3 mg PO HS loratadine [Allergy Relief (loratadine)] 10 mg tablet 10 mg PO DAILY acetaminophen 500 mg tablet 1,000 mg PO Q6H PRN glycopyrrolate 1 mg tablet 1 mg PO BID famotidine 20 mg tablet 20 mg PO BID cholecalciferol (vitamin D3) 50 mcg (2,000 unit) tablet 50 mcg PO DAILY clopidogrel 75 mg Tablet 75 mg PO DAILY Qty: 30 0RF potassium chloride 10 mEq Capsule, Extended Release 10 meq PO DAILYWM Qty: 30 0RF Discontinued triamcinolone acetonide 0.1 % cream 1 applic topical 3XD oxycodone 5 mg tablet 5 mg PO Q6H PRN Discharge Orders: Discharge Order (Routine); Ordered 11/16/24 Ordered By: Estrella Chan Additional Instructions: For your LEFT sided broken ribs: - Tylenol 1000mg Q6H prn - Lidocaine patch daily - as needed Oxycodone for severe pain between Tylenol doses Other medications can be slowly discontinued as determined by Palliative care team. Activity Detail: Katherine webber for transfers Discharge Diet: Regular Diet Detail: monitor for aspiration given rib fractures Follow Up Appointments: Chandrika Sutton MD [Primary Care Provider, Family Practice] Forms: [facility] Info Instructions Discharge Comments: - no brennan, but does well with condom catheter or purewick overnight Admit to: SNF Discharge Potential: Poor Length of Stay: >90 days Code Status: DNR/DNI Rehab Potential: Fair Therapy: Physical Therapy and Occupational Therapy Oxygen: No Urinary Catheter: No Hospice Evaluate and Admit: Yes, Family has been working with [facility] Orders are good >30 days: Yes Signature: Estrella Chan MD
--- NOTE | 2024-11-16 10:37 | PC.NURSE ---
Shift Summary: Patient pleasant and cooperative. Up with 2 assist and margie steady. Vitals stable and WNL. Pain in left ribs managed with PRN and scheduled medication, see JUL. Intermittent cough noted which worsens pain. Lidocaine patch to right ribs. Skin care done this AM, patient changed and ready for discharge. Mepilex over abrasion to left knee C/D/I. IV removed from right forearm and gauze with bandaid placed, patient put recreational director light some time later, staff noted blood coming from right arm. Once cleaned up noted skin tear on side outer right side of bandaid, area cleansed, updated and non-adhesive dressing applied with gauze and coban. Nurse to nurse given to Mindy TRAN @ [place]. Patient discharged @ 1012 via EMS.
== END 2024-11-16 10:12 | DRG 184 ==
LOC: ED 20:30 → MEDSURG 20:51
PROVIDERS: Admitting Provider Family Medicine; Emergency Provider Student in an Organized Health Care Education/Training Program; PCP Family Medicine; Visit Provider Family Medicine
DX: S22.42XA Multiple fractures of ribs, left side, initial encounter for closed fracture (principal); V00.181A Fall from other rolling-type pedestrian conveyance, initial encounter; Y92.003 Bedroom of unspecified non-institutional (private) residence as the place of occurrence of the external cause; I50.30 Unspecified diastolic (congestive) heart failure; I11.0 Hypertensive heart disease with heart failure; Z99.3 Dependence on wheelchair; Z51.5 Encounter for palliative care; F03.90 Unspecified dementia, unspecified severity, without behavioral disturbance, psychotic disturbance, mood disturbance, and anxiety; I48.91 Unspecified atrial fibrillation; Z79.01 Long term (current) use of anticoagulants; I35.0 Nonrheumatic aortic (valve) stenosis; G47.33 Obstructive sleep apnea (adult) (pediatric); I71.40 Abdominal aortic aneurysm, without rupture, unspecified; K21.9 Gastro-esophageal reflux disease without esophagitis; E78.5 Hyperlipidemia, unspecified; Z95.818 Presence of other cardiac implants and grafts; Z95.0 Presence of cardiac pacemaker; Z86.73 Personal history of transient ischemic attack (TIA), and cerebral infarction without residual deficits
CPT/HCPCS: 36415; 51798; 70450; 71260; 72125; 74177; 80048; 81003; 84484; 85025; 87086; 93005; 94761; 97161; 99284; 99285; A9270; J1650; J2270; J2405; Q9967

== ENCOUNTER 2024-11-16 09:45 | Outpatient (CLI) | payer MEDICARE, OTHER, SELFPAY | END 2024-11-16 09:46 | disposition home or self-care (01) | PROVIDERS: PCP Family Medicine; Visit Provider Family Medicine | DX: S22.49XA Multiple fractures of ribs, unspecified side, initial encounter for closed fracture (principal); F03.90 Unspecified dementia, unspecified severity, without behavioral disturbance, psychotic disturbance, mood disturbance, and anxiety | CPT/HCPCS: A0425; A0428 ==